=== PATIENT | female | born 1945 | race Caucasian/White ===

== ENCOUNTER 2022-10-09 17:56 | Observation (INO) | payer MEDICARE ==
[2022-10-09 19:10] LABS: INR 0.9 (<1.2); Partial Thromboplastin Time 22.4 sec (22.0-30.0); Prothrombin Time 9.9 sec (9.0-12.0)
[2022-10-09 19:14] LABS: Appearance,Urine Clear (Clear); Bacteria,Urine Occasional /hpf; Bilirubin,Urine Negative (Negative); Blood,Urine Negative (Negative); Color,Urine Light Yellow; Glucose,Urine (UA) Negative (Negative); Ketones,Urine Negative (Negative); Leukocyte Esterase,Urine Moderate (Negative); Mucus,Urine Rare /hpf; Nitrite,Urine Negative (Negative); Protein,Urine Negative (Negative); RBC,Urine 1 /hpf (0-5); Specific Gravity,Urine 1.009 (1.001-1.035); Urobilinogen,Urine <2.0 mg/dL (<2.0); WBC,Urine 7 /hpf (0-5)
[2022-10-09 19:30] LABS: ALT 22 U/L (4-34); AST 24 U/L (14-36); African American GFR (CKD) >90 (>60 ml/min/1.73 sqM); Alkaline Phosphatase 90 U/L (38-126); Amylase 47 U/L (30-110); Anion Gap 6 mmol/L; Blood Urea Nitrogen 10 mg/dL (7-17); Calcium 9.3 mg/dL (8.4-10.2); Carbon Dioxide 31 mmol/L (22-30); Chloride 97 mmol/L (98-107); Glucose 95 mg/dL (74-99); Lipase 27 U/L (23-300); Non-African American GFR(CKD) >90 (>60 ml/min/1.73 sqM); Sodium 134 mmol/L (137-145); Total Bilirubin 0.6 mg/dL (0.2-1.3); Total Protein 6.7 g/dL (6.3-8.2)
--- NOTE | 2022-10-09 19:53 | XR ---
EXAMINATION TYPE: XR KUB DATE OF EXAM: 10/09/2022 COMPARISON: None INDICATION: Abdomen pain TECHNIQUE: Single view abdomen upright view FINDINGS: There are prominent air-filled loops of colon. No free air is identified. No differential air-fluid l evels are evident. Fecal debris is within the lower colon. Tubal ligation clips are within the hemipelves. No mass effect is evident. Psoas margins are normal. No organomegaly is present. Advanced degenerative changes at the right hip. Moderately advanced degenerative changes at the left hip. IMPRESSION: 1. Mild fecal retention with prominent air-filled loops of colon.
--- NOTE | 2022-10-09 20:24 | ED ---
General Adult HPI - General Source: patient, RN notes reviewed Mode of arrival: wheelchair Limitations: no limitations <Kenya Sanchez - Last Filed: 10/09/22 20:23> <Faisal Pedro - Last Filed: 10/10/22 01:48> - General Chief complaint: Abdominal Pain Stated complaint: abd pain - sent by urgent care Time Seen by Provider: 10/09/22 20:23 - History of Present Illness Initial comments: 77-year-old female presents the emergency department with right flank pain that started last night. She is also complaining of excessive burping. Denies any chest palpitations at this time (Kenya Sanchez) Patient is a 77-year-old female with past medical history remarkable for throat cancer, chronic pain, hypertension on oral morphine at home presents emergency Department complaining of right flank pain. Sent from urgent care. This is located at a focal point over her right flank that is worse with movement. Started 1 day ago and has not improved. Denies any nausea or vomiting with it. Denies any abdominal pain otherwise. Denies any diarrhea or chest pain or shortness breath. No known fevers. No dysuria or hematuria. No other acute complaints at this time. States her pain is severe. Presents for further evaluation. (Faisal Pedro) - Related Data Home Medications Medication Instructions Recorded Confirmed Albuterol Inhaler [Ventolin Hfa 2 puff INHALATION RT-Q6H PRN 10/09/22 10/09/22 Inhaler] Atorvastatin [Lipitor] 10 mg PO HS 10/09/22 10/09/22 Gabapentin 300 mg PO BID@0700,1300 10/09/22 10/09/22 Gabapentin 600 mg PO HS@2000 10/09/22 10/09/22 Morphine Sulfate ER [Ms Contin] 15 mg PO Q12HR 10/09/22 10/09/22 Propranolol [Inderal] 10 mg PO BID 10/09/22 10/09/22 Allergies Allergy/AdvReac Type Severity Reaction Status Date / Time bee venom protein (honey bee) Allergy Anaphylaxis Verified 10/09/22 22:26 Review of Systems ROS Other: All systems not noted in ROS Statement are negative. <Kenya Sanchez - Last Filed: 10/09/22 20:23> ROS Other: All systems not noted in ROS Statement are negative. <Faisal Pedro - Last Filed: 10/10/22 01:48> ROS Statement: Those systems with pertinent positive or pertinent negative responses have been documented in the HPI. Review of Systems: CONST: Denies fever EYES: Denies blurry vision ENT: Denies nasal congestion C/V: Denies Chest pain RESP: Denies shortness of breath GI: Endorses abdominal pain : Denies dysuria SKIN: Denies rash. MSK: Denies joint pain. NEURO: Denies headache (Faisal Pedro) Past Medical History Past Medical History: Cancer, Hypertension, Osteoarthritis (OA) Additional Past Medical History / Comment(s): throat ca History of Any Multi-Drug Resistant Organisms: None Reported Past Surgical History: Cholecystectomy Additional Past Surgical History / Comment(s): cervical fusion Smoking Status: Former smoker Past Alcohol Use History: None Reported Past Drug Use History: None Reported <Kenya Sanchez - Last Filed: 10/09/22 20:23> General Exam Limitations: no limitations <Kenya Sanchez - Last Filed: 10/09/22 20:23> <Faisal Pedro - Last Filed: 10/10/22 01:48> - General Exam Comments Initial Comments: Visual Physical Exam Vital signs reviewed General: Well-appearing, nontoxic, no acute distress. Head: Normocephalic, atraumatic Eyes: PERRLA, EOMI ENT: Airway patent Chest: Nonlabored breathing Skin: No visual rash, normal skin tone Neuro: Alert and oriented 3 Musculoskeletal: No gross abnormalities (Kenya Sanchez) General: Appears in moderate distress secondary to abdominal pain. HEAD: Normal with no signs of head trauma. EYES: PERRLA, EOMI, conjunctiva normal, no discharge. ENT: Hearing grossly intact, normal oropharynx. RESPIRATORY: Clear breath sounds bilaterally. No wheezes, rales, or rhonchi. C/V: Regular rate and rhythm. S1 and S2 auscultated, no edema, peripheral pulses 2+ and intact throughout ABD: Abdomen soft, nondistended. Tenderness to palpation located over the right flank and a focal area. No radiation of the pain. Worse with movement. No guarding. No peritoneal signs. No rebound tenderness. EXT: Normal range of motion, no obvious deformity SKIN: No rashes or lesions observed on exposed skin. NEURO: Alert and oriented 4. No focal deficits. (Faisal Pedro) Course Vital Signs 10/09/22 10/09/22 10/09/22 18:28 22:46 23:54 Temperature 98.1 F Pulse Rate 59 L 56 L 79 Respiratory 18 18 18 Rate Blood Pressure 143/66 144/64 141/106 O2 Sat by Pulse 97 96 96 Oximetry 10/10/22 00:58 Temperature Pulse Rate 71 Respiratory 18 Rate Blood Pressure 148/91 O2 Sat by Pulse 94 L Oximetry Medical Decision Making - Lab Data Result diagrams: 10/09/22 18:43 <Kenya Sanchez - Last Filed: 10/09/22 20:23> - Lab Data Result diagrams: 10/09/22 18:34 10/09/22 18:43 - EKG Data -: EKG Interpreted by Me <Faisal Pedro - Last Filed: 10/10/22 01:48> - Medical Decision Making Was pt. sent in by a medical professional or institution (, PA, ELECTRICAL SERVICE TECHNICIAN, urgent care, hospital, or group home...) When possible be specific @ -No Did you speak to anyone other than the patient for history (EMS, parent, family, police, friend...)? What history was obtained from this source @ -No Did you review nursing and triage notes (agree or disagree)? Why? @ -I reviewed and agree with nursing and triage notes Were old charts reviewed (outside hosp., previous admission, EMS record, old EKG, old radiological studies, urgent care reports/EKG's, group home records)? Report findings @ -No old charts were reviewed Differential Diagnosis (chest pain, altered mental status, abdominal pain women, abdominal pain men, vaginal bleeding, weakness, fever, dyspnea, syncope, headache, dizziness, GI bleed, back pain, seizure, CVA, palpatations, mental health, musculoskeletal)? @ -Differential Abdominal Pain Women: Appendicitis, Cholecystitis, diverticulosis, ischemic bowel, pancreatitis, hepatitis, UTI, gastroenteritis, AAA, incarcerated hernia, bowel obstruction, constipation, inflammatory bowel, hepatitis, peptic ulcer disease, splenic infarction, perforated viscus, vulvitis, ovarian torsion, PID, kidney stone, placenta abruption, this is not meant to be an all-inclusive list EKG interpreted by me (3pts min.). @ -As above X-rays interpreted by me (1pt min.). @ -KUB x-ray shows no obvious acute abdominal process CT interpreted by me (1pt min.). @ -CT abdomen and pelvis revealed no obvious acute injury abdominal process. Patient does have right sided renal cysts, as well as nonspecific bowel gas. Ra diology does know mild biliary prominence within the liver. U/S interpreted by me (1pt. min.). @ -Interpreted by radiology. Revealed no obvious acute process of the bladder or kidneys. Patient does have kidney cysts on the right. What testing was considered but not performed or refused? (CT, X-rays, U/S, labs)? Why? @ -None What meds were considered but not given or refused? Why? @ -None Did you discuss the management of the patient with other professionals (pro fessionals i.e. , PA, ELECTRICAL SERVICE TECHNICIAN, lab, RT, psych nurse, high school social studies tutor, meter shop superintendent, teacher, amphibious operations officer, case management coordinator)? Give summary @ -Discuss the case with the admitting physician, Dr. fernando who accepted the patient. Patient was city call admission. Was smoking cessation discussed for >3mins.? @ -No Was critical care preformed (if so, how long)? @ -No Were there social determinants of health that impacted care today? How? (Homelessness, low income, unemployed, alcoholism, drug addiction, transportation, low edu. Level, literacy, decrease access to med. care, nursing home, rehab)? @ -No Was there de-escalation of care discussed even if they declined (Discuss DNR or withdrawal of care, Hospice)? DNR status @ -No What co-morbidities impacted this encounter? (DM, HTN, Smoking, COPD, CAD, Cancer, CVA, ARF, Chemo, Hep., AIDS, mental health diagnosis, sleep apnea, morbid obesity)? @ -Chronic pain Was patient admitted / discharged? Hospital course, mention meds given and route, prescriptions, significant lab abnormalities, going to OR and other pertinent info. @ -Based on the patient's presentation and physical exam, patient was initially worked up as a quick note including abdominal laboratory studies as well as cardiac labs. Blood work has returned and is relatively unremarkable. Findings are within acceptable limits including an undetectable troponin. Urine is not conclusive for a UTI. No evidence of hematuria. No other findings on labs. K UB x-ray unremarkable. EKG shows no acute process. I did recommend a CT and pelvis at this time and we will symptomatically treated the patient with IV fluids and pain medications as well as IV Zofran and Protonix. She was in agreement this plan. CT imaging shows no obvious acute intra-abdominal process to explain her symptoms. We did add on an ultrasound of her kidney and bladder is which also shows no evidence of hydronephrosis or indirect evidence of kidney stones. Patient does have right sided renal cysts which would not explain her current symptoms. She still complaining of severe pain despite being dosed additional pain medications including gabapentin and Dilaudid. I recommended admission and observation for intractable pain. She was in agreement with this plan. Pain could be musculoskeletal in nature but patient is having no relief with analgesic medications. I spoke with the admitting physician, Dr. Fernando who accepted the patient. Undiagnosed new problem with uncertain prognosis? @ -No Drug Therapy requiring intensive monitoring for toxicity (Heparin, Nitro, Insulin, Cardizem)? @ -No Were any procedures done? @ -No Diagnosis/symptom? @ -Intractable abdominal pain of unknown etiology Acute, or Chronic, or Acute on Chronic? @ -Acute Uncomplicated (without systemic symptoms) or Complicated (systemic symptoms)? @ -Uncomplicated Side effects of treatment? @ -No Exacerbation, Progression, or Severe Exacerbation? @ -No Poses a threat to life or bodily function? How? (Chest pain, [place], [place], pneumonia, PE, COPD, DKA, ARF, appy, cholecystitis, CVA, Diverticulitis, Homicidal, Suicidal, threat to staff... and all critical care pts) @ -No (Faisal Pedro) - Lab Data Lab Results 10/09/22 10/09/22 10/09/22 Range/Units 18:34 18:34 18:43 WBC 7.2 (3.8-10.6) k/uL RBC 4.07 (3.80-5.40) m/uL Hgb 13.1 (11.4-16.0) gm/dL Hct 40.0 (34.0-46.0) % MCV 98.2 (80.0-100.0) fL MCH 32.2 (25.0-35.0) pg MCHC 32.8 (31.0-37.0) g/dL RDW 13.5 (11.5-15.5) % Plt Count 289 (150-450) k/uL MPV 9.3 Neutrophils % 66 % Lymphocytes % 15 % Monocytes % 15 % Eosinophils % 1 % Basophils % 1 % Neutrophils # 4.7 (1.3-7.7) k/uL Lymphocytes # 1.1 (1.0-4.8) k/uL Monocytes # 1.1 H (0-1.0) k/uL Eosinophils # 0.1 (0-0.7) k/uL Basophils # 0.0 (0-0.2) k/uL PT 9.9 (9.0-12.0) sec INR 0.9 (<1.2) APTT 22.4 (22.0-30.0) sec Sodium (137-145) mmol/L Potassium (3.5-5.1) mmol/L Chloride (98-107) mmol/L Carbon Dioxide (22-30) mmol/L Anion Gap mmol/L BUN (7-17) mg/dL Creatinine (0.52-1.04) mg/dL Est GFR (CKD-EPI)AfAm (>60 ml/min/1.73 sqM) Est GFR (CKD-EPI)NonAf (>60 ml/min/1.73 sqM) Glucose (74-99) mg/dL Calcium (8.4-10.2) mg/dL Total Bilirubin (0.2-1.3) mg/dL AST (14-36) U/L ALT (4-34) U/L Alkaline Phosphatase (38-126) U/L Troponin I <0.012 (0.000-0.034) ng/mL Total Protein (6.3-8.2) g/dL Albumin (3.5-5.0) g/dL Amylase (30-110) U/L Lipase (23-300) U/L Urine Color Urine Appearance (Clear) Urine pH (5.0-8.0) Ur Specific [place] (1.001-1.035) Urine Protein (Negative) Urine Glucose (UA) (Negative) Urine Ketones (Negative) Urine Blood (Negative) Urine Nitrite (Negative) Urine Bilirubin (Negative) Urine Urobilinogen (<2.0) mg/dL Ur Leukocyte Esterase (Negative) Urine RBC (0-5) /hpf Urine WBC (0-5) /hpf Urine Bacteria (None) /hpf Urine Mucus (None) /hpf 10/09/22 10/09/22 Range/Units 18:43 18:43 WBC (3.8-10.6) k/uL RBC (3.80-5.40) m/uL Hgb (11.4-16.0) gm/dL Hct (34.0-46.0) % MCV (80.0-100.0) fL MCH (25.0-35.0) pg MCHC (31.0-37.0) g/dL RDW (11.5-15.5) % Plt Count (150-450) k/uL MPV Neutrophils % % Lymphocytes % % Monocytes % % Eosinophils % % Basophils % % Neutrophils # (1.3-7.7) k/uL Lymphocytes # (1.0-4.8) k/uL Monocytes # (0-1.0) k/uL Eosinophils # (0-0.7) k/uL Basophils # (0-0.2) k/uL PT (9.0-12.0) sec INR (<1.2) APTT (22.0-30.0) sec Sodium 134 L (137-145) mmol/L Potassium 4.0 (3.5-5.1) mmol/L Chloride 97 L (98-107) mmol/L Carbon Dioxide 31 H (22-30) mmol/L Anion Gap 6 mmol/L BUN 10 (7-17) mg/dL Creatinine 0.55 (0.52-1.04) mg/dL Est GFR (CKD-EPI)AfAm >90 (>60 ml/min/1.73 sqM) Est GFR (CKD-EPI)NonAf >90 (>60 ml/min/1.73 sqM) Glucose 95 (74-99) mg/dL Calcium 9.3 (8.4-10.2) mg/dL Total Bilirubin 0.6 (0.2-1.3) mg/dL AST 24 (14-36) U/L ALT 22 (4-34) U/L Alkaline Phosphatase 90 (38-126) U/L Troponin I (0.000-0.034) ng/mL Total Protein 6.7 (6.3-8.2) g/dL Albumin 4.0 (3.5-5.0) g/dL Amylase 47 (30-110) U/L Lipase 27 (23-300) U/L Urine Color Light Yellow Urine Appearance Clear (Clear) Urine pH 7.0 (5.0-8.0) Ur Specific [place] 1.009 (1.001-1.035) Urine Protein Negative (Negative) Urine Glucose (UA) Negative (Negative) Urine Ketones Negative (Negative) Urine Blood Negative (Negative) Urine Nitrite Negative (Negative) Urine Bilirubin Negative (Negative) Urine Urobilinogen <2.0 (<2.0) mg/dL Ur Leukocyte Esterase Moderate H (Negative) Urine RBC 1 (0-5) /hpf Urine WBC 7 H (0-5) /hpf Urine Bacteria Occasional H (None) /hpf Urine Mucus Rare H (None) /hpf - EKG Data EKG Comments: 12-lead Electrocardiogram Interpretation Note EKG was reviewed and interpreted by myself. 12-lead ECG performed at 1843 is interpreted by me as revealing normal sinus rhythm with PACs at a rate of 68 beats per minute. Left axis deviation. [place] interval is 169 ms, QRS durations 105 ms, QTc is 418 ms.. There were no ST or T wave abnormalities to suggest myocardial ischemia or injury. R wave progression across the precordium was satisfactory. By my interpretation this EKG is non-diagnostic for acute ischemia. (Faisal Pedro) Disposition <Kenya Sanchez - Last Filed: 10/09/22 20:23> Time of Disposition: 00:12 <Faisal Pedro - Last Filed: 10/10/22 01:48> Clinical Impression: Intractable abdominal pain, Abdominal pain of unknown etiology Disposition: ADMITTED IP TO THIS HOSP Condition: Stable Referrals: None,Stated [Primary Care Provider] - 1-2 days
[2022-10-09 22:15] LABS: Basophils % (A) 1 %; Eosinophils # (A) 0.1 k/uL (0-0.7); Eosinophils % (A) 1 %; HGB 13.1 gm/dL (11.4-16.0); Lymphocytes # (A) 1.1 k/uL (1.0-4.8); Lymphocytes % (A) 15 %; MCH 32.2 pg (25.0-35.0); MCHC 32.8 g/dL (31.0-37.0); MCV 98.2 fL (80.0-100.0); Mean Platelet Volume 9.3; Monocytes # (A) 1.1 k/uL (0-1.0); Monocytes % (A) 15 %; Neutrophils # (A) 4.7 k/uL (1.3-7.7); Neutrophils % (A) 66 %; Platelet Count 289 k/uL (150-450); RBC 4.07 m/uL (3.80-5.40); RDW 13.5 % (11.5-15.5); WBC 7.2 k/uL (3.8-10.6)
[2022-10-09] MEDS ORDERED: PANTOPRAZOLE 40 MG/10 ML VIAL IVP STA (22:30)
[2022-10-09] MEDS ORDERED: ONDANSETRON 4 MG/2 ML VIAL IVP STA (22:30)
[2022-10-09] MEDS ORDERED: SODIUM CHLORIDE 0.9% 1,000 ML IV STA (22:30)
[2022-10-09] MEDS ORDERED: MORPHINE SULFATE 4 MG/ML SYRINGE IVP STA (22:30)
[2022-10-09] MEDS ORDERED: LIDOCAINE 5% PATCH TOPICAL STA (22:30)
[2022-10-09] MEDS ORDERED: GABAPENTIN 300 MG CAP PO STA (23:38)
--- NOTE | 2022-10-09 23:44 | CT ---
EXAMINATION TYPE: CT abdomen pelvis w con DATE OF EXAM: 10/09/2022 COMPARISON: None INDICATION: RT FLANK/BACK PAIN DLP: 492.6 mGycm, Automated exposure control for dose reduction was used. CONTRAST: 80 mL of Isovue 370. Study performed without Oral Contrast TECHNIQUE: Axial images were obtained from above the diaphragm to the pubic rami in the axial plane a t 5 mm thick sections. Reconstructed images are reviewed on the computer in the coronal plane. FINDINGS: Limited CT sections are obtained the lung bases. The lung bases are clear. CT ABDOMEN: Liver: There is some mild biliary prominence. Bile duct within the head of the pancreas is normal for postcholecystectomy patient. Spleen: Normal Pancreas: Normal Adrenal glands: The adrenal glands are normal. Gallbladder: Normal Kidneys: No masses are evident. No hydronephrosis is present. There is a 0.9 cm cyst of the superio r pole right kidney. There is a 3.8 cm cyst inferior pole right kidney. Delayed images were obtained through the kidneys, which remain unremarkable. Aorta: Vascular calcification is within the aorta. Inferior vena cava: Normal. CT PELVIS: Loops of bowel within the abdomen and pelvis are normal. Abundant bowel gas in nondilated loops of hailey wel appears to be present. Some loops of colon may be at the upper limits of normal for size. No free air is identified. Fecal debris is within the ascending colon. Descending colon appears normal. Some fecal material is present. The study is lateral contrast limiting bowel evaluation. Appendix: Not identified. No inflammatory changes evident. Urinary bladder: Normal. Genitourinary structures: Uterus appears normal. Adnexa are unremarkable. Osseous structures: No suspicious lytic or sclerotic lesions. Subchondral cysts are within the right acetabulum. Facet hypertrophy is in the lower lumbar spine which may be contributing to some spinal c anal narrowing at the L4-5 level. IMPRESSIONS: 1. Abundant bowel gas with loops of bowel the upper limits for normal. Follow-up can be performed as clinically indicated. 2. Right renal cysts. 3. Suggestion of some mild biliary prominence within the liver.
[2022-10-10] MEDS ORDERED: HYDROmorphone 0.5 MG/0.5 ML SYRINGE IVP STA (00:16)
--- NOTE | 2022-10-10 01:04 | US ---
EXAM: US Retroperitoneal Complete, Renal CLINICAL HISTORY: ITS.REASON US Reason: right flank pain TECHNIQUE: Real-time complete ultrasound of the retroperitoneum with image documentation. COMPARISON: Prior CT 10/09/2022 FINDINGS: Right kidney: Right kidney 9.0 cm in length. 2 right renal cysts. Largest cyst in the right inferior pole 4.1 x 4.3 x 4.0 cm. No stones. No hydronephrosis. Left kidney: Unremarkable. No stones. No solid mass. No hydronephrosis. Bladder: Bilateral ureteral jets visualized. Bladder appears normal. Somewhat limited visualization due to bowel gas. IMPRESSION: No evidence of acute abnormality.
[2022-10-10] MEDS ORDERED: ONDANSETRON 4 MG/2 ML VIAL IVP PRN (01:48)
[2022-10-10] MEDS ORDERED: NALOXONE 0.4 MG/ML 1 ML VIAL IV PRN (01:48)
[2022-10-10] MEDS ORDERED: HYDROmorphone 0.5 MG/0.5 ML SYRINGE IVP PRN (01:48)
--- NOTE | 2022-10-10 04:40 | P.HPIM ---
History of Present Illness H&P Date: 10/10/22 The patient is a 77-year-old female with a PMH of head and neck cancer now in remission, hyperlipidemia, and hypertension who presents to the emergency room with complaints of right flank pain. The patient reports that her pain started roughly 24 hours prior to arrival, his 8 out of 10 on maximal intensity, is worsened with movement, nonradiating, and is associated with belching. She denied experiencing urinary complaints, fever, or diarrhea. She also denied chest discomfort, shortness of breath, or cough. She reports that her pain has improved to a 5 out of 10 at the time of interview. She denied prior history of such pain. Reports that the pain is not associated with leg movements. She underwent an extensive evaluation in the emergency room. A CT abdomen and pelvis revealed abundant bowel gas with right renal cysts. Bladder ultrasound is unremarkable. EKG revealed sinus rhythm with PVCs at 68 bpm with left axis deviation. Laboratory evaluation is remarkable for sodium 134, chloride 97, CO2 31, and a relatively unremarkable UA. ED documentation reviewed and case discussed with ED provider. Review of systems: Pertinent positives and negatives as discussed in HPI, a complete review of systems was performed and all other systems are negative. Physical examination: Vital signs reviewed General: non toxic, no distress, appears at stated age, normal weight Derm: no unusual rashes/lesions, warm Head: atraumatic, normocephalic, symmetric Eyes: EOMI, no lid lag, anicteric sclera, pupils equal round reactive to light ENT: Nose and ears atraumatic Neck: No cervical lymphadenopathy, trachea midline, supple Mouth: no lip lesion, mucus membranes moist Cardiovascular: S1S2 reg, no murmur, positive dorsalis pedis pulse bilateral, no edema Lungs: CTA bilateral, no rhonchi, no rales, no accessory muscle use Abdominal: soft, nontender to palpation, no guarding Ext: muscle strength 5 out of 5 in all 4 extremities grossly, no gross muscle atrophy, no contractures, no lower back or right flank tenderness noted Neuro: CN II-XI grossly intact, no gross focal neuro deficits Psych: Alert, oriented, appropriate affect Assessment: Intractable right flank pain, suspect musculoskeletal in nature Chronic conditions: Hypertension, hyperlipidemia Imaging: A CT abdomen and pelvis revealed abundant bowel gas with right renal cysts. Bladder ultrasound is unremarkable. EKG revealed sinus rhythm with PVCs at 68 bpm with left axis deviation. Data Review: Laboratory evaluation is remarkable for sodium 134, chloride 97, CO2 31, and a relatively unremarkable UA. Plan: Pain control IV fluids Continued home medications DVT prophylaxis: Heparin subcu The patient is admitted with an anticipated less than 2 midnight stay for evaluation of flank pain CODE STATUS: Full Code Discussed with: Patient Anticipated discharge place: Home Past Medical History Past Medical History: Cancer, Hypertension, Osteoarthritis (OA) Additional Past Medical History / Comment(s): throat ca History of Any Multi-Drug Resistant Organisms: None Reported Past Surgical History: Cholecystectomy Additional Past Surgical History / Comment(s): cervical fusion Smoking Status: Former smoker Past Alcohol Use History: None Reported Past Drug Use History: None Reported - Past Family History Mother Family Medical History: COPD Medications and Allergies Home Medications Medication Instructions Recorded Confirmed Type Albuterol Inhaler [Ventolin Hfa 2 puff INHALATION RT-Q6H PRN 10/09/22 10/09/22 History Inhaler] Atorvastatin [Lipitor] 10 mg PO HS 10/09/22 10/09/22 History Gabapentin 300 mg PO BID@0700,1300 10/09/22 10/09/22 History Gabapentin 600 mg PO HS@2000 10/09/22 10/09/22 History Morphine Sulfate ER [Ms Contin] 15 mg PO Q12HR 10/09/22 10/09/22 History Propranolol [Inderal] 10 mg PO BID 10/09/22 10/09/22 History Allergies Allergy/AdvReac Type Severity Reaction Status Date / Time bee venom protein (honey bee) Allergy Anaphylaxis Verified 10/09/22 22:26 Physical Exam Vitals: Vital Signs Temp Pulse Resp BP Pulse Ox 10/10/22 04:13 45 L 18 111/69 94 L 10/10/22 02:22 56 L 16 123/58 96 10/10/22 00:58 71 18 148/91 94 L 10/09/22 23:54 79 18 141/106 96 10/09/22 22:46 56 L 18 144/64 96 10/09/22 18:28 98.1 F 59 L 18 143/66 97 Intake and Output 10/09/22 10/09/22 10/10/22 14:59 22:59 06:59 Other: Weight 47.627 kg Results CBC & Chem 7: 10/09/22 18:34 10/09/22 18:43 Labs: Abnormal Lab Results - Last 24 Hours (Table) 10/09/22 10/09/22 10/09/22 Range/Units 18:34 18:43 18:43 Monocytes # 1.1 H (0-1.0) k/uL Sodium 134 L (137-145) mmol/L Chloride 97 L (98-107) mmol/L Carbon Dioxide 31 H (22-30) mmol/L Ur Leukocyte Esterase Moderate H (Negative) Urine WBC 7 H (0-5) /hpf Urine Bacteria Occasional H (None) /hpf Urine Mucus Rare H (None) /hpf
[2022-10-10] MEDS: GABAPENTIN 300 MG CAP PO SCH ×2 (08:23→14:23)
[2022-10-10] MEDS: HEPARIN SODIUM,PORCINE/PF 5,000 UNIT/0.5 ML SYRINGE SQ SCH ×2 (08:23→20:20)
[2022-10-10] MEDS: PROPRANOLOL 10 MG TAB PO SCH (08:23)
[2022-10-10 08:24] VITALS: RESP 16
[2022-10-10] MEDS ORDERED: ORPHENADRINE 30 MG/ML 2 ML VIAL IVP STA (11:13)
[2022-10-10] MEDS ORDERED: KETOROLAC 15 MG/ML 1 ML VIAL IVP STA (11:13)
[2022-10-10] MEDS ORDERED: DEXAMETHASONE SOD PHOSPHATE 10 MG/ML 1 ML VIAL IVP STA (11:13)
--- NOTE | 2022-10-10 11:40 | XR ---
EXAMINATION TYPE: XR lumbar spine 2 or 3V DATE OF EXAM: 10/10/2022 Comparison: None Clinical History: 77-year-old female Right lower back pain with sciatica right-sided Findings: Moderate multilevel disc disease. Facet hypertrophic facet arthropathy throughout. Degenerative grade 1 spondylolisthesis L2-L3 and L3-L4. Degenerative grade 1 anterolisthesis of L4-L5 and L5-S1. Verteb ral body heights are preserved. Impression: 1. Moderate multilevel degenerative disc disease. Advanced hypertrophic facet arthropathy throughout. 2. Degenerative grade 1 spondylolisthesis L2-L3, L3-L4, L4-L5, and L5-S1. 3. No vertebral compression collapse.
[2022-10-10 14:23] VITALS: BMI 18.6
[2022-10-10] MEDS ORDERED: LIDOCAINE 5% PATCH TOPICAL SCH (17:00)
--- NOTE | 2022-10-10 17:02 | P.PN ---
Subjective Progress Note Date: 10/10/22 Hospital course: Patient is a very pleasant 77-year-old female with a past medical history of throat cancer now in remission, hypertension, hyperlipidemia, chronic neck pain, and osteoarthritis. She presented to the emergency department with right lower flank pain. Patient underwent workup in the emergency department. KUB revealed mild fecal retention with prominent air-filled loops of colon. CT abdomen and pelvis with contrast showing abundant bowel gas with loops of bowel in the upper limits of normal, right renal cysts, mild biliary prominence within the liver, and facet hypertrophy in the lower lumbar spine contributing to some spinal canal narrowing at the L4 through L5 level. Renal and retroperitoneal ultrasound and completed showing 2 right renal cyst with no stones and no evidence of hydronephrosis with radiology report stating no evidence of acute abnormalities. EKG was completed showing normal sinus rhythm at 68 bpm with frequent PVCs and T-wave inversion in lateral lead aVL. Labs completed and reviewed. CBC unremarkable. Coagulation profile also normal findings. BMP revealing mild hyponatremia with sodium 134, mild hypochloremia with chloride of 97, and hypercarbia with bicarb of 31. Liver profile unremarkable. Troponin less than 0.012. Urinalysis negative for blood, protein, or infection. Patient was admitted under our services. Physical exam: Patient seen and evaluated at bedside this morning. She reports increased right lower flank/back pain overnight radiating laterally down right thigh into her knee. Upon examination patient does have noted right musculoskeletal pain to right lateral side of lumbar spine into right buttocks. Patient to be medicated for pain management in order placed for x-ray at this time. Patient denies having any weakness, numbness, or tingling in her extremities. She denies having any involuntary loss of bowel or bladder and reports having normal urinary and bowel function. Vital signs reviewed and stable. General: Nontoxic, no distress and appears stated age. Derm: Skin warm and dry, normal coloration for ethnicity. Head: Atraumatic, normocephalic and symmetric. Eyes: EOMs intact, no lid lag, and anicteric sclera Mouth: no lip lesions, mucus membranes moist Cardiovascular: regular rate and rhythm with normal S1S2, no murmur, positive posterior tibial pulses bilaterally, and cap refill < 2 seconds. Lungs: Respirations even, regular, and unlabored on room air. Lungs CTA bilate rally, no rhonchi, no rales, no wheezing, and no accessory muscle usage. Abdominal: soft, nontender to palpation, no guarding, no appreciable organomegaly Ext: ROM intact. No gross muscle atrophy, no edema, no contractures Neuro: Speech clear, face symmetrical and CN II-XII grossly intact with no noted focal neuro deficits Psych: Alert and oriented to person, place, time, and situation. Appropriate and pleasant affect. Assessment and Plan of Care: Lower back pain with right-sided sciatica Right lower flank pain Osteoarthritis -Order placed for x-ray lumbar spine and upon review of radiology report x-ray finding moderate multilevel disc disease with advanced hypertrophic facet arthropathic the throughout. No signs of vertebral compression or collapse. -Consult placed for orthospine surgery to evaluate. -Order placed for Toradol 15 mg IVP, Norflex 60 mg IVP, and Decadron 10 mg IVP 1 dose. -Patient placed on fall precautions. -Lidocaine patch every 24 hours and K pad as needed for pain/discomfort. -Consult placed physical and occupational therapy. CODE STATUS: Full code DVT prophylaxis: Heparin Discussed with: Patient and RN Anticipated discharge date: Likely within the next [address]: Home Patient was seen independently by Nurse Pracitioner. This document was prepared using [employer] dictation software. 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 Objective - Vital Signs Vital signs: Vital Signs Temp 97.8 F 10/10/22 07:30 Pulse 85 10/10/22 07:30 Resp 16 10/10/22 07:30 BP 165/80 10/10/22 07:30 Pulse Ox 94 L 10/10/22 07:30 FiO2 Intake & Output 10/09/22 10/10/22 10/10/22 18:59 06:59 18:59 Weight 47.627 kg - Labs CBC & Chem 7: 10/09/22 18:34 10/09/22 18:43 Labs: Abnormal Lab Results - Last 24 Hours (Table) 10/09/22 10/09/22 10/09/22 Range/Units 18:34 18:43 18:43 Monocytes # 1.1 H (0-1.0) k/uL Sodium 134 L (137-145) mmol/L Chloride 97 L (98-107) mmol/L Carbon Dioxide 31 H (22-30) mmol/L Ur Leukocyte Esterase Moderate H (Negative) Urine WBC 7 H (0-5) /hpf Urine Bacteria Occasional H (None) /hpf Urine Mucus Rare H (None) /hpf
[2022-10-10] MEDS ORDERED: GABAPENTIN 300 MG CAP PO SCH (20:00)
[2022-10-10] MEDS: MORPHINE SULFATE ER 15 MG TABLET PO SCH (20:21)
[2022-10-10] MEDS ORDERED: ATORVASTATIN 10 MG TAB PO SCH (21:00)
[2022-10-11] MEDS: PROPRANOLOL 10 MG TAB PO SCH ×2 (01:02→09:06)
[2022-10-11] MEDS: GABAPENTIN 300 MG CAP PO SCH (05:45)
[2022-10-11 08:26] VITALS: BP 116/70; PULSE 75; TEMP 98.1
[2022-10-11 09:01] LABS: Basophils # (A) 0.01 X 10*3/uL (0.00-0.10); Basophils % (A) 0.1 %; Eosinophils # (A) 0 X 10*3/uL (0.04-0.35); Eosinophils % (A) 0 %; HCT 36.3 % (37.2-46.3); HGB 11.5 g/dL (12.0-15.0); Immature Grans, Automated 0.6 %; Lymphocytes # (A) 0.71 X 10*3/uL (0.90-5.00); Lymphocytes % (A) 9.8 %; MCH 31.9 pg (27.0-32.0); MCHC 31.7 g/dL (32.0-37.0); MCV 100.6 fL (80.0-97.0); Mean Platelet Volume 9.9 fL (9.5-12.2); Monocytes # (A) 0.45 X 10*3/uL (0.20-1.00); Monocytes % (A) 6.2 %; NRBC Per 100 WBC 0 /100 WBCS (0.0-0.0); Neutrophils # (A) 6.01 X 10*3/uL (1.80-7.70); Neutrophils % (A) 83.3 %; Platelet Count 289 X 10*3/uL (140-440); RBC 3.61 X 10*6/uL (4.10-5.20); RDW 13.5 % (11.5-14.5); WBC 7.22 X 10*3/uL (4.50-10.00)
[2022-10-11] MEDS: HEPARIN SODIUM,PORCINE/PF 5,000 UNIT/0.5 ML SYRINGE SQ SCH (09:05)
[2022-10-11] MEDS: MORPHINE SULFATE ER 15 MG TABLET PO SCH (09:06)
[2022-10-11 09:29] LABS: Anion Gap 8.2 mmol/L (10.00-18.00); BUN/Creat Ratio 16.89 Ratio (12.00-20.00); Blood Urea Nitrogen 15.2 mg/dL (9.0-27.0); Calcium 9.3 mg/dL (8.7-10.3); Carbon Dioxide 28.8 mmol/L (20.0-27.5); Non-African American GFR(CKD) 61.2 (60.0-200.0); Potassium 5.1 mmol/L (3.5-5.5)
[2022-10-11] MEDS ORDERED: DOCUSATE 100 MG CAP PO STA (09:53)
--- NOTE | 2022-10-11 09:58 | P.DS ---
Providers Date of admission: 10/10/22 01:50 Expected date of discharge: 10/11/22 Attending physician: Juan Rosa MD Primary care physician: Stated None Hospital Course: Discharge Diagnosis: Lower back pain with right-sided sciatica. Lumbar spine x-ray completed revealing moderate multilevel disc disease with advanced hypertrophic facet arthropathic the throughout witho signs of vertebral compression or collapse. Patient free from any neurological complaints denies any numbness/tingling/weakness in extremities and denies any involuntary loss of bowel or bladder or saddlebag anesthesias. Patient received medications and reported significant improvement of pain/discomfort. Patient ambulating independently without any difficulties or complaints. Patient to follow up outpatient with orthospine specialist for further evaluation. Medically stable for discharge at this time. Osteoarthritis Hypertension Hyperlipidemia Chronic neck pain Hospital Course: Patient is a very pleasant 77-year-old female with a past medical history of throat cancer now in remission, hypertension, hyperlipidemia, chronic neck pain, and osteoarthritis. She presented to the emergency department with right lower flank pain. Patient underwent workup in the emergency department. KUB revealed mild fecal retention with prominent air-filled loops of colon. CT abdomen and pelvis with contrast showing abundant bowel gas with loops of bowel in the upper limits of normal, right renal cysts, mild biliary prominence within the liver, and facet hypertrophy in the lower lumbar spine contributing to some spinal canal narrowing at the L4 through L5 level. Renal and retroperitoneal ultrasound and completed showing 2 right renal cyst with no stones and no e vidence of hydronephrosis with radiology report stating no evidence of acute abnormalities. EKG was completed showing normal sinus rhythm at 68 bpm with frequent PVCs and T-wave inversion in lateral lead aVL. Labs completed and reviewed. CBC unremarkable. Coagulation profile also normal findings. BMP revealing mild hyponatremia with sodium 134, mild hypochloremia with chloride of 97, and hypercarbia with bicarb of 31. Liver profile unremarkable. Troponin less than 0.012. Urinalysis negative for blood, protein, or infection. Patient was admitted under our services. Physical exam: Vital signs reviewed and stable. General: Nontoxic, no distress and appears stated age. Derm: Skin warm and dry, normal coloration for ethnicity. Head: Atraumatic, normocephalic and symmetric. Eyes: EOMs intact, no lid lag, and anicteric sclera Mouth: no lip lesions, mucus membranes moist Cardiovascular: regular rate and rhythm with normal S1S2, no murmur, positive posterior tibial pulses bilaterally, and cap refill < 2 seconds. Lungs: Respirations even, regular, and unlabored on room air. Lungs CTA bilaterally, no rhonchi, no rales, no wheezing, and no accessory muscle usage. Abdominal: soft, nontender to palpation, no guarding, no appreciable organomegaly Ext: ROM intact. No gross muscle atrophy, no edema, no contractures Neuro: Speech clear, face symmetrical and CN II-XII grossly intact with no noted focal neuro deficits Psych: Alert and oriented to person, place, time, and situation. Appropriate and pleasant affect. A total of 31 minutes of time were spent preparing this complex discharge summary. Pt was discharged on 10/11/22 at 9:57 AM Patient was seen independently by Nurse Practitioner. This document was prepared using [email or web address] dictation software. Please allow for errors in major general while rare they do occur. Patient Condition at Discharge: Stable Plan - Discharge Summary New Discharge Prescriptions: New Lidocaine 5% Patch [Lidoderm 5% Patch] 1 patch TOPICAL Q24H 30 Days #30 patch Ibuprofen [Motrin] 800 mg PO Q8H PRN #30 tab PRN Reason: Pain Continue Gabapentin 300 mg PO BID@0700,1300 Morphine Sulfate ER [Ms Contin] 15 mg PO Q12HR Propranolol [Inderal] 10 mg PO BID Gabapentin 600 mg PO HS@1999 Albuterol Inhaler [Ventolin Hfa Inhaler] 2 puff INHALATION RT-Q6H PRN PRN Reason: Shortness Of Breath Atorvastatin [Lipitor] 10 mg PO HS Discharge Medication List Albuterol Inhaler [Ventolin Hfa Inhaler] 2 puff INHALATION RT-Q6H PRN 10/09/22 [History] Atorvastatin [Lipitor] 10 mg PO HS 10/09/22 [History] Gabapentin 300 mg PO BID@0700,1300 10/09/22 [History] Gabapentin 600 mg PO HS@2000 10/09/22 [History] Morphine Sulfate ER [Ms Contin] 15 mg PO Q12HR 10/09/22 [History] Propranolol [Inderal] 10 mg PO BID 10/09/22 [History] Ibuprofen [Motrin] 800 mg PO Q8H PRN #30 tab 10/11/22 [Rx] Lidocaine 5% Patch [Lidoderm 5% Patch] 1 patch TOPICAL Q24H 30 Days #30 patch 10/11/22 [Rx] Follow up Appointment(s)/Referral(s): Marilu Win DO [Doctor of Osteopathic Medicine] - 10/31/22 9:30 am (Chronic back pain with right-sided sciatica) Ronny Wilson MD [STAFF PHYSICIAN] - 1 Week Patient Instructions/Handouts: Back Pain (GEN), Lower Back Exercises (GEN) Activity/Diet/Wound Care/Special Instructions: Activity: As tolerated. Take breaks as needed. Diet: Heart healthy and carb consistent diet. Avoid salts, or foods with hidden salts such as canned or boxed foods and frozen dinners. Extra salt makes your heart work harder and traps the fluid in your body for longer. Special Instructions: Take all of your medications as directed and remember to keep all of your doctor's appointments and follow-up as needed. Thank you for allowing us to participate in your care, it was truly a pleasure having you for our patient!!! Discharge/Stand Alone Forms: Who Do I Call?, Community Resources, Area PCPs
== END 2022-10-11 10:55 ==
LOC: EC 17:56 → 6NMEDSUR 10-10 01:50
PROVIDERS: ADMIT Internal Medicine; ATTEND Internal Medicine
DX: M54.41 Lumbago with sciatica, right side (principal); E87.1 Hypo-osmolality and hyponatremia; M43.16 Spondylolisthesis, lumbar region; E87.8 Other disorders of electrolyte and fluid balance, not elsewhere classified; M51.36 Other intervertebral disc degeneration, lumbar region; M47.816 Spondylosis without myelopathy or radiculopathy, lumbar region; M48.061 Spinal stenosis, lumbar region without neurogenic claudication; I10 Essential (primary) hypertension; I49.3 Ventricular premature depolarization; N28.1 Cyst of kidney, acquired; E78.5 Hyperlipidemia, unspecified; R14.3 Flatulence; K59.00 Constipation, unspecified; G89.29 Other chronic pain; M54.2 Cervicalgia; M19.90 Unspecified osteoarthritis, unspecified site; Z79.899 Other long term (current) drug therapy; Z79.891 Long term (current) use of opiate analgesic; Z91.030 Bee allergy status; Z85.819 Personal history of malignant neoplasm of unspecified site of lip, oral cavity, and pharynx; Z90.49 Acquired absence of other specified parts of digestive tract; Z98.1 Arthrodesis status; Z82.5 Family history of asthma and other chronic lower respiratory diseases
CPT/HCPCS: 96372 ×2; 96375 ×3; 96361; 96374; 99285; 36415; 93005; 97162; 97166; 80053; 80048; 82150; 83690; 84484; 85025 ×2; 85610; 85730; 81001; 72100; 74018; 76770; 74177; G0378 ×2; J2270; J1100; J2360; J2405; J1885; C9113; J1170; Q9967; J1644 ×2

== ENCOUNTER 2022-10-20 15:04 | Emergency (ER) | payer BC, MEDICARE ==
--- NOTE | 2022-10-20 15:36 | ED ---
Abdominal Pain HPI - General Chief Complaint: Abdominal Pain Stated Complaint: ABD PAIN Time Seen by Provider: 10/20/22 15:35 Source: patient, RN notes reviewed, old records reviewed Mode of arrival: wheelchair Limitations: no limitations - History of Present Illness Initial Comments: This is a 77-year-old female to the emergency department for evaluation persistent vomiting burping belching abdominal pain bloating. History of gallbladder surgery history of bowel obstruction. Patient was sent from urgent care for evaluation and treatment MD Complaint: abdominal pain, other (Nausea vomiting bloating) -: hour(s) Location: diffuse Radiation: epigastric, suprapubic Migration to: no migration Severity: moderate Severity scale (1-10): 4 Improves With: nothing Worsens With: nothing Associated Symptoms: denies other symptoms, nausea, vomiting Treatments Prior to Arrival: other (0) - Related Data Home Medications Medication Instructions Recorded Confirmed Albuterol Inhaler [Ventolin Hfa 2 puff INHALATION RT-Q6H PRN 10/09/22 10/09/22 Inhaler] Atorvastatin [Lipitor] 10 mg PO HS 10/09/22 10/09/22 Gabapentin 300 mg PO BID@0700,1300 10/09/22 10/09/22 Gabapentin 600 mg PO HS@2000 10/09/22 10/09/22 Morphine Sulfate ER [Ms Contin] 15 mg PO Q12HR 10/09/22 10/09/22 Propranolol [Inderal] 10 mg PO BID 10/09/22 10/09/22 Previous Rx's Medication Instructions Recorded Ibuprofen [Motrin] 800 mg PO Q8H PRN #30 tab 10/11/22 Lidocaine 5% Patch [Lidoderm 5% 1 patch TOPICAL Q24H 30 Days #30 10/11/22 Patch] patch cefUROXime axetiL [Ceftin] 500 mg PO BID 7 Days #14 tab 10/21/22 Allergies Allergy/AdvReac Type Severity Reaction Status Date / Time bee venom protein (honey bee) Allergy Anaphylaxis Verified 10/20/22 15:21 Review of Systems ROS Statement: Those systems with pertinent positive or pertinent negative responses have been documented in the HPI. ROS Other: All systems not noted in ROS Statement are negative. Past Medical History Past Medical History: Cancer, Hypertension, Osteoarthritis (OA) Additional Past Medical History / Comment(s): throat ca History of Any Multi-Drug Resistant Organisms: None Reported Past Surgical History: Cholecystectomy Additional Past Surgical History / Comment(s): cervical fusion Past Psychological History: No Psychological Hx Reported Smoking Status: Former smoker Past Alcohol Use History: None Reported Past Drug Use History: None Reported - Past Family History Mother Family Medical History: COPD General Exam Limitations: no limitations General appearance: alert, in no apparent distress, anxious Head exam: Present: atraumatic, normocephalic, normal inspection Eye exam: Present: normal appearance, PERRL, EOMI. Absent: scleral icterus, conjunctival injection, periorbital swelling ENT exam: Present: normal exam, mucous membranes moist Neck exam: Present: normal inspection. Absent: tenderness, meningismus, lymphadenopathy Respiratory exam: Present: normal lung sounds bilaterally. Absent: respiratory distress, wheezes, rales, rhonchi, stridor Cardiovascular Exam: Present: regular rate, normal rhythm, normal heart sounds. Absent: systolic murmur, diastolic murmur, rubs, gallop, clicks GI/Abdominal exam: Present: soft, normal bowel sounds. Absent: distended, tenderness, guarding, rebound, rigid Extremities exam: Present: normal inspection, full ROM, normal capillary refill. Absent: tenderness, pedal edema, joint swelling, calf tenderness Back exam: Present: normal inspection Neurological exam: Present: alert, oriented X3, CN II-XII intact Psychiatric exam: Present: normal affect, normal mood Skin exam: Present: warm, dry, intact, normal color. Absent: rash Course Vital Signs 10/20/22 10/20/22 10/20/22 15:19 16:01 17:00 Temperature 98.0 F Pulse Rate 76 75 Respiratory 20 18 Rate Blood Pressure 133/83 146/84 O2 Sat by Pulse 95 98 Oximetry 10/20/22 10/20/22 10/20/22 18:00 19:00 20:00 Temperature 98.3 F Pulse Rate 83 65 93 Respiratory 17 20 13 Rate Blood Pressure 152/82 153/83 150/80 O2 Sat by Pulse 95 96 95 Oximetry 10/20/22 20:02 Temperature 98.0 F Pulse Rate Respiratory Rate Blood Pressure O2 Sat by Pulse Oximetry - Reevaluation(s) Reevaluation #1: 10/20/22 17:45 Medical records reviewed Reevaluation #2: 10/20/22 17:45 Patient informed of results questions answered Reevaluation #3: 10/20/22 17:45 No true change in symptoms here in the ER Reevaluation #4: 10/20/22 17:45 Was pt. sent in by a medical professional or institution? @ -Yes patient sent from local urgent care Did you speak to anyone other than the patient for history? @ -no Did you review nursing and triage notes? @ -agree Were old charts reviewed? @ -no Differential Diagnosis? @ -prior EKG interpreted by me (3pts min.)? @ -yes X-rays interpreted by me (1pt min.)? @ -no CT interpreted by me (1pt min.)? @ -no U/S interpreted by me (1pt. min.)? @ -no What testing was considered but not performed? (CT, X-rays, U/S, labs)? Why? @ -no What meds were considered but not given? Why? @ -no Did you discuss the management of the patient with other professionals? @ -no Did you reconcile home meds? @ -no Was smoking cessation discussed for >3mins.? @ -no Was critical care preformed (if so, how long)? @ -no Were there social determinants of health that impacted care today? How? (Homelessness, low income, unemployed, alcoholism, drug addiction, transportation, low edu. Level, literacy, decrease access to med. care, skilled nursing, rehab)? @ -no Was there de-escalation of care discussed even if they declined? (Discuss DNR or withdrawal of care, Hospice)? @ -no What co-morbidities impacted this encounter? (DM, HTN, Smoking, COPD, CAD, Cancer, CVA, Hep., AIDS, mental health diagnosis, sleep apnea, morbid obesity)? @ -none Was patient admitted / discharged? @ -69 female to the emergency department for evaluation of belching with abdominal pain here in the ER CT and lab values are normal patient symptoms are continuing to improve and she feels good for discharge home Discharge Undiagnosed new problem with uncertain prognosis? @ -no Drug Therapy requiring intensive monitoring for toxicity (Heparin, Nitro, Insulin, Cardizem)? @ -no Were any procedures done? @ -no Diagnosis/symptom? @ -Abdominal pain Acute, or Chronic, or Acute on Chronic? @ -no Uncomplicated (without systemic symptoms) or Complicated (systemic symptoms)? @ -uncomplicated Side effects of treatment? @ -no Exacerbation, Progression, or Severe Exacerbation] @ -no Poses a threat to life or bodily function? @ -no Reevaluation #5: 10/20/22 17:45 Addendum differential abdominal pain Medical Decision Making - Medical Decision Making 77 female to the emergency department for evaluation. Patient presents today for evaluation regards to weakness bowel pain and belching. Normal computed tomography scan I here in the ER patient can be discharged home - Lab Data Result diagrams: 10/20/22 15:56 10/20/22 15:56 Lab Results 10/20/22 10/20/22 10/20/22 Range/Units 15:56 15:56 15:56 WBC 6.7 (3.8-10.6) k/uL RBC 4.20 (3.80-5.40) m/uL Hgb 13.7 (11.4-16.0) gm/dL Hct 41.3 (34.0-46.0) % MCV 98.3 (80.0-100.0) fL MCH 32.6 (25.0-35.0) pg MCHC 33.1 (31.0-37.0) g/dL RDW 13.2 (11.5-15.5) % Plt Count 243 (150-450) k/uL MPV 7.3 Neutrophils % 79 % Lymphocytes % 12 % Monocytes % 6 % Eosinophils % 1 % Basophils % 0 % Neutrophils # 5.3 (1.3-7.7) k/uL Lymphocytes # 0.8 L (1.0-4.8) k/uL Monocytes # 0.4 (0-1.0) k/uL Eosinophils # 0.1 (0-0.7) k/uL Basophils # 0.0 (0-0.2) k/uL Sodium 134 L (137-145) mmol/L Potassium 4.4 (3.5-5.1) mmol/L Chloride 97 L (98-107) mmol/L Carbon Dioxide 29 (22-30) mmol/L Anion Gap 8 mmol/L BUN 19 H (7-17) mg/dL Creatinine 0.57 (0.52-1.04) mg/dL Est GFR (CKD-EPI)AfAm >90 (>60 ml/min/1.73 sqM) Est GFR (CKD-EPI)NonAf 89 (>60 ml/min/1.73 sqM) Glucose 80 (74-99) mg/dL Plasma Lactic Acid Fady 0.7 (0.7-2.0) mmol/L Calcium 9.2 (8.4-10.2) mg/dL Phosphorus 3.8 (2.5-4.5) mg/dL Magnesium 2.1 (1.6-2.3) mg/dL Total Bilirubin 0.8 (0.2-1.3) mg/dL AST 27 (14-36) U/L ALT 21 (4-34) U/L Alkaline Phosphatase 89 (38-126) U/L Total Protein 6.8 (6.3-8.2) g/dL Albumin 4.1 (3.5-5.0) g/dL Amylase 63 (30-110) U/L Lipase 28 (23-300) U/L Urine Color Urine Appearance (Clear) Urine pH (5.0-8.0) Ur Specific [place] (1.001-1.035) Urine Protein (Negative) Urine Glucose (UA) (Negative) Urine Ketones (Negative) Urine Blood (Negative) Urine Nitrite (Negative) Urine Bilirubin (Negative) Urine Urobilinogen (<2.0) mg/dL Ur Leukocyte Esterase (Negative) Urine RBC (0-5) /hpf Urine WBC (0-5) /hpf Urine WBC Clumps (None) /hpf Ur Squamous Epith Cells (0-4) /hpf Urine Bacteria (None) /hpf 10/20/22 Range/Units 17:30 WBC (3.8-10.6) k/uL RBC (3.80-5.40) m/uL Hgb (11.4-16.0) gm/dL Hct (34.0-46.0) % MCV (80.0-100.0) fL MCH (25.0-35.0) pg MCHC (31.0-37.0) g/dL RDW (11.5-15.5) % Plt Count (150-450) k/uL MPV Neutrophils % % Lymphocytes % % Monocytes % % Eosinophils % % Basophils % % Neutrophils # (1.3-7.7) k/uL Lymphocytes # (1.0-4.8) k/uL Monocytes # (0-1.0) k/uL Eosinophils # (0-0.7) k/uL Basophils # (0-0.2) k/uL Sodium (137-145) mmol/L Potassium (3.5-5.1) mmol/L Chloride (98-107) mmol/L Carbon Dioxide (22-30) mmol/L Anion Gap mmol/L BUN (7-17) mg/dL Creatinine (0.52-1.04) mg/dL Est GFR (CKD-EPI)AfAm (>60 ml/min/1.73 sqM) Est GFR (CKD-EPI)NonAf (>60 ml/min/1.73 sqM) Glucose (74-99) mg/dL Plasma Lactic Acid Fady (0.7-2.0) mmol/L Calcium (8.4-10.2) mg/dL Phosphorus (2.5-4.5) mg/dL Magnesium (1.6-2.3) mg/dL Total Bilirubin (0.2-1.3) mg/dL AST (14-36) U/L ALT (4-34) U/L Alkaline Phosphatase (38-126) U/L Total Protein (6.3-8.2) g/dL Albumin (3.5-5.0) g/dL Amylase (30-110) U/L Lipase (23-300) U/L Urine Color Light Yellow Urine Appearance Clear (Clear) Urine pH 5.5 (5.0-8.0) Ur Specific [place] 1.007 (1.001-1.035) Urine Protein Negative (Negative) Urine Glucose (UA) Negative (Negative) Urine Ketones Negative (Negative) Urine Blood Negative (Negative) Urine Nitrite Positive H (Negative) Urine Bilirubin Negative (Negative) Urine Urobilinogen <2.0 (<2.0) mg/dL Ur Leukocyte Esterase Moderate H (Negative) Urine RBC 1 (0-5) /hpf Urine WBC 17 H (0-5) /hpf Urine WBC Clumps Occasional H (None) /hpf Ur Squamous Epith Cells <1 (0-4) /hpf Urine Bacteria Moderate H (None) /hpf - EKG Data -: EKG Interpreted by Me (EKG sinus 78 WA 134 QRS 112 QTC 414) - Radiology Data Radiology results: report reviewed (CT of the abdomen and pelvis is negative for acute disease), image reviewed Disposition Clinical Impression: Abdominal pain of unknown etiology, Abdominal pain, Constipation Disposition: HOME SELF-CARE Instructions (If sedation given, give patient instructions): Abdominal Pain (ED) Is patient prescribed a controlled substance at d/c from ED?: No Referrals: Tracey Haile, PAC [Primary Care Provider] - 1-2 days Time of Disposition: 18:30
[2022-10-20 16:23] LABS: Basophils % (A) 0 %; Eosinophils # (A) 0.1 k/uL (0-0.7); Eosinophils % (A) 1 %; HCT 41.3 % (34.0-46.0); HGB 13.7 gm/dL (11.4-16.0); Lymphocytes # (A) 0.8 k/uL (1.0-4.8); Lymphocytes % (A) 12 %; MCH 32.6 pg (25.0-35.0); MCHC 33.1 g/dL (31.0-37.0); MCV 98.3 fL (80.0-100.0); Mean Platelet Volume 7.3; Monocytes # (A) 0.4 k/uL (0-1.0); Monocytes % (A) 6 %; Neutrophils # (A) 5.3 k/uL (1.3-7.7); Neutrophils % (A) 79 %; Platelet Count 243 k/uL (150-450); RDW 13.2 % (11.5-15.5); WBC 6.7 k/uL (3.8-10.6)
[2022-10-20] MEDS ORDERED: ONDANSETRON 4 MG/2 ML VIAL IVP STA (16:25)
[2022-10-20] MEDS ORDERED: MORPHINE SULFATE 4 MG/ML SYRINGE IVP STA (16:25)
--- NOTE | 2022-10-20 16:31 | XR ---
EXAMINATION TYPE: XR KUB DATE OF EXAM: 10/20/2022 COMPARISON: NONE HISTORY: Pain TECHNIQUE: Single supine KUB image of the abdomen is obtained FINDINGS: Small bowel demonstrates no evidence for dilatation or air fluid levels. Gas and fecal material is seen in non-distended colon. No convincing evidence for pneumoperitoneum. No unusual calcifications. The lung bases are clear. The osseous structures are intact. IMPRESSION: 1. Overall nonobstructive bowel gas pattern.
[2022-10-20 16:39] LABS: ALT 21 U/L (4-34); AST 27 U/L (14-36); African American GFR (CKD) >90 (>60 ml/min/1.73 sqM); Albumin 4.1 g/dL (3.5-5.0); Alkaline Phosphatase 89 U/L (38-126); Amylase 63 U/L (30-110); Anion Gap 8 mmol/L; Blood Urea Nitrogen 19 mg/dL (7-17); Calcium 9.2 mg/dL (8.4-10.2); Carbon Dioxide 29 mmol/L (22-30); Chloride 97 mmol/L (98-107); Glucose 80 mg/dL (74-99); Lipase 28 U/L (23-300); Magnesium 2.1 mg/dL (1.6-2.3); Non-African American GFR(CKD) 89 (>60 ml/min/1.73 sqM); Phosphorus 3.8 mg/dL (2.5-4.5); Potassium 4.4 mmol/L (3.5-5.1); Sodium 134 mmol/L (137-145); Total Bilirubin 0.8 mg/dL (0.2-1.3); Total Protein 6.8 g/dL (6.3-8.2)
--- NOTE | 2022-10-20 17:43 | CT ---
EXAMINATION TYPE: CT abdomen pelvis wo con CT DLP: 338.7 mGycm, Automated exposure control for dose reduction was used. DATE OF EXAM: 10/20/2022 5:27 PM COMPARISON: CT abdomen pelvis most recent from 10/09/2022 . CLINICAL INDICATION:Female, 77 years old with history of pain; Abdominal pain, and excessive burping. TECHNIQUE: Standard CT of the abdomen and pelvis without IV or oral contrast. Lack of IV or oral co ntrast limits evaluation of solid and hollow organ viscera. Coronal and sagittal reformats were perfo rmed. FINDINGS: LOWER CHEST: Tree-in-bud opacities within the right middle lobe and visualized right lower lobe. ABDOMEN LIVER: Unremarkable noncontrast appearance. GALLBLADDER AND BILE DUCTS: Gallbladder is surgically absent with mild extra hepatic biliary dilatati on likely physiologic and a postcholecystectomy change. No evidence of choledocholithiasis. PANCREAS: Unremarkable noncontrast appearance. SPLEEN: Unremarkable noncontrast appearance. ADRENAL GLANDS: Unremarkable noncontrast appearance of the right adrenal gland. Stable 1.0 cm left ad renal gland lipid rich adenoma.. KIDNEYS AND URETERS: No evidence of hydronephrosis or renal calculus. Stable right renal cysts with l argest from the inferior pole the right kidney measuring up to 4.0 cm. PELVIS BLADDER: Incompletely distended but grossly unremarkable. REPRODUCTIVE: Unremarkable. ABDOMEN & PELVIS STOMACH AND BOWEL: Stomach and duodenum are unremarkable. Moderate amount of stool is present within the distal colon and rectum. Circumferential wall thickening of the mid small bowel. No pneumatosis. No evidence of bowel obstruction. PERITONEUM: No evidence of pneumoperitoneum or free fluid. VASCULATURE: Mild atherosclerotic calcifications are present throughout the abdominal aorta and its b ranches. No evidence of aortic aneurysm. MUSCULOSKELETAL: No acute osseous abnormalities. Grade 1 anterolisthesis of L4 on L5 without evidence of pars defects. Mild to moderate multilevel degenerative disease. Severe right and moderate left os teoarthritic changes with subchondral cystic changes, joint space loss, and spurring. LYMPH NODES: No gross evidence for lymphadenopathy. SOFT TISSUE/ABDOMINAL WALL: Unremarkable IMPRESSION: 1. Circumferential wall thickening of the mid small bowel suggestive of an enteritis. Next and 2. Moderate distal colonic/rectal stool burden. 3. Tree-in-bud opacities within the visualized portion of the right lower lobe and right middle lobe favored to represent an infectious/inflammatory process.
[2022-10-20 18:09] LABS: Appearance,Urine Clear (Clear); Bacteria,Urine Moderate /hpf; Bilirubin,Urine Negative (Negative); Blood,Urine Negative (Negative); Color,Urine Light Yellow; Glucose,Urine (UA) Negative (Negative); Ketones,Urine Negative (Negative); Leukocyte Esterase,Urine Moderate (Negative); Nitrite,Urine Positive (Negative); PH, Urine 5.5 (5.0-8.0); Protein,Urine Negative (Negative); RBC,Urine 1 /hpf (0-5); Specific Gravity,Urine 1.007 (1.001-1.035); Squamous Epithelial Cell,Urine <1 /hpf (0-4); Urobilinogen,Urine <2.0 mg/dL (<2.0); WBC,Urine 17 /hpf (0-5)
[2022-10-20] MEDS ORDERED: SODIUM CHLORIDE 0.9% 1,000 ML IV ONE (18:32)
[2022-10-20] MEDS ORDERED: SODIUM CHLORIDE 0.9% 1,000 ML IV STA (18:39)
[2022-10-20] MEDS ORDERED: SENNOSIDES-DOCUSATE SODIUM 1 EACH TAB PO STA (18:39)
[2022-10-20] MEDS ORDERED: GLYCERIN ADULT SUPPOSITORY 1 EACH RECTAL STA (18:39)
[2022-10-20 20:02] VITALS: BP 150/80; PULSE 93; RESP 13
[2022-10-20 20:03] VITALS: TEMP 98
== END 2022-10-20 20:33 | disposition home or self-care (01) ==
LOC: EC 15:04
DX: K59.00 Constipation, unspecified (principal); I10 Essential (primary) hypertension; Z79.899 Other long term (current) drug therapy; Z91.030 Bee allergy status; Z87.891 Personal history of nicotine dependence; Z90.49 Acquired absence of other specified parts of digestive tract
CPT/HCPCS: 36415; 80053; 82150; 83605; 83690; 83735; 84100; 85025; 81001; 74018; 74176; 99284; 96374; 96375; 96361 ×2; J2270; J2405; 93005

== ENCOUNTER 2022-10-21 05:49 | Emergency (ER) | payer BC, MEDICARE ==
[2022-10-21 05:58] VITALS: TEMP 97.5
[2022-10-21] MEDS ORDERED: SODIUM CHLORIDE 0.9% 1,000 ML IV STA (06:27)
[2022-10-21] MEDS ORDERED: HYDROmorphone 1 MG/ML 1 ML SYRINGE IVP STA (06:28)
[2022-10-21] MEDS ORDERED: KETOROLAC 15 MG/ML 1 ML VIAL IVP STA (06:28)
[2022-10-21] MEDS ORDERED: cefTRIAXone IN SWFI 1,000 MG/10 ML SYRINGE IVP STA (06:28)
--- NOTE | 2022-10-21 06:41 | ED ---
Abdominal Pain HPI - General Chief Complaint: Abdominal Pain Stated Complaint: Abdominal Pain Time Seen by Provider: 10/21/22 06:01 Source: patient, family, RN notes reviewed Mode of arrival: wheelchair Limitations: no limitations - History of Present Illness Initial Comments: This is a 77-year-old female who presents to the emergency department for abdo alyssa pain. Patient was evaluated here last night for the same complaint. After having a complete workup, she was discharged home. She returns today, as her daughter states that she continues to be in severe pain and has been complaining all night. She reports associated belching. Her daughter states that last night she also started to complain of chest pain and felt like her heart was racing. Denies any substantial chest pain at this time. Also denies any shortness of breath. She does not have any nausea/vomiting or changes in bowel/bladder habits. Currently takes morphine and gabapentin at home for pain management. However, her medications have been at her other daughter's house, and she has not had them in 2 days. Denies any fevers, chills, sore throat, cough, dyspnea, chest pain, palpitations, nausea, vomiting, diarrhea, back pain, or headaches. MD Complaint: abdominal pain - Related Data Home Medications Medication Instructions Recorded Confirmed Albuterol Inhaler [Ventolin Hfa 2 puff INHALATION RT-Q6H PRN 10/09/22 10/09/22 Inhaler] Atorvastatin [Lipitor] 10 mg PO HS 10/09/22 10/09/22 Gabapentin 300 mg PO BID@0700,1300 10/09/22 10/09/22 Gabapentin 600 mg PO HS@2000 10/09/22 10/09/22 Morphine Sulfate ER [Ms Contin] 15 mg PO Q12HR 10/09/22 10/09/22 Propranolol [Inderal] 10 mg PO BID 10/09/22 10/09/22 Previous Rx's Medication Instructions Recorded Ibuprofen [Motrin] 800 mg PO Q8H PRN #30 tab 10/11/22 Lidocaine 5% Patch [Lidoderm 5% 1 patch TOPICAL Q24H 30 Days #30 10/11/22 Patch] patch cefUROXime axetiL [Ceftin] 500 mg PO BID 7 Days #14 tab 10/21/22 Allergies Allergy/AdvReac Type Severity Reaction Status Date / Time bee venom protein (honey bee) Allergy Anaphylaxis Verified 10/20/22 15:21 Review of Systems ROS Statement: Those systems with pertinent positive or pertinent negative responses have been documented in the HPI. ROS Other: All systems not noted in ROS Statement are negative. Past Medical History Past Medical History: Cancer, Hypertension, Osteoarthritis (OA) Additional Past Medical History / Comment(s): throat ca History of Any Multi-Drug Resistant Organisms: None Reported Past Surgical History: Cholecystectomy Additional Past Surgical History / Comment(s): cervical fusion Past Psychological History: No Psychological Hx Reported Smoking Status: Former smoker Past Alcohol Use History: None Reported Past Drug Use History: None Reported - Past Family History Mother Family Medical History: COPD General Exam Limitations: no limitations General appearance: alert, in distress Head exam: Present: atraumatic, normocephalic, normal inspection Respiratory exam: Present: normal lung sounds bilaterally. Absent: respiratory distress, wheezes, rales, rhonchi, stridor Cardiovascular Exam: Present: regular rate, normal rhythm, normal heart sounds. Absent: systolic murmur, diastolic murmur, rubs, gallop, clicks GI/Abdominal exam: Present: soft, tenderness (diffuse), normal bowel sounds. Absent: distended Neurological exam: Present: alert, oriented X3, CN II-XII intact Psychiatric exam: Present: normal affect, normal mood Skin exam: Present: warm, dry, intact, normal color. Absent: rash Course Vital Signs 10/21/22 10/21/22 10/21/22 05:54 07:56 09:24 Temperature 97.5 F L Pulse Rate 98 84 83 Respiratory 20 18 18 Rate Blood Pressure 168/78 146/80 158/80 O2 Sat by Pulse 96 91 L 94 L Oximetry 10/21/22 10:25 Temperature Pulse Rate 81 Respiratory 18 Rate Blood Pressure 143/66 O2 Sat by Pulse 95 Oximetry Medical Decision Making - Medical Decision Making This is a 77-year-old female who presents to the emergency department for abdominal pain. Was pt. sent in by a medical professional or institution? @ -No Did you speak to anyone other than the patient for history? @ -Her daughter, who states that she was moaning in pain all night and started to complain of chest pain. Did you review nursing and triage notes? @ -No, the patient did not leave AMA as the triage note states. Were old charts reviewed? @ -Yes, CT scan of the abdomen and pelvis and blood work from last night demonstrating a UTI and enteritis. Differential Diagnosis? @ -Differential Abdominal Pain Women: Appendicitis, Cholecystitis, diverticulosis, ischemic bowel, pancreatitis, hepatitis, UTI, gastroenteritis, AAA, incarcerated hernia, bowel obstruction, constipation, inflammatory bowel, hepatitis, peptic ulcer disease, splenic infarction, perforated viscus, vulvitis, ovarian torsion, PID, kidney stone, placenta abruption, this is not meant to be an all-inclusive list EKG interpreted by me (3pts min.)? @ -EKG interpreted by me demonstrating the following: Sinus rhythm. Ventricular rate 90 bpm, WV interval 168 ms, QRS duration 110 ms, QTC 494 ms. X-rays interpreted by me (1pt min.)? @ -Chest x-ray obtained, my interpretation identifies no localized c onsolidations or infiltrates. CT interpreted by me (1pt min.)? @ -Not obtained U/S interpreted by me (1pt. min.)? @ -Not obtained What testing was considered but not performed? (CT, X-rays, U/S, labs)? Why? @ -None What meds were considered but not given? Why? @ -None Did you discuss the management of the patient with other professionals? @ -No Did you reconcile home meds? @ -No Was smoking cessation discussed for >3mins.? @ -No Was critical care preformed (if so, how long)? @ -No Were there social determinants of health that impacted care today? How? (Homelessness, low income, unemployed, alcoholism, drug addiction, transportation, low edu. Level, literacy, decrease access to med. care, longterm, rehab)? @ -No Was there de-escalation of care discussed even if they declined? (Discuss DNR or withdrawal of care, Hospice)? @ -No What co-morbidities impacted this encounter? (DM, HTN, Smoking, COPD, CAD, Cancer, CVA, Hep., AIDS, mental health diagnosis, sleep apnea, morbid obesity)? @ -HTN, OA Was patient admitted / discharged? @ -Discharged. Chest x-ray obtained revealing no acute findings. Repeat lab work obtained and found to be nonactionable. Advised the patient that the CT scan from yesterday revealed enteritis and no other acute findings to account for her symptoms. She was also positive for a UTI from her urinalysis yeste rday. She was subsequently given a dose of ceftriaxone in the emergency department today. Pain was adequately controlled in the emergency department. Nursing staff spoke with her daughter, who advised that she'll coordinate with her sister to get the patient's pain medications, so she can treat her pain at home. Rx for Cefuroxime provided with dosing instructions reviewed for management of the UTI. Patient discharged home in stable condition. Undiagnosed new problem with uncertain prognosis? @ -None Drug Therapy requiring intensive monitoring for toxicity (Heparin, Nitro, Insulin, Cardizem)? @ -None Were any procedures done? @ -None Diagnosis/symptom? @ -Abdominal pain, UTI Acute, or Chronic, or Acute on Chronic? @ -Acute Uncomplicated (without systemic symptoms) or Complicated (systemic symptoms)? @ -Uncomplicated Side effects of treatment? @ -None Exacerbation, Progression, or Severe Exacerbation] @ -Not applicable Poses a threat to life or bodily function? @ -No Return precautions reviewed in depth, the patient is instructed to return to the emergency department with any new, worsening, or concerning symptoms. Patient verbalized understanding. This case was discussed in detail with the attending ED physician, Dr. Thapa. Presentation, findings, and treatment plan discussed in detail as well. - Lab Data Result diagrams: 10/21/22 06:50 10/21/22 06:50 Lab Results 10/21/22 10/21/22 10/21/22 Range/Units 06:50 06:50 06:50 WBC 6.8 (3.8-10.6) k/uL RBC 4.11 (3.80-5.40) m/uL Hgb 13.3 (11.4-16.0) gm/dL Hct 40.7 (34.0-46.0) % MCV 99.2 (80.0-100.0) fL MCH 32.4 (25.0-35.0) pg MCHC 32.6 (31.0-37.0) g/dL RDW 13.3 (11.5-15.5) % Plt Count 257 (150-450) k/uL MPV 7.2 Neutrophils % 85 % Lymphocytes % 9 % Monocytes % 5 % Eosinophils % 0 % Basophils % 1 % Neutrophils # 5.8 (1.3-7.7) k/uL Lymphocytes # 0.6 L (1.0-4.8) k/uL Monocytes # 0.3 (0-1.0) k/uL Eosinophils # 0.0 (0-0.7) k/uL Basophils # 0.0 (0-0.2) k/uL Sodium 135 L (137-145) mmol/L Potassium 4.1 (3.5-5.1) mmol/L Chloride 100 (98-107) mmol/L Carbon Dioxide 29 (22-30) mmol/L Anion Gap 6 mmol/L BUN 14 (7-17) mg/dL Creatinine 0.57 (0.52-1.04) mg/dL Est GFR (CKD-EPI)AfAm >90 (>60 ml/min/1.73 sqM) Est GFR (CKD-EPI)NonAf 89 (>60 ml/min/1.73 sqM) Glucose 108 H (74-99) mg/dL Plasma Lactic Acid Fady 0.7 (0.7-2.0) mmol/L Calcium 9.1 (8.4-10.2) mg/dL Total Bilirubin 0.7 (0.2-1.3) mg/dL AST 27 (14-36) U/L ALT 21 (4-34) U/L Alkaline Phosphatase 95 (38-126) U/L Troponin I (0.000-0.034) ng/mL Total Protein 6.7 (6.3-8.2) g/dL Albumin 4.0 (3.5-5.0) g/dL Amylase 47 (30-110) U/L Lipase 39 (23-300) U/L Urine Color Urine Appearance (Clear) Urine pH (5.0-8.0) Ur Specific [place] (1.001-1.035) Urine Protein (Negative) Urine Glucose (UA) (Negative) Urine Ketones (Negative) Urine Blood (Negative) Urine Nitrite (Negative) Urine Bilirubin (Negative) Urine Urobilinogen (<2.0) mg/dL Ur Leukocyte Esterase (Negative) Urine RBC (0-5) /hpf Urine WBC (0-5) /hpf Ur Squamous Epith Cells (0-4) /hpf 10/21/22 10/21/22 Range/Units 06:50 09:05 WBC (3.8-10.6) k/uL RBC (3.80-5.40) m/uL Hgb (11.4-16.0) gm/dL Hct (34.0-46.0) % MCV (80.0-100.0) fL MCH (25.0-35.0) pg MCHC (31.0-37.0) g/dL RDW (11.5-15.5) % Plt Count (150-450) k/uL MPV Neutrophils % % Lymphocytes % % Monocytes % % Eosinophils % % Basophils % % Neutrophils # (1.3-7.7) k/uL Lymphocytes # (1.0-4.8) k/uL Monocytes # (0-1.0) k/uL Eosinophils # (0-0.7) k/uL Basophils # (0-0.2) k/uL Sodium (137-145) mmol/L Potassium (3.5-5.1) mmol/L Chloride (98-107) mmol/L Carbon Dioxide (22-30) mmol/L Anion Gap mmol/L BUN (7-17) mg/dL Creatinine (0.52-1.04) mg/dL Est GFR (CKD-EPI)AfAm (>60 ml/min/1.73 sqM) Est GFR (CKD-EPI)NonAf (>60 ml/min/1.73 sqM) Glucose (74-99) mg/dL Plasma Lactic Acid Fady (0.7-2.0) mmol/L Calcium (8.4-10.2) mg/dL Total Bilirubin (0.2-1.3) mg/dL AST (14-36) U/L ALT (4-34) U/L Alkaline Phosphatase (38-126) U/L Troponin I <0.012 (0.000-0.034) ng/mL Total Protein (6.3-8.2) g/dL Albumin (3.5-5.0) g/dL Amylase (30-110) U/L Lipase (23-300) U/L Urine Color Colorless Urine Appearance Clear (Clear) Urine pH 6.5 (5.0-8.0) Ur Specific [place] 1.004 (1.001-1.035) Urine Protein Negative (Negative) Urine Glucose (UA) Negative (Negative) Urine Ketones Trace H (Negative) Urine Blood Negative (Negative) Urine Nitrite Negative (Negative) Urine Bilirubin Negative (Negative) Urine Urobilinogen <2.0 (<2.0) mg/dL Ur Leukocyte Esterase Moderate H (Negative) Urine RBC <1 (0-5) /hpf Urine WBC 15 H (0-5) /hpf Ur Squamous Epith Cells <1 (0-4) /hpf - Radiology Data Radiology results: report reviewed, image reviewed Disposition Clinical Impression: UTI (urinary tract infection), Abdominal pain Disposition: HOME SELF-CARE Instructions (If sedation given, give patient instructions): Urinary Tract Infection in Women (ED), Abdominal Pain (ED) Additional Instructions: Return to the emergency department with any new, worsening, or concerning symptoms. Take the antibiotic as prescribed for 7 days with your first dose starting tomorrow, as you received a dose of antibiotics in the emergency department today. Follow up with your primary care provider in 1-2 days. Prescriptions: cefUROXime axetiL [Ceftin] 500 mg PO BID 7 Days #14 tab Is patient prescribed a controlled substance at d/c from ED?: No Referrals: Nonstaff,Physician [REFERRING] - 1-2 days
[2022-10-21 07:08] LABS: Basophils % (A) 1 %; Eosinophils % (A) 0 %; HCT 40.7 % (34.0-46.0); HGB 13.3 gm/dL (11.4-16.0); Lymphocytes # (A) 0.6 k/uL (1.0-4.8); Lymphocytes % (A) 9 %; MCH 32.4 pg (25.0-35.0); MCHC 32.6 g/dL (31.0-37.0); MCV 99.2 fL (80.0-100.0); Mean Platelet Volume 7.2; Monocytes # (A) 0.3 k/uL (0-1.0); Monocytes % (A) 5 %; Neutrophils # (A) 5.8 k/uL (1.3-7.7); Neutrophils % (A) 85 %; Platelet Count 257 k/uL (150-450); RBC 4.11 m/uL (3.80-5.40); RDW 13.3 % (11.5-15.5); WBC 6.8 k/uL (3.8-10.6)
[2022-10-21 07:19] LABS: ALT 21 U/L (4-34); AST 27 U/L (14-36); African American GFR (CKD) >90 (>60 ml/min/1.73 sqM); Alkaline Phosphatase 95 U/L (38-126); Amylase 47 U/L (30-110); Anion Gap 6 mmol/L; Blood Urea Nitrogen 14 mg/dL (7-17); Calcium 9.1 mg/dL (8.4-10.2); Carbon Dioxide 29 mmol/L (22-30); Chloride 100 mmol/L (98-107); Glucose 108 mg/dL (74-99); Lipase 39 U/L (23-300); Non-African American GFR(CKD) 89 (>60 ml/min/1.73 sqM); Potassium 4.1 mmol/L (3.5-5.1); Sodium 135 mmol/L (137-145); Total Bilirubin 0.7 mg/dL (0.2-1.3); Total Protein 6.7 g/dL (6.3-8.2)
--- NOTE | 2022-10-21 07:27 | XR ---
EXAMINATION TYPE: XR chest 2V DATE OF EXAM: 10/21/2022 COMPARISON: NONE HISTORY: Shortness of breath TECHNIQUE: Frontal and lateral views of the chest are obtained. FINDINGS: Scattered senescent parenchymal changes noted. Hyperinflation compatible with COPD. No evidence for infiltrate. No evidence for atelectasis. Heart size is stable. Mediastinal structures are stable and grossly unremarkable. No evidence for hilar prominence. Degenerative changes dorsal spine. IMPRESSION: 1. No evidence for acute pulmonary disease.
[2022-10-21] MEDS ORDERED: GABAPENTIN 300 MG CAP PO STA (07:49)
[2022-10-21 07:57] VITALS: RESP 18
[2022-10-21] MEDS ORDERED: HYDROmorphone 0.5 MG/0.5 ML SYRINGE IVP STA (09:12)
[2022-10-21 09:37] LABS: Appearance,Urine Clear (Clear); Bilirubin,Urine Negative (Negative); Blood,Urine Negative (Negative); Color,Urine Colorless; Glucose,Urine (UA) Negative (Negative); Ketones,Urine Trace (Negative); Leukocyte Esterase,Urine Moderate (Negative); Nitrite,Urine Negative (Negative); PH, Urine 6.5 (5.0-8.0); Protein,Urine Negative (Negative); RBC,Urine <1 /hpf (0-5); Specific Gravity,Urine 1.004 (1.001-1.035); Squamous Epithelial Cell,Urine <1 /hpf (0-4); Urobilinogen,Urine <2.0 mg/dL (<2.0); WBC,Urine 15 /hpf (0-5)
[2022-10-21 10:34] VITALS: BP 143/66; PULSE 81
== END 2022-10-21 10:30 | disposition home or self-care (01) ==
LOC: EC 05:49
DX: N39.0 Urinary tract infection, site not specified (principal); I10 Essential (primary) hypertension; M19.90 Unspecified osteoarthritis, unspecified site; Z87.891 Personal history of nicotine dependence; Z91.030 Bee allergy status; Z79.899 Other long term (current) drug therapy; Z79.1 Long term (current) use of non-steroidal anti-inflammatories (NSAID)
CPT/HCPCS: 36415; 93005; 80053; 82150; 83605; 83690; 84484; 85025; 81001; 71046; 99285; 96374; 96375 ×2; 96376; 96361; J0696; J1170 ×2; J1885

== ENCOUNTER 2022-10-30 11:44 | Emergency (ER) | payer MEDICARE ==
[2022-10-30 12:20] VITALS: RESP 20
--- NOTE | 2022-10-30 14:02 | ED ---
General Adult HPI - General Source: patient Mode of arrival: ambulatory Limitations: no limitations <Bharat Grant - Last Filed: 10/30/22 14:12> <Yunier Shaw - Last Filed: 10/30/22 16:56> - General Chief complaint: Recheck/Abnormal Lab/Rx Stated complaint: pain Time Seen by Provider: 10/30/22 13:16 - History of Present Illness Initial comments: 37-year-old female with past medical history significant for osteoarthritis presents with a chief dictation refill. Patient states that she was originally from [place] but has moved closer to be with family. States that she has established care at [facility] and has a referral to pain management due to her osteoarthritis which she is currently on 15 mg MS Contin twice a day. States that her appointment with pain management isn't until the end of November. States that she still has 5 pills left. States that she called the pain management clinic and was advised to come to the ED for refill of her medication. She has no complaints at this time. Denies chest pain or shortness of breath. (Bharat Grant) - Related Data Home Medications Medication Instructions Recorded Confirmed Albuterol Inhaler [Ventolin Hfa 2 puff INHALATION RT-Q6H PRN 10/09/22 10/09/22 Inhaler] Atorvastatin [Lipitor] 10 mg PO HS 10/09/22 10/09/22 Gabapentin 300 mg PO BID@0700,1300 10/09/22 10/09/22 Gabapentin 600 mg PO HS@2000 10/09/22 10/09/22 Morphine Sulfate ER [Ms Contin] 15 mg PO Q12HR 10/09/22 10/09/22 Propranolol [Inderal] 10 mg PO BID 10/09/22 10/09/22 Previous Rx's Medication Instructions Recorded Ibuprofen [Motrin] 800 mg PO Q8H PRN #30 tab 10/11/22 Lidocaine 5% Patch [Lidoderm 5% 1 patch TOPICAL Q24H 30 Days #30 10/11/22 Patch] patch cefUROXime axetiL [Ceftin] 500 mg PO BID 7 Days #14 tab 10/21/22 Morphine Sulfate ER [Ms Contin] 15 mg PO Q8H 2 Days #6 tab 10/30/22 Allergies Allergy/AdvReac Type Severity Reaction Status Date / Time bee venom protein (honey bee) Allergy Anaphylaxis Verified 10/30/22 12:20 Review of Systems ROS Other: All systems not noted in ROS Statement are negative. <Bharat Grant - Last Filed: 10/30/22 14:12> ROS Other: All systems not noted in ROS Statement are negative. <Yunier Shaw - Last Filed: 10/30/22 16:56> ROS Statement: Those systems with pertinent positive or pertinent negative responses have been documented in the HPI. Past Medical History Past Medical History: Cancer, Hypertension, Osteoarthritis (OA) Additional Past Medical History / Comment(s): throat ca History of Any Multi-Drug Resistant Organisms: None Reported Past Surgical History: Cholecystectomy Additional Past Surgical History / Comment(s): cervical fusion Past Psychological History: No Psychological Hx Reported Smoking Status: Former smoker Past Alcohol Use History: None Reported Past Drug Use History: None Reported - Past Family History Mother Family Medical History: COPD <Bharat Grant - Last Filed: 10/30/22 14:12> General Exam Limitations: physical limitation (Slow to move secondary to osteoarthritis.) General appearance: alert Head exam: Present: atraumatic, normocephalic Eye exam: Present: normal appearance Respiratory exam: Present: normal lung sounds bilaterally Cardiovascular Exam: Present: regular rate, normal rhythm GI/Abdominal exam: Present: soft Neurological exam: Present: alert, oriented X3 Psychiatric exam: Present: normal affect, normal mood Skin exam: Present: warm, dry <Bharat Grant - Last Filed: 10/30/22 14:12> Course Vital Signs 10/30/22 10/30/22 12:17 14:11 Temperature 98 F 97.9 F Pulse Rate 70 72 Respiratory 20 20 Rate Blood Pressure 153/88 146/82 O2 Sat by Pulse 97 99 Oximetry Medical Decision Making <Bharat Grant - Last Filed: 10/30/22 14:12> - Medical Decision Making Was pt. sent in by a medical professional or institution (, PA, TURN DOWN [employer], urgent care, hospital, or care home...) When possible be specific @ -Advised to present to ED by "someone" at pain management clinic Did you speak to anyone other than the patient for history (EMS, parent, family, police, friend...)? What history was obtained from this source @ -No Did you review nursing and triage notes (agree or disagree)? Why? @ -I reviewed and agree with nursing and triage notes Were old charts reviewed (outside hosp., previous admission, EMS record, old EKG, old radiological studies, urgent care reports/EKG's, care home records)? Report findings @ -Maps reviewed showing S prescription of MS Contin on 09/07 Differential Diagnosis (chest pain, altered mental status, abdominal pain women, abdominal pain men, vaginal bleeding, weakness, fever, dyspnea, syncope, headache, dizziness, GI bleed, back pain, seizure, CVA, palpatations, mental health, musculoskeletal)? @ -not applicable EKG interpreted by me (3pts min.). @ -As above X-rays interpreted by me (1pt min.). @ -None done CT interpreted by me (1pt min.). @ -None done U/S interpreted by me (1pt. min.). @ -None done What testing was considered but not performed or refused? (CT, X-rays, U/S, labs)? Why? @ -None What meds were considered but not given or refused? Why? @ -None Did you discuss the management of the patient with other professionals (professionals i.e. , PA, T[employer] DOWN MAN, lab, RT, psych nurse, social science research assistant, manager embalmer funeral director, teacher, intelligence support officer, case therapist)? Give summary @ -No Was smoking cessation discussed for >3mins.? @ -No Was critical care preformed (if so, how long)? @ -No Were there social determinants of health that impacted care today? How? (Homelessness, low income, unemployed, alcoholism, drug addiction, transportation, low edu. Level, literacy, decrease access to med. care, long term, rehab)? @ -No Was there de-escalation of care discussed even if they declined (Discuss DNR or withdrawal of care, Hospice)? DNR status @ -No What co-morbidities impacted this encounter? (DM, HTN, Smoking, COPD, CAD, Cancer, CVA, ARF, Chemo, Hep., AIDS, mental health diagnosis, sleep apnea, morbid obesity)? @ -None Was patient admitted / discharged? Hospital course, mention meds given and route, prescriptions, significant lab abnormalities, going to OR and other perti nent info. @ -Discharged. Provided 2 days worth of MS Contin. Advised to follow up with PCP for further medication refills. Chart in stable condition. Undiagnosed new problem with uncertain prognosis? @ -No Drug Therapy requiring intensive monitoring for toxicity (Heparin, Nitro, Insulin, Cardizem)? @ -No Were any procedures done? @ -No Diagnosis/symptom? @ -Osteoarthritis, medication refill Acute, or Chronic, or Acute on Chronic? @ -Chronic Uncomplicated (without systemic symptoms) or Complicated (systemic symptoms)? @ -Uncomplicated Side effects of treatment? @ -No Exacerbation, Progression, or Severe Exacerbation? @ -No Poses a threat to life or bodily function? How? (Chest pain, [place], [place], pneumonia, PE, COPD, DKA, ARF, appy, cholecystitis, CVA, Diverticulitis, Homicidal, Suicidal, threat to staff... and all critical care pts) @ -No (Bharat Grant) Disposition Is patient prescribed a controlled substance at d/c from ED?: Yes When asked, does pt state using other controlled substances?: Yes If prescribed controlled substance>3 days was MAPS reviewed?: Prescribed <3 Days If opioid is for acute pain is fill amount 7 days or less?: Yes If Rx opioid, was Start Talking consent form obtained?: Yes Time of Disposition: 13:55 <Bharat Grant - Last Filed: 10/30/22 14:12> <Yunier Shaw - Last Filed: 10/30/22 16:56> Clinical Impression: Medication refill, Osteoarthritis Disposition: HOME SELF-CARE Additional Instructions: Please return to the Emergency Department if symptoms worsen or any other concerns. Prescriptions: Morphine Sulfate ER [Ms Contin] 15 mg PO Q8H 2 Days #6 tab Referrals: Agueda Pedro DO [Primary Care Provider] - 1-2 days
[2022-10-30 14:12] VITALS: BP 146/82; PULSE 72; TEMP 97.9
== END 2022-10-30 14:12 | disposition home or self-care (01) ==
LOC: EC 11:44
DX: Z76.0 Encounter for issue of repeat prescription (principal); M19.90 Unspecified osteoarthritis, unspecified site; I10 Essential (primary) hypertension; Z79.899 Other long term (current) drug therapy; Z87.891 Personal history of nicotine dependence; Z91.030 Bee allergy status
CPT/HCPCS: 99283

== ENCOUNTER → 2022-11-02 | Outpatient (CLI) | payer MEDICARE ==
[2022-11-02 14:17] LABS: African American GFR (CKD) >90 (>60 ml/min/1.73 sqM); Blood Urea Nitrogen 18 mg/dL (7-17); Non-African American GFR(CKD) >90 (>60 ml/min/1.73 sqM)
--- NOTE | 2022-11-02 14:55 | CT ---
EXAMINATION TYPE: CT chest w con CT DLP: 115.50 mGycm, Automated exposure control for dose reduction was used. DATE OF EXAM: 11/02/2022 2:48 PM COMPARISON: Chest radiograph from 10/21/2022, CT abdomen pelvis 10/20/2022 CLINICAL INDICATION:Female, 77 years old with history of R93.89; PHH, abnormal lung findings TECHNIQUE: Multiple axial images were obtained through the chest following the administration of 100 cc of Isovue 300. MIP was performed. Coronal and sagittal reformats reviewed. FINDINGS: LUNGS/ PLEURA: No pleural effusion, pneumothorax, focal consolidation. Mild centrilobular emphysemato us changes. Left upper lobe 4 mm pulmonary nodule (series 4, image 21). Right lower lobe tree-in-bud nodules (series 4, image 42). AIRWAY: Patent and unremarkable.. HEART: Size within normal limits. No pericardial effusion. Moderate coronary arterial calcifications. MEDIASTINUM: No evidence of adenopathy. VASCULATURE: No aortic aneurysm. Atherosclerotic calcification of the aorta. MUSCULOSKELETAL: No acute osseous abnormalities. Anterior cervical fusion hardware demonstrated. Mild multilevel degenerative disc disease of the thoracolumbar spine. SOFT TISSUES/LYMPH NODES: Unremarkable. LOWER NECK: No significant findings. UPPER ABDOMEN: Right renal cyst measuring up to 1.1 cm. Postcholecystectomy changes. IMPRESSION: 1. Redemonstration of right lower lobe tree-in-bud nodules representing an infectious/pulmonary proc ess. Additional left upper lobe 4 mm pulmonary nodule. In a low-risk patient, no follow-up is recomme nded. In a high risk patient, consider optional CT chest in 12 months. 2. Mild COPD changes.
== END | disposition home or self-care (01) ==
LOC: RADCTMAIN 13:29
PROVIDERS: ATTEND Family Medicine
DX: J44.9 Chronic obstructive pulmonary disease, unspecified (principal); R93.89 Abnormal findings on diagnostic imaging of other specified body structures; R91.8 Other nonspecific abnormal finding of lung field
CPT/HCPCS: 82565; 84520; 71260; 36415; Q9967

== ENCOUNTER 2022-11-16 07:32 | Observation (INO) | payer MEDICARE ==
[2022-11-16] MEDS ORDERED: DICYCLOMINE 10 MG/ML 2 ML AMP IM STA (08:02)
[2022-11-16] MEDS: SIMETHICONE 80 MG CHEWABLE PO SCH ×4 (08:14→20:35)
[2022-11-16 08:22] LABS: Basophils % (A) 0 %; Eosinophils # (A) 0.1 k/uL (0-0.7); Eosinophils % (A) 1 %; HCT 38.6 % (34.0-46.0); HGB 12.5 gm/dL (11.4-16.0); Lymphocytes # (A) 0.8 k/uL (1.0-4.8); Lymphocytes % (A) 12 %; MCHC 32.5 g/dL (31.0-37.0); MCV 98.5 fL (80.0-100.0); Mean Platelet Volume 7.5; Monocytes # (A) 0.3 k/uL (0-1.0); Monocytes % (A) 5 %; Neutrophils # (A) 5.1 k/uL (1.3-7.7); Neutrophils % (A) 80 %; Platelet Count 221 k/uL (150-450); RBC 3.92 m/uL (3.80-5.40); RDW 13.5 % (11.5-15.5); WBC 6.4 k/uL (3.8-10.6)
[2022-11-16 08:40] LABS: ALT 18 U/L (4-34); AST 22 U/L (14-36); African American GFR (CKD) >90 (>60 ml/min/1.73 sqM); Albumin 4.1 g/dL (3.5-5.0); Alkaline Phosphatase 74 U/L (38-126); Amylase 63 U/L (30-110); Anion Gap 6 mmol/L; Blood Urea Nitrogen 20 mg/dL (7-17); Calcium 9.2 mg/dL (8.4-10.2); Carbon Dioxide 28 mmol/L (22-30); Chloride 100 mmol/L (98-107); Glucose 106 mg/dL (74-99); Lipase 82 U/L (23-300); Non-African American GFR(CKD) >90 (>60 ml/min/1.73 sqM); Potassium 4.2 mmol/L (3.5-5.1); Sodium 134 mmol/L (137-145); Total Bilirubin 0.8 mg/dL (0.2-1.3); Total Protein 6.8 g/dL (6.3-8.2)
[2022-11-16 08:49] LABS: Appearance,Urine Clear (Clear); Bacteria,Urine Occasional /hpf; Bilirubin,Urine Negative (Negative); Blood,Urine Negative (Negative); Color,Urine Light Yellow; Glucose,Urine (UA) Negative (Negative); Ketones,Urine Negative (Negative); Leukocyte Esterase,Urine Small (Negative); Mucus,Urine Rare /hpf; Nitrite,Urine Negative (Negative); Protein,Urine Negative (Negative); RBC,Urine 1 /hpf (0-5); Specific Gravity,Urine 1.014 (1.001-1.035); Squamous Epithelial Cell,Urine <1 /hpf (0-4); Urobilinogen,Urine <2.0 mg/dL (<2.0); WBC,Urine 32 /hpf (0-5)
--- NOTE | 2022-11-16 09:01 | XR ---
EXAMINATION TYPE: XR KUB DATE OF EXAM: 11/16/2022 8:49 AM INDICATION: Patient age:Female; 77 years old; Reason for study: abdominal pain; COMPARISON: 10/20/2022 TECHNIQUE: One radiographic view of the abdomen was obtained. FINDINGS: The bowel gas pattern is nonspecific without dilated loops of small or large bowel. There i s no evidence for organomegaly or pneumoperitoneum. The osseous structures are intact. No abnormal calcifications are present. Fecal material and gas are demonstrated throughout the colon and rectum. Right upper quadrant cholecystectomy clips. Bilateral suspected tubal ligation clips. Severe degener ation changes of the hips right greater than left with [id number] articulation. IMPRESSION: Nonspecific bowel gas pattern without radiographic evidence for acute process.
--- NOTE | 2022-11-16 09:03 | ED ---
General Adult HPI - General Chief complaint: Abdominal Pain Stated complaint: SOB Time Seen by Provider: 11/16/22 07:40 Source: patient, family, RN notes reviewed, old records reviewed Mode of arrival: wheelchair Limitations: no limitations - History of Present Illness Initial comments: This is a 77-year-old female presents emergency room stating that she is burping a lot more since last night. Patient states this happened multiple times in the past. Patient states she's been in the emergency department multiple times she's had CAT scans of her abdomen twice. Patient states she gets burping and it so uncomfortable she doesn't know what to do so she comes into the emergency department. Patient denies any specific abdominal pain she only has the pain which feels like just burp and it's more of a cramping sensation. Patient denies any difficulty breathing or shortness of breath. Patient states she mentions shortness of breath because when she is burping a lot it's hard to take a deep breath but his lungs she's not burping she's not short of breath. Patient denies any fever chills. Patient denies any other symptoms at this time - Related Data Home Medications Medication Instructions Recorded Confirmed Albuterol Inhaler [Ventolin Hfa 2 puff INHALATION RT-Q6H PRN 10/09/22 10/09/22 Inhaler] Atorvastatin [Lipitor] 10 mg PO HS 10/09/22 10/09/22 Gabapentin 300 mg PO BID@0700,1300 10/09/22 10/09/22 Gabapentin 600 mg PO HS@2000 10/09/22 10/09/22 Morphine Sulfate ER [Ms Contin] 15 mg PO Q12HR 10/09/22 10/09/22 Propranolol [Inderal] 10 mg PO BID 10/09/22 10/09/22 Previous Rx's Medication Instructions Recorded Ibuprofen [Motrin] 800 mg PO Q8H PRN #30 tab 10/11/22 Lidocaine 5% Patch [Lidoderm 5% 1 patch TOPICAL Q24H 30 Days #30 10/11/22 Patch] patch cefUROXime axetiL [Ceftin] 500 mg PO BID 7 Days #14 tab 10/21/22 Morphine Sulfate ER [Ms Contin] 15 mg PO Q8H 2 Days #6 tab 10/30/22 Allergies Allergy/AdvReac Type Severity Reaction Status Date / Time bee venom protein (honey bee) Allergy Anaphylaxis Verified 11/16/22 07:33 Review of Systems ROS Statement: Those systems with pertinent positive or pertinent negative responses have been documented in the HPI. ROS Other: All systems not noted in ROS Statement are negative. Past Medical History Past Medical History: Cancer, Hypertension, Osteoarthritis (OA) Additional Past Medical History / Comment(s): throat ca History of Any Multi-Drug Resistant Organisms: None Reported Past Surgical History: Cholecystectomy Additional Past Surgical History / Comment(s): cervical fusion Past Psychological History: No Psychological Hx Reported Smoking Status: Former smoker Past Alcohol Use History: None Reported Past Drug Use History: None Reported - Past Family History Mother Family Medical History: COPD General Exam - General Exam Comments Initial Comments: GENERAL: Patient is well-developed and well-nourished. Patient is nontoxic and well- hydrated and is in mild distress. ENT: Neck is soft and supple. No significant lymphadenopathy is noted. Oropharynx is clear. Moist mucous membranes. Neck has full range of motion without eliciting any pain. EYES: The sclera were anicteric and conjunctiva were pink and moist. Extraocular movements were intact and pupils were equal round and reactive to light. Eyelids were unremarkable. PULMONARY: Unlabored respirations. Good breath sounds bilaterally. No audible rales rhonchi or wheezing was noted. CARDIOVASCULAR: There is a regular rate and rhythm without any murmurs gallops or rubs. ABDOMEN: Soft and nontender with normal bowel sounds. SKIN: Skin is clear with no lesions or rashes and otherwise unremarkable. NEUROLOGIC: Patient is alert and oriented x3. Cranial nerves II through XII are grossly intact. Motor and sensory are also intact. Normal speech, volume and content. Symmetrical smile. MUSCULOSKELETAL: Normal extremities with adequate strength and full range of motion. LYMPHATICS: No significant lymphadenopathy is noted PSYCHIATRIC: Normal psychiatric evaluation. Limitations: no limitations Course Vital Signs 11/16/22 11/16/22 11/16/22 07:34 08:01 09:24 Temperature 97.7 F Pulse Rate 60 71 75 Respiratory 20 20 20 Rate Blood Pressure 156/72 170/80 150/84 O2 Sat by Pulse 98 98 97 Oximetry Medical Decision Making - Medical Decision Making Was pt. sent in by a medical professional or institution (, PA, LANDSCAPE ACCOUNT MANAGER, urgent care, hospital, or residential...) When possible be specific @ -No Did you speak to anyone other than the patient for history (EMS, parent, family, police, friend...)? What history was obtained from this source @ -No Did you review nursing and triage notes (agree or disagree)? Why? @ -I reviewed and agree with nursing and triage notes Were old charts reviewed (outside hosp., previous admission, EMS record, old EKG, old radiological studies, urgent care reports/EKG's, residential records)? Report findings @ -I reviewed prior radiological studies prior labwork on this patient Differential Diagnosis (chest pain, altered mental status, abdominal pain women, abdominal pain men, vaginal bleeding, weakness, fever, dyspnea, syncope, headache, dizziness, GI bleed, back pain, seizure, CVA, palpatations, mental health, musculoskeletal)? @ -Differential Abdominal Pain Women: Appendicitis, Cholecystitis, diverticulosis, ischemic bowel, pancreatitis, hepatitis, UTI, gastroenteritis, AAA, incarcerated hernia, bowel obstruction, constipation, inflammatory bowel, hepatitis, peptic ulcer disease, splenic infarction, perforated viscus, vulvitis, ovarian torsion, PID, kidney stone, placenta abruption, this is not meant to be an all-inclusive list EKG interpreted by me (3pts min.). @ -As above X-rays interpreted by me (1pt min.). @ -To be showed no acute abnormality CT interpreted by me (1pt min.). @ -None done U/S interpreted by me (1pt. min.). @ -None done What testing was considered but not performed or refused? (CT, X-rays, U/S, labs)? Why? @ -None What meds were considered but not given or refused? Why? @ -None Did you discuss the management of the patient with other professionals (professionals i.e. , PA, LANDSCAPE ACCOUNT MANAGER, lab, RT, psych nurse, social staff worker, detective lieutenant, teacher, promotions officer, case management specialist)? Give summary @ -I spoke with Dr. Castellanos he wanted the patient admitted Was smoking cessation discussed for >3mins.? @ -No Was critical care preformed (if so, how long)? @ -No Were there social determinants of health that impacted care today? How? (Homelessness, low income, unemployed, alcoholism, drug addiction, transportation, low edu. Level, literacy, decrease access to med. care, detention, rehab)? @ -No Was there de-escalation of care discussed even if they declined (Discuss DNR or withdrawal of care, Hospice)? DNR status @ -No What co-morbidities impacted this encounter? (DM, HTN, Smoking, COPD, CAD, C ancer, CVA, ARF, Chemo, Hep., AIDS, mental health diagnosis, sleep apnea, morbid obesity)? @ -None Was patient admitted / discharged? Hospital course, mention meds given and route, prescriptions, significant lab abnormalities, going to OR and other pertinent info. @ -Patient was given Gas-X and Ventolin emergency department she stated it was not helping. Patient took her own Neurontin and [place] in the emergency department. I spoke with Dr. Castellanos and he wanted the patient admitted because GI was on since the patient been to the ER 5 times with 2 CAT scans of the abdomen and pelvis he wanted someone else to take a look at the patient's I admitted the patient to Dr. Castellanos and consulted Dr. Valladares Undiagnosed new problem with uncertain prognosis? @ -No Drug Therapy requiring intensive monitoring for toxicity (Heparin, Nitro, Insulin, Cardizem)? @ -No Were any procedures done? @ -No Diagnosis/symptom? @ -Abdominal pain Acute, or Chronic, or Acute on Chronic? @ -Acute Uncomplicated (without systemic symptoms) or Complicated (systemic symptoms)? @ -Complicated Side effects of treatment? @ -No Exacerbation, Progression, or Severe Exacerbation? @ -No Poses a threat to life or bodily function? How? (Chest pain, USA, LA, pneumonia, PE, COPD, DKA, ARF, appy, cholecystitis, CVA, Diverticulitis, Homicidal, S uicidal, threat to staff... and all critical care pts) @ -No Diagnosis/symptom? @ -Belching Acute, or Chronic, or Acute on Chronic? @ -Acute Uncomplicated (without systemic symptoms) or Complicated (systemic symptoms)? @ -Uncomplicated Side effects of treatment? @ -none Exacerbation, Progression, or Severe Exacerbation] @ -no Poses a threat to life or bodily function? @ -no - Lab Data Result diagrams: 11/16/22 08:04 11/16/22 08:04 Lab Results 11/16/22 11/16/22 11/16/22 Range/Units 08:04 08:04 08:33 WBC 6.4 (3.8-10.6) k/uL RBC 3.92 (3.80-5.40) m/uL Hgb 12.5 (11.4-16.0) gm/dL Hct 38.6 (34.0-46.0) % MCV 98.5 (80.0-100.0) fL MCH 32.0 (25.0-35.0) pg MCHC 32.5 (31.0-37.0) g/dL RDW 13.5 (11.5-15.5) % Plt Count 221 (150-450) k/uL MPV 7.5 Neutrophils % 80 % Lymphocytes % 12 % Monocytes % 5 % Eosinophils % 1 % Basophils % 0 % Neutrophils # 5.1 (1.3-7.7) k/uL Lymphocytes # 0.8 L (1.0-4.8) k/uL Monocytes # 0.3 (0-1.0) k/uL Eosinophils # 0.1 (0-0.7) k/uL Basophils # 0.0 (0-0.2) k/uL Sodium 134 L (137-145) mmol/L Potassium 4.2 (3.5-5.1) mmol/L Chloride 100 (98-107) mmol/L Carbon Dioxide 28 (22-30) mmol/L Anion Gap 6 mmol/L BUN 20 H (7-17) mg/dL Creatinine 0.52 (0.52-1.04) mg/dL Est GFR (CKD-EPI)AfAm >90 (>60 ml/min/1.73 sqM) Est GFR (CKD-EPI)NonAf >90 (>60 ml/min/1.73 sqM) Glucose 106 H (74-99) mg/dL Calcium 9.2 (8.4-10.2) mg/dL Total Bilirubin 0.8 (0.2-1.3) mg/dL AST 22 (14-36) U/L ALT 18 (4-34) U/L Alkaline Phosphatase 74 (38-126) U/L Total Protein 6.8 (6.3-8.2) g/dL Albumin 4.1 (3.5-5.0) g/dL Amylase 63 (30-110) U/L Lipase 82 (23-300) U/L Urine Color Light Yellow Urine Appearance Clear (Clear) Urine pH 7.0 (5.0-8.0) Ur Specific [place] 1.014 (1.001-1.035) Urine Protein Negative (Negative) Urine Glucose (UA) Negative (Negative) Urine Ketones Negative (Negative) Urine Blood Negative (Negative) Urine Nitrite Negative (Negative) Urine Bilirubin Negative (Negative) Urine Urobilinogen <2.0 (<2.0) mg/dL Ur Leukocyte Esterase Small H (Negative) Urine RBC 1 (0-5) /hpf Urine WBC 32 H (0-5) /hpf Ur Squamous Epith Cells <1 (0-4) /hpf Urine Bacteria Occasional H (None) /hpf Urine Mucus Rare H (None) /hpf Critical Care Time Critical Care Time: Yes Total Critical Care Time: 35 Disposition Clinical Impression: Abdominal pain, Belching Disposition: [facility] Referrals: Agueda Pedro DO [Primary Care Provider] - 1-2 days Time of Disposition: 09:52
[2022-11-16] MEDS ORDERED: LORazepam 2 MG/ML INJ IV STA ×2 (09:12→09:14)
[2022-11-16] MEDS ORDERED: SODIUM CHLORIDE 0.9% 1,000 ML IV ONE (10:25)
[2022-11-16] MEDS ORDERED: ALBUTEROL NEBULIZED 2.5 MG/3 ML INHALATION PRN (12:53)
[2022-11-16] MEDS: polyethylene glycoL 3350 17 GM POWD.PACK PO SCH (14:47)
[2022-11-16] MEDS: GABAPENTIN 300 MG CAP PO SCH (14:47)
[2022-11-16 15:06] VITALS: BMI 20.2
[2022-11-16] MEDS ORDERED: ACETAMINOPHEN TAB 325 MG TAB PO PRN (15:44)
--- NOTE | 2022-11-16 15:59 | P.CONS ---
History of Present Illness - Reason for Consult Consult date: 11/16/22 Abdominal pain, belching Requesting physician: Waqar Schmidt - Chief Complaint Belching, abdominal pain - History of Present Illness This is a pleasant 69-year-old female with a past medical history of throat cancer status post chemotherapy and radiation therapy, hypertension osteoarthritis COPD and former smoker. She presented to the emergency department for complaints of chronic belching and abdominal pain. Patient states she feels very gassy, she belches a lot, does cause some abdominal discomfort. She also states she is constipated at this time hasn't had a bowel movement 4-5 days. Constipation comes and goes for her. [place] and states she is not well-established. She states that she's had several emergency room visits and multiple CAT scans in the past. States that she is not currently taking any medication such as Pepcid, omeprazole, Tums at home. She denies any nausea or vomiting. She states that she has had weight loss over the last 1-2 years. She had cancer and radiation treatment in 2019, she lost her teeth and she has no dentures. She states is difficult for her to eat due to not having any teeth. States she usually does not have any difficulty swallowing but at times food.. She denies previous colonoscopy, no history of peptic ulcer disease, states previous EGD at least 20 years ago. Also states that she came in for restless leg syndrome and jerking movements in her extremities. Patient has had multiple emergency room visits in the last 1 month's duration with multiple imaging. Last CT abdomen and pelvis done on 10/20/2022 reported circumferential wall thickening of mid small bowel suggestive of antritis, moderate distal colonic/rectal stool burden, tree in bud opacities within the visualized portion of the right lower lobe and right middle lobe favored to represent an infectious/inflammatory process. She is afebrile, no leukocytosis and overall normal labs. Review of Systems REVIEW OF SYSTEMS: CARDIOPULMONARY: No chest pain or shortness of breath. Gastrointestinal: Belching, abdominal discomfort and gurgling. No nausea or vomiting. No hematemesis, coffee-ground emesis. No rectal bleeding, or melena. GENITOURINARY: No dysuria or hematuria. MUSCULOSKELETAL: Reports normal range of motion. Joint pain. SKIN: No rashes. No jaundice. ENDOCRINE: No chills, fevers. No excessive weight gain or loss. No polydipsia or polyuria. PSYCHIATRIC: Unremarkable. NEUROLOGY: No change in mental status. Denies dizziness, headache. ENT: Vision unremarkable. CONSTITUTIONAL: No recent weight loss. No fever, chills, night sweats. Past Medical History Past Medical History: Cancer, Hypertension, Osteoarthritis (OA) Additional Past Medical History / Comment(s): throat ca History of Any Multi-Drug Resistant Organisms: None Reported Past Surgical History: Cholecystectomy, Orthopedic Surgery Additional Past Surgical History / Comment(s): cervical fusion, plate in right ankle Past Anesthesia/Blood Transfusion Reactions: No Reported Reaction Past Psychological History: Depression Smoking Status: Former smoker Past Alcohol Use History: None Reported Past Drug Use History: None Reported - Past Family History Mother Family Medical History: COPD Medications and Allergies Home Medications Medication Instructions Recorded Confirmed Type Albuterol Inhaler [Ventolin Hfa 2 puff INHALATION RT-Q6H PRN 10/09/22 11/16/22 History Inhaler] Atorvastatin [Lipitor] 10 mg PO HS 10/09/22 11/16/22 History Gabapentin 300 mg PO BID@0700,1300 10/09/22 11/16/22 History Gabapentin 600 mg PO HS@2000 10/09/22 11/16/22 History Propranolol [Inderal] 10 mg PO BID 10/09/22 11/16/22 History Escitalopram [Lexapro] 10 mg PO DAILY 11/16/22 11/16/22 History HYDROcodone/APAP 7.5-325MG [[place] 1 tab PO BID 11/16/22 11/16/22 History 7.5-325] rOPINIRole HCL [Requip] 0.25 mg PO HS 11/16/22 11/16/22 History Allergies Allergy/AdvReac Type Severity Reaction Status Date / Time bee venom protein (honey bee) Allergy Anaphylaxis Verified 11/16/22 10:46 Physical Exam Vitals: Vital Signs Temp Pulse Pulse Resp BP BP Pulse Ox 11/16/22 11:18 97.8 F 68 17 165/78 97 11/16/22 11:02 72 18 158/98 98 11/16/22 10:05 73 18 155/85 96 11/16/22 09:24 75 20 150/84 97 11/16/22 08:01 71 20 170/80 98 11/16/22 07:34 97.7 F 60 20 156/72 98 Intake and Output 11/15/22 11/16/22 11/16/22 22:59 06:59 14:59 Other: Weight 48.534 kg General appearance: The patient is alert, oriented, appears in no acute distress. HET: Head is normocephalic and atraumatic. Conjunctiva pink. Sclera anicteric. Neck: Supple without lymphadenopathy. Trachea midline. Heart: S1 S2. Regular rate and rhythm. Lungs: Clear to auscultation. Abdomen: Soft, thin, nontender, nondistended with bowel sounds. No guarding or rigidity. Skin: No rashes. No jaundice. Extremities: Normal skin color and turgor. No pedal edema. Neurological: No focal deficits. Alert and oriented x3. Results CBC & Chem 7: 11/16/22 08:04 11/16/22 08:04 Labs: Abnormal Lab Results - Last 24 Hours (Table) 11/16/22 11/16/22 11/16/22 Range/Units 08:04 08:04 08:33 Lymphocytes # 0.8 L (1.0-4.8) k/uL Sodium 134 L (137-145) mmol/L BUN 20 H (7-17) mg/dL Glucose 106 H (74-99) mg/dL Ur Leukocyte Esterase Small H (Negative) Urine WBC 32 H (0-5) /hpf Urine Bacteria Occasional H (None) /hpf Urine Mucus Rare H (None) /hpf Assessment and Plan (1) Abdominal pain Narrative/Plan: 77-year-old female complains of belching and abdominal discomfort that has been going on for over one month's duration with multiple emergency room visits with no significant acute findings on multiple imaging. She recently moved to the area is not well established. She is not taking any [id number]-[id number] medication such as Pepcid, omeprazole, or Tums. History of throat cancer status post chemoradiation in 2019 losing her teeth, she does have significant weight loss due to not being able to eat from lack of teeth. Denies previous colonoscopy states she's had an EGD about 20 years ago. No nausea or vomiting. Also complains of constipation no bowel movement for 4-5 days. States she gets intermittent constipation. CT abdomen and pelvis does show stool burden on last CAT scan on 6-23. Unclear etiology of abdominal pain likely GERD, possible related to constipation as well. We'll trial medication recommend Protonix 40 mg twice a day and outpatient follow-up for possible endoscopic evaluation. Current Visit: Yes Status: Acute Code(s): R10.9 - UNSPECIFIED ABDOMINAL PAIN SNOMED Code(s): 56677672 (2) Belching Current Visit: Yes Status: Acute Code(s): R14.2 - ERUCTATION SNOMED Code(s): 887742690 (3) Constipation Current Visit: No Status: Acute Code(s): K59.00 - CONSTIPATION, UNSPECIFIED SNOMED Code(s): 75025901 Plan: 1. Continue symptomatic and supportive care 2. Protonix 40 mg twice a day 3. MiraLAX ordered daily, may titrate to twice a day 4. No planned then endoscopic evaluation at this time. Will trial PPI and follow-up in the office. If no relief in symptoms we'll consider EGD colonoscopy at that time. 5. Patient may have regular diet Thank you for this consultation, we will continue to follow. Dr. Elsy Valladares I agree with the dictator's note, documented as a scribe by Cha Craig.
[2022-11-16] MEDS ORDERED: GABAPENTIN 300 MG CAP PO SCH (20:00)
[2022-11-16] MEDS: PROPRANOLOL 10 MG TAB PO SCH (20:35)
[2022-11-16] MEDS: HYDROcodone/APAP 7.5-325MG 1 EACH TAB PO SCH (20:35)
[2022-11-16] MEDS: PANTOPRAZOLE 40 MG/10 ML VIAL IVP SCH (20:35)
[2022-11-16] MEDS ORDERED: ATORVASTATIN 10 MG TAB PO SCH (21:00)
[2022-11-17 03:15] VITALS: TEMP 98
[2022-11-17] MEDS: GABAPENTIN 300 MG CAP PO SCH (06:05)
[2022-11-17] MEDS ORDERED: LACTULOSE 20 GM/30 ML CUP PO ONE (06:45)
[2022-11-17] MEDS ORDERED: PANTOPRAZOLE 40 MG TABLET PO SCH (07:30)
[2022-11-17 08:59] VITALS: BP 136/77; PULSE 72; RESP 18
[2022-11-17] MEDS ORDERED: ESCITALOPRAM 10 MG TAB PO SCH (09:00)
[2022-11-17] MEDS: polyethylene glycoL 3350 17 GM POWD.PACK PO SCH (10:02)
[2022-11-17] MEDS: SIMETHICONE 80 MG CHEWABLE PO SCH (10:02)
[2022-11-17] MEDS: HYDROcodone/APAP 7.5-325MG 1 EACH TAB PO SCH (10:02)
[2022-11-17] MEDS: PROPRANOLOL 10 MG TAB PO SCH (10:03)
[2022-11-17] MEDS: PANTOPRAZOLE 40 MG/10 ML VIAL IVP SCH (10:04)
--- NOTE | 2022-11-17 12:10 | P.HPIM ---
History of Present Illness H&P Date: 11/17/22 Chief Complaint: Abdominal pain, burping History and Physical and Discharge Summary: This is a pleasant 77-year-old female with past medical history significant for throat cancer( in remission) status post chemotherapy and radiation therapy in 2019 with subsequent loss of all her teeth (without dentures), significant weight loss, former nicotine dependence, COPD, osteoarthritis, constipation, hypertension, depression, chronic pain syndrome and multiple other medical issues presented to the ER with complaints of chronic abdominal pain, belching and bilateral lower extremity jerking.Recently relocated to [place] from [place], ran out of her morphine sulfate and reestablished with a new PCP, Dr. Oren Castellanos, nearly two weeks ago, while looking for a pain Dr./placed on prn [place]. Multiple ER visits, most recent CT completed on 11/02/2022, reporting redemonstration of right lower lobe tree and bud nodules representing an infectious/pulmonary process. Additional left upper lobe 4 mm pulmonary nodule, mild COPD changes, right renal cyst measuring up to 1.1 cm. Denies chills or fevers. Tolerating regular diet this morning. Denies any nausea or vomiting. Denies abdominal cramping. Denies abdominal pain. Bowel movement this morn ing.denies chest pain, palpitations or shortness of breath. Denies lightheadedness, dizziness or focal deficits. Labs unremarkable .Afebrile, normal WBC. Maintaining O2 sats in the high 90s on room air. Review of Systems ROS Statement: Those systems with pertinent positive or pertinent negative responses have been documented in the HPI. ROS Other: All systems not noted in ROS Statement are negative. Past Medical History Past Medical History: Cancer, Hypertension, Osteoarthritis (OA) Additional Past Medical History / Comment(s): throat ca History of Any Multi-Drug Resistant Organisms: None Reported Past Surgical History: Cholecystectomy, Orthopedic Surgery Additional Past Surgical History / Comment(s): cervical fusion, plate in right ankle Past Anesthesia/Blood Transfusion Reactions: No Reported Reaction Past Psychological History: Depression Smoking Status: Former smoker Past Alcohol Use History: None Reported Past Drug Use History: None Reported - Past Family History Mother Family Medical History: COPD Medications and Allergies Home Medications Medication Instructions Recorded Confirmed Type Albuterol Inhaler [Ventolin Hfa 2 puff INHALATION RT-Q6H PRN 10/09/22 11/16/22 History Inhaler] Atorvastatin [Lipitor] 10 mg PO HS 10/09/22 11/16/22 History Gabapentin 300 mg PO BID@0700,1300 10/09/22 11/16/22 History Gabapentin 600 mg PO HS@2000 10/09/22 11/16/22 History Propranolol [Inderal] 10 mg PO BID 10/09/22 11/16/22 History Escitalopram [Lexapro] 10 mg PO DAILY 11/16/22 11/16/22 History HYDROcodone/APAP 7.5-325MG [[place] 1 tab PO BID 11/16/22 11/16/22 History 7.5-325] rOPINIRole HCL [Requip] 0.25 mg PO HS 11/16/22 11/16/22 History Pantoprazole Sodium [Protonix] 40 mg PO BID #60 tab 11/17/22 Rx Simethicone [Gas-X] 125 mg PO BID PRN #1 capsule 11/17/22 Rx polyethylene glycoL 3350 [Miralax] 17 gm PO DAILY packet 11/17/22 Rx Allergies Allergy/AdvReac Type Severity Reaction Status Date / Time bee venom protein (honey bee) Allergy Anaphylaxis Verified 11/16/22 10:46 Physical Exam Vitals: Vital Signs Temp Pulse Pulse Pulse Resp BP BP 11/17/22 07:00 98.0 F 72 18 136/77 11/17/22 02:00 98.0 F 74 16 109/51 11/16/22 20:00 97.8 F 86 16 167/67 11/16/22 14:37 98.2 F 65 17 150/74 11/16/22 13:28 68 17 11/16/22 11:18 97.8 F 68 17 165/78 11/16/22 11:02 72 18 158/98 11/16/22 10:05 73 18 155/85 Pulse Ox 11/17/22 07:00 96 11/17/22 02:00 97 11/16/22 20:00 98 11/16/22 14:37 96 11/16/22 13:28 11/16/22 11:18 97 11/16/22 11:02 98 11/16/22 10:05 96 Intake and Output 11/16/22 11/17/22 11/17/22 22:59 06:59 14:59 Other: Voiding Method Toilet Toilet # Voids 1 1 PHYSICAL EXAM: VITAL SIGNS: [As above] GENERAL: Cachectic, alert and oriented 3, sitting up in bed, no acute distress HEENT: Normocephalic, atraumatic ,Conjunctivae normal. eyes normal. NECK: Supple, No JVD. CARDIOVASCULAR: S1, S2 regular.No murmur RESPIRATION: Unlabored, Breath sounds diminished in the bases. No rhonchi or crackles. No bronchial breathing. ABDOMEN: Soft, nondistended, nontender . No guarding. no masses palpable. +BS. LEGS: No edema. no swelling PSYCHIATRY: Alert and oriented X3, mood and affect normal. NERVOUS SYSTEM: Cranial N 2-12 grossly normal. No focal deficits. Strength and sensation grossly intact. Skin: Warm and dry, no rash. Results CBC & Chem 7: 11/16/22 08:04 11/16/22 08:04 Thrombosis Risk Factor Assmnt - Choose All That Apply Any of the Below Risk Factors Present?: No Other Risk Factors: Yes Each Risk Factor Represents 3 Points: Age 75 years or older Other congenital or acquired thrombophilia - If yes, enter type in comment: No Thrombosis Risk Factor Assessment Total Risk Factor Score: 3 Thrombosis Risk Factor Assessment Level: Moderate Risk Assessment and Plan Assessment: Gastroesophageal reflux disease, acute gastritis Chronic abdominal pain, Belching secondary to the above Chronic fluctuating constipation Chronic Restless leg syndrome History of Throat cancer status post chemoradiation in 2019, subsequent loss of all teeth, no dentures, significant weight loss. Albumin 4.1 Redemonstration of right lower lobe tree and bud nodules representing an infe ctious/pulmonary process. Additional left upper lobe 4 mm pulmonary nodule, mild COPD changes, right renal cyst measuring up to 1.1 cm, per CT 11/02/22. Further follow-up outpatient with pulmonary. Former nicotine dependence COPD Chronic pain syndrome Hypertension Plan: Evaluated by GI, placed on trial PPI with recommended OP follow-up. Received MiraLAX with positive results. Significant clinical improvement. Patient will be discharged home today in a stable condition with guarded progn osis. Discharge Medication List Albuterol Inhaler [Ventolin Hfa Inhaler] 2 puff INHALATION RT-Q6H PRN 10/09/22 [History] Atorvastatin [Lipitor] 10 mg PO HS 10/09/22 [History] Gabapentin 300 mg PO BID@0700,1300 10/09/22 [History] Gabapentin 600 mg PO HS@2000 10/09/22 [History] Propranolol [Inderal] 10 mg PO BID 10/09/22 [History] Escitalopram [Lexapro] 10 mg PO DAILY 11/16/22 [History] HYDROcodone/APAP 7.5-325MG [[place] 7.5-325] 1 tab PO BID 11/16/22 [History] rOPINIRole HCL [Requip] 0.25 mg PO HS 11/16/22 [History] Pantoprazole Sodium [Protonix] 40 mg PO BID #60 tab 11/17/22 [Rx] Simethicone [Gas-X] 125 mg PO BID PRN #1 capsule 11/17/22 [Rx] polyethylene glycoL 3350 [Miralax] 17 gm PO DAILY packet 11/17/22 [Rx] The impression and plan of care has been dictated as directed. : I performed a history and examination of this patient, discussed the same with the dictator. I agree with the dictator's note ,documented as a scribe. Any additional findings or plans will be noted.
--- NOTE | 2022-11-17 12:40 | P.PN ---
Subjective Progress Note Date: 11/17/22 Principal diagnosis: Abdominal pain This is a pleasant 69-year-old female with a past medical history of throat cancer status post chemotherapy and radiation therapy, hypertension osteoarthritis COPD and former smoker. She presented to the emergency department for complaints of chronic belching and abdominal pain. Patient states she feels very gassy, she belches a lot, does cause some abdominal discomfort. She also states she is constipated at this time hasn't had a bowel movement 4-5 days. Constipation comes and goes for her. Patient recently moved to [place] from [place] and states she is not well-established. She states that she's had several emergency room visits and multiple CAT scans in the past. States that she is not currently taking any medication such as Pepcid, omeprazole, Tums at home. She denies any nausea or vomiting. She states that she has had weight loss over the last 1-2 years. She had cancer and radiation treatment in 2019, she lost her teeth and she has no dentures. She states is difficult for her to eat due to not having any teeth. States she usually does not have any difficulty swallowing but at times food.. She denies previous colonoscopy, no history of peptic ulcer disease, states previous EGD at least 20 years ago. Also states that she came in for restless leg syndrome and jerking movements in her extremities. Patient has had multiple emergency room visits in the last 1 month's duration with multiple imaging. Last CT abdomen and pelvis done on 10/20/2022 reported circumferential wall thickening of mid small bowel suggestive of antritis, moderate distal colonic/rectal stool burden, tree in bud opacities within the visualized portion of the right lower lobe and right middle lobe favored to represent an infectious/inflammatory process. She is afebrile, no leukocytosis and overall normal labs. 11/17/2022 Patient seen and examined today as a follow-up. She denies any abdominal pain. States that she is just belching. She has not had a bowel movement yet. No nausea or vomiting. She is afebrile. Objective - Vital Signs Vital signs: Vital Signs Temp 98.0 F 11/17/22 02:00 Pulse 74 11/17/22 02:00 Resp 16 11/17/22 02:00 BP 109/51 11/17/22 02:00 Pulse Ox 97 11/17/22 02:00 FiO2 Intake & Output 11/16/22 11/16/22 11/17/22 06:59 18:59 06:59 Weight 48.534 kg Other: Voiding Method Toilet Toilet # Voids 1 1 - Exam General appearance: The patient is thin, alert, oriented, appears in no acute distress. HET: Head is normocephalic and atraumatic. Conjunctiva pink. Sclera anicteric. No teeth. Neck: Supple without lymphadenopathy. Abdomen: Soft, nontender, nondistended with bowel sounds. No guarding or rigidity. Extremities: Normal skin color and turgor. No pedal edema Skin: No rashes, no jaundice Neurological: No focal deficits. Alert and oriented. - Labs CBC & Chem 7: 11/16/22 08:04 11/16/22 08:04 Labs: Abnormal Lab Results - Last 24 Hours (Table) 11/16/22 11/16/22 11/16/22 Range/Units 08:04 08:04 08:33 Lymphocytes # 0.8 L (1.0-4.8) k/uL Sodium 134 L (137-145) mmol/L BUN 20 H (7-17) mg/dL Glucose 106 H (74-99) mg/dL Ur Leukocyte Esterase Small H (Negative) Urine WBC 32 H (0-5) /hpf Urine Bacteria Occasional H (None) /hpf Urine Mucus Rare H (None) /hpf Assessment and Plan (1) Abdominal pain Narrative/Plan: 77-year-old female complains of belching and abdominal discomfort that has been going on for over one month's duration with multiple emergency room visits with no significant acute findings on multiple imaging. She recently moved to the area is not well established. She is not taking any [id number] medication such as Pepcid, omeprazole, or Tums. History of throat cancer status post chemoradiation in 2019 losing her teeth, she does have significant weight loss due to not being able to eat from lack of teeth. Denies previous colonoscopy states she's had an EGD about 20 years ago. No nausea or vomiting. Also c omplains of constipation no bowel movement for 4-5 days. States she gets intermittent constipation. CT abdomen and pelvis does show stool burden on last CAT scan on 11-10. Unclear etiology of abdominal pain likely GERD, possible related to constipation as well. We'll trial medication recommend Protonix 40 mg twice a day and outpatient follow-up for possible endoscopic evaluation. Current Visit: Yes Status: Acute Code(s): R10.9 - UNSPECIFIED ABDOMINAL PAIN SNOMED Code(s): 50170719 (2) Belching Current Visit: Yes Status: Acute Code(s): R14.2 - ERUCTATION SNOMED Code(s): 854450195 (3) Constipation Current Visit: No Status: Acute Code(s): K59.00 - CONSTIPATION, UNSPECIFIED SNOMED Code(s): 31256019 Plan: 1. Continue symptomatic and supportive care 2. Protonix 40 mg twice a day 3. MiraLAX ordered daily, may titrate to twice a day 4. No planned then endoscopic evaluation at this time. Will trial PPI and follow-up in the office. If no relief in symptoms we'll consider EGD colonoscopy at that time. 5. Patient may have regular diet 6. 1 dose of lactulose ordered Thank you for this consultation, the patient is cleared from gastroenterology at this time. She can follow-up in 3-[address] Elsy Valladares I agree with the dictator's note, documented as a scribe by Cha Craig.
== END 2022-11-17 12:44 | disposition home or self-care (01) ==
LOC: EC 07:32 → 6NMEDSUR 10:26
PROVIDERS: ADMIT Family Medicine; ATTEND Family Medicine
DX: K29.00 Acute gastritis without bleeding (principal); K21.9 Gastro-esophageal reflux disease without esophagitis; M19.90 Unspecified osteoarthritis, unspecified site; I10 Essential (primary) hypertension; K59.09 Other constipation; G89.4 Chronic pain syndrome; J44.9 Chronic obstructive pulmonary disease, unspecified; K08.199 Complete loss of teeth due to other specified cause, unspecified class; G25.81 Restless legs syndrome; N28.1 Cyst of kidney, acquired; R91.1 Solitary pulmonary nodule; F32.A Depression, unspecified; R63.4 Abnormal weight loss; Z68.20 Body mass index [BMI] 20.0-20.9, adult; Z79.899 Other long term (current) drug therapy; Z91.030 Bee allergy status; Z87.891 Personal history of nicotine dependence; Z92.21 Personal history of antineoplastic chemotherapy; Z85.819 Personal history of malignant neoplasm of unspecified site of lip, oral cavity, and pharynx; Z90.49 Acquired absence of other specified parts of digestive tract; Z98.1 Arthrodesis status; Z92.3 Personal history of irradiation; Z98.890 Other specified postprocedural states; Z82.5 Family history of asthma and other chronic lower respiratory diseases
CPT/HCPCS: 96376; 96375; 96372; 96374; 99291; 36415; 80053; 82150; 83690; 85025; 81001; 74018; G0378 ×2; J2060; J0500; C9113 ×2

== ENCOUNTER 2022-11-20 08:07 | Observation (INO) | payer MEDICARE ==
[2022-11-20] MEDS ORDERED: ONDANSETRON 4 MG/2 ML VIAL IVP STA (08:28)
[2022-11-20] MEDS ORDERED: SODIUM CHLORIDE 0.9% 1,000 ML IV STA (08:28)
[2022-11-20] MEDS ORDERED: MORPHINE SULFATE 4 MG/ML SYRINGE IVP STA (09:05)
[2022-11-20 09:18] LABS: Basophils % (A) 0 %; Eosinophils # (A) 0.1 k/uL (0-0.7); Eosinophils % (A) 1 %; HCT 41.5 % (34.0-46.0); HGB 13.8 gm/dL (11.4-16.0); Lymphocytes # (A) 0.7 k/uL (1.0-4.8); Lymphocytes % (A) 10 %; MCH 32.1 pg (25.0-35.0); MCHC 33.2 g/dL (31.0-37.0); MCV 96.7 fL (80.0-100.0); Mean Platelet Volume 7.5; Monocytes # (A) 0.5 k/uL (0-1.0); Monocytes % (A) 7 %; Neutrophils # (A) 5.4 k/uL (1.3-7.7); Neutrophils % (A) 80 %; Platelet Count 236 k/uL (150-450); RBC 4.29 m/uL (3.80-5.40); RDW 13.4 % (11.5-15.5); WBC 6.7 k/uL (3.8-10.6)
[2022-11-20 09:43] LABS: ALT 16 U/L (4-34); AST 22 U/L (14-36); African American GFR (CKD) >90 (>60 ml/min/1.73 sqM); Albumin 4.1 g/dL (3.5-5.0); Alkaline Phosphatase 65 U/L (38-126); Anion Gap 6 mmol/L; Blood Urea Nitrogen 20 mg/dL (7-17); Calcium 9.1 mg/dL (8.4-10.2); Carbon Dioxide 32 mmol/L (22-30); Chloride 91 mmol/L (98-107); Glucose 131 mg/dL (74-99); Lipase 72 U/L (23-300); Non-African American GFR(CKD) 88 (>60 ml/min/1.73 sqM); Potassium 4.2 mmol/L (3.5-5.1); Sodium 129 mmol/L (137-145); Total Bilirubin 0.7 mg/dL (0.2-1.3); Total Protein 6.7 g/dL (6.3-8.2)
[2022-11-20] MEDS ORDERED: PANTOPRAZOLE 40 MG/10 ML VIAL IVP STA (10:21)
[2022-11-20] MEDS ORDERED: ONDANSETRON 4 MG/2 ML VIAL IVP PRN (10:39)
[2022-11-20] MEDS ORDERED: NALOXONE 0.4 MG/ML 1 ML VIAL IV PRN (10:39)
--- NOTE | 2022-11-20 10:39 | ED ---
Abdominal Pain HPI - General Chief Complaint: Abdominal Pain Stated Complaint: Abd Pain Time Seen by Provider: 11/20/22 08:15 Source: patient, EMS Mode of arrival: EMS Limitations: no limitations - History of Present Illness Initial Comments: 77-year-old female past medical history of GERD, throat cancer who presents to the emergency department with inability to hold down any food or drink. She reports epigastric discomfort. This has been going on for the past 6 weeks. She was just hospitalized for similar complaints and GI will consult it. They placed her on MiraLAX and a PPI. She states she has been taking the medications as directed however continues to have symptoms. GI stated that she would be scoped if she had persistent symptoms. She denies any chest pain. No shortness of breath. No other alleviating, precipitating or modifying factors - Related Data Home Medications Medication Instructions Recorded Confirmed Albuterol Inhaler [Ventolin Hfa 2 puff INHALATION RT-Q6H PRN 10/09/22 11/20/22 Inhaler] Atorvastatin [Lipitor] 10 mg PO DAILY 10/09/22 11/20/22 Gabapentin 300 mg PO BID@0700,1300 10/09/22 11/20/22 Gabapentin 600 mg PO HS@2000 10/09/22 11/20/22 Propranolol [Inderal] 10 mg PO BID 10/09/22 11/20/22 Escitalopram [Lexapro] 10 mg PO HS 11/16/22 11/20/22 HYDROcodone/APAP 7.5-325MG [[place] 1 tab PO BID 11/16/22 11/20/22 7.5-325] rOPINIRole HCL [Requip] 0.25 mg PO HS 11/16/22 11/20/22 Previous Rx's Medication Instructions Recorded Pantoprazole Sodium [Protonix] 40 mg PO BID #60 tab 11/17/22 Simethicone [Gas-X] 125 mg PO BID PRN #1 capsule 11/17/22 polyethylene glycoL 3350 [Miralax] 17 gm PO DAILY packet 11/17/22 Allergies Allergy/AdvReac Type Severity Reaction Status Date / Time bee venom protein (honey bee) Allergy Anaphylaxis Verified 11/20/22 10:12 Review of Systems ROS Statement: Those systems with pertinent positive or pertinent negative responses have been documented in the HPI. ROS Other: All systems not noted in ROS Statement are negative. Past Medical History Past Medical History: Cancer, Hypertension, Osteoarthritis (OA) Additional Past Medical History / Comment(s): throat ca History of Any Multi-Drug Resistant Organisms: None Reported Past Surgical History: Cholecystectomy, Orthopedic Surgery Additional Past Surgical History / Comment(s): cervical fusion, plate in right ankle Past Anesthesia/Blood Transfusion Reactions: No Reported Reaction Past Psychological History: Depression Smoking Status: Former smoker Past Alcohol Use History: None Reported Past Drug Use History: None Reported - Past Family History Mother Family Medical History: COPD General Exam Limitations: no limitations Course Vital Signs 11/20/22 11/20/22 08:11 12:00 Temperature 98.2 F Pulse Rate 49 L 48 L Respiratory 20 18 Rate Blood Pressure 136/89 157/87 O2 Sat by Pulse 97 96 Oximetry - Reevaluation(s) Reevaluation #1: Dr. Martin states that [facility] is taking all of his admissions. Patient to be admitted with GI consult 11/20/22 10:38 Medical Decision Making - Medical Decision Making Upon arrival patient was placed in room 9. There are history of physical exam was performed. Patient was just recent hospitalized for similar complaint. Laboratory studies are conducted which demonstrate a sodium of 129. Patient administered fluids, pain medications and protonix. Page Dr. Castellanos however he reports that [facility] is taking all of his admissions today and tomorrow. Recommended that the patient be admitted to them. I spoke with Dr. Almeida who agreed to admit the patient with GI on consult - Lab Data Result diagrams: 11/20/22 08:58 11/20/22 08:58 Lab Results 11/20/22 11/20/22 11/20/22 Range/Units 08:58 08:58 08:58 WBC 6.7 (3.8-10.6) k/uL RBC 4.29 (3.80-5.40) m/uL Hgb 13.8 (11.4-16.0) gm/dL Hct 41.5 (34.0-46.0) % MCV 96.7 (80.0-100.0) fL MCH 32.1 (25.0-35.0) pg MCHC 33.2 (31.0-37.0) g/dL RDW 13.4 (11.5-15.5) % Plt Count 236 (150-450) k/uL MPV 7.5 Neutrophils % 80 % Lymphocytes % 10 % Monocytes % 7 % Eosinophils % 1 % Basophils % 0 % Neutrophils # 5.4 (1.3-7.7) k/uL Lymphocytes # 0.7 L (1.0-4.8) k/uL Monocytes # 0.5 (0-1.0) k/uL Eosinophils # 0.1 (0-0.7) k/uL Basophils # 0.0 (0-0.2) k/uL Sodium 129 L (137-145) mmol/L Potassium 4.2 (3.5-5.1) mmol/L Chloride 91 L (98-107) mmol/L Carbon Dioxide 32 H (22-30) mmol/L Anion Gap 6 mmol/L BUN 20 H (7-17) mg/dL Creatinine 0.59 (0.52-1.04) mg/dL Est GFR (CKD-EPI)AfAm >90 (>60 ml/min/1.73 sqM) Est GFR (CKD-EPI)NonAf 88 (>60 ml/min/1.73 sqM) Glucose 131 H (74-99) mg/dL Plasma Lactic Acid Fady 0.7 (0.7-2.0) mmol/L Calcium 9.1 (8.4-10.2) mg/dL Total Bilirubin 0.7 (0.2-1.3) mg/dL AST 22 (14-36) U/L ALT 16 (4-34) U/L Alkaline Phosphatase 65 (38-126) U/L Total Protein 6.7 (6.3-8.2) g/dL Albumin 4.1 (3.5-5.0) g/dL Lipase 72 (23-300) U/L Disposition Clinical Impression: Intractable abdominal pain Disposition: ADMITTED IP TO THIS [facility] Condition: Stable Is patient prescribed a controlled substance at d/c from ED?: No Time of Disposition: 10:38 Decision to Admit Reason: Admit from EC Decision Date: 11/20/22 Decision Time: 10:38
[2022-11-20] MEDS: SODIUM CHLORIDE 0.9% 1,000 ML IV SCH (11:57)
[2022-11-20] MEDS ORDERED: PEG 3350 (236 GM/BTL) + LYTES 4,000 ML BOTTLE PO ONE (12:57)
[2022-11-20] MEDS ORDERED: SIMETHICONE 80 MG CHEWABLE PO PRN (13:20)
[2022-11-20] MEDS ORDERED: ALBUTEROL NEBULIZED 2.5 MG/3 ML INHALATION PRN (13:20)
--- NOTE | 2022-11-20 13:20 | P.HPIM ---
History of Present Illness H&P Date: 11/20/22 History of present illness; patient is a 77-year-old lady with past medical significant for GERD, throat cancer who presented to the ER because of nausea vomiting abdominal pain. Patient has multiple visits to the ER the last one half months with similar complaints. Patient has seen her PCP in outpatient settings who was concerned that the patient has been losing weight and has been unable to keep food down, patient was supposed to see GI outpatient. Patient stated that for last few days she has been having epigastric pain associated nausea and vomiting, states as soon as she eats anything the food does not go down well. Denies any altered bowel movements. Denies any fever or chills. De nies any chest pain or shortness of breath. Because of these worsening symptoms, patient came to the ER Initial lab work in the ER showed him to be 6.7, hemoglobin 13.8, platelet count 236, sodium 129, potassium 4.2, chloride 91, glucose 131 She was admitted to medicine service REVIEW OF SYSTEMS: CONSTITUTIONAL: No fever, complaining of loss of appetite and weight loss HEENT: No recent visual problems or hearing problems. Denied any sore throat. CARDIOVASCULAR: No chest pain, orthopnea, PND, no palpitations, no syncope. PULMONARY: No shortness of breath, no cough, no hemoptysis. GASTROINTESTINAL: As mentioned in HPI NEUROLOGICAL: No headaches, no weakness, no numbness. HEMATOLOGICAL: Denies any bleeding or petechiae. GENITOURINARY: Denies any burning micturition, frequency, or urgency. MUSCULOSKELETAL/RHEUMATOLOGICAL: Denies any joint pain, swelling, or any muscle pain. ENDOCRINE: Denies any polyuria or polydipsia. The rest of the 14-point review of systems is negative. PHYSICAL EXAMINATION: GENERAL: The patient is alert and oriented x3, not in any acute distress. Well developed, well nourished. HEENT: Pupils are round and equally reacting to light. EOMI. No scleral icterus. No conjunctival pallor. Normocephalic, atraumatic. No pharyngeal erythema. No thyromegaly. CARDIOVASCULAR: S1 and S2 present. No murmurs, rubs, or gallops. PULMONARY: Chest is clear to auscultation, no wheezing or crackles. ABDOMEN: Soft, nontender, nondistended, normoactive bowel sounds. No palpable organomegaly. MUSCULOSKELETAL: No joint swelling or deformity. EXTREMITIES: No cyanosis, clubbing, or pedal edema. NEUROLOGICAL: Gross neurological examination did not reveal any focal deficits. SKIN: No rashes. Assessment and plan Abdominal pain Nausea and vomiting Hyponatremia Gastroesophageal reflux disease Chronic fluctuating constipation Chronic Restless leg syndrome History of Throat cancer status post chemoradiation in 2019, subsequent loss of all teeth, no dentures, significant weight loss. Albumin 4.1 Former nicotine dependence COPD Chronic pain syndrome Hypertension Monitor vital signs Monitor CBC Monitor CMP Continue IV fluids Continue antiemetics continue Protonix and Carafate Resume home meds Consult GI Past Medical History Past Medical History: Cancer, Hypertension, Osteoarthritis (OA) Additional Past Medical History / Comment(s): throat ca History of Any Multi-Drug Resistant Organisms: None Reported Past Surgical History: Cholecystectomy, Orthopedic Surgery Additional Past Surgical History / Comment(s): cervical fusion, plate in right ankle Past Anesthesia/Blood Transfusion Reactions: No Reported Reaction Past Psychological History: Depression Smoking Status: Former smoker Past Alcohol Use History: None Reported Past Drug Use History: None Reported - Past Family History Mother Family Medical History: COPD Medications and Allergies Home Medications Medication Instructions Recorded Confirmed Type Albuterol Inhaler [Ventolin Hfa 2 puff INHALATION RT-Q6H PRN 10/09/22 11/20/22 History Inhaler] Atorvastatin [Lipitor] 10 mg PO DAILY 10/09/22 11/20/22 History Gabapentin 300 mg PO BID@0700,1300 10/09/22 11/20/22 History Gabapentin 600 mg PO HS@2000 10/09/22 11/20/22 History Propranolol [Inderal] 10 mg PO BID 10/09/22 11/20/22 History Escitalopram [Lexapro] 10 mg PO HS 11/16/22 11/20/22 History HYDROcodone/APAP 7.5-325MG [[place] 1 tab PO BID 11/16/22 11/20/22 History 7.5-325] rOPINIRole HCL [Requip] 0.25 mg PO HS 11/16/22 11/20/22 History Pantoprazole Sodium [Protonix] 40 mg PO BID #60 tab 11/17/22 11/20/22 Rx Simethicone [Gas-X] 125 mg PO BID PRN #1 capsule 11/17/22 11/20/22 Rx polyethylene glycoL 3350 [Miralax] 17 gm PO DAILY packet 11/17/22 11/20/22 Rx Allergies Allergy/AdvReac Type Severity Reaction Status Date / Time bee venom protein (honey bee) Allergy Anaphylaxis Verified 11/20/22 10:12 Physical Exam Vitals: Vital Signs Temp Pulse Pulse Resp BP BP Pulse Ox 11/20/22 12:59 97.9 F 45 L 16 159/95 97 11/20/22 12:00 48 L 18 157/87 96 11/20/22 08:11 98.2 F 49 L 20 136/89 97 Intake and Output 11/19/22 11/20/22 11/20/22 22:59 06:59 14:59 Other: Weight 48.534 kg Results CBC & Chem 7: 11/20/22 08:58 11/20/22 08:58 Labs: Abnormal Lab Results - Last 24 Hours (Table) 11/20/22 11/20/22 Range/Units 08:58 08:58 Lymphocytes # 0.7 L (1.0-4.8) k/uL Sodium 129 L (137-145) mmol/L Chloride 91 L (98-107) mmol/L Carbon Dioxide 32 H (22-30) mmol/L BUN 20 H (7-17) mg/dL Glucose 131 H (74-99) mg/dL
--- NOTE | 2022-11-20 14:04 | P.CONS ---
History of Present Illness - Reason for Consult Consult date: 11/20/22 Epigastric pain Requesting physician: Linn Rodriguez - Chief Complaint Diarrhea - History of Present Illness This is a 77-year-old female who was recently hospitalized last week and seen by gastroenterology. Patient recently moved to the area within the last couple months with multiple comorbidities. She has had multiple hospitalizations within the last 1-2 months. Patient with complaints of belching, decreased appetite and now with diarrhea which she states started within the last few days. During her last hospitalization her complaint was constipation with a CT of the abdomen showing stool burden. She was started on MiraLAX and was given a dose of lactulose for which constipation resolved. 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 She denies any abdominal pain, no nausea or vomiting. States that she has not been vomiting and has been able to eat and drink however has not been due to decreased appetite and poor dental patient. Patient has a history of throat cancer with radiation and chemotherapy and following loss of her teeth. She has not had any dentures since 2019. She is now residing with her daughters who are at the bedside and state that she is having issues with low heart rate, they also believe that her symptoms are related to withdrawal from morphine. Patient has ongoing standing history of being on morphine sulfate for chronic pain and had run out. 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 They do state that she has an appointment this week Sunday with Dr. Penn. Daughters are concerned about possible peptic ulcer disease state that she has a history of ulcers. Patient states last EGD probably 20-30 years ago. She was started on Protonix 40 mg twice a day was discharged on 11/17/2022 and was supposed to follow-up with gastroenterology in 2-4 weeks for possible outpatient EGD. Review of Systems REVIEW OF SYSTEMS: CARDIOPULMONARY: No chest pain or shortness of breath. Gastrointestinal: Complaints of belching. Epigastric pain at times. Decreased appetite. No nausea or vomiting. No hematemesis, coffee-ground emesis. No rectal bleeding, or melena. GENITOURINARY: No dysuria or hematuria. MUSCULOSKELETAL: Reports normal range of motion. Joint pain. SKIN: No rashes. No jaundice. ENDOCRINE: No chills, fevers. No excessive weight gain or loss. No polydipsia or polyuria. PSYCHIATRIC: Unremarkable. NEUROLOGY: No change in mental status. Denies dizziness, headache. ENT: Vision unremarkable. CONSTITUTIONAL: Poor appetite. No fever, chills, night sweats. Past Medical History Past Medical History: Cancer, Hypertension, Osteoarthritis (OA) Additional Past Medical History / Comment(s): throat ca History of Any Multi-Drug Resistant Organisms: None Reported Past Surgical History: Cholecystectomy, Orthopedic Surgery Additional Past Surgical History / Comment(s): cervical fusion, plate in right ankle Past Anesthesia/Blood Transfusion Reactions: No Reported Reaction Past Psychological History: Depression Smoking Status: Former smoker Past Alcohol Use History: None Reported Past Drug Use History: None Reported - Past Family History Mother Family Medical History: COPD Medications and Allergies Home Medications Medication Instructions Recorded Confirmed Type Albuterol Inhaler [Ventolin Hfa 2 puff INHALATION RT-Q6H PRN 10/09/22 11/20/22 History Inhaler] Atorvastatin [Lipitor] 10 mg PO DAILY 10/09/22 11/20/22 History Gabapentin 300 mg PO BID@0700,1300 10/09/22 11/20/22 History Gabapentin 600 mg PO HS@2000 10/09/22 11/20/22 History Propranolol [Inderal] 10 mg PO BID 10/09/22 11/20/22 History Escitalopram [Lexapro] 10 mg PO HS 11/16/22 11/20/22 History HYDROcodone/APAP 7.5-325MG [[place] 1 tab PO BID 11/16/22 11/20/22 History 7.5-325] rOPINIRole HCL [Requip] 0.25 mg PO HS 11/16/22 11/20/22 History Pantoprazole Sodium [Protonix] 40 mg PO BID #60 tab 11/17/22 11/20/22 Rx Simethicone [Gas-X] 125 mg PO BID PRN #1 capsule 11/17/22 11/20/22 Rx polyethylene glycoL 3350 [Miralax] 17 gm PO DAILY packet 11/17/22 11/20/22 Rx Allergies Allergy/AdvReac Type Severity Reaction Status Date / Time bee venom protein (honey bee) Allergy Anaphylaxis Verified 11/20/22 10:12 Physical Exam Vitals: Vital Signs Temp Pulse Resp BP Pulse Ox 11/20/22 12:00 48 L 18 157/87 96 11/20/22 08:11 98.2 F 49 L 20 136/89 97 Intake and Output 11/19/22 11/20/22 11/20/22 22:59 06:59 14:59 Other: Weight 48.534 kg General appearance: The patient is alert, oriented, appears in no acute distress. HET: Head is normocephalic and atraumatic. Conjunctiva pink. Sclera anicteric. Neck: Supple without lymphadenopathy. Abdomen: Soft, thin, nontender, nondistended with bowel sounds. No guarding or rigidity. Extremities: Normal skin color and turgor. No pedal edema Skin: No rashes, no jaundice Neurological: No focal deficits. Alert and oriented. Results CBC & Chem 7: 11/20/22 08:58 11/20/22 08:58 Labs: Abnormal Lab Results - Last 24 Hours (Table) 11/20/22 11/20/22 Range/Units 08:58 08:58 Lymphocytes # 0.7 L (1.0-4.8) k/uL Sodium 129 L (137-145) mmol/L Chloride 91 L (98-107) mmol/L Carbon Dioxide 32 H (22-30) mmol/L BUN 20 H (7-17) mg/dL Glucose 131 H (74-99) mg/dL Assessment and Plan (1) Abdominal pain Narrative/Plan: 69-year-old female recently admitted to the hospital with complaints of belching and epigastric pain. Patient at that time was treated with Protonix and recommended outpatient follow-up. Patient also at that time had constipation which was relieved prior to discharge. Patient with long-standing narcotic dependency with morphine sulfate. According to her daughters were concerned that she has been going through withdrawal as she is not been able to get her m orphine sulfate due to recent move here in no pain specialist. Patient is denying any pain, states she received morphine here in the hospital and she is much better. States that she has not had any vomiting that she is able to eat but she just has a decreased appetite. She is currently on clear liquid diet. She does also have a history of peptic ulcer disease last EGD approximately 30 years ago. Does not believe she had colonoscopy. An unclear etiology abdominal pain, could certainly be related to narcotic withdrawal but also need to consider possibility of peptic ulcer disease with patient's history. Will proceed with EGD and colonoscopy for further evaluation. Current Visit: No Status: Acute Code(s): R10.9 - UNSPECIFIED ABDOMINAL PAIN SNOMED Code(s): 46522515 (2) Belching Current Visit: No Status: Acute Code(s): R14.2 - ERUCTATION SNOMED Code(s): 325063929 (3) Diarrhea Current Visit: Yes Status: Acute Code(s): R19.7 - DIARRHEA, UNSPECIFIED SNOMED Code(s): 46478466 (4) Decreased appetite Current Visit: Yes Status: Acute Code(s): R63.0 - ANOREXIA SNOMED Code(s): 76134559 Plan: 1. Continue symptomatic and supportive care 2. Clear liquid diet, nothing by mouth after midnight 3. Continue Protonix 40 mg twice a day 4. Bowel prep this afternoon 5. Will proceed with EGD and colonoscopy tomorrow 6. Further medical management per primary medical team Thank you for this consultation, we will continue to follow. Dr. Elsy Valladares I agree with the dictator's note, documented as a scribe by Cha Craig.
[2022-11-20] MEDS: MORPHINE SULFATE 4 MG/ML SYRINGE IV PRN ×2 (15:37→21:07)
[2022-11-20] MEDS: SUCRALFATE 1 GM TAB PO SCH (17:07)
[2022-11-20] MEDS ORDERED: GABAPENTIN 300 MG CAP PO SCH (20:00)
[2022-11-20] MEDS: PROPRANOLOL 10 MG TAB PO SCH (20:03)
[2022-11-20] MEDS: PANTOPRAZOLE 40 MG TABLET PO SCH (20:03)
[2022-11-20] MEDS: HYDROcodone/APAP 7.5-325MG 1 EACH TAB PO SCH (20:04)
[2022-11-20] MEDS ORDERED: ESCITALOPRAM 10 MG TAB PO SCH (21:00)
[2022-11-21] MEDS: SODIUM CHLORIDE 0.9% 1,000 ML IV SCH ×2 (05:39→11:18)
[2022-11-21] MEDS: SUCRALFATE 1 GM TAB PO SCH (06:27)
[2022-11-21] MEDS ORDERED: GABAPENTIN 300 MG CAP PO SCH (07:00)
[2022-11-21] MEDS ORDERED: LIDOCAINE 2% INJ 20 MG/ML (2 ML VIAL) ONE (07:50)
[2022-11-21] MEDS ORDERED: PROPOFOL 10 MG/ML 20 ML VIAL IV ONE (07:50)
[2022-11-21] MEDS ORDERED: IV FLUID CONTINUATION 200 ML IV ONE (08:14)
--- NOTE | 2022-11-21 08:14 | P.PCN ---
Date of Procedure: 11/21/22 Procedure(s) Performed: Brief history: Patient is a pleasant 77-year-old is a white female admitted hospital with intermittent episodes of nausea vomiting epigastric pain and early satiety with weight loss of 10 pounds in the last 3-4 weeks duration. She isn't scheduled for an upper endoscopy as well as colonoscopy to evaluate further. Procedure performed: Esophagogastroduodenoscopy with bile Colonoscopy with biopsy Preoperative diagnosis: Abdominal pain, nausea vomiting Weight loss Anesthesia: MAC Procedure: After informed consent was obtained from the patient was brought into the endoscopy unit and IV sedation was administered by anesthesia under continuous monitoring. Initially upper endoscopy was done. The Olympus GF 160 video endoscope was inserted inserted into the mouth and esophagus intubated without any difficulty and was gradually advanced into the stomach and duodenum and carefully examined. The bulb and second part of the duodenum appeared normal. The scope was then withdrawn into the stomach adequately insufflated with air and upon careful examination the antrum had mild diffuse gastritis and biopsies were done from this area. Mucosa of the body, cardia and fundus appeared normal. The scope was then withdrawn into the esophagus. The GE junction was located at 40 cm to the incisors. It appeared regular with no erythema erosions or ulcerations. Rest of the esophagus appeared normal. Patient tolerated the procedure well. At this time the patient continued to remain sedation. Initial digital rectal examination was normal. Olympus CF 160 video colonoscope was then inserted into the rectum and gradually advanced to the cecum without any difficulty. Careful examination was performed as the scope was gradually being withdrawn. The prep was excellent. The cecum, ascending colon appeared normal. In the transverse colon there was a 5 mm polyp that was removed by cold biopsy. Rest of the, transverse colon, descending colon, sigmoid colon and rectum appeared normal. Scattered sigmoid diverticulosis. Retroflexion was performed in the rectum and no lesions were noted. Patient tolerated the procedure well. Impression: 1. Upper endoscopy revealed mild antral gastritis 2. Colonoscopy revealed 5 mm transverse colon polyp status post cold biopsy and scattered sigmoid diverticulosis Recommendations: Findings of this examination were discussed with the patient .she was advised to follow with the biopsy results. Diet will be advanced as tolerated.
[2022-11-21 08:19] VITALS: RESP 16
[2022-11-21] MEDS: PROPRANOLOL 10 MG TAB PO SCH (08:40)
[2022-11-21] MEDS: PANTOPRAZOLE 40 MG TABLET PO SCH (08:40)
[2022-11-21] MEDS: HYDROcodone/APAP 7.5-325MG 1 EACH TAB PO SCH (08:40)
[2022-11-21] MEDS ORDERED: ATORVASTATIN 10 MG TAB PO SCH (09:00)
--- NOTE | 2022-11-21 11:42 | P.DS ---
Providers Date of admission: 11/20/22 10:39 Expected date of discharge: 11/21/22 Attending physician: Ammon Almeida MD Consults: 11/20/22 10:39 Consult Physician Urgent Consulting Provider: Umu Valladares Consult Reason/Comments: epigastric pain Do you want consulting provider notified?: Yes Primary care physician: [facility] Course: Discharge diagnoses; Abdominal pain Nausea and vomiting Hyponatremia Gastroesophageal reflux disease Chronic fluctuating constipation Chronic Restless leg syndrome History of Throat cancer status post chemoradiation in 2019, subsequent loss of all teeth, no dentures, significant weight loss. Albumin 4.1 Former nicotine dependence COPD Chronic pain syndrome Hypertension Hospital course; patient is a 77-year-old lady with past medical significant for GERD, throat cancer who presented to the ER because of nausea vomiting abdominal pain. Patient has multiple visits to the ER the last one half months with similar complaints. Patient has seen her PCP in outpatient settings who was concerned that the patient has been losing weight and has been unable to keep food down, patient was supposed to see GI outpatient. Patient stated that for last few days she has been having epigastric pain associated nausea and vomiting, states as soon as she eats anything the food does not go down well. Denies any altered bowel movements. Denies any fever or chills. Denies any chest pain or shortness of breath. Because of these worsening symptoms, patient came to the ER Initial lab work in the ER showed him to be 6.7, hemoglobin 13.8, platelet count 236, sodium 129, potassium 4.2, chloride 91, glucose 131 She was admitted to medicine service 11/21. Patient seen and examined. Patient EGD and colonoscopy done which showed the following Upper endoscopy revealed mild antral gastritis 2. Colonoscopy revealed 5 mm transverse colon polyp status post cold biopsy and scattered sigmoid diverticulosis GI recommended discharging patient on oral Protonix, outpatient follow with PCP and GI PHYSICAL EXAMINATION: GENERAL: The patient is alert and oriented x3, not in any acute distress. Well developed, well nourished. HEENT: Pupils are round and equally reacting to light. EOMI. No scleral icterus. No conjunctival pallor. Normocephalic, atraumatic. No pharyngeal erythema. No thyromegaly. CARDIOVASCULAR: S1 and S2 present. No murmurs, rubs, or gallops. PULMONARY: Chest is clear to auscultation, no wheezing or crackles. ABDOMEN: Soft, nontender, nondistended, normoactive bowel sounds. No palpable organomegaly. MUSCULOSKELETAL: No joint swelling or deformity. EXTREMITIES: No cyanosis, clubbing, or pedal edema. NEUROLOGICAL: Gross neurological examination did not reveal any focal deficits. SKIN: No rashes. Patient Condition at Discharge: Stable Plan - Discharge Summary New Discharge Prescriptions: Continue Gabapentin 300 mg PO BID@0700,1300 Escitalopram [Lexapro] 10 mg PO HS HYDROcodone/APAP 7.5-325MG [[place] 7.5-325] 1 tab PO BID Propranolol [Inderal] 10 mg PO BID Gabapentin 600 mg PO HS@2000 Albuterol Inhaler [Ventolin Hfa Inhaler] 2 puff INHALATION RT-Q6H PRN PRN Reason: Shortness Of Breath Atorvastatin [Lipitor] 10 mg PO DAILY rOPINIRole HCL [Requip] 0.25 mg PO HS Pantoprazole Sodium [Protonix] 40 mg PO BID #60 tab Simethicone [Gas-X] 125 mg PO BID PRN #1 capsule PRN Reason: Bloating polyethylene glycoL 3350 [Miralax] 17 gm PO DAILY packet Discharge Medication List Albuterol Inhaler [Ventolin Hfa Inhaler] 2 puff INHALATION RT-Q6H PRN 10/09/22 [History] Atorvastatin [Lipitor] 10 mg PO DAILY 10/09/22 [History] Gabapentin 300 mg PO BID@0700,1300 10/09/22 [History] Gabapentin 600 mg PO HS@2000 10/09/22 [History] Propranolol [Inderal] 10 mg PO BID 10/09/22 [History] Escitalopram [Lexapro] 10 mg PO HS 11/16/22 [History] HYDROcodone/APAP 7.5-325MG [[place] 7.5-325] 1 tab PO BID 11/16/22 [History] rOPINIRole HCL [Requip] 0.25 mg PO HS 11/16/22 [History] Pantoprazole Sodium [Protonix] 40 mg PO BID #60 tab 11/17/22 [Rx] Simethicone [Gas-X] 125 mg PO BID PRN #1 capsule 11/17/22 [Rx] polyethylene glycoL 3350 [Miralax] 17 gm PO DAILY packet 11/17/22 [Rx] Follow up Appointment(s)/Referral(s): Virginia Castellanos DO [Primary Care Provider] - 1-2 days Umu Valladares MD [STAFF PHYSICIAN] - 2 Weeks Discharge Disposition: HOME SELF-CARE
[2022-11-21 12:28] LABS: Basophils % (A) 1 %; Eosinophils # (A) 0.1 k/uL (0-0.7); Eosinophils % (A) 1 %; HGB 11.8 gm/dL (11.4-16.0); Lymphocytes # (A) 0.9 k/uL (1.0-4.8); Lymphocytes % (A) 14 %; MCH 32.7 pg (25.0-35.0); MCHC 32.7 g/dL (31.0-37.0); MCV 99.8 fL (80.0-100.0); Mean Platelet Volume 7.6; Monocytes # (A) 0.5 k/uL (0-1.0); Monocytes % (A) 9 %; Neutrophils # (A) 4.4 k/uL (1.3-7.7); Neutrophils % (A) 74 %; Platelet Count 239 k/uL (150-450); RBC 3.61 m/uL (3.80-5.40); RDW 13.2 % (11.5-15.5); WBC 5.9 k/uL (3.8-10.6)
[2022-11-21 12:33] VITALS: BP 90/55; PULSE 58; TEMP 98
[2022-11-21 12:33] LABS: African American GFR (CKD) >90 (>60 ml/min/1.73 sqM); Anion Gap 3 mmol/L; Blood Urea Nitrogen 9 mg/dL (7-17); Calcium 8.3 mg/dL (8.4-10.2); Carbon Dioxide 31 mmol/L (22-30); Chloride 96 mmol/L (98-107); Glucose 84 mg/dL (74-99); Non-African American GFR(CKD) 86 (>60 ml/min/1.73 sqM); Potassium 4.2 mmol/L (3.5-5.1); Sodium 130 mmol/L (137-145)
== END 2022-11-21 12:32 | disposition home or self-care (01) ==
LOC: EC 08:07 → 6NMEDSUR 10:39
PROVIDERS: ADMIT Internal Medicine; ATTEND Internal Medicine
DX: D12.3 Benign neoplasm of transverse colon (principal); K57.30 Diverticulosis of large intestine without perforation or abscess without bleeding; K29.50 Unspecified chronic gastritis without bleeding; E87.1 Hypo-osmolality and hyponatremia; K59.09 Other constipation; K21.9 Gastro-esophageal reflux disease without esophagitis; I10 Essential (primary) hypertension; G89.4 Chronic pain syndrome; F32.A Depression, unspecified; Z85.819 Personal history of malignant neoplasm of unspecified site of lip, oral cavity, and pharynx; Z79.899 Other long term (current) drug therapy; Z90.49 Acquired absence of other specified parts of digestive tract; Z98.1 Arthrodesis status; Z87.891 Personal history of nicotine dependence; Z82.5 Family history of asthma and other chronic lower respiratory diseases; Z92.3 Personal history of irradiation; Z92.21 Personal history of antineoplastic chemotherapy; Z87.11 Personal history of peptic ulcer disease
CPT/HCPCS: 96376; 96361 ×3; 96374; 96375; 99284; 36415; 94640; 88305; 80053; 80048; 83605; 83690; 85025 ×2; 45380; 43239; G0378 ×2; J2270; J2405; J2704; C9113; J2001

== ENCOUNTER 2023-01-23 19:44 | Emergency (ER) | payer MEDICARE ==
[2023-01-23 19:53] VITALS: TEMP 98.4
--- NOTE | 2023-01-23 21:11 | ED ---
General Adult HPI - General Source: EMS, RN notes reviewed Mode of arrival: EMS Limitations: no limitations <Kenya Sanchez - Last Filed: 01/23/23 21:09> - History of Present Illness -: days(s) Radiation: non-radiation Severity scale (1-10): 8 Quality: aching, sharp Consistency: constant Improves with: none Worsens with: none Associated Symptoms: loss of appetite, nausea/vomiting, weakness Treatments Prior to Arrival: none <Waqar Coronel - Last Filed: 01/29/23 19:37> - General Chief complaint: Recheck/Abnormal Lab/Rx Stated complaint: Pain Time Seen by Provider: 01/23/23 21:09 - History of Present Illness Initial comments: 77-year-old female presents to the emergency department with a chief complaint of medication refill. Patient reports that she takes morphine at home. She reports that she has been no for "a couple of days." (Kenya Sanchez) This 77-year-old female to the emergency department for evaluation nausea vomiting abdominal pain and diarrhea. Patient also states she does have recurrent urinary tract infection. Patient states his been going on for a couple days coinciding with her running out of her morphine that she gets at home. Patient does have chronic pain issues including bodyaches body pain shoulder pains all chronic pain. Denies the pain she is experiencing currently. No fevers no other complaints (Waqar Coronel) - Related Data Home Medications Medication Instructions Recorded Confirmed Albuterol Inhaler [Ventolin Hfa 2 puff INHALATION RT-Q6H PRN 10/09/22 11/20/22 Inhaler] Atorvastatin [Lipitor] 10 mg PO DAILY 10/09/22 11/20/22 Gabapentin 300 mg PO BID@0700,1300 10/09/22 11/20/22 Gabapentin 600 mg PO HS@199910/09/22 11/20/22 Propranolol [Inderal] 10 mg PO BID 10/09/22 11/20/22 Escitalopram [Lexapro] 10 mg PO HS 11/16/22 11/20/22 HYDROcodone/APAP 7.5-325MG [Edwards 1 tab PO BID 11/16/22 11/20/22 7.5-325] rOPINIRole HCL [Requip] 0.25 mg PO HS 11/16/22 11/20/22 Previous Rx's Medication Instructions Recorded Pantoprazole Sodium [Protonix] 40 mg PO BID #60 tab 11/17/22 Simethicone [Gas-X] 125 mg PO BID PRN #1 capsule 11/17/22 polyethylene glycoL 3350 [Miralax] 17 gm PO DAILY packet 11/17/22 Allergies Allergy/AdvReac Type Severity Reaction Status Date / Time bee venom protein (honey bee) Allergy Anaphylaxis Verified 01/23/23 19:53 Review of Systems ROS Other: All systems not noted in ROS Statement are negative. <Kenya Sanchez - Last Filed: 01/23/23 21:09> ROS Other: All systems not noted in ROS Statement are negative. <Waqar Coronel - Last Filed: 01/29/23 19:37> ROS Statement: Those systems with pertinent positive or pertinent negative responses have been documented in the HPI. Past Medical History Past Medical History: Cancer, Hypertension, Osteoarthritis (OA) Additional Past Medical History / Comment(s): throat ca History of Any Multi-Drug Resistant Organisms: None Reported Past Surgical History: Cholecystectomy, Orthopedic Surgery Additional Past Surgical History / Comment(s): cervical fusion, plate in right ankle Past Anesthesia/Blood Transfusion Reactions: No Reported Reaction Past Psychological History: Depression Smoking Status: Former smoker Past Alcohol Use History: None Reported Past Drug Use History: None Reported - Past Family History Mother Family Medical History: COPD <Kenya Sanchez - Last Filed: 01/23/23 21:09> General Exam Limitations: no limitations <Kenya Sanchez - Last Filed: 01/23/23 21:09> General appearance: alert, in no apparent distress Head exam: Present: atraumatic, normocephalic, normal inspection Eye exam: Present: normal appearance, PERRL, EOMI. Absent: scleral icterus, conjunctival injection, periorbital swelling ENT exam: Present: normal exam, mucous membranes moist Neck exam: Present: normal inspection. Absent: tenderness, meningismus, lymphadenopathy Respiratory exam: Present: normal lung sounds bilaterally. Absent: respiratory distress, wheezes, rales, rhonchi, stridor Cardiovascular Exam: Present: regular rate, normal rhythm, normal heart sounds. Absent: systolic murmur, diastolic murmur, rubs, gallop, clicks GI/Abdominal exam: Present: soft, normal bowel sounds. Absent: distended, tenderness, guarding, rebound, rigid Extremities exam: Present: normal inspection, full ROM, normal capillary refill. Absent: tenderness, pedal edema, joint swelling, calf tenderness Back exam: Present: normal inspection Neurological exam: Present: alert, oriented X3, CN II-XII intact Psychiatric exam: Present: normal affect, normal mood Skin exam: Present: warm, dry, intact, normal color. Absent: rash <Waqar Coronel - Last Filed: 01/29/23 19:37> - General Exam Comments Initial Comments: Visual Physical Exam Vital signs reviewed General: Well-appearing, nontoxic, no acute distress. Head: Normocephalic, atraumatic Eyes: PERRLA, EOMI ENT: Airway patent Chest: Nonlabored breathing Skin: No visual rash, normal skin tone Neuro: Alert and oriented 3 Musculoskeletal: No gross abnormalities I performed the quick note portion of this exam, verbal signature Kenya Sanchez PA-C (Kenya Sanchez) Course <Waqar Coronel - Last Filed: 01/29/23 19:37> Vital Signs 01/23/23 01/23/23 01/23/23 19:51 22:48 23:15 Temperature 98.4 F Pulse Rate 73 75 73 Respiratory 18 18 16 Rate Blood Pressure 130/63 148/82 149/91 O2 Sat by Pulse 95 97 96 Oximetry - Reevaluation(s) Reevaluation #1: 01/23/23 22:01 Medical record is reviewed (Waqar Coronel) Reevaluation #2: 01/23/23 22:01 Patient symptoms are improved (Waqar Coronel) Reevaluation #3: 01/23/23 22:01 Patient informed results questions answered (Waqar Coronel) Reevaluation #4: 01/23/23 22:02 Was pt. sent in by a medical professional or institution (LOUISA Ackerman, ANESTHESIOLOGY TECHNOLOGIST, urgent care, hospital, or shelter...) When possible be specific @ -no Did you speak to anyone other than the patient for history (EMS, parent, family, police, friend...)? What history was obtained from this source @ -no Did you review nursing and triage notes (agree or disagree)? Why? @ -agree Are old charts reviewed (outside hosp., previous admission, EMS record, old EKG, old radiological studies, urgent care reports/EKG's, shelter records)? Report findings @ -yes Differential Diagnosis (chest pain, altered mental status, abdominal pain women, abdominal pain men, vaginal bleeding, weakness, fever, dyspnea, syncope, headache, dizziness, GI bleed, back pain, seizure, CVA, palpatations, mental health, musculoskeletal)? @ -prior EKG interpreted by me (3pts min.). @ -yes X-rays interpreted by me (1pt min.). @ -no CT interpreted by me (1pt min.). @ -no U/S interpreted by me (1pt. min.). @ -no What testing was considered but not performed or refused? (CT, X-rays, U/S, labs)? Why? @ -none What meds were considered but not given or refused? Why? @ -none Did you discuss the management of the patient with other professionals (professionals i.e. , PA, ANESTHESIOLOGY TECHNOLOGIST, lab, RT, psych nurse, nursing home social worker, spool carrier, teacher, student officer, director case)? Give summary @ -no Was smoking cessation discussed for >3mins.? @ -no Was critical care preformed (if so, how long)? @ -no Were there social determinants of health that impacted care today? How? (Homelessness, low income, unemployed, alcoholism, drug addiction, transportation, low edu. Level, literacy, decrease access to med. care, residential, rehab)? @ -none Was there de-escalation of care discussed even if they declined (Discuss DNR or withdrawal of care, Hospice)? DNR status @ -no What co-morbidities impacted this encounter? (DM, HTN, Smoking, COPD, CAD, Cancer, CVA, ARF, Chemo, Hep., AIDS, mental health diagnosis, sleep apnea, morbid obesity)? @ -none Was patient admitted / discharged? Hospital course, mention meds given and route, prescriptions, significant lab abnormalities, going to OR and other pertinent info. @ - 77 female to the emergency department for evaluation of pain. Chronic pain with nausea vomiting symptoms likely related to cessation of recent opiate medications. She does feel improved here in the ER will be discharged home Discharged Undiagnosed new problem with uncertain prognosis? @ -no Drug Therapy requiring intensive monitoring for toxicity (Heparin, Nitro, Insulin, Cardizem)? @ -no Were any procedures done? @ -no Diagnosis/symptom? @ -Chronic pain weakness Acute, or Chronic, or Acute on Chronic? @ -Acute Uncomplicated (without systemic symptoms) or Complicated (systemic symptoms)? @ -Complicated Side effects of treatment? @ -no Exacerbation, Progression, or Severe Exacerbation? @ -exacerbation Poses a threat to life or bodily function? How? (Chest pain, [place], [place], pneumonia, PE, COPD, DKA, ARF, appy, cholecystitis, CVA, Diverticulitis, Homicidal, Suicidal, threat to staff... and all critical care pts) @ -yes (Waqar Coronel) Reevaluation #5: 01/23/23 22:02 Differential Weakness: Hypoglycemia, shock, sepsis, hyponatremia, anemia, infection, [place], ETOH, adverse medicine reaction, overdose, stroke, this is not meant to be an all-inclusive list. (Waqar Coronel) EKG Findings - EKG Comments: EKG Findings:: EKG is sinus 69 [place] 181 QRS 113 QTC 426 - EKG Results: EKG: interpreted by ERMD <Waqar Coronel - Last Filed: 01/29/23 19:37> Medical Decision Making - Lab Data Result diagrams: 01/23/23 21:56 01/23/23 22:40 <Waqar Coronel - Last Filed: 01/29/23 19:37> - Medical Decision Making 77 female to the emergency department for evaluation of pain. Chronic pain with nausea vomiting symptoms likely related to cessation of recent opiate medications. She does feel improved here in the ER will be discharged home (Waqar Coronel) - Lab Data Lab Results 01/23/23 01/23/23 01/23/23 Range/Units 21:56 21:56 21:56 WBC 8.2 (3.8-10.6) k/uL RBC 3.99 (3.80-5.40) m/uL Hgb 12.7 (11.4-16.0) gm/dL Hct 39.2 (34.0-46.0) % MCV 98.3 (80.0-100.0) fL MCH 31.8 (25.0-35.0) pg MCHC 32.4 (31.0-37.0) g/dL RDW 12.8 (11.5-15.5) % Plt Count 282 (150-450) k/uL MPV 7.4 Neutrophils % 78 % Lymphocytes % 10 % Monocytes % 8 % Eosinophils % 1 % Basophils % 0 % Neutrophils # 6.4 (1.3-7.7) k/uL Lymphocytes # 0.9 L (1.0-4.8) k/uL Monocytes # 0.7 (0-1.0) k/uL Eosinophils # 0.1 (0-0.7) k/uL Basophils # 0.0 (0-0.2) k/uL PT 9.9 (9.0-12.0) sec INR 0.9 (<1.2) APTT 22.0 (22.0-30.0) sec Sodium (137-145) mmol/L Potassium (3.5-5.1) mmol/L Chloride (98-107) mmol/L Carbon Dioxide (22-30) mmol/L Anion Gap mmol/L BUN (7-17) mg/dL Creatinine (0.52-1.04) mg/dL Est GFR (CKD-EPI)AfAm (>60 ml/min/1.73 sqM) Est GFR (CKD-EPI)NonAf (>60 ml/min/1.73 sqM) Glucose (74-99) mg/dL Calcium (8.4-10.2) mg/dL Phosphorus (2.5-4.5) mg/dL Magnesium (1.6-2.3) mg/dL Total Bilirubin (0.2-1.3) mg/dL AST (14-36) U/L ALT (4-34) U/L Alkaline Phosphatase (38-126) U/L Troponin I <0.012 (0.000-0.034) ng/mL NT-Pro-B Natriuret Pep pg/mL Total Protein (6.3-8.2) g/dL Albumin (3.5-5.0) g/dL TSH (0.465-4.680) mIU/L 01/23/23 Range/Units 22:40 WBC (3.8-10.6) k/uL RBC (3.80-5.40) m/uL Hgb (11.4-16.0) gm/dL Hct (34.0-46.0) % MCV (80.0-100.0) fL MCH (25.0-35.0) pg MCHC (31.0-37.0) g/dL RDW (11.5-15.5) % Plt Count (150-450) k/uL MPV Neutrophils % % Lymphocytes % % Monocytes % % Eosinophils % % Basophils % % Neutrophils # (1.3-7.7) k/uL Lymphocytes # (1.0-4.8) k/uL Monocytes # (0-1.0) k/uL Eosinophils # (0-0.7) k/uL Basophils # (0-0.2) k/uL PT (9.0-12.0) sec INR (<1.2) APTT (22.0-30.0) sec Sodium 133 L (137-145) mmol/L Potassium 3.6 (3.5-5.1) mmol/L Chloride 102 (98-107) mmol/L Carbon Dioxide 30 (22-30) mmol/L Anion Gap 1 mmol/L BUN 16 (7-17) mg/dL Creatinine 0.61 (0.52-1.04) mg/dL Est GFR (CKD-EPI)AfAm >90 (>60 ml/min/1.73 sqM) Est GFR (CKD-EPI)NonAf 87 (>60 ml/min/1.73 sqM) Glucose 101 H (74-99) mg/dL Calcium 8.6 (8.4-10.2) mg/dL Phosphorus 3.2 (2.5-4.5) mg/dL Magnesium 1.8 (1.6-2.3) mg/dL Total Bilirubin 0.5 (0.2-1.3) mg/dL AST 21 (14-36) U/L ALT 14 (4-34) U/L Alkaline Phosphatase 85 (38-126) U/L Troponin I (0.000-0.034) ng/mL NT-Pro-B Natriuret Pep 613 pg/mL Total Protein 5.9 L (6.3-8.2) g/dL Albumin 3.4 L (3.5-5.0) g/dL TSH 2.620 (0.465-4.680) mIU/L Disposition <Kenya Sanchez - Last Filed: 01/23/23 21:09> Is patient prescribed a controlled substance at d/c from ED?: No Time of Disposition: 23:40 <Waqar Coronel - Last Filed: 01/29/23 19:37> Clinical Impression: Abdominal pain, Intractable abdominal pain, Chronic pain Disposition: HOME SELF-CARE Condition: Good Instructions (If sedation given, give patient instructions): Abdominal Pain (ED) Referrals: Oren Castellanos MD [Primary Care Provider] - 1-2 days
[2023-01-23] MEDS ORDERED: MORPHINE SULFATE 4 MG/ML SYRINGE IV STA (21:38)
[2023-01-23] MEDS ORDERED: ONDANSETRON 4 MG/2 ML VIAL IVP STA (21:38)
[2023-01-23] MEDS ORDERED: SODIUM CHLORIDE 0.9% 1,000 ML IV STA (21:38)
[2023-01-23 22:18] LABS: Basophils % (A) 0 %; Eosinophils # (A) 0.1 k/uL (0-0.7); Eosinophils % (A) 1 %; HCT 39.2 % (34.0-46.0); HGB 12.7 gm/dL (11.4-16.0); Lymphocytes # (A) 0.9 k/uL (1.0-4.8); Lymphocytes % (A) 10 %; MCH 31.8 pg (25.0-35.0); MCHC 32.4 g/dL (31.0-37.0); MCV 98.3 fL (80.0-100.0); Mean Platelet Volume 7.4; Monocytes # (A) 0.7 k/uL (0-1.0); Monocytes % (A) 8 %; Neutrophils # (A) 6.4 k/uL (1.3-7.7); Neutrophils % (A) 78 %; Platelet Count 282 k/uL (150-450); RBC 3.99 m/uL (3.80-5.40); RDW 12.8 % (11.5-15.5); WBC 8.2 k/uL (3.8-10.6)
[2023-01-23 22:39] LABS: INR 0.9 (<1.2); Prothrombin Time 9.9 sec (9.0-12.0)
[2023-01-23 22:58] LABS: ALT 14 U/L (4-34); AST 21 U/L (14-36); African American GFR (CKD) >90 (>60 ml/min/1.73 sqM); Albumin 3.4 g/dL (3.5-5.0); Alkaline Phosphatase 85 U/L (38-126); Anion Gap 1 mmol/L; Blood Urea Nitrogen 16 mg/dL (7-17); Calcium 8.6 mg/dL (8.4-10.2); Carbon Dioxide 30 mmol/L (22-30); Chloride 102 mmol/L (98-107); Glucose 101 mg/dL (74-99); Magnesium 1.8 mg/dL (1.6-2.3); Non-African American GFR(CKD) 87 (>60 ml/min/1.73 sqM); Phosphorus 3.2 mg/dL (2.5-4.5); Potassium 3.6 mmol/L (3.5-5.1); Sodium 133 mmol/L (137-145); Total Bilirubin 0.5 mg/dL (0.2-1.3); Total Protein 5.9 g/dL (6.3-8.2)
[2023-01-23 23:06] LABS: NT-Pro-B-Type Natriuretic Pept 613 pg/mL
[2023-01-23 23:17] VITALS: BP 149/91; PULSE 73; RESP 16
[2023-01-23] MEDS ORDERED: ACET/COD 300 MG/30 MG STARTER PACK 6 TAB BTL PO STA (23:40)
[2023-01-23] MEDS ORDERED: HYDROmorphone 1 MG/ML 1 ML SYRINGE IVP STA (23:40)
== END 2023-01-24 00:10 | disposition home or self-care (01) ==
LOC: EC 19:44
DX: R10.9 Unspecified abdominal pain (principal); G89.29 Other chronic pain; Z76.0 Encounter for issue of repeat prescription; I10 Essential (primary) hypertension; M19.90 Unspecified osteoarthritis, unspecified site; F32.A Depression, unspecified; Z87.891 Personal history of nicotine dependence; Z91.030 Bee allergy status; Z79.899 Other long term (current) drug therapy; Z90.49 Acquired absence of other specified parts of digestive tract
CPT/HCPCS: 96375 ×4; 96365 ×2; 99285 ×2; 36415; 93005; 83880; 80053; 83735; 84100; 84443; 84484; 85025; 85610; 85730; J2270; J2405; J0696; J1170

== ENCOUNTER → 2023-03-13 | Outpatient (CLI) | payer MEDICARE ==
--- NOTE | 2023-03-13 11:50 | MR ---
EXAMINATION TYPE: MR lumbar spine wo con DATE OF EXAM: 03/13/2023 COMPARISON: None HISTORY: pain TECHNIQUE: Multiplanar, multisequence images of the lumbar spine were acquired without IV contrast. L1-L2: Moderate disc desiccation noted. Ventral spondylosis. No herniation, protrusion or disc bulgin g. No canal stenosis is present. Foramina are patent bilaterally. L2-L3: Moderate disc desiccation with circumferential disc bulge. Effacement of the ventral thecal sa c with hypertrophy of the ligamentum flavum and facet joint arthropathy resulting in mild to moderate central stenosis. There is bilateral foraminal encroachment. Ventral spondylosis and degenerative en dplate marrow change. L3-L4: Severe disc desiccation with vacuum disc. Grade 1 retrolisthesis of L3 on L4 measuring 5 mm. M oderate circumferential disc bulge greatest posteriorly resulting in severe central stenosis and bila teral foraminal encroachment. L4-L5: Severe disc desiccation with vacuum disc. Grade 1 anterolisthesis of L4 and L5 measuring 7.5 m m. measuring 5 mm. Moderate circumferential disc bulge greatest posteriorly resulting in severe centr al stenosis and bilateral foraminal encroachment. L5-S1: Moderate disc desiccation noted. Ventral spondylosis. No herniation, protrusion or disc bulgin g. No canal stenosis is present. Foramina are patent bilaterally. Lumbar segments are intact. No paraspinal masses are identified. Conus medullaris has a normal appe arance. IMPRESSION: 1. Multilevel degenerative disc disease. 2. 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
== END | disposition home or self-care (01) ==
LOC: RADMRIMAIN 10:16
PROVIDERS: ATTEND Psychiatry & Neurology Neurology
DX: M51.36 Other intervertebral disc degeneration, lumbar region (principal); M48.061 Spinal stenosis, lumbar region without neurogenic claudication
CPT/HCPCS: 72148

== ENCOUNTER → 2023-04-28 | Outpatient (CLI) | payer MEDICARE ==
--- NOTE | 2023-04-28 14:21 | MR ---
EXAMINATION TYPE: MR cervical spine wo/w con DATE OF EXAM: 04/28/2023 COMPARISON: None HISTORY: Neck pain, fall on back TECHNIQUE: Multiplanar, multisequence images of the cervical spine were acquired without contrast and with 5 mL intravenous Gadavist gadolinium contrast. Diffusion weighted imaging was performed. Findings: The craniovertebral junction relationships and prevertebral soft tissues are normal. There are postsurgical changes of anterior metallic fusion of C4, C5, C6 and C7. There is accentuated lordotic curvature of the cervical spine. There is marked degenerative disc disease at the C3-4 level where there is marked disc space narrowin g and posterior disc bulge and hypertrophic spurring. Mild degenerative changes are identified at the C2-3 level. Secondary to thickening of ligamentum flavum and the large posterior spur at the C3-4 level, there is moderate to severe spinal stenosis. The cervical cord is normal in size and signal intensity and the re is no myelomalacia. Following contrast administration, there is no pathological enhancement. There is neural foraminal encroachment as follows; severe at the C2-3 level on the right, and severe at the C3-4 level on the left. Evaluation the remaining neuroforamina is limited secondary to motion and metallic artifact. IMPRESSION: 1. Postsurgical changes of anterior fusion of C4, C5, C6 and C7. 2. Moderate to severe cervical stenosis at the C3-4 level as described above. 3. Cervical cord normal in size and signal intensity.
== END | disposition home or self-care (01) ==
LOC: RADMRIMAIN 10:42
PROVIDERS: ATTEND Physical Medicine & Rehabilitation
DX: M47.812 Spondylosis without myelopathy or radiculopathy, cervical region (principal); M48.062 Spinal stenosis, lumbar region with neurogenic claudication; M48.02 Spinal stenosis, cervical region; Z98.1 Arthrodesis status
CPT/HCPCS: 72156; A9585

== ENCOUNTER 2023-05-26 02:07 | Emergency (ER) | payer MEDICARE ==
[2023-05-26 02:31] VITALS: RESP 20; TEMP 97.8
--- NOTE | 2023-05-26 03:34 | ED ---
Extremity Problem HPI - General Chief complaint: Extremity Problem,Nontraumatic Stated complaint: Right Leg Pain Time Seen by Provider: 05/26/23 03:26 Source: patient, EMS, RN notes reviewed, old records reviewed Mode of arrival: EMS Limitations: physical limitation - History of Present Illness Initial comments: This is a 69-year-old female to the ER for evaluation today. Patient says the ER today for evaluation of pain leg pain severe pain. Patient has significant chronic pain in that leg with no new trauma no fevers no other complaints MD Complaint: extremity pain, extremity swelling, joint pain -: days(s) Location: right, lower extremity Radiation: none Severity scale (1-10): 7 Quality: crushing Consistency: constant Improves with: nothing Worsens with: nothing Associated Symptoms: denies other symptoms - Related Data Home Medications Medication Instructions Recorded Confirmed Atorvastatin [Lipitor] 10 mg PO DAILY 10/09/22 05/26/23 Propranolol [Inderal] 10 mg PO BID 10/09/22 05/26/23 Escitalopram [Lexapro] 10 mg PO HS 11/16/22 05/26/23 rOPINIRole HCL [Requip] 0.25 mg PO HS 11/16/22 05/26/23 Previous Rx's Medication Instructions Recorded Pantoprazole Sodium [Protonix] 40 mg PO BID #60 tab 11/17/22 Gabapentin 300 mg PO QID #12 cap 05/28/23 Morphine Sulfate Ir [MSIR] 15 mg PO BID #6 tab 05/28/23 cefUROXime axetiL [Ceftin] 500 mg PO BID 1 Days #10 tab 05/28/23 polyethylene glycoL 3350 [Miralax] 17 gm PO DAILY #527 gm 05/28/23 Allergies Allergy/AdvReac Type Severity Reaction Status Date / Time bee venom protein (honey bee) Allergy Anaphylaxis Verified 05/26/23 19:22 Review of Systems ROS Statement: Those systems with pertinent positive or pertinent negative responses have been documented in the HPI. ROS Other: All systems not noted in ROS Statement are negative. Past Medical History Past Medical History: Cancer, Hypertension, Osteoarthritis (OA) Additional Past Medical History / Comment(s): throat ca History of Any Multi-Drug Resistant Organisms: None Reported Past Surgical History: Cholecystectomy, Orthopedic Surgery Additional Past Surgical History / Comment(s): cervical fusion, plate in right ankle Past Anesthesia/Blood Transfusion Reactions: No Reported Reaction Past Psychological History: Depression Smoking Status: Former smoker Past Alcohol Use History: None Reported Past Drug Use History: None Reported - Past Family History Mother Family Medical History: COPD General Exam Limitations: physical limitation General appearance: alert, in no apparent distress Head exam: Present: atraumatic, normocephalic, normal inspection Eye exam: Present: normal appearance, PERRL, EOMI. Absent: scleral icterus, conjunctival injection, periorbital swelling ENT exam: Present: normal exam, mucous membranes moist Neck exam: Present: normal inspection. Absent: tenderness, meningismus, lymphad enopathy Respiratory exam: Present: normal lung sounds bilaterally. Absent: respiratory distress, wheezes, rales, rhonchi, stridor Cardiovascular Exam: Present: regular rate, normal rhythm, normal heart sounds. Absent: systolic murmur, diastolic murmur, rubs, gallop, clicks GI/Abdominal exam: Present: soft, normal bowel sounds. Absent: distended, tenderness, guarding, rebound, rigid Extremities exam: Present: normal inspection, full ROM, normal capillary refill. Absent: tenderness, pedal edema, joint swelling, calf tenderness Back exam: Present: normal inspection Neurological exam: Present: alert, oriented X3, CN II-XII intact Psychiatric exam: Present: normal affect, normal mood Skin exam: Present: warm, dry, intact, normal color. Absent: rash Course Vital Signs 05/26/23 05/26/23 02:13 04:37 Temperature 97.8 F Pulse Rate 83 89 Respiratory 20 20 Rate Blood Pressure 182/87 162/79 O2 Sat by Pulse 96 94 L Oximetry - Reevaluation(s) Reevaluation #1: Medical records reviewed Reevaluation #2: Patient symptoms improved Reevaluation #3: Patient informed results and questions answered Reevaluation #4: Was pt. sent in by a medical professional or institution (, PA, DROP WIRER, urgent care, hospital, or assisted...) When possible be specific @ -no Did you speak to anyone other than the patient for history (EMS, parent, family, police, friend...)? What history was obtained from this source @ -no Did you review nursing and triage notes (agree or disagree)? Why? @ -agree Are old charts reviewed (outside hosp., previous admission, EMS record, old EKG, old radiological studies, urgent care reports/EKG's, assisted records)? Report findings @ -yes Differential Diagnosis (chest pain, altered mental status, abdominal pain women, abdominal pain men, vaginal bleeding, weakness, fever, dyspnea, syncope, headache, dizziness, GI bleed, back pain, seizure, CVA, palpatations, mental health, musculoskeletal)? @ -prior EKG interpreted by me (3pts min.). @ -no X-rays interpreted by me (1pt min.). @ -no CT interpreted by me (1pt min.). @ -no U/S interpreted by me (1pt. min.). @ -no What testing was considered but not performed or refused? (CT, X-rays, U/S, labs)? Why? @ -none What meds were considered but not given or refused? Why? @ -none Did you discuss the management of the patient with other professionals (professionals i.e. , PA, DROP WIRER, lab, RT, psych nurse, healthcare social worker, tube roller, teacher, svp chief marketing officer, case mgr)? Give summary @ -no Was smoking cessation discussed for >3mins.? @ -no Were there social determinants of health that impacted care today? How? (Ho melessness, low income, unemployed, alcoholism, drug addiction, transportation, low edu. Level, literacy, decrease access to med. care, [place] [facility], rehab)? @ -none Was there de-escalation of care discussed even if they declined (Discuss DNR or withdrawal of care, Hospice)? DNR status @ -no What co-morbidities impacted this encounter? (DM, HTN, Smoking, COPD, CAD, Cancer, CVA, ARF, Chemo, Hep., AIDS, mental health diagnosis, sleep apnea, morbid obesity)? @ -none Was patient admitted / discharged? Hospital course, mention meds given and route, prescriptions, significant lab abnormalities, going to OR and other pertinent info. @ - 77 female with chronic leg pain, pain is well improved here in a restaurant. Patient is able to amply without significant difficulty. Patient can be discharged home Discharge Was critical care preformed (if so, how long)? @ -no Undiagnosed new problem with uncertain prognosis? @ -no Drug Therapy requiring intensive monitoring for toxicity (Heparin, Nitro, Insu mary anne, Cardizem)? @ -no Were any procedures done? @ -no Diagnosis/symptom? @ -Right leg pain chronic pain Acute, or Chronic, or Acute on Chronic? @ -Acute Uncomplicated (without systemic symptoms) or Complicated (systemic symptoms)? @ -Complicated Side effects of treatment? @ -no Exacerbation, Progression, or Severe Exacerbation? @ -exacerbation Poses a threat to life or bodily function? How? (Chest pain, [place], [place], pneumonia, PE, COPD, DKA, ARF, appy, cholecystitis, CVA, Diverticulitis, Homicidal, Suicidal, threat to staff... and all critical care pts) @ -no Medical Decision Making - Medical Decision Making 77 female with chronic leg pain, pain is well improved here in a restaurant. Patient is able to amply without significant difficulty. Patient can be discharged home Disposition Clinical Impression: Leg pain, right, Chronic pain Disposition: HOME SELF-CARE Condition: Good Instructions (If sedation given, give patient instructions): Chronic Pain (ED) Is patient prescribed a controlled substance at d/c from ED?: No Referrals: Oren Castellanos MD [Primary Care Provider] - 1-2 days Time of Disposition: 04:00
[2023-05-26] MEDS ORDERED: HYDROmorphone 1 MG/ML 1 ML SYRINGE IM STA (04:17)
[2023-05-26 04:53] VITALS: BP 162/79; PULSE 89
== END 2023-05-26 04:49 | disposition home or self-care (01) ==
LOC: EC 02:07
DX: G89.29 Other chronic pain (principal); M79.604 Pain in right leg; I10 Essential (primary) hypertension; F32.A Depression, unspecified; Z87.891 Personal history of nicotine dependence; Z79.899 Other long term (current) drug therapy; Z91.030 Bee allergy status
CPT/HCPCS: 99284; 96372; J1170

== ENCOUNTER 2023-05-26 12:57 | Inpatient (IN) | payer MEDICARE ==
--- NOTE | 2023-05-26 13:36 | ED ---
General Adult HPI - General Source: patient Mode of arrival: ambulatory Limitations: no limitations <Raj Edwards - Last Filed: 05/26/23 16:30> <Yunier Shaw - Last Filed: 05/26/23 17:30> - General Chief complaint: Recheck/Abnormal Lab/Rx Stated complaint: High BP,Chronic Pain, Stopped taking Morphie - History of Present Illness Initial comments: Quick Note: Patient presents for right leg pain. States it has been hurting worse for the past few days and is jerking. States she was seen here last night for the same. Verbally signed by Raj Edwards PAC 05/26/22 16 (Raj Edwards) Dictation was produced using [employer] dictation software. please excuse any grammatical, word or spelling errors. Chief Complaint: 77-year-old female presents to the ER for weakness History of Present Illness: 77-year-old female brought back to the emergency department by daughters for weakness and rehab evaluation. Patient was at home by herself. She does not have good social support. Family states that they are unable to support patient at home or to have her go to their houses. She is brought by daughters wanted to be evaluated for rehab. They fear for her because she has frequent falls. She states that she's been having debilitating spasms to her right lower extremity. The ROS documented in this emergency department record has been reviewed and confirmed by me. Those systems with pertinent positive or negative responses have been documented in the HPI. All other systems are other negative and/or noncontributory. (Yunier Shaw) - Related Data Home Medications Medication Instructions Recorded Confirmed Albuterol Inhaler [Ventolin Hfa 2 puff INHALATION RT-Q6H PRN 10/09/22 11/20/22 Inhaler] Atorvastatin [Lipitor] 10 mg PO DAILY 10/09/22 11/20/22 Gabapentin 300 mg PO BID@0700,1300 10/09/22 11/20/22 Gabapentin 600 mg PO HS@2000 10/09/22 11/20/22 Propranolol [Inderal] 10 mg PO BID 10/09/22 11/20/22 Escitalopram [Lexapro] 10 mg PO HS 11/16/22 11/20/22 HYDROcodone/APAP 7.5-325MG [[place] 1 tab PO BID 11/16/22 11/20/22 7.5-325] rOPINIRole HCL [Requip] 0.25 mg PO HS 11/16/22 11/20/22 Previous Rx's Medication Instructions Recorded Pantoprazole Sodium [Protonix] 40 mg PO BID #60 tab 11/17/22 Simethicone [Gas-X] 125 mg PO BID PRN #1 capsule 11/17/22 polyethylene glycoL 3350 [Miralax] 17 gm PO DAILY packet 11/17/22 Allergies Allergy/AdvReac Type Severity Reaction Status Date / Time bee venom protein (honey bee) Allergy Anaphylaxis Verified 05/26/23 13:10 Review of Systems ROS Other: All systems not noted in ROS Statement are negative. <Raj Edwards - Last Filed: 05/26/23 16:30> ROS Other: All systems not noted in ROS Statement are negative. <Yunier Shaw - Last Filed: 05/26/23 17:30> ROS Statement: Those systems with pertinent positive or pertinent negative responses have been documented in the HPI. Past Medical History Past Medical History: Cancer, Hypertension, Osteoarthritis (OA) Additional Past Medical History / Comment(s): throat ca History of Any Multi-Drug Resistant Organisms: None Reported Past Surgical History: Cholecystectomy, Orthopedic Surgery Additional Past Surgical History / Comment(s): cervical fusion, plate in right ankle Past Anesthesia/Blood Transfusion Reactions: No Reported Reaction Past Psychological History: Depression Smoking Status: Former smoker Past Alcohol Use History: None Reported Past Drug Use History: None Reported - Past Family History Mother Family Medical History: COPD <Raj Edwards - Last Filed: 05/26/23 16:30> General Exam Limitations: no limitations <Raj Edwards - Last Filed: 05/26/23 16:30> <Yunier Shaw - Last Filed: 05/26/23 17:30> - General Exam Comments Initial Comments: PHYSICAL EXAM: General Impression: Alert and oriented x3, not in acute distress HEENT: Normocephalic atraumatic, extra-ocular movements intact, pupils equal and reactive to light bilaterally, mucous membranes moist. Cardiovascular: Heart regular rate and rhythm Chest: Able to complete full sentences, no retractions, no tachypnea Abdomen: abdomen soft, non-tender, non-distended, no organomegaly Musculoskeletal: Pulses present and equal in all extremities, no peripheral edema Motor: no focal deficits noted Neurological: CN II-XII grossly intact, no focal motor or sensory deficits noted Skin: Intact with no visualized rashes Psych: Normal affect and mood (Yunier Shaw) Course Vital Signs 05/26/23 05/26/23 13:08 15:33 Temperature 98 F 97 F L Pulse Rate 81 92 Respiratory 20 18 Rate Blood Pressure 192/88 174/96 O2 Sat by Pulse 96 95 Oximetry Medical Decision Making - Lab Data Result diagrams: 05/26/23 15:59 <Raj Edwards - Last Filed: 05/26/23 16:30> - Lab Data Result diagrams: 05/26/23 15:59 05/26/23 15:59 <Yunier Shaw - Last Filed: 05/26/23 17:30> - Medical Decision Making Was pt. sent in by a medical professional or institution (, PA, ALMOND GRINDER, urgent care, hospital, or shelter...) When possible be specific @ -No Did you speak to anyone other than the patient for history (EMS, parent, family, police, friend...)? What history was obtained from this source @ -Discussed with daughter states that she wants patient be evaluated for rehab Did you review nursing and triage notes (agree or disagree)? Why? @ -I reviewed and agree with nursing and triage notes Were old charts reviewed (outside hosp., previous admission, EMS record, old EKG, old radiological studies, urgent care reports/EKG's, shelter records)? Report findings @ -No old charts were reviewed Differential Diagnosis (chest pain, altered mental status, abdominal pain women, abdominal pain men, vaginal bleeding, musculoskeletal, weakness, fever, dyspnea, syncope, headache, dizziness, GI bleed, back pain, seizure, CVA, palpatations, mental health)? @ -Differential Weakness: Hypoglycemia, shock, sepsis, hyponatremia, anemia, infection, LA, ETOH, adverse medicine reaction, overdose, stroke, this is not meant to be an all-inclusive list. EKG interpreted by me (3pts min.). @ -My EKG interpretation: Ventricular rate 82, sinus rhythm,. 167, QRS 117, QTc 441. No MN prolongation, no QTC prolongation, no ST or T-wave changes noted. EKG compared to 01/23/2023 showing no changes. Overall, this EKG is unremarkable X-rays interpreted by me (1pt min.). @ -None done CT interpreted by me (1pt min.). @ -None done U/S interpreted by me (1pt. min.). @ -None done What testing was considered but not performed or refused? (CT, X-rays, U/S, labs)? Why? @ -None What meds were considered but not given or refused? Why? @ -None Did you discuss the management of the patient with other professionals (professionals i.e. , PA, ALMOND GRINDER, lab, RT, psych nurse, social media intern, security control room officer, teacher, supply officer, nurse outreach case manager)? Give summary @ -Case discussed with hospitalist for admission Was smoking cessation discussed for >3mins.? @ -No Was critical care preformed (if so, how long)? @ -No Were there social determinants of health that impacted care today? How? (Homelessness, low income, unemployed, alcoholism, drug addiction, transportation, low edu. Level, literacy, decrease access to med. care, skilled nursing, rehab)? @ -No Was there de-escalation of care discussed even if they declined (Discuss DNR or withdrawal of care, Hospice)? DNR status @ -No What co-morbidities impacted this encounter? (DM, HTN, Smoking, COPD, CAD, Cancer, CVA, ARF, Chemo, Hep., AIDS, mental health diagnosis, sleep apnea, morbid obesity)? @ -None Was patient admitted / discharged? Hospital course, mention meds given and route, prescriptions, significant lab abnormalities, going to OR and other pertinent info. @ -77-year-old gravely disabled female presents emergency department for poor social situation. Vital signs upon arrival are within acceptable limits. Laboratory evaluation is unremarkable. Family request patient be admitted for rehab placement. [facility] to [facility]. Pending occupational and physical therapy evaluation. Undiagnosed new problem with uncertain prognosis? @ -No Drug Therapy requiring intensive monitoring for toxicity (Heparin, Nitro, Insulin, Cardizem)? @ -No Were any procedures done? @ -No Diagnosis/symptom? Acute, or Chronic, or Acute on Chronic? Uncomplicated (without systemic symptoms) or Complicated (systemic symptoms)? @ -Gravely disabled Side effects of treatment? @ -No Exacerbation, Progression, or Severe Exacerbation? @ -No Poses a threat to life or bodily function? How? (Chest pain, USA, LA, pneumonia, PE, COPD, DKA, ARF, appy, cholecystitis, CVA, Diverticulitis, Homicidal, Suicidal, threat to staff... and all critical care pts) @ -yes (Yunier Shaw) - Lab Data Lab Results 05/26/23 05/26/23 Range/Units 15:59 15:59 WBC 5.6 (3.8-10.6) k/uL RBC 3.97 (3.80-5.40) m/uL Hgb 12.1 (11.4-16.0) gm/dL Hct 37.2 (34.0-46.0) % MCV 93.7 (80.0-100.0) fL MCH 30.5 (25.0-35.0) pg MCHC 32.6 (31.0-37.0) g/dL RDW 13.5 (11.5-15.5) % Plt Count 279 (150-450) k/uL MPV 7.9 Neutrophils % 75 % Lymphocytes % 16 % Monocytes % 5 % Eosinophils % 1 % Basophils % 1 % Neutrophils # 4.2 (1.3-7.7) k/uL Lymphocytes # 0.9 L (1.0-4.8) k/uL Monocytes # 0.3 (0-1.0) k/uL Eosinophils # 0.0 (0-0.7) k/uL Basophils # 0.0 (0-0.2) k/uL Sodium 134 L (137-145) mmol/L Potassium 4.2 (3.5-5.1) mmol/L Chloride 99 (98-107) mmol/L Carbon Dioxide 25 (22-30) mmol/L Anion Gap 10 mmol/L BUN 16 (7-17) mg/dL Creatinine 0.52 (0.52-1.04) mg/dL Est GFR (CKD-EPI)AfAm >90 (>60 ml/min/1.73 sqM) Est GFR (CKD-EPI)NonAf >90 (>60 ml/min/1.73 sqM) Glucose 97 (74-99) mg/dL Calcium 9.5 (8.4-10.2) mg/dL Magnesium 2.0 (1.6-2.3) mg/dL Disposition <Raj Edwards - Last Filed: 05/26/23 16:30> Decision Time: 17:30 <Yunier Shaw - Last Filed: 05/26/23 17:30> Clinical Impression: Gravely disabled Disposition: ADMITTED IP TO THIS [facility] Condition: Fair Referrals: Oren Castellanos MD [Primary Care Provider] - 1-2 days
[2023-05-26 16:20] LABS: Basophils % (A) 1 %; Eosinophils % (A) 1 %; HCT 37.2 % (34.0-46.0); HGB 12.1 gm/dL (11.4-16.0); Lymphocytes # (A) 0.9 k/uL (1.0-4.8); Lymphocytes % (A) 16 %; MCH 30.5 pg (25.0-35.0); MCHC 32.6 g/dL (31.0-37.0); MCV 93.7 fL (80.0-100.0); Mean Platelet Volume 7.9; Monocytes # (A) 0.3 k/uL (0-1.0); Monocytes % (A) 5 %; Neutrophils # (A) 4.2 k/uL (1.3-7.7); Neutrophils % (A) 75 %; Platelet Count 279 k/uL (150-450); RBC 3.97 m/uL (3.80-5.40); RDW 13.5 % (11.5-15.5); WBC 5.6 k/uL (3.8-10.6)
[2023-05-26 16:30] LABS: African American GFR (CKD) >90 (>60 ml/min/1.73 sqM); Anion Gap 10 mmol/L; Blood Urea Nitrogen 16 mg/dL (7-17); Calcium 9.5 mg/dL (8.4-10.2); Carbon Dioxide 25 mmol/L (22-30); Chloride 99 mmol/L (98-107); Glucose 97 mg/dL (74-99); Non-African American GFR(CKD) >90 (>60 ml/min/1.73 sqM); Potassium 4.2 mmol/L (3.5-5.1); Sodium 134 mmol/L (137-145)
[2023-05-26] MEDS ORDERED: NALOXONE 0.4 MG/ML 1 ML VIAL IV PRN (17:24)
[2023-05-26] MEDS ORDERED: HYDROcodone/APAP 5-325MG 1 EACH TAB PO STA (17:26)
[2023-05-26] MEDS: SODIUM CHLORIDE 0.9% 1,000 ML IV SCH (18:04)
[2023-05-26] MEDS ORDERED: MORPHINE SULFATE 4 MG/ML SYRINGE IV STA (20:36)
[2023-05-26] MEDS ORDERED: ROMOSOZUMAB AQQG 105 MG/1.17 ML SQ SCH (21:30)
[2023-05-26] MEDS ORDERED: MORPHINE SULFATE 4 MG/ML SYRINGE IVP STA (21:30)
[2023-05-26] MEDS: GABAPENTIN 300 MG CAP PO SCH (22:23)
--- NOTE | 2023-05-27 00:37 | P.HPIM ---
History of Present Illness H&P Date: 05/26/23 Chief Complaint: Weakness/adult failure to thrive 77-year-old female brought back to the emergency department by daughters for weakness and rehab evaluation. Patient was at home by herself. She does not have good social support. Family states that they are unable to support patient at home or to have her go to their houses. She is brought by daughters wanted to be evaluated for rehab. They fear for her because she has frequent falls. She states that she's been having debilitating spasms to her right lower extremity. Review of Systems REVIEW OF SYSTEMS: CONSTITUTIONAL: No fever, no malaise, no fatigue. HEENT: No recent visual problems or hearing problems. Denied any sore throat. CARDIOVASCULAR: No chest pain, orthopnea, PND, no palpitations, no syncope. PULMONARY: No shortness of breath, no cough, no hemoptysis. GASTROINTESTINAL: No diarrhea, no nausea, no vomiting, no abdominal pain. NEUROLOGICAL: No headaches, no weakness, no numbness. HEMATOLOGICAL: Denies any bleeding or petechiae. GENITOURINARY: Denies any burning micturition, frequency, or urgency. MUSCULOSKELETAL/RHEUMATOLOGICAL: Denies any joint pain, swelling, or any muscle pain. ENDOCRINE: Denies any polyuria or polydipsia. The rest of the 14-point review of systems is negative. Past Medical History Past Medical History: Cancer, Hypertension, Osteoarthritis (OA) Additional Past Medical History / Comment(s): throat ca History of Any Multi-Drug Resistant Organisms: None Reported Past Surgical History: Cholecystectomy, Orthopedic Surgery Additional Past Surgical History / Comment(s): cervical fusion, plate in right ankle Past Anesthesia/Blood Transfusion Reactions: No Reported Reaction Past Psychological History: Depression Smoking Status: Former smoker Past Alcohol Use History: None Reported Past Drug Use History: None Reported - Past Family History Mother Family Medical History: COPD Medications and Allergies Home Medications Medication Instructions Recorded Confirmed Type Atorvastatin [Lipitor] 10 mg PO DAILY 10/09/22 05/26/23 History Gabapentin 300 mg PO QID 10/09/22 05/26/23 History Propranolol [Inderal] 10 mg PO BID 10/09/22 05/26/23 History Escitalopram [Lexapro] 10 mg PO HS 11/16/22 05/26/23 History rOPINIRole HCL [Requip] 0.25 mg PO HS 11/16/22 05/26/23 History Pantoprazole Sodium [Protonix] 40 mg PO BID #60 tab 11/17/22 05/26/23 Rx Morphine Sulfate Ir [MSIR] 15 mg PO BID 05/26/23 05/26/23 History Romosozumab-Aqqg [Evenity] 210 mg SQ ONCE 05/26/23 05/26/23 History Allergies Allergy/AdvReac Type Severity Reaction Status Date / Time bee venom protein (honey bee) Allergy Anaphylaxis Verified 05/26/23 19:22 Physical Exam Vitals: Vital Signs Temp Pulse Resp BP Pulse Ox 05/26/23 17:26 97.8 F 88 18 180/83 95 05/26/23 15:33 97 F L 92 18 174/96 95 05/26/23 13:08 98 F 81 20 192/88 96 Intake and Output 05/26/23 05/26/23 05/26/23 06:59 14:59 22:59 Other: Weight 45.813 kg PHYSICAL EXAMINATION: GENERAL: The patient is alert and oriented x3, not in any acute distress. Well developed, well nourished. HEENT: Pupils are round and equally reacting to light. EOMI. No scleral icterus. No conjunctival pallor. Normocephalic, atraumatic. No pharyngeal erythema. No thyromegaly. CARDIOVASCULAR: S1 and S2 present. No murmurs, rubs, or gallops. PULMONARY: Chest is clear to auscultation, no wheezing or crackles. ABDOMEN: Soft, nontender, nondistended, normoactive bowel sounds. No palpable organomegaly. MUSCULOSKELETAL: No joint swelling or deformity. EXTREMITIES: No cyanosis, clubbing, or pedal edema. NEUROLOGICAL: Gross neurological examination did not reveal any focal deficits. SKIN: No rashes. Results CBC & Chem 7: 05/26/23 15:59 05/26/23 15:59 Labs: Abnormal Lab Results - Last 24 Hours (Table) 05/26/23 05/26/23 Range/Units 15:59 15:59 Lymphocytes # 0.9 L (1.0-4.8) k/uL Sodium 134 L (137-145) mmol/L Assessment and Plan Assessment: 1. Gravely disabled -Patient reports that unable to care for patient at home - Consult PT/OT for evaluation - Case management consult 2. Mild hyponatremia; patient is in place and IV fluids and normal saline; monitor electrolytes 3. Hyperlipidemia; Lipitor 10 mg daily 4. Hypertension; propranolol 10 mg twice a day 5. Neuropathy; Neurontin 300 mg 3 times a day 6. Restless leg syndrome; Requip 0.25 mg by mouth daily at bedtime 7. Depression/anxiety; Lexapro 10 mg daily DVT prophylaxis; SCDs CODE STATUS; full code
[2023-05-27] MEDS ORDERED: KETOROLAC 15 MG/ML 1 ML VIAL IVP SCH (03:00)
[2023-05-27] MEDS: KETOROLAC 15 MG/ML 1 ML VIAL IVP SCH ×4 (03:05→20:26)
--- NOTE | 2023-05-27 06:56 | P.PN ---
Subjective Progress Note Date: 05/27/23 77-year-old female brought back to the emergency department by daughters for weakness and rehab evaluation. Patient was at home by herself. She does not have good social support. Family states that they are unable to support patient at home or to have her go to their houses. She is brought by daughters wanted to be evaluated for rehab. They fear for her because she has frequent falls. She states that she's been having debilitating spasms to her right lower extremity. -- Family members accompanying patient in the ER report inability to care for patient and are requesting placement Objective - Vital Signs Vital signs: Vital Signs Temp 97.8 F 05/26/23 17:26 Pulse 72 05/26/23 21:22 Resp 16 05/26/23 21:44 BP 163/84 05/26/23 21:22 Pulse Ox 96 05/26/23 21:22 FiO2 Intake & Output 05/26/23 05/26/23 05/27/23 06:59 18:59 06:59 Weight 45.813 kg 45.813 kg Other: Voiding Method External Catheter - Exam GENERAL: The patient is alert and oriented x3, not in any acute distress. Well developed, well nourished. HEENT: Pupils are round and equally reacting to light. EOMI. No scleral icterus. No conjunctival pallor. Normocephalic, atraumatic. No pharyngeal erythema. No thyromegaly. CARDIOVASCULAR: S1 and S2 present. No murmurs, rubs, or gallops. PULMONARY: Chest is clear to auscultation, no wheezing or crackles. ABDOMEN: Soft, nontender, nondistended, normoactive bowel sounds. No palpable organomegaly. MUSCULOSKELETAL: No joint swelling or deformity. EXTREMITIES: No cyanosis, clubbing, or pedal edema. NEUROLOGICAL: Gross neurological examination did not reveal any focal deficits. SKIN: No rashes. - Labs CBC & Chem 7: 05/26/23 15:59 05/26/23 15:59 Labs: Abnormal Lab Results - Last 24 Hours (Table) 05/26/23 05/26/23 Range/Units 15:59 15:59 Lymphocytes # 0.9 L (1.0-4.8) k/uL Sodium 134 L (137-145) mmol/L Assessment and Plan Assessment: 1. Gravely disabled -Patient reports that unable to care for patient at home - Consult PT/OT for evaluation - Case management consult 2. Mild hyponatremia; patient is in place and IV fluids and normal saline; monitor electrolytes 3. Hyperlipidemia; Lipitor 10 mg daily 4. Hypertension; propranolol 10 mg twice a day 5. Neuropathy; Neurontin 300 mg 3 times a day 6. Restless leg syndrome; Requip 0.25 mg by mouth daily at bedtime 7. Depression/anxiety; Lexapro 10 mg daily DVT prophylaxis; SCDs CODE STATUS; full code
[2023-05-27] MEDS: ATORVASTATIN 10 MG TAB PO SCH (09:44)
[2023-05-27] MEDS: MORPHINE SULFATE IR 15 MG TABLET PO SCH ×2 (09:44→20:25)
[2023-05-27] MEDS: PROPRANOLOL 10 MG TAB PO SCH ×2 (09:44→20:26)
[2023-05-27] MEDS: GABAPENTIN 300 MG CAP PO SCH ×4 (09:45→20:26)
[2023-05-27] MEDS: PANTOPRAZOLE 40 MG TABLET PO SCH ×2 (09:45→17:51)
[2023-05-27 09:55] LABS: BUN/Creat Ratio 21.67 Ratio (12.00-20.00); Calcium 8.9 mg/dL (8.7-10.3); Carbon Dioxide 24.1 mmol/L (21.6-31.8); Chloride 101 mmol/L (96-109); Glucose 67 mg/dL (70-110); Potassium 4.1 mmol/L (3.5-5.5); Sodium 138 mmol/L (135-145)
[2023-05-27] MEDS: SODIUM CHLORIDE 0.9% 1,000 ML IV SCH (17:51)
[2023-05-27] MEDS: ESCITALOPRAM 10 MG TAB PO SCH (20:26)
[2023-05-28] MEDS: KETOROLAC 15 MG/ML 1 ML VIAL IVP SCH ×4 (03:17→20:22)
[2023-05-28] MEDS: MORPHINE SULFATE IR 15 MG TABLET PO SCH ×2 (09:35→20:21)
[2023-05-28] MEDS: ATORVASTATIN 10 MG TAB PO SCH (09:35)
[2023-05-28] MEDS: PROPRANOLOL 10 MG TAB PO SCH ×2 (09:35→20:22)
[2023-05-28] MEDS: PANTOPRAZOLE 40 MG TABLET PO SCH ×2 (09:40→18:04)
[2023-05-28] MEDS: GABAPENTIN 300 MG CAP PO SCH ×4 (09:40→21:20)
[2023-05-28] MEDS ORDERED: polyethylene glycoL 3350 17 GM POWD.PACK PO STA (11:18)
--- NOTE | 2023-05-28 11:27 | P.DS ---
Providers Date of admission: 05/26/23 17:25 Expected date of discharge: 05/28/23 Attending physician: Oren Castellanos MD Primary care physician: Oren Castellanos MD Hospital Course: Final Diagnoses: Failure to thrive, reported multiple falls, difficulty with ADLs Mild hyponatremia, resolved Chronic Restless leg syndrome Neuropathy Chronic pain syndrome Chronic narcotic dependency with bouts of constipation Diverticulosis History of Throat cancer status post chemoradiation in 2019, subsequent loss of all teeth, no dentures Moderate protein calorie malnutrition, secondary to the above, BMI 19.7, albumin pending COPD Former nicotine dependence Hypertension Hyperlipidemia Depression, anxiety Hospital course: This is a pleasant 77-year-old female with past medical history significant for throat cancer( in remission) status post chemotherapy and radiation therapy in 2019 with subsequent loss of all her teeth (without dentures), significant weight loss, former nicotine dependence, COPD, osteoarthritis, constipation, hypertension, depression, chronic pain syndrome and multiple other medical issues returned to the ER with complaints of bilateral lower extremity jerking/spasms with recent falls, difficulty with ADLs. Vague historian. Afebrile, vital signs stable, maintaining O2 sats in the mid 90s on room air. UA ordered/pending. PT/OT pending. Patient will be discharged to subacute rehab. today in a stable condition with guarded prognosis. General appearance: The patient is sitting up in bed, alert, oriented X 3, no acute distress. HEENT: Normocephalic and atraumatic. Conjunctiva pink. Sclera anicteric. Oral mucosa moist. Neck: Supple, no JVD. CARDIOVASCULAR: S1, S2 regular.No murmur RESPIRATION: Unlabored, Breath sounds diminished in the bases. No rhonchi or crackles. Abdomen: Soft, thin, nontender, nondistended with + bowel sounds. No guarding or rigidity. Extremities: Normal skin color and turgor. No pedal edema Skin: Warm and dry, No rashes, no jaundice Neurological: No gross focal deficits. The impression and plan of care has been dictated as directed. : I performed a history and examination of this patient, discussed the same with the dictator. I agree with the dictator's note ,documented as a scribe. Any additional findings or plans will be noted. Patient Condition at Discharge: Stable Plan - Discharge Summary Discharge Rx Participant: No New Discharge Prescriptions: New polyethylene glycoL 3350 [Miralax] 17 gm PO DAILY #527 gm Continue Escitalopram [Lexapro] 10 mg PO HS Romosozumab-Aqqg [Evenity] 210 mg SQ ONCE Morphine Sulfate Ir [MSIR] 15 mg PO BID #6 tab Gabapentin 300 mg PO QID #12 cap Propranolol [Inderal] 10 mg PO BID Atorvastatin [Lipitor] 10 mg PO DAILY rOPINIRole HCL [Requip] 0.25 mg PO HS Pantoprazole Sodium [Protonix] 40 mg PO BID #60 tab Discharge Medication List Atorvastatin [Lipitor] 10 mg PO DAILY 10/09/22 [History] Propranolol [Inderal] 10 mg PO BID 10/09/22 [History] Escitalopram [Lexapro] 10 mg PO HS 11/16/22 [History] rOPINIRole HCL [Requip] 0.25 mg PO HS 11/16/22 [History] Pantoprazole Sodium [Protonix] 40 mg PO BID #60 tab 11/17/22 [Rx] Romosozumab-Aqqg [Evenity] 210 mg SQ ONCE 05/26/23 [History] Gabapentin 300 mg PO QID #12 cap 05/28/23 [Rx] Morphine Sulfate Ir [MSIR] 15 mg PO BID #6 tab 05/28/23 [Rx] polyethylene glycoL 3350 [Miralax] 17 gm PO DAILY #527 gm 05/28/23 [Rx] Follow up Appointment(s)/Referral(s): Oren Castellanos MD [Primary Care Provider] - 1 Week (After DC from subacute rehab) Activity/Diet/Wound Care/Special Instructions: ECF: CBC,BMP in 3 days Discharge Disposition: TRANSFER TO SNF/ECF
[2023-05-28 11:56] LABS: Appearance,Urine Turbid (Clear); Bacteria,Urine Many /hpf; Bilirubin,Urine Negative (Negative); Blood,Urine Moderate (Negative); Color,Urine Light Yellow; Glucose,Urine (UA) Negative (Negative); Ketones,Urine Negative (Negative); Leukocyte Esterase,Urine Large (Negative); Mucus,Urine Few /hpf; Nitrite,Urine Positive (Negative); Protein,Urine 2+ (Negative); RBC,Urine 78 /hpf (0-5); Specific Gravity,Urine 1.019 (1.001-1.035); Urobilinogen,Urine <2.0 mg/dL (<2.0); WBC,Urine >182 /hpf (0-5)
[2023-05-28] MEDS: SODIUM CHLORIDE 0.9% 1,000 ML IV SCH (18:04)
[2023-05-28] MEDS: ESCITALOPRAM 10 MG TAB PO SCH (20:22)
[2023-05-29] MEDS: KETOROLAC 15 MG/ML 1 ML VIAL IVP SCH ×4 (04:03→20:54)
[2023-05-29] MEDS: PANTOPRAZOLE 40 MG TABLET PO SCH ×2 (10:00→17:40)
[2023-05-29] MEDS: MORPHINE SULFATE IR 15 MG TABLET PO SCH ×2 (10:00→20:54)
[2023-05-29] MEDS: ATORVASTATIN 10 MG TAB PO SCH (10:00)
[2023-05-29] MEDS: polyethylene glycoL 3350 17 GM POWD.PACK PO SCH (10:03)
[2023-05-29] MEDS: PROPRANOLOL 10 MG TAB PO SCH ×2 (10:03→20:54)
[2023-05-29] MEDS: GABAPENTIN 300 MG CAP PO SCH ×4 (10:04→20:54)
--- NOTE | 2023-05-29 17:36 | CDI ---
Documentation Clarification Form Date: 05/29/2023 05:07:52 PM From: Sylvie Graff RN Phone: [phone] Admit Date: 05/26/2023 05:25:00 PM Patient Name: Tona Hernandez Visit Number: [id number] Discharge Date: ATTENTION: The Clinical Documentation Specialists (CDI) and [facility] Coding Staff appreciate your assistance in clarifying documentation. Please respond to the clarification below the line at the bottom and electronically sign. The CDI & [facility] Coding staff will review the response and follow-up if needed. Please note: Queries are made part of the Legal Health Record. If you have any questions, please contact the author of this message via ITS. Dr. Oren Castellanos There is documentation of Failure to thrive, 05/28 Medicine note. Additional clarification is requested. History/Risk Factors: 77 year old female presented to the hospital with daughters for right leg pain for the past few days. Medical history: Throat cancer, chronic pain syndrome, chronic narcotic dependency with bouts of constipation, neuropathy and chronic restless leg syndrome. 05/28, Medicine note. Clinical Indicators: 05/28, Medicine note: Failure to thrive, reported multiple falls, difficulty with ADLs 05/26, H&P: Gravely disabled. Patient reports that unable to care for patient at home. 05/28, Physical Therapy assessment: Patient with generalized weakness with decreased functional mobility. Required assistance to come from sitting to supine position. Patient has decreased weight bearing tolerance on right hip standing, minimal improvement with standing activity. Recommend ELIDA to increase strength, functional mobility. 05/28, Occupational Therapy assessment: Maximum physical assist with ADL, moderate assist with transfers and minimal assist with bed mobility. Resides at home alone, and would not be safe to return home alone based upon presentation this morning Anticipate need for short term subacute rehabilitation upon DC. Treatment: 05/29 PT Evaluation and therapy, 05/28, 05/29 OT evaluation and therapy, Case management consult for placement for rehabilitation Can you please clarify Failure to thrive? [X ] Age related physical debility [ ] Other, please specify [ ] Unable to determine (Template Last Revised: July 2020) MTDD
[2023-05-29] MEDS: SODIUM CHLORIDE 0.9% 1,000 ML IV SCH (18:43)
[2023-05-29] MEDS: ESCITALOPRAM 10 MG TAB PO SCH (20:54)
[2023-05-30] MEDS: KETOROLAC 15 MG/ML 1 ML VIAL IVP SCH ×2 (03:17→08:48)
[2023-05-30 07:52] VITALS: BP 148/68; RESP 16; TEMP 97.9
[2023-05-30] MEDS: polyethylene glycoL 3350 17 GM POWD.PACK PO SCH (08:48)
[2023-05-30] MEDS: ATORVASTATIN 10 MG TAB PO SCH (08:49)
[2023-05-30] MEDS: PANTOPRAZOLE 40 MG TABLET PO SCH (08:49)
[2023-05-30] MEDS: MORPHINE SULFATE IR 15 MG TABLET PO SCH (08:49)
[2023-05-30] MEDS: GABAPENTIN 300 MG CAP PO SCH (08:50)
[2023-05-30] MEDS: PROPRANOLOL 10 MG TAB PO SCH (08:51)
[2023-05-30 10:41] VITALS: PULSE 70
== END 2023-05-30 14:14 | DRG 884 ==
LOC: EC 12:57 → 5NMEDONC 17:25
PROVIDERS: ADMIT Family Medicine; ATTEND Family Medicine
DX: R54 Age-related physical debility (principal); N39.0 Urinary tract infection, site not specified; E87.1 Hypo-osmolality and hyponatremia; F11.20 Opioid dependence, uncomplicated; J44.0 Chronic obstructive pulmonary disease with (acute) lower respiratory infection; E44.0 Moderate protein-calorie malnutrition; Z68.1 Body mass index [BMI] 19.9 or less, adult; E78.5 Hyperlipidemia, unspecified; F32.A Depression, unspecified; F41.9 Anxiety disorder, unspecified; G25.81 Restless legs syndrome; G62.9 Polyneuropathy, unspecified; G89.4 Chronic pain syndrome; I10 Essential (primary) hypertension; K59.00 Constipation, unspecified; R29.6 Repeated falls; Z98.1 Arthrodesis status; Z91.81 History of falling; K57.90 Diverticulosis of intestine, part unspecified, without perforation or abscess without bleeding; Z79.899 Other long term (current) drug therapy; Z82.5 Family history of asthma and other chronic lower respiratory diseases; Z85.819 Personal history of malignant neoplasm of unspecified site of lip, oral cavity, and pharynx; Z92.21 Personal history of antineoplastic chemotherapy; Z92.3 Personal history of irradiation; Z87.891 Personal history of nicotine dependence
CPT/HCPCS: 36415; 80048; 81001; 82040; 83735; 85025; 87086; 93005; 96374; 99284

== ENCOUNTER 2023-07-11 18:33 | Observation (INO) | payer MEDICARE ==
--- NOTE | 2023-07-11 20:42 | US ---
EXAMINATION TYPE: US venous doppler duplex LE RT DATE OF EXAM: 07/11/2023 8:30 PM COMPARISON: NONE CLINICAL INDICATION: Female, 78 years old with history of leg swelling; Right leg pain and swelling x 1 day. No hx of DVT. Unsure if on blood thinners SIDE PERFORMED: Right TECHNIQUE: The lower extremity deep venous system is examined utilizing real time linear array sonog morena with graded compression, doppler sonography and color-flow sonography. VESSELS IMAGED: Common Femoral Vein Deep Femoral Vein Greater Saphenous Vein * Femoral Vein Popliteal Vein Small Saphenous Vein * Proximal Calf Veins (* superficial vessels) Right Leg: No evidence for DVT IMPRESSION: Grayscale, color doppler, spectral doppler imaging performed of the deep veins of the lo wer extremities. There is normal flow, compressibility, vascular waveforms.
[2023-07-11] MEDS: HYDROmorphone 1 MG/ML 1 ML SYRINGE IM STA ×2 (20:51→22:49)
[2023-07-11] MEDS: CYCLOBENZAPRINE 10 MG TAB PO STA (20:51)
--- NOTE | 2023-07-11 21:54 | ED ---
Extremity Problem HPI - General Chief complaint: Extremity Problem,Nontraumatic Stated complaint: Leg Pain Time Seen by Provider: 07/11/23 18:40 Source: EMS Mode of arrival: EMS - History of Present Illness Initial comments: 78-year-old female presents emergency department with intractable right hip pain. Patient states that she has had this pain for close to a year. She has h ad previous imaging of the extremity. She was told that she needed a hip replacement. Her primary care doctor has her on morphine twice a day. States that the pain was so significant today that she called EMS to bring her to the hospital. She took her morning medications as directed but was having significant muscle spasms. Patient also takes gabapentin. She denies any injuries. No numbness or tingling in her leg. Has experienced some lower extremity swelling which is new. Denies history of DVT or PE. No chest pain or shortness of breath. Patient seen in the emergency department for same complaint and was sent to rehab. No other alleviating, precipitating or modifying factors - Related Data Home Medications Medication Instructions Recorded Confirmed Atorvastatin [Lipitor] 10 mg PO DAILY 10/09/22 05/26/23 Propranolol [Inderal] 10 mg PO BID 10/09/22 05/26/23 Escitalopram [Lexapro] 10 mg PO HS 11/16/22 05/26/23 rOPINIRole HCL [Requip] 0.25 mg PO HS 11/16/22 05/26/23 Previous Rx's Medication Instructions Recorded Pantoprazole Sodium [Protonix] 40 mg PO BID #60 tab 11/17/22 Gabapentin 300 mg PO QID #12 cap 05/28/23 Morphine Sulfate Ir [MSIR] 15 mg PO BID #6 tab 05/28/23 cefUROXime axetiL [Ceftin] 500 mg PO BID 1 Days #10 tab 05/28/23 polyethylene glycoL 3350 [Miralax] 17 gm PO DAILY #527 gm 05/28/23 Allergies Allergy/AdvReac Type Severity Reaction Status Date / Time bee venom protein (honey bee) Allergy Anaphylaxis Verified 05/26/23 19:22 Review of Systems ROS Statement: Those systems with pertinent positive or pertinent negative responses have been documented in the HPI. ROS Other: All systems not noted in ROS Statement are negative. Past Medical History Past Medical History: Cancer, Hypertension, Osteoarthritis (OA) Additional Past Medical History / Comment(s): throat ca History of Any Multi-Drug Resistant Organisms: ESBL Date of last positivie culture/infection: 05/30/23 MDRO Source:: Urine Past Surgical History: Cholecystectomy, Orthopedic Surgery Additional Past Surgical History / Comment(s): cervical fusion, plate in right ankle Past Anesthesia/Blood Transfusion Reactions: No Reported Reaction Past Psychological History: Depression Smoking Status: Former smoker Past Alcohol Use History: None Reported Past Drug Use History: None Reported - Past Family History Mother Family Medical History: COPD General Exam General appearance: alert, in no apparent distress Head exam: Present: atraumatic, normocephalic, normal inspection Extremities exam: Present: tenderness (To palpation of the right hip), pedal edema (Right leg only. Compartment soft) Course Vital Signs 07/11/23 18:38 Temperature 98.1 F Pulse Rate 86 Respiratory 20 Rate Blood Pressure 190/92 O2 Sat by Pulse 96 Oximetry Medical Decision Making - Medical Decision Making Was pt. sent in by a medical professional or institution (, PA, SPECIALTY DEPARTMENT SUPERVISOR, urgent care, hospital, or alf...) When possible be specific @ -No Did you speak to anyone other than the patient for history (EMS, parent, family, police, friend...)? What history was obtained from this source @ -EMS Did you review nursing and triage notes (agree or disagree)? Why? @ -I reviewed and agree with nursing and triage notes Were old charts reviewed (outside hosp., previous admission, EMS record, old EKG, old radiological studies, urgent care reports/EKG's, alf records)? Report findings @ -I reviewed patient's previous x-ray of her hip which was completed in December 2022 Differential Diagnosis (chest pain, altered mental status, abdominal pain women, abdominal pain men, vaginal bleeding, weakness, fever, dyspnea, syncope, headache, dizziness, GI bleed, back pain, seizure, CVA, palpatations, mental health, musculoskeletal)? @ -Differential Musculoskeletal Muscular strain, contusion, ligament sprain, fracture, arthritis, septic arthritis, bursitis, cellulitis, muscle spasm, nerve compression, DVT, arterial occlusion, herpes zoster, electrolyte abnormality, tumor.... This is not meant to be in all inclusive list EKG interpreted by me (3pts min.). @ -Not done X-rays interpreted by me (1pt min.). @ -Yes and demonstrates advanced degenerative change of the right hip CT interpreted by me (1pt min.). @ -None done U/S interpreted by me (1pt. min.). @ -Yes and does not demonstrate any acute DVT What testing was considered but not performed or refused? (CT, X-rays, U/S, labs)? Why? @ -None What meds were considered but not given or refused? Why? @ -None Did you discuss the management of the patient with other professionals (professionals i.e. DrSteve, PA, SPECIALTY DEPARTMENT SUPERVISOR, lab, RT, psych nurse, social media strategist, clinical trial specialist, teacher, public health service officer, caseworker protective services)? Give summary @ -Spoke with Dr. Castellanos who agreed to admit the patient Was smoking cessation discussed for >3mins.? @ -No Was critical care preformed (if so, how long)? @ -No Were there social determinants of health that impacted care today? How? (Homelessness, low income, unemployed, alcoholism, drug addiction, transportation, low edu. Level, literacy, decrease access to med. care, correction, rehab)? @ -No Was there de-escalation of care discussed even if they declined (Discuss DNR or withdrawal of care, Hospice)? DNR status @ -No What co-morbidities impacted this encounter? (DM, HTN, Smoking, COPD, CAD, Cancer, CVA, ARF, Chemo, Hep., AIDS, mental health diagnosis, sleep apnea, morbid obesity)? @ -Chronic right hip pain Was patient admitted / discharged? Hospital course, mention meds given and route, prescriptions, significant lab abnormalities, going to OR and other pertinent info. @ -Admitted. Upon arrival patient was placed in the hallway 26. Thorough history and physical exam was performed. Patient given Dilaudid and Flexeril. Continues to have pain. Ultrasound was performed which demonstrates no DVT. She was given her home dose of morphine with continued pain. Second dose of Dilaudid is administered. Patient continues to be unable to get up and ambulate. Patient does not feel as if she can care her for herself. States that she has little to no support from her family. Patient fearful of going home. Called and spoke with Dr. Castellanos who agreed to admit the patient overnight. Will consult orthopedics and case management. Patient pending a bed on the floor in stable condition Undiagnosed new problem with uncertain prognosis? @ -No Drug Therapy requiring intensive monitoring for toxicity (Heparin, Nitro, Insulin, Cardizem)? @ -No Were any procedures done? @ -No Diagnosis/symptom? @ -Acute exacerbation of right hip pain Acute, or Chronic, or Acute on Chronic? @ -Acute on chronic Uncomplicated (without systemic symptoms) or Complicated (systemic symptoms)? @ -Complicated Side effects of treatment? @ -No Exacerbation, Progression, or Severe Exacerbation? @ -No Poses a threat to life or bodily function? How? (Chest pain, USA, GA, pneumonia, PE, COPD, DKA, ARF, appy, cholecystitis, CVA, Diverticulitis, Homicidal, Suicidal, threat to staff... and all critical care pts) @ -No Disposition Clinical Impression: Right leg pain Disposition: ADMITTED IP TO THIS HOSP Condition: Stable Is patient prescribed a controlled substance at d/c from ED?: No Time of Disposition: 23:29 Decision to Admit Reason: Admit from EC Decision Date: 07/11/23 Decision Time: 23:29
[2023-07-11] MEDS: MORPHINE SULFATE IR 15 MG TABLET PO SCH (22:42)
[2023-07-11] MEDS ORDERED: NALOXONE 0.4 MG/ML 1 ML VIAL IV PRN (23:29)
--- NOTE | 2023-07-12 00:05 | XR ---
EXAMINATION TYPE: XR Hip RT and AP Pelvis DATE OF EXAM: 07/11/2023 COMPARISON: Prior pelvic and right hip x-ray January 07, 2023 HISTORY: Intractable right hip pain. TECHNIQUE: A single AP view of the pelvis is obtained. Two views of the right hip are obtained. FINDINGS: Advanced degenerative change in both hips greater on the right is redemonstrated with marke d joint space loss seen. Right hip shows [id number] formation similar to prior. Prominent head nec k collar spurring bilaterally is redemonstrated. No acute displaced fracture in the pelvis or right h ip. Pubic symphysis is intact. Sacroiliac joints are preserved. Overlying tubal ligation clips are re demonstrated. IMPRESSION: As above. Advanced degenerative changes of both hips greater on the right are redemonstra axel.
[2023-07-12 07:53] LABS: Basophils # (A) 0.1 k/uL (0-0.2); Basophils % (A) 1 %; Eosinophils # (A) 0.2 k/uL (0-0.7); Eosinophils % (A) 4 %; HCT 37.2 % (34.0-46.0); Lymphocytes # (A) 1.2 k/uL (1.0-4.8); Lymphocytes % (A) 27 %; MCH 30.7 pg (25.0-35.0); MCHC 32.3 g/dL (31.0-37.0); MCV 94.9 fL (80.0-100.0); Mean Platelet Volume 7.3; Monocytes # (A) 0.4 k/uL (0-1.0); Monocytes % (A) 10 %; Neutrophils # (A) 2.4 k/uL (1.3-7.7); Neutrophils % (A) 55 %; Platelet Count 257 k/uL (150-450); RBC 3.93 m/uL (3.80-5.40); RDW 13.2 % (11.5-15.5); WBC 4.3 k/uL (3.8-10.6)
[2023-07-12 08:11] LABS: ALT 14 U/L (4-34); AST 26 U/L (14-36); African American GFR (CKD) >90 (>60 ml/min/1.73 sqM); Albumin 3.8 g/dL (3.5-5.0); Alkaline Phosphatase 106 U/L (38-126); Anion Gap 3 mmol/L; Blood Urea Nitrogen 21 mg/dL (7-17); Calcium 9.5 mg/dL (8.4-10.2); Carbon Dioxide 31 mmol/L (22-30); Chloride 102 mmol/L (98-107); Glucose 74 mg/dL (74-99); Non-African American GFR(CKD) 87 (>60 ml/min/1.73 sqM); Potassium 4.1 mmol/L (3.5-5.1); Sodium 136 mmol/L (137-145); Total Bilirubin 0.8 mg/dL (0.2-1.3); Total Protein 6.4 g/dL (6.3-8.2)
[2023-07-12] MEDS ORDERED: DEXTROSE 50% SYRINGE 50 ML IVP PRN ×2 (09:07)
[2023-07-12] MEDS: GABAPENTIN 300 MG CAP PO SCH (09:24)
[2023-07-12] MEDS: LEVOTHYROXINE 25 MCG TAB PO SCH (09:24)
[2023-07-12 09:34] LABS: Glucose,Whole Blood 76 mg/dL (70-110)
--- NOTE | 2023-07-12 10:55 | P.CNOR ---
History of Present Illness - [facility] Consult date: 07/12/23 Consult reason: joint pain (Right hip pain) History of present illness: Patient is a 78-year-old female who reported to [facility] ER with regards to worsening pain of her right hip. Patient has a known history of osteoarthritis. Patient states that the pain is gotten so bad that she is unable to tolerate it. Patient normally takes oral morphine for other medical issues that she has been on for many years. Patient denies any recent falls or other trauma. Patient does live alone, she has daughters in the area that check on her. Patient was evaluated today at bedside in the ER, she seems very uncomfortable on exam. The right hip is flexed about 90 degrees along with the right knee. She stated range of motion and any counter weightbearing causes significant pain. She feels that the morphine that she normally takes for her aches and pains has not touched the pain over the last few days. Patient has known for many years that she has needed a total hip replacement she has not followed up with an orthopedic doctor regarding this. She did have an orthopedic doctor in town fix her right wrist many years ago, she has also seen a pain management doctor with regards to her neck. She states that she has received a few different injections into her cervical spine with minimal relief. Patient denies any orthopedic surgery to the right lower extremity. She normally utilizes a walker with aid for ambulation. Currently she denies any headaches, lightheadedness, chest pain or shortness of breath. She denies any left lower extremity pain. She denies any acute bilateral upper extremity pain. She denies any loss of bowel or bladder function at this time. Review of Systems Constitutional: Reports as per [facility] Past Medical History Past Medical History: Cancer, Hypertension, Osteoarthritis (OA) Additional Past Medical History / Comment(s): throat ca History of Any Multi-Drug Resistant Organisms: ESBL Year Discovered:: 05/30/23 MDRO Source:: Urine Past Surgical History: Cholecystectomy, Orthopedic Surgery Additional Past Surgical History / Comment(s): cervical fusion, plate in right ankle Past Anesthesia/Blood Transfusion Reactions: No Reported Reaction Past Psychological History: Depression Smoking Status: Former smoker Past Alcohol Use History: None Reported Past Drug Use History: None Reported - Past Family History Mother Family Medical History: COPD Medications and Allergies Home Medications Medication Instructions Recorded Confirmed Type Atorvastatin [Lipitor] 10 mg PO DAILY 10/09/22 07/12/23 History Propranolol [Inderal] 10 mg PO BID 10/09/22 07/12/23 History Escitalopram [Lexapro] 10 mg PO HS 11/16/22 07/12/23 History rOPINIRole HCL [Requip] 0.25 mg PO HS 11/16/22 07/12/23 History Pantoprazole Sodium [Protonix] 40 mg PO BID #60 tab 11/17/22 07/12/23 Rx Gabapentin 300 mg PO QID #12 cap 05/28/23 07/12/23 Rx Morphine Sulfate Ir [MSIR] 15 mg PO BID #6 tab 05/28/23 07/12/23 Rx Furosemide [Lasix] 20 mg PO DIRECTED 07/12/23 07/12/23 History Levothyroxine Sodium [Synthroid] 25 mcg PO DIRECTED 07/12/23 07/12/23 History metFORMIN HCL [Glucophage] 500 mg PO DIRECTED 07/12/23 07/12/23 History Allergies Allergy/AdvReac Type Severity Reaction Status Date / Time bee venom protein (honey bee) Allergy Anaphylaxis Verified 07/12/23 07:26 Physical Examination Right lower extremity: No obvious open lesions or sores are visualized throughout the extremity, no significant areas of erythema, ecchymosis or soft tissue swelling Patient seems most comfortable with the hip flexed to about 90 degrees, knee flexion to about 90 degrees. She has a very difficult time fully extending and straightening the leg and knee due to pain in her hip. Logroll maneuver reproduces severe pain. This she is unable to straight leg raise due to pain at this time. Extension and flexion at the knee are intact but do cause discomfort in the hip. Plantarflexion, dorsiflexion, EHL, FHL are intact. Calf is soft, no tenderness with palpation. Sensory exam to light touch is intact throughout the extremity. Her dorsalis pedis pulses 2+ Generalized pain exam: No obvious open lesions, sores, areas of erythema or soft tissue swelling present to the left lower extremity. Patient is able to straight leg raise with minimal difficulty, hip flexion along with internal and external rotation reproduce no significant pain. Flexion and extension are intact at the knee, plantarflexion, dorsiflexion, EHL, FHL are intact. Sensory exam to light touch is intact throughout the extremity. Calf is soft, no tenderness with palpation. Dorsalis pedis pulses 2+ No point tenderness is appreciated throughout the bilateral upper extremities, she does not have full range of motion with regards to shoulder elevation or shoulder abduction. Elbow extension, elbow flexion, wrist extension, wrist flexion, general car yard supervisor are intact. Strength was not assessed of the bilateral upper ext remities. Patient demonstrates a positive Mere's on the left side. Results - Labs Labs: Abnormal Lab Results - Last 24 Hours (Table) 07/12/23 Range/Units 07:35 Sodium 136 L (137-145) mmol/L Carbon Dioxide 31 H (22-30) mmol/L BUN 21 H (7-17) mg/dL H & H 07/12/23 Range/Units 07:35 Hgb 12.0 (11.4-16.0) gm/dL Hct 37.2 (34.0-46.0) % Result Diagrams: 07/12/23 07:35 07/12/23 07:35 - Diagnostic results Hip x-ray: report reviewed, image reviewed (X-rays and reports were reviewed of the pelvis along with right hip x-rays. Severe osteoarthritic changes are present in the hip, this to include loss of joint space, subchondral sclerosis, cystic changes and osteophyte formation) Assessment and Plan Assessment: Right hip pain Severe right hip osteoarthritis Difficulty with ambulation Debility Other medical comorbidities Plan: I was able to discuss the case, this to include both physical exam findings and imaging studies my attending Dr. Linares. No emergent orthopedic surgical intervention is recommended at this time Initially recommending conservative measures, this to include protective weightbearing, pain control and PT/OT evaluation. Patient may benefit from stay at subacute rehab if she is unable to advance during hospital stay We would like patient to follow-up in the outpatient setting in the next 10 to 14 days to discuss total hip replacement in further detail Pain control, recommend continuing use of her current medications DVT prophylaxis per primary medical service PT/OT evaluation Please contact our orthopedic service for any further questions regarding this patient Time with Patient: Less than 30
[2023-07-12 11:48] LABS: Glucose,Whole Blood 106 mg/dL (70-110)
[2023-07-12] MEDS: INSULIN ASPART (NovoLOG) 100 UNIT/ML VIAL SQ SCH (11:49)
--- NOTE | 2023-07-12 14:23 | P.HPIM ---
History of Present Illness H&P Date: 07/12/23 Chief Complaint: Worsening of chronic right hip osteoarthritis This is a pleasant 78-year-old female with past medical history significant for throat cancer( in remission) status post chemotherapy and radiation therapy in 2019 with subsequent loss of all her teeth (without dentures), significant weight loss, former nicotine dependence, COPD, osteoarthritis, constipation, hy pertension, depression, chronic pain syndrome- pain contract with Dr. Lee and multiple other medical issues brought in to the ER via EMS with significant chronic right hip pain-right bursa, difficulty walking, difficulty with ADLs. Denies loss or change of bowel or bladder function. denies falls or trauma. Vague historian. States over the last 3 to 4 days she was doing her house chores including lifting which may have flared up her chronic hip pain mostly right- sided. Patient normally uses a walker and comes to PCPs office in a wheelchair. Denies chest pain, palpitations or shortness of breath. Denies lightheadedness, dizziness or focal deficits. Pelvic and right hip x-ray reporting advanced degenerative changes of bilateral hips greater on the right redemonstrated. reports she received a muscle relaxant yesterday in the ER and now she feels better but still unable to walk. Afebrile, vital signs stable, maintaining O2 sats in the 90s on room air. Orthopedic surgery consult in place. Patient recently went to subacute rehab in May 2023. Review of Systems ROS Statement: Those systems with pertinent positive or pertinent negative responses have been documented in the HPI. ROS Other: All systems not noted in ROS Statement are negative. Past Medical History Past Medical History: Cancer, Hypertension, Osteoarthritis (OA) Additional Past Medical History / Comment(s): throat ca History of Any Multi-Drug Resistant Organisms: ESBL Date of last positivie culture/infection: 05/30/23 MDRO Source:: Urine Past Surgical History: Cholecystectomy, Orthopedic Surgery Additional Past Surgical History / Comment(s): cervical fusion, plate in right ankle Past Anesthesia/Blood Transfusion Reactions: No Reported Reaction Past Psychological History: Depression Smoking Status: Former smoker Past Alcohol Use History: None Reported Past Drug Use History: None Reported - Past Family History Mother Family Medical History: COPD Medications and Allergies Home Medications Medication Instructions Recorded Confirmed Type Atorvastatin [Lipitor] 10 mg PO DAILY 10/09/22 07/12/23 History Propranolol [Inderal] 10 mg PO BID 10/09/22 07/12/23 History Escitalopram [Lexapro] 10 mg PO HS 11/16/22 07/12/23 History rOPINIRole HCL [Requip] 0.25 mg PO HS 11/16/22 07/12/23 History Pantoprazole Sodium [Protonix] 40 mg PO BID #60 tab 11/17/22 07/12/23 Rx Gabapentin 300 mg PO QID #12 cap 05/28/23 07/12/23 Rx Morphine Sulfate Ir [MSIR] 15 mg PO BID #6 tab 05/28/23 07/12/23 Rx Furosemide [Lasix] 20 mg PO DIRECTED 07/12/23 07/12/23 History Levothyroxine Sodium [Synthroid] 25 mcg PO DIRECTED 07/12/23 07/12/23 History metFORMIN HCL [Glucophage] 500 mg PO DIRECTED 07/12/23 07/12/23 History Allergies Allergy/AdvReac Type Severity Reaction Status Date / Time bee venom protein (honey bee) Allergy Anaphylaxis Verified 07/12/23 07:26 Physical Exam Vitals: Vital Signs Temp Pulse Resp BP Pulse Ox 07/12/23 09:52 20 163/77 94 L 07/12/23 07:16 97.7 F 82 20 157/83 97 07/12/23 05:16 97.6 F 63 18 165/85 95 07/12/23 01:30 52 L 17 170/68 90 L 07/11/23 18:38 98.1 F 86 20 190/92 96 Intake and Output 07/11/23 07/12/23 07/12/23 22:59 06:59 14:59 Other: Weight 54.431 kg General appearance: The patient is sitting up on stretcher, alert, oriented X 3, no acute distress. HEENT: Normocephalic and atraumatic. Conjunctiva pink. Sclera anicteric. Oral mucosa moist. Neck: Supple, no JVD. CARDIOVASCULAR: S1, S2 regular.No murmur RESPIRATION: Unlabored, Breath sounds diminished in the bases. No rhonchi or crackles. Abdomen: Soft, thin, nontender, nondistended with + bowel sounds. No guarding or rigidity. Extremities: Tender right bursa , arthritic ankles, bunions bilateral feet, normal skin color and turgor. No pedal edema. Skin: Warm and dry, No rashes, no jaundice Neurological: No gross focal deficits. Results CBC & Chem 7: 07/12/23 07:35 07/12/23 07:35 Labs: Abnormal Lab Results - Last 24 Hours (Table) 07/12/23 Range/Units 07:35 Sodium 136 L (137-145) mmol/L Carbon Dioxide 31 H (22-30) mmol/L BUN 21 H (7-17) mg/dL Assessment and Plan Assessment: Chronic right hip pain, severe right hip osteoarthritis, reporting difficulty with ambulation. Reports exacerbated by housechores with lifting over the last 3 to 4 days. Chronic Restless leg syndrome Neuropathy Chronic pain syndrome, pain contract with Dr. Lee Chronic narcotic dependency with bouts of constipation Diverticulosis History of Throat cancer status post chemoradiation in 2019, subsequent loss of all teeth, no dentures Moderate protein calorie malnutrition, secondary to the above, BMI 19.7, albumin pending COPD Former nicotine dependence Hypertension Hyperlipidemia Depression, anxiety Plan: Continue on current medication regimen ,monitoring and symptomatic treatment. Discharge planning in progress pending PT/OT and orthopedic evaluation/recommendations. Pain management. DVT prophylaxis with teds and heparin subcu. The impression and plan of care has been dictated as directed. : I performed a history and examination of this patient, discussed the same with the dictator. I agree with the dictator's note ,documented as a scribe. Any additional findings or plans will be noted.
[2023-07-12 17:13] LABS: Glucose,Whole Blood 116 mg/dL (70-110)
[2023-07-12 21:19] LABS: Glucose,Whole Blood 114 mg/dL (70-110)
[2023-07-12] MEDS: ESCITALOPRAM 10 MG TAB PO SCH (21:36)
[2023-07-12] MEDS: HEPARIN SODIUM,PORCINE 5,000 UNIT/ML 1 ML VIAL SQ SCH (21:37)
[2023-07-13 06:17] LABS: Glucose,Whole Blood 86 mg/dL (70-110)
[2023-07-13] MEDS: ATORVASTATIN 10 MG TAB PO SCH (08:38)
[2023-07-13 12:36] LABS: Glucose,Whole Blood 107 mg/dL (70-110)
[2023-07-13 17:26] LABS: Glucose,Whole Blood 132 mg/dL (70-110)
--- NOTE | 2023-07-13 17:35 | P.PN ---
Progress Note - Text Progress Note Date: 07/13/23 Diagnosis: Right hip pain; Severe right hip osteoarthritis Subjective: Patient was seen at bedside this morning lying semirecumbent position. Patient says she is still having pain to the right hip at this time. Patient's says she is try to get up with therapy but she has increased pain with weightbearing of the right hip. Patient is hoping to follow-up in the outpatient setting for further workup and potential hip replacement. Patient denies any other changes at this time. Patient denies chest pain, fever, chest breath, nausea, change in vision, loss of bowel/bladder control. Objective: Significantly limited range of motion throughout the right lower extremity exam especially the right hip secondary to referred pain and weakness. Good range of motion throughout the bilateral upper extremities and left lower extremity exam. There is some limited range of motion of left hip and flexion-extension secondary to stiffness. Assessment: Right hip and thigh: Severe right hip lesser arthritis Plan: Patient may weight-bear as tolerated with walker and assistance as needed. Pain medication as needed. Work with PT/OT daily. Patient is stable for orthopedic standpoint for discharge. At this time, orthopedics is signing off. Please do not hesitate to contact us for any further questions. Follow up with Dr. Feliz for continued evaluation in the office in 1-2 weeks.
--- NOTE | 2023-07-13 19:22 | P.PN ---
Subjective Progress Note Date: 07/13/23 Chief Complaint: Worsening of chronic right hip osteoarthritis This is a pleasant 78-year-old female with past medical history significant for throat cancer( in remission) status post chemotherapy and radiation therapy in 2019 with subsequent loss of all her teeth (without dentures), significant weight loss, former nicotine dependence, COPD, osteoarthritis, constipation, hypertension, depression, chronic pain syndrome- pain contract with Dr. Lee and multiple other medical issues brought in to the ER via EMS with significant chronic right hip pain-right bursa, difficulty walking, difficulty with ADLs. Denies loss or change of bowel or bladder function. denies falls or trauma. Vague historian. States over the last 3 to 4 days she was doing her house chores including lifting which may have flared up her chronic hip pain mostly right- sided. Patient normally uses a walker and comes to PCPs office in a wheelchair. Denies chest pain, palpitations or shortness of breath. Denies lightheadedness, dizziness or focal deficits. Pelvic and right hip x-ray reporting advanced degenerative changes of bilateral hips greater on the right redemonstrated. reports she received a muscle relaxant yesterday in the ER and now she feels better but still unable to walk. Afebrile, vital signs stable, maintaining O2 sats in the 90s on room air. Orthopedic surgery consult in place. Patient recently went to subacute rehab in May 2023. 07/13/2023 Patient is seen and evaluated in follow-up today continues with pain of the neck and back and is lethargic although easily arousable. Patient was evaluated by orthopedics recommending conservative management. Patient to follow-up in the outpatient setting in 1 to 2 weeks to discuss possible surgical intervention. Patient at this time does not want surgery and would like to continue with conservative measures and physical therapy with continued pain management. Patient is afebrile with no reported chest pain or shortness of breath. Patient reports that tolerating diet with no reported nausea or vomiting. Case manag ement following awaiting for insurance authorization. Patient has been accepted by [facility] pending authorization. Review of systems: Constitutional: No reports of fatigue, fever, or chills Cardiovascular: No reports of chest pain or palpitations Respiratory: No reports of shortness of breath or cough GI: No reports of nausea, vomiting, or diarrhea : No reports of dysuria or retention Neurovascular: reports of weakness All medications have been reviewed Physical exam: Gen: This is a 78-year-old female who is awake, alert and oriented x 3, well- developed, well-nourished, elderly appearing diffusely weak HEENT: Head is atraumatic, normocephalic. Pupils equal, round. Sclerae is anicteric. NECK: Supple. No JVD. No lymphadenopathy. No thyromegaly. LUNGS: Clear to auscultation. No wheezes or rhonchi. No intercostal retractions. HEART: Regular rate and rhythm. No murmur. ABDOMEN: Soft. Bowel sounds are present. No masses. No tenderness. EXTREMITIES: No pedal edema. No calf tenderness. NEUROLOGICAL: Patient is awake, alert and oriented x3. Cranial nerves 2 through 12 are grossly intact. Assessment: Chronic right hip pain, severe right hip osteoarthritis, reporting difficulty with ambulation. Reports exacerbated by housechores with lifting over the last 3 to 4 days. Chronic Restless leg syndrome Neuropathy Chronic pain syndrome, pain contract with Dr. Lee Chronic narcotic dependency with bouts of constipation Diverticulosis History of Throat cancer status post chemoradiation in 2019, subsequent loss of all teeth, no dentures Moderate protein calorie malnutrition, secondary to the above, BMI 19.7 COPD, not in exacerbation Former nicotine dependence Hypertension Hyperlipidemia Depression, anxiety Plan: Patient will be continued on current pain regimen Patient evaluated by orthopedics recommending conservative management and outpatient follow-up in the next few weeks to discuss surgical intervention Patient with continued significant weakness will be going to [facility] once insurance authorization has been obtained for continued strength and mobility Continue bowel regimen Encouraged increase activity as tolerated The impression and plan of care has been dictated by Ana Arango, Nurse Practitioner as directed. Dr. Zain MD I have performed a history and examination and MDM of this patient, discussed the same with the dictator, and agree with the dictator's assessment and plan as written ,documented as a scribe. Based on total visit time, I have performed more than 50% of the visit. Objective - Vital Signs Vital signs: Vital Signs Temp 97.8 F 07/13/23 07:00 Pulse 81 07/13/23 07:00 Resp 14 07/13/23 07:00 BP 118/51 07/13/23 07:00 Pulse Ox 94 L 07/13/23 07:00 FiO2 Intake & Output 07/12/23 07/13/23 07/13/23 18:59 06:59 18:59 Output Total 400 Balance -400 Weight 54.431 kg Output: Urine 400 Other: # Voids 3 2 - Labs CBC & Chem 7: 07/12/23 07:35 07/12/23 07:35 Labs: Abnormal Lab Results - Last 24 Hours (Table) 07/12/23 07/12/23 Range/Units 17:12 21:17 POC Glucose (mg/dL) 116 H 114 H (70-110) mg/dL
[2023-07-13 20:11] LABS: Glucose,Whole Blood 110 mg/dL (70-110)
[2023-07-13] MEDS: SENNOSIDES 8.6 MG TAB PO SCH (20:44)
[2023-07-14 06:15] LABS: Glucose,Whole Blood 83 mg/dL (70-110)
[2023-07-14] MEDS: polyethylene glycoL 3350 17 GM POWD.PACK PO SCH (08:33)
[2023-07-14 11:55] LABS: Glucose,Whole Blood 111 mg/dL (70-110)
--- NOTE | 2023-07-14 13:56 | P.PN ---
Subjective Progress Note Date: 07/14/23 This is a pleasant 78-year-old female with past medical history significant for throat cancer( in remission) status post chemotherapy and radiation therapy in 2019 with subsequent loss of all her teeth (without dentures), significant weight loss, former nicotine dependence, COPD, osteoarthritis, constipation, hypertension, depression, chronic pain syndrome- pain contract with Dr. Lee and multiple other medical issues brought in to the ER via EMS with significant chronic right hip pain-right bursa, difficulty walking, difficulty with ADLs. Denies loss or change of bowel or bladder function. denies falls or trauma. Vague historian. States over the last 3 to 4 days she was doing her house chores including lifting which may have flared up her chronic hip pain mostly right- sided. Patient normally uses a walker and comes to PCPs office in a wheelchair. Denies chest pain, palpitations or shortness of breath. Denies lightheadedness, dizziness or focal deficits. Pelvic and right hip x-ray reporting advanced degenerative changes of bilateral hips greater on the right redemonstrated. reports she received a muscle relaxant yesterday in the ER and now she feels better but still unable to walk. Afebrile, vital signs stable, maintaining O2 sats in the 90s on room air. Orthopedic surgery consult in place. Patient recently went to subacute rehab in May 2023. 07/13/2023 Patient is seen and evaluated in follow-up today continues with pain of the neck and back and is lethargic although easily arousable. Patient was evaluated by orthopedics recommending conservative management. Patient to follow-up in the outpatient setting in 1 to 2 weeks to discuss possible surgical intervention. Patient at this time does not want surgery and would like to continue with conservative measures and physical therapy with continued pain management. Patient is afebrile with no reported chest pain or shortness of breath. Patient reports that tolerating diet with no reported nausea or vomiting. Case management following awaiting for insurance authorization. Patient has been accepted by [facility] pending authorization. 07/14. Patient seen and examined. Patient is complaining of constipation, has not had a bowel movement since admission. Denies any nausea or vomiting. Tolerating diet. REVIEW OF SYSTEMS: CONSTITUTIONAL: No fever, no malaise,. CARDIOVASCULAR: No chest pain, no palpitations, no syncope. PULMONARY: No shortness of breath, no cough, GASTROINTESTINAL: No diarrhea, no nausea, no vomiting, no abdominal pain. NEUROLOGICAL: No headaches, no weakness, PHYSICAL EXAMINATION: GENERAL: The patient is alert and oriented x3, not in any acute distress. Well developed, well nourished. HEENT: Pupils are round and equally reacting to light. EOMI. No scleral icterus. No conjunctival pallor. Normocephalic, atraumatic. No pharyngeal erythema. No thyromegaly. CARDIOVASCULAR: S1 and S2 present. No murmurs, rubs, or gallops. PULMONARY: Chest is clear to auscultation, no wheezing or crackles. ABDOMEN: Soft, nontender, nondistended, normoactive bowel sounds. No palpable o rganomegaly. MUSCULOSKELETAL: No joint swelling or deformity. EXTREMITIES: No cyanosis, clubbing, or pedal edema. NEUROLOGICAL: Gross neurological examination did not reveal any focal deficits. SKIN: No rashes. Assessment and plan Chronic right hip pain, severe right hip osteoarthritis, reporting difficulty with ambulation. Reports exacerbated by housechores with lifting over the last 3 to 4 days. Chronic Restless leg syndrome Neuropathy Chronic pain syndrome, pain contract with Dr. Lee Chronic narcotic dependency with bouts of constipation Diverticulosis History of Throat cancer status post chemoradiation in 2019, subsequent loss of all teeth, no dentures Moderate protein calorie malnutrition, secondary to the above, BMI 19.7 COPD, not in exacerbation Former nicotine dependence Hypertension Hyperlipidemia Depression, anxiety Monitor vital signs Monitor CBC Monitor CMP Continue pain management Patient evaluated by orthopedics recommending conservative management and outpatient follow-up in the next few weeks to discuss surgical intervention Patient with continued significant weakness will be going to [facility] once insurance authorization has been obtained for continued strength and mobility Continue bowel regimen, increase dose of MiraLAX to twice daily Encouraged increase activity as tolerated Labs and medication were reviewed.. Continue same treatment. Continue with symptomatic treatment. Resume home medication. Monitor labs and vitals. DVT and GI prophylaxis. Further recommendations as per clinical course of the patient Dictation was produced using [employer] dictation software. please excuse any grammatical, word or spelling errors. Objective - Vital Signs Vital signs: Vital Signs Temp 97.5 F L 07/14/23 07:00 Pulse 84 07/14/23 07:00 Resp 16 07/14/23 07:00 BP 153/67 07/14/23 07:00 Pulse Ox 93 L 07/14/23 07:00 FiO2 Intake & Output 07/13/23 07/14/23 07/14/23 18:59 06:59 18:59 Intake Total 118 Output Total 300 100 Balance -182 -100 Intake: Oral 118 Output: Urine 300 100 Other: Voiding Method External Catheter # Voids 1 - Labs CBC & Chem 7: 07/12/23 07:35 07/12/23 07:35 Labs: Abnormal Lab Results - Last 24 Hours (Table) 07/13/23 Range/Units 17:24 POC Glucose (mg/dL) 132 H (70-110) mg/dL
[2023-07-14] MEDS: PANTOPRAZOLE 40 MG/10 ML VIAL IVP SCH (17:27)
[2023-07-14 17:41] LABS: Glucose,Whole Blood 94 mg/dL (70-110)
[2023-07-14 20:20] LABS: Glucose,Whole Blood 117 mg/dL (70-110)
[2023-07-15 06:16] LABS: Glucose,Whole Blood 110 mg/dL (70-110)
[2023-07-15 12:00] LABS: Glucose,Whole Blood 106 mg/dL (70-110)
[2023-07-15] MEDS: ACETAMINOPHEN TAB 325 MG TAB PO PRN (12:33)
--- NOTE | 2023-07-15 12:34 | P.PN ---
Subjective Progress Note Date: 07/15/23 This is a pleasant 78-year-old female with past medical history significant for throat cancer( in remission) status post chemotherapy and radiation therapy in 2019 with subsequent loss of all her teeth (without dentures), significant weight loss, former nicotine dependence, COPD, osteoarthritis, constipation, hypertension, depression, chronic pain syndrome- pain contract with Dr. Lee and multiple other medical issues brought in to the ER via EMS with significant chronic right hip pain-right bursa, difficulty walking, difficulty with ADLs. Denies loss or change of bowel or bladder function. denies falls or trauma. Vague historian. States over the last 3 to 4 days she was doing her house chores including lifting which may have flared up her chronic hip pain mostly right- sided. Patient normally uses a walker and comes to PCPs office in a wheelchair. Denies chest pain, palpitations or shortness of breath. Denies lightheadedness, dizziness or focal deficits. Pelvic and right hip x-ray reporting advanced degenerative changes of bilateral hips greater on the right redemonstrated. reports she received a muscle relaxant yesterday in the ER and now she feels better but still unable to walk. Afebrile, vital signs stable, maintaining O2 sats in the 90s on room air. Orthopedic surgery consult in place. Patient recently went to subacute rehab in May 2023. 07/13/2023 Patient is seen and evaluated in follow-up today continues with pain of the neck and back and is lethargic although easily arousable. Patient was evaluated by orthopedics recommending conservative management. Patient to follow-up in the outpatient setting in 1 to 2 weeks to discuss possible surgical intervention. Patient at this time does not want surgery and would like to continue with conservative measures and physical therapy with continued pain management. Patient is afebrile with no reported chest pain or shortness of breath. Patient reports that tolerating diet with no reported nausea or vomiting. Case management following awaiting for insurance authorization. Patient has been accepted by [facility] pending authorization. 07/14. Patient seen and examined. Patient is complaining of constipation, has not had a bowel movement since admission. Denies any nausea or vomiting. Tolerating diet. 07/15. Patient seen and examined. Vital signs this morning is temperature 98.3, heart rate 94, respirations 16, blood pressure 147/66. Denies any neck pain. States she feels much better. REVIEW OF SYSTEMS: CONSTITUTIONAL: No fever, no malaise,. CARDIOVASCULAR: No chest pain, no palpitations, no syncope. PULMONARY: No shortness of breath, no cough, GASTROINTESTINAL: No diarrhea, no nausea, no vomiting, no abdominal pain. NEUROLOGICAL: No headaches, no weakness, PHYSICAL EXAMINATION: GENERAL: The patient is alert and oriented x3, not in any acute distress. Well developed, well nourished. HEENT: Pupils are round and equally reacting to light. EOMI. No scleral icterus. No conjunctival pallor. Normocephalic, atraumatic. No pharyngeal erythema. No thyromegaly. CARDIOVASCULAR: S1 and S2 present. No murmurs, rubs, or gallops. PULMONARY: Chest is clear to auscultation, no wheezing or crackles. ABDOMEN: Soft, nontender, nondistended, normoactive bowel sounds. No palpable organomegaly. MUSCULOSKELETAL: No joint swelling or deformity. EXTREMITIES: No cyanosis, clubbing, or pedal edema. NEUROLOGICAL: Gross neurological examination did not reveal any focal deficits. SKIN: No rashes. Assessment and plan Chronic right hip pain, severe right hip osteoarthritis, reporting difficulty with ambulation. Reports exacerbated by housechores with lifting over the last 3 to 4 days. Chronic Restless leg syndrome Neuropathy Chronic pain syndrome, pain contract with Dr. Lee Chronic narcotic dependency with bouts of constipation Diverticulosis History of Throat cancer status post chemoradiation in 2019, subsequent loss of all teeth, no dentures Moderate protein calorie malnutrition, secondary to the above, BMI 19.7 COPD, not in exacerbation Former nicotine dependence Hypertension Hyperlipidemia Depression, anxiety Monitor vital signs Monitor CBC Monitor CMP Continue pain management Patient evaluated by orthopedics recommending conservative management and outpatient follow-up in the next few weeks to discuss surgical intervention Patient with continued significant weakness will be going to [facility] once insurance authorization has been obtained for continued strength and mobility Continue bowel regimen Encouraged increase activity as tolerated Possible discharge in the morning Labs and medication were reviewed.. Continue same treatment. Continue with symptomatic treatment. Resume home medication. Monitor labs and vitals. DVT and GI prophylaxis. Further recommendations as per clinical course of the patient Dictation was produced using [email or web address] dictation software. please excuse any grammatical, word or spelling errors. Objective - Vital Signs Vital signs: Vital Signs Temp 98.3 F 07/15/23 07:00 Pulse 94 07/15/23 07:00 Resp 16 07/15/23 07:00 BP 147/66 07/15/23 07:00 Pulse Ox 95 07/15/23 07:00 FiO2 Intake & Output 07/14/23 07/15/23 07/15/23 18:59 06:59 18:59 Intake Total 236 Output Total 400 600 Balance -164 -600 Intake: Oral 236 Output: Urine 400 600 Other: Voiding Method External Catheter External Catheter - Labs CBC & Chem 7: 07/12/23 07:35 07/12/23 07:35 Labs: Abnormal Lab Results - Last 24 Hours (Table) 07/14/23 07/14/23 Range/Units 11:54 20:19 POC Glucose (mg/dL) 111 H 117 H (70-110) mg/dL
[2023-07-15] MEDS: FUROSEMIDE 20 MG TAB PO SCH (12:40)
[2023-07-15 17:04] LABS: Glucose,Whole Blood 95 mg/dL (70-110)
[2023-07-15] MEDS: PANTOPRAZOLE 40 MG TABLET PO SCH (17:36)
[2023-07-15 20:20] LABS: Glucose,Whole Blood 155 mg/dL (70-110)
[2023-07-15] MEDS: PROPRANOLOL 10 MG TAB PO SCH (22:14)
[2023-07-16 05:20] VITALS: RESP 18; TEMP 98
[2023-07-16 06:13] LABS: Glucose,Whole Blood 83 mg/dL (70-110)
[2023-07-16] MEDS ORDERED: PANTOPRAZOLE 40 MG TABLET PO SCH (07:30)
[2023-07-16] MEDS: bisacodyL 10 MG SUPP RECTAL STA (09:17)
--- NOTE | 2023-07-16 09:42 | P.DS ---
Providers Date of admission: 07/11/23 23:31 Attending physician: Oren Castellanos MD Consults: 07/11/23 23:29 Consult Physician Urgent Consulting Provider: Naseem Feliz Consult Reason/Comments: intractable right hip pain Do you want consulting provider notified?: Yes Primary care physician: Oren Castellanos MD Hospital Course: Final Diagnoses: Chronic right hip pain, severe right hip osteoarthritis, reporting difficulty with ambulation. Reports exacerbated by housechores with lifting over the last 3 to 4 days. Chronic Restless leg syndrome Neuropathy Chronic pain syndrome, pain contract with Dr. Lee Chronic narcotic dependency with bouts of constipation. Maintain bowel regimen on MiraLAX daily in addition to Senokot. Diverticulosis History of Throat cancer status post chemoradiation in 2019, subsequent loss of all teeth, no dentures Moderate protein calorie malnutrition, secondary to the above, BMI 19.7 COPD Former nicotine dependence Hypertension Hyperlipidemia Depression, anxiety Hospital course:This is a pleasant 78-year-old female with past medical history significant for throat cancer( in remission) status post chemotherapy and radiation therapy in 2019 with subsequent loss of all her teeth (without dentures), significant weight loss, former nicotine dependence, COPD, osteoarthritis, constipation, hypertension, depression, chronic pain syndrome- pain contract with Dr. Lee and multiple other medical issues brought in to the ER via EMS with significant chronic right hip pain-right bursa, difficulty walking, difficulty with ADLs. Denies loss or change of bowel or bladder function. denies falls or trauma. Vague historian. States over the last 3 to 4 days she was doing her house chores including lifting which may have flared up her chronic hip pain mostly right-sided. Patient normally uses a walker and comes to PCPs office in a wheelchair. Denies chest pain, palpitations or shortness of breath. Denies lightheadedness, dizziness or focal deficits. Pelvic and right hip x-ray reporting advanced degenerative changes of bilateral hips greater on the right redemonstrated. reports she received a muscle relaxant yesterday in the ER and now she feels better but still unable to walk. Afebrile, vital signs stable, maintaining O2 sats in the 90s on room air. Orthopedic surgery consult in place. Patient recently went to subacute rehab in May 2023. Evaluated by orthopedic surgery, recommending conservative management, follow-up outpatient in 1 to 2 weeks to discuss potential surgical intervention. Afebrile. Significant constipation in a patient on Morphine sulfate IR. Patient has been advised that she needs to continue her bowel regimen on MiraLAX daily in addition to Senokot secondary to being on morphine sulfate IR. Large bowel movement this morning. Denies chest pain, palpitations or shortness of breath. Ongoing pain management, feeling much better. Patient will be discharged today in a stable condition with guarded prognosis to [facility] subacute rehab. The impression and plan of care has been dictated as directed. : I performed a history and examination of this patient, discussed the same with the dictator. I agree with the dictator's note ,documented as a scribe. Any additional findings or plans will be noted. Patient Condition at Discharge: Stable Plan - Discharge Summary Discharge Rx Participant: Yes New Discharge Prescriptions: New Furosemide [Lasix] 20 mg PO DAILY tab Hydrocortisone [Anusol-Hc] 1 applic RECTAL BID #30 gm Sennosides-Docusate Sodium [Senokot-S] 2 tab PO BID #60 tablet INSULIN LISPRO (HumaLOG) [humaLOG] 0 unit SQ ACHS #10 ml polyethylene glycoL 3350 [Miralax] 17 gm PO DAILY packet Acetaminophen Tab [Tylenol] 650 mg PO Q6HR PRN tab PRN Reason: Fever And/ Or Pain Continue Escitalopram [Lexapro] 10 mg PO HS metFORMIN HCL [Glucophage] 500 mg PO DIRECTED Gabapentin 300 mg PO QID #12 cap Propranolol [Inderal] 10 mg PO BID Atorvastatin [Lipitor] 10 mg PO DAILY rOPINIRole HCL [Requip] 0.25 mg PO HS Pantoprazole Sodium [Protonix] 40 mg PO BID #60 tab Levothyroxine Sodium [Synthroid] 25 mcg PO DIRECTED Morphine Sulfate Ir [MSIR] 15 mg PO BID #6 tab Discontinued Furosemide [Lasix] 20 mg PO DIRECTED Discharge Medication List Atorvastatin [Lipitor] 10 mg PO DAILY 10/09/22 [History] Propranolol [Inderal] 10 mg PO BID 10/09/22 [History] Escitalopram [Lexapro] 10 mg PO HS 11/16/22 [History] rOPINIRole HCL [Requip] 0.25 mg PO HS 11/16/22 [History] Pantoprazole Sodium [Protonix] 40 mg PO BID #60 tab 06/30/23 [Rx] Levothyroxine Sodium [Synthroid] 25 mcg PO DIRECTED 07/12/23 [History] metFORMIN HCL [Glucophage] 500 mg PO DIRECTED 07/12/23 [History] Acetaminophen Tab [Tylenol] 650 mg PO Q6HR PRN tab 07/16/23 [Rx] Furosemide [Lasix] 20 mg PO DAILY tab 07/16/23 [Rx] Gabapentin 300 mg PO QID #12 cap 07/16/23 [Rx] Hydrocortisone [Anusol-Hc] 1 applic RECTAL BID #30 gm 07/16/23 [Rx] INSULIN LISPRO (HumaLOG) [humaLOG] 0 unit SQ ACHS #10 ml 07/16/23 [Rx] Morphine Sulfate Ir [MSIR] 15 mg PO BID #6 tab 07/16/23 [Rx] Sennosides-Docusate Sodium [Senokot-S] 2 tab PO BID #60 tablet 07/16/23 [Rx] polyethylene glycoL 3350 [Miralax] 17 gm PO DAILY packet 07/16/23 [Rx] Follow up Appointment(s)/Referral(s): Oren Castellanos MD [Primary Care Provider] - 1 Week (After discharge from subacute rehab) Naseem Feliz MD [STAFF PHYSICIAN] - 2 Weeks Activity/Diet/Wound Care/Special Instructions: PEDRO LUIS Tracy in 3 days Discharge Disposition: TRANSFER TO SNF/ECF
[2023-07-16 12:40] LABS: Glucose,Whole Blood 97 mg/dL (70-110)
[2023-07-16 13:38] VITALS: BP 106/59; PULSE 73
== END 2023-07-16 13:35 ==
LOC: EC 18:33 → 6NMEDSUR 23:31
PROVIDERS: ADMIT Family Medicine; ATTEND Family Medicine
DX: M16.11 Unilateral primary osteoarthritis, right hip (principal); R54 Age-related physical debility; I10 Essential (primary) hypertension; F32.A Depression, unspecified; J44.9 Chronic obstructive pulmonary disease, unspecified; G89.4 Chronic pain syndrome; G25.81 Restless legs syndrome; E11.40 Type 2 diabetes mellitus with diabetic neuropathy, unspecified; F11.20 Opioid dependence, uncomplicated; K59.00 Constipation, unspecified; K57.30 Diverticulosis of large intestine without perforation or abscess without bleeding; E78.5 Hyperlipidemia, unspecified; F41.9 Anxiety disorder, unspecified; E44.0 Moderate protein-calorie malnutrition; Z68.1 Body mass index [BMI] 19.9 or less, adult; Z85.819 Personal history of malignant neoplasm of unspecified site of lip, oral cavity, and pharynx; Z87.891 Personal history of nicotine dependence; Z92.21 Personal history of antineoplastic chemotherapy; Z92.3 Personal history of irradiation; Z79.84 Long term (current) use of oral hypoglycemic drugs; Z79.890 Hormone replacement therapy; Z79.899 Other long term (current) drug therapy
CPT/HCPCS: 96376; 96372 ×6; 96374; 99285; 97110; 97162; 97166; 80053; 85025; 83036; 73502; 93971; G0378 ×6; J1644 ×5; J1170; C9113 ×2

== ENCOUNTER 2023-09-02 23:44 | Emergency (ER) | payer MEDICARE ==
[2023-09-02 23:56] VITALS: TEMP 97.8
--- NOTE | 2023-09-03 00:16 | ED ---
General Adult HPI - General Chief complaint: Extremity Problem,Nontraumatic Stated complaint: Abd pain Time Seen by Provider: 09/02/23 23:53 Source: patient, EMS Mode of arrival: EMS - History of Present Illness Initial comments: Dictation was produced using [employer] dictation software. please excuse any grammatical, word or spelling errors. Chief Complaint: 71-year-old female presents to the emergency department for right-sided body pain History of Present Illness: Patient 71-year-old female presents to the emergency department for right-sided pain. She states that she has mild pain to the right chest right abdomen and right leg. She notes that there has been some swelling in her right leg. Denies any shortness of breath. Patient states that she has no chest pain at the bedside. States that the pain is intermittent. The ROS documented in this emergency department record has been reviewed and confirmed by me. Those systems with pertinent positive or negative responses have been documented in the HPI. All other systems are other negative and/or noncontributory. - Related Data Home Medications Medication Instructions Recorded Confirmed Atorvastatin [Lipitor] 10 mg PO DAILY 10/09/22 07/12/23 Propranolol [Inderal] 10 mg PO BID 10/09/22 07/12/23 Escitalopram [Lexapro] 10 mg PO HS 11/16/22 07/12/23 rOPINIRole HCL [Requip] 0.25 mg PO HS 11/16/22 07/12/23 Levothyroxine Sodium [Synthroid] 25 mcg PO DIRECTED 07/12/23 07/12/23 metFORMIN HCL [Glucophage] 500 mg PO DIRECTED 07/12/23 07/12/23 Previous Rx's Medication Instructions Recorded Pantoprazole Sodium [Protonix] 40 mg PO BID #60 tab 11/17/22 Acetaminophen Tab [Tylenol] 650 mg PO Q6HR PRN tab 07/16/23 Furosemide [Lasix] 20 mg PO DAILY tab 07/16/23 Gabapentin 300 mg PO QID #12 cap 07/16/23 Hydrocortisone [Anusol-Hc] 1 applic RECTAL BID #30 gm 07/16/23 INSULIN LISPRO (HumaLOG) [humaLOG] 0 unit SQ ACHS #10 ml 07/16/23 Morphine Sulfate Ir [MSIR] 15 mg PO BID #6 tab 07/16/23 Sennosides-Docusate Sodium 2 tab PO BID #60 tablet 07/16/23 [Senokot-S] polyethylene glycoL 3350 [Miralax] 17 gm PO DAILY packet 07/16/23 Allergies Allergy/AdvReac Type Severity Reaction Status Date / Time bee venom protein (honey bee) Allergy Anaphylaxis Verified 07/12/23 07:26 Review of Systems ROS Statement: Those systems with pertinent positive or pertinent negative responses have been documented in the HPI. ROS Other: All systems not noted in ROS Statement are negative. Past Medical History Past Medical History: Cancer, Hypertension, Osteoarthritis (OA) Additional Past Medical History / Comment(s): throat ca History of Any Multi-Drug Resistant Organisms: ESBL Date of last positivie culture/infection: 05/30/23 MDRO Source:: Urine Past Surgical History: Cholecystectomy, Orthopedic Surgery Additional Past Surgical History / Comment(s): cervical fusion, plate in right ankle Past Anesthesia/Blood Transfusion Reactions: No Reported Reaction Past Psychological History: Depression Smoking Status: Former smoker Past Alcohol Use History: None Reported Past Drug Use History: None Reported - Past Family History Mother Family Medical History: COPD General Exam - General Exam Comments Initial Comments: PHYSICAL EXAM: General Impression: Alert and oriented x3, not in acute distress HEENT: Normocephalic atraumatic, extra-ocular movements intact, pupils equal and reactive to light bilaterally, mucous membranes moist. Cardiovascular: Heart regular rate and rhythm Chest: Able to complete full sentences, no retractions, no tachypnea Abdomen: abdomen soft, non-tender, non-distended, no organomegaly Musculoskeletal: Pulses present and equal in all extremities, n 1+ pitting edema to the right lower extremity Motor: no focal deficits noted Neurological: CN II-XII grossly intact, no focal motor or sensory deficits noted Skin: Intact with no visualized rashes Psych: Normal affect and mood Course Vital Signs 09/02/23 09/03/23 09/03/23 23:45 01:09 02:02 Temperature 97.8 F Pulse Rate 64 65 86 Respiratory 20 18 20 Rate Blood Pressure 143/72 144/79 151/90 O2 Sat by Pulse 96 96 90 L Oximetry - Reevaluation(s) Reevaluation #1: 09/03/23 01:52 Patient complaining of right hip pain at 1:51 AM. Patient denies any trauma to her hip. Patient states she ran out of her pain medicines and her Lasix medications. Patient ordered for x-ray of the right hip. Patient given a Percocet Medical Decision Making - Medical Decision Making Was pt. sent in by a medical professional or institution (LOUISA Ackerman, STRAWHAT INSPECTOR AND PACKER, urgent care, hospital, or [place] health care facility...) When possible be specific @ -No Did you speak to anyone other than the patient for history (EMS, parent, family, police, friend...)? What history was obtained from this source @ -No Did you review nursing and triage notes (agree or disagree)? Why? @ -I reviewed and agree with nursing and triage notes Were old charts reviewed (outside hosp., previous admission, EMS record, old EKG, old radiological studies, urgent care reports/EKG's, [place] [facility] facility records)? Report findings @ -No old charts were reviewed Differential Diagnosis (chest pain, altered mental status, abdominal pain women, abdominal pain men, vaginal bleeding, musculoskeletal, weakness, fever, dyspnea, syncope, headache, dizziness, GI bleed, back pain, seizure, CVA, palpatations, mental health)? @ -Not applicable EKG interpreted by me (3pts min.). @ -My EKG interpretation: Ventricular rate 58, sinus bradycardia,. 154, QRS 116, QTc 442. No MO prolongation, no QTC prolongation, no ST or T-wave changes noted. Overall, this EKG is unremarkable X-rays interpreted by me (1pt min.). @ -Chest x-ray is nonacute. Hip x-ray shows severe osteoarthrosis of the right hip. CT interpreted by me (1pt min.). @ -None done U/S interpreted by me (1pt. min.). @ -None done What testing was considered but not performed or refused? (CT, X-rays, U/S, labs)? Why? @ -None What meds were considered but not given or refused? Why? @ -None Did you discuss the management of the patient with other professionals (professionals i.e. LOUISA Ackerman, [employer] INSPECTOR AND PACKER, lab, RT, psych nurse, social services assistant, stoker mechanic, teacher, tactical intelligence officer, insurance case manager)? Give summary @ -No Was smoking cessation discussed for >3mins.? @ -No Was critical care preformed (if so, how long)? @ -No Were there social determinants of health that impacted care today? How? (Homelessness, low income, unemployed, alcoholism, drug addiction, transportation, low edu. Level, literacy, decrease access to med. care, long term, rehab)? @ -No Was there de-escalation of care discussed even if they declined (Discuss DNR or withdrawal of care, Hospice)? DNR status @ -No What co-morbidities impacted this encounter? (DM, HTN, Smoking, COPD, CAD, Cancer, CVA, ARF, Chemo, Hep., AIDS, mental health diagnosis, sleep apnea, morbid obesity)? @ -Chronic right hip pain Was patient admitted / discharged? Hospital course, mention meds given and route, prescriptions, significant lab abnormalities, going to OR and other pertinent info. @ -See above Undiagnosed new problem with uncertain prognosis? @ -No Drug Therapy requiring intensive monitoring for toxicity (Heparin, Nitro, Insulin, Cardizem)? @ -No Were any procedures done? @ -No Diagnosis/symptom? Acute, or Chronic, or Acute on Chronic? Uncomplicated (without systemic symptoms) or Complicated (systemic symptoms)? @ -78-year-old female presents to the emergency department for total right- sided body pain. Physical examination is benign. Vital signs stable. Patient does have some pitting edema to the right lower extremity. She takes Lasix for that. She ran out of her pain medications and Lasix medications recently. Laboratory evaluation is unremarkable. Cardiac enzymes negative. BNP negative. Imaging study shows no acute processes. Patient given analgesics and discharged home. Diagnosis: Right-sided body pain, no high risk features Side effects of treatment? @ -No Exacerbation, Progression, or Severe Exacerbation? @ -No Poses a threat to life or bodily function? How? (Chest pain, USA, NH, pneumonia, PE, COPD, DKA, ARF, appy, cholecystitis, CVA, Diverticulitis, Homicidal, Suicidal, threat to staff... and all critical care pts) @ -No - Lab Data Result diagrams: 09/02/23 23:57 09/02/23 23:57 Lab Results 09/02/23 09/02/23 09/02/23 Range/Units 23:57 23:57 23:57 WBC 4.7 (3.8-10.6) k/uL RBC 3.74 L (3.80-5.40) m/uL Hgb 11.3 L (11.4-16.0) gm/dL Hct 36.0 (34.0-46.0) % MCV 96.3 (80.0-100.0) fL MCH 30.3 (25.0-35.0) pg MCHC 31.4 (31.0-37.0) g/dL RDW 13.8 (11.5-15.5) % Plt Count 221 (150-450) k/uL MPV 7.6 Neutrophils % 58 % Lymphocytes % 27 % Monocytes % 8 % Eosinophils % 2 % Basophils % 1 % Neutrophils # 2.7 (1.3-7.7) k/uL Lymphocytes # 1.3 (1.0-4.8) k/uL Monocytes # 0.4 (0-1.0) k/uL Eosinophils # 0.1 (0-0.7) k/uL Basophils # 0.1 (0-0.2) k/uL Sodium 138 (137-145) mmol/L Potassium 4.0 (3.5-5.1) mmol/L Chloride 102 (98-107) mmol/L Carbon Dioxide 34 H (22-30) mmol/L Anion Gap 2 mmol/L BUN 15 (7-17) mg/dL Creatinine 0.79 (0.52-1.04) mg/dL Est GFR (CKD-EPI)AfAm 83 (>60 ml/min/1.73 sqM) Est GFR (CKD-EPI)NonAf 72 (>60 ml/min/1.73 sqM) Glucose 76 (74-99) mg/dL Calcium 9.3 (8.4-10.2) mg/dL Total Bilirubin 0.4 (0.2-1.3) mg/dL AST 21 (14-36) U/L ALT 11 (4-34) U/L Alkaline Phosphatase 93 (38-126) U/L Troponin I <0.012 (0.000-0.034) ng/mL NT-Pro-B Natriuret Pep 487 pg/mL Total Protein 6.4 (6.3-8.2) g/dL Albumin 3.7 (3.5-5.0) g/dL Disposition Clinical Impression: Swollen feet Disposition: HOME SELF-CARE Condition: Good Instructions (If sedation given, give patient instructions): Leg Edema (ED) Is patient prescribed a controlled substance at d/c from ED?: No Referrals: Oren Castellanos MD [Primary Care Provider] - 1-2 days Time of Disposition: 02:38
[2023-09-03 00:28] LABS: Basophils # (A) 0.1 k/uL (0-0.2); Basophils % (A) 1 %; Eosinophils # (A) 0.1 k/uL (0-0.7); Eosinophils % (A) 2 %; HGB 11.3 gm/dL (11.4-16.0); Lymphocytes # (A) 1.3 k/uL (1.0-4.8); Lymphocytes % (A) 27 %; MCH 30.3 pg (25.0-35.0); MCHC 31.4 g/dL (31.0-37.0); MCV 96.3 fL (80.0-100.0); Mean Platelet Volume 7.6; Monocytes # (A) 0.4 k/uL (0-1.0); Monocytes % (A) 8 %; Neutrophils # (A) 2.7 k/uL (1.3-7.7); Neutrophils % (A) 58 %; Platelet Count 221 k/uL (150-450); RBC 3.74 m/uL (3.80-5.40); RDW 13.8 % (11.5-15.5); WBC 4.7 k/uL (3.8-10.6)
[2023-09-03 00:45] LABS: ALT 11 U/L (4-34); AST 21 U/L (14-36); African American GFR (CKD) 83 (>60 ml/min/1.73 sqM); Albumin 3.7 g/dL (3.5-5.0); Alkaline Phosphatase 93 U/L (38-126); Anion Gap 2 mmol/L; Blood Urea Nitrogen 15 mg/dL (7-17); Calcium 9.3 mg/dL (8.4-10.2); Carbon Dioxide 34 mmol/L (22-30); Chloride 102 mmol/L (98-107); Glucose 76 mg/dL (74-99); Non-African American GFR(CKD) 72 (>60 ml/min/1.73 sqM); Sodium 138 mmol/L (137-145); Total Bilirubin 0.4 mg/dL (0.2-1.3); Total Protein 6.4 g/dL (6.3-8.2)
[2023-09-03 00:51] LABS: NT-Pro-B-Type Natriuretic Pept 487 pg/mL
--- NOTE | 2023-09-03 01:29 | XR ---
EXAM: XR Chest, 2 Views CLINICAL HISTORY: ITS.REASON XR Reason: leg swelling TECHNIQUE: Frontal and lateral views of the chest. COMPARISON: No relevant prior studies available. FINDINGS: Lungs: No consolidation or mass. Pleural space: No effusion. Heart: No cardiomegaly. Bones/joints: No acute findings. IMPRESSION: No acute cardiopulmonary process.
[2023-09-03] MEDS: oxyCODONE-APAP 10-325MG 1 EACH TAB PO STA (02:00)
--- NOTE | 2023-09-03 02:21 | XR ---
EXAM: XR Right Hip With Pelvis When Performed, 2 or 3 Views CLINICAL HISTORY: ITS.REASON XR Reason: hip pain TECHNIQUE: Two or three views of the right hip with pelvis when performed. COMPARISON: No relevant prior studies available. FINDINGS: Bones/joints: No acute fracture. No dislocation. Severe osteoarthrosis. Soft tissues: Unremarkable. IMPRESSION: Severe osteoarthrosis.
[2023-09-03 03:43] VITALS: BP 136/91; PULSE 73; RESP 19
== END 2023-09-03 03:46 | disposition home or self-care (01) ==
LOC: EC 23:44
DX: M79.89 Other specified soft tissue disorders (principal); Z87.891 Personal history of nicotine dependence; Z91.030 Bee allergy status
CPT/HCPCS: 36415; 71046; 73502; 80053; 83880; 84484; 85025; 93005; 99284

== ENCOUNTER 2023-09-30 16:39 | Emergency (ER) | payer MEDICARE ==
--- NOTE | 2023-09-30 17:33 | ED ---
General Adult HPI - General Chief complaint: Abdominal Pain Stated complaint: Abd Pain Time Seen by Provider: 09/30/23 16:51 Source: patient, EMS Mode of arrival: EMS Limitations: no limitations - History of Present Illness Initial comments: This patient is a 78-year-old woman who arrives to have evaluation of right leg spasm type pain. She states that this is a longstanding problem that has gotten worse because she had been out of her morphine for 2 days now. Patient typically takes 15 mg of morphine twice per day for pain. Patient states that the spasms have been flaring up over the course of today. She did not have any new injury. She denies weakness or numbness of the leg. She states that at baseline she walks with a walker. She does frequently have spasm type pain. -: days(s) Consistency: constant Improves with: none Worsens with: movement Associated Symptoms: other (Diarrhea) Treatments Prior to Arrival: none - Related Data Home Medications Medication Instructions Recorded Confirmed Atorvastatin [Lipitor] 10 mg PO DAILY 10/09/22 07/12/23 Propranolol [Inderal] 10 mg PO BID 10/09/22 07/12/23 Escitalopram [Lexapro] 10 mg PO HS 11/16/22 07/12/23 rOPINIRole HCL [Requip] 0.25 mg PO HS 11/16/22 07/12/23 Levothyroxine Sodium [Synthroid] 25 mcg PO DIRECTED 07/12/23 07/12/23 metFORMIN HCL [Glucophage] 500 mg PO DIRECTED 07/12/23 07/12/23 Previous Rx's Medication Instructions Recorded Pantoprazole Sodium [Protonix] 40 mg PO BID #60 tab 11/17/22 Acetaminophen Tab [Tylenol] 650 mg PO Q6HR PRN tab 07/16/23 Furosemide [Lasix] 20 mg PO DAILY tab 07/16/23 Gabapentin 300 mg PO QID #12 cap 07/16/23 Hydrocortisone [Anusol-Hc] 1 applic RECTAL BID #30 gm 07/16/23 INSULIN LISPRO (HumaLOG) [humaLOG] 0 unit SQ ACHS #10 ml 07/16/23 Morphine Sulfate Ir [MSIR] 15 mg PO BID #6 tab 07/16/23 Sennosides-Docusate Sodium 2 tab PO BID #60 tablet 07/16/23 [Senokot-S] polyethylene glycoL 3350 [Miralax] 17 gm PO DAILY packet 07/16/23 Allergies Allergy/AdvReac Type Severity Reaction Status Date / Time bee venom protein (honey bee) Allergy Anaphylaxis Verified 09/30/23 19:19 Review of Systems ROS Statement: Those systems with pertinent positive or pertinent negative responses have been documented in the HPI. ROS Other: All systems not noted in ROS Statement are negative. Constitutional: Denies: fever, chills, weakness Respiratory: Denies: cough, dyspnea Cardiovascular: Denies: chest pain, palpitations, edema Gastrointestinal: Reports: diarrhea. Denies: abdominal pain, vomiting Genitourinary: Denies: dysuria, hematuria Musculoskeletal: Reports: myalgia Skin: Denies: rash Neurological: Denies: headache, weakness, numbness Past Medical History Past Medical History: Cancer, Hypertension, Osteoarthritis (OA) Additional Past Medical History / Comment(s): throat ca History of Any Multi-Drug Resistant Organisms: ESBL Date of last positivie culture/infection: 05/30/23 MDRO Source:: Urine Past Surgical History: Cholecystectomy, Orthopedic Surgery Additional Past Surgical History / Comment(s): cervical fusion, plate in right ankle Past Anesthesia/Blood Transfusion Reactions: No Reported Reaction Past Psychological History: Depression Smoking Status: Former smoker Past Alcohol Use History: None Reported Past Drug Use History: None Reported - Past Family History Mother Family Medical History: COPD General Exam Limitations: no limitations General appearance: alert, in no apparent distress Head exam: Present: atraumatic, normocephalic Eye exam: Present: normal appearance Respiratory exam: Present: normal lung sounds bilaterally. Absent: respiratory distress, wheezes, rales, rhonchi, stridor Cardiovascular Exam: Present: regular rate, normal rhythm, normal heart sounds. Absent: systolic murmur, diastolic murmur, rubs, gallop GI/Abdominal exam: Present: soft. Absent: distended, tenderness, guarding, rebound, rigid, mass Extremities exam: Present: tenderness, other (Spasm right leg) Neurological exam: Present: alert. Absent: motor sensory deficit Skin exam: Present: warm, dry, intact, normal color. Absent: rash Course Vital Signs 09/30/23 09/30/23 09/30/23 16:46 19:43 21:32 Temperature 97.8 F Pulse Rate 90 89 87 Respiratory 18 20 20 Rate Blood Pressure 139/63 144/96 162/73 O2 Sat by Pulse 95 94 L 94 L Oximetry 09/30/23 10/01/23 23:00 03:00 Temperature 97.9 F 97.6 F Pulse Rate 85 76 Respiratory 18 18 Rate Blood Pressure 165/83 155/78 O2 Sat by Pulse 91 L 95 Oximetry Medical Decision Making - Medical Decision Making The patient had CT scan of the abdomen pelvis which I interpreted as negative for acute surgical condition Was pt. sent in by a medical professional or institution (, PA, CLIENT SERVICES ADMINISTRATOR, urgent care, hospital, or fci...) When possible be specific @ -[No] Did you speak to anyone other than the patient for history (EMS, parent, family, police, friend...)? What history was obtained from this source @ -[No] Did you review nursing and triage notes (agree or disagree)? Why? @ -[I reviewed and agree with nursing and triage notes] Were old charts reviewed (outside hosp., previous admission, EMS record, old EKG, old radiological studies, urgent care reports/EKG's, [facility]ci records)? Report findings @ -[No old charts were reviewed] Differential Diagnosis (chest pain, altered mental status, abdominal pain women, abdominal pain men, vaginal bleeding, weakness, fever, dyspnea, syncope, headache, dizziness, GI bleed, back pain, seizure, CVA, palpatations, mental health, musculoskeletal)? @ -[Differential Musculoskeletal Muscular strain, contusion, ligament sprain, fracture, arthritis, septic arthritis, bursitis, cellulitis, muscle spasm, nerve compression, DVT, arterial occlusion, herpes zoster, electrolyte abnormality, tumor.... This is not meant to be in all inclusive list EKG interpreted by me (3pts min.). @ -[As above] X-rays interpreted by me (1pt min.). @ -[None done] CT interpreted by me (1pt min.). @ -[I interpreted as above U/S interpreted by me (1pt. min.). @ -[None done] What testing was considered but not performed or refused? (CT, X-rays, U/S, labs)? Why? @ -[None] What meds were considered but not given or refused? Why? @ -[None] Did you discuss the management of the patient with other professionals (professionals i.e. , PA, CLIENT SERVICES ADMINISTRATOR, lab, RT, psych nurse, hospice social worker, tile mechanic helper, teacher, commanding officer homicide squad, telephonic case manager)? Give summary @ -[No] Was smoking cessation discussed for >3mins.? @ -[No] Was critical care preformed (if so, how long)? @ -[No] Were there social determinants of health that impacted care today? How? (Homelessness, low income, unemployed, alcoholism, drug addiction, transp ortation, low edu. Level, literacy, decrease access to med. care, custodial, rehab)? @ -[No] Was there de-escalation of care discussed even if they declined (Discuss DNR or withdrawal of care, Hospice)? DNR status @ -[No] What co-morbidities impacted this encounter? (DM, HTN, Smoking, COPD, CAD, Cancer, CVA, ARF, Chemo, Hep., AIDS, mental health diagnosis, sleep apnea, morbid obesity)? @ -[Hypertension. History of cancer Was patient admitted / discharged? Hospital course, mention meds given and r oute, prescriptions, significant lab abnormalities, going to OR and other pertinent info. @ -[hospital course] Undiagnosed new problem with uncertain prognosis? @ -[No] Drug Therapy requiring intensive monitoring for toxicity (Heparin, Nitro, Insulin, Cardizem)? @ -[No] Were any procedures done? @ -[No] Diagnosis/symptom? @ -[Right leg pain Acute, or Chronic, or Acute on Chronic? @ -[Acute on chronic Uncomplicated (without systemic symptoms) or Complicated (systemic symptoms)? @ -[Uncomplicated Side effects of treatment? @ -[No] Exacerbation, Progression, or Severe Exacerbation? @ -[No] Poses a threat to life or bodily function? How? (Chest pain, USA, MS, pneumonia, PE, COPD, DKA, ARF, appy, cholecystitis, CVA, Diverticulitis, Homicidal, Suicidal, threat to staff... and all critical care pts) @ -[No] - Lab Data Result diagrams: 09/30/23 17:48 09/30/23 17:48 Lab Results 09/30/23 09/30/23 09/30/23 Range/Units 17:48 17:48 17:48 WBC 7.4 (3.8-10.6) k/uL RBC 3.77 L (3.80-5.40) m/uL Hgb 11.6 (11.4-16.0) gm/dL Hct 36.9 (34.0-46.0) % MCV 97.8 (80.0-100.0) fL MCH 30.8 (25.0-35.0) pg MCHC 31.5 (31.0-37.0) g/dL RDW 13.4 (11.5-15.5) % Plt Count 294 (150-450) k/uL MPV 7.8 Neutrophils % 80 % Lymphocytes % 11 % Monocytes % 5 % Eosinophils % 2 % Basophils % 1 % Neutrophils # 6.0 (1.3-7.7) k/uL Lymphocytes # 0.8 L (1.0-4.8) k/uL Monocytes # 0.4 (0-1.0) k/uL Eosinophils # 0.1 (0-0.7) k/uL Basophils # 0.1 (0-0.2) k/uL Sodium 139 (137-145) mmol/L Potassium 5.1 (3.5-5.1) mmol/L Chloride 101 (98-107) mmol/L Carbon Dioxide 35 H (22-30) mmol/L Anion Gap 3 mmol/L BUN 21 H (7-17) mg/dL Creatinine 0.84 (0.52-1.04) mg/dL Est GFR (CKD-EPI)AfAm 76 (>60 ml/min/1.73 sqM) Est GFR (CKD-EPI)NonAf 66 (>60 ml/min/1.73 sqM) Glucose 117 H (74-99) mg/dL Plasma Lactic Acid Fady 1.2 (0.7-2.0) mmol/L Calcium 9.2 (8.4-10.2) mg/dL Magnesium 1.9 (1.6-2.3) mg/dL Total Bilirubin 0.7 (0.2-1.3) mg/dL AST 25 (14-36) U/L ALT 13 (4-34) U/L Alkaline Phosphatase 87 (38-126) U/L Total Protein 6.9 (6.3-8.2) g/dL Albumin 4.1 (3.5-5.0) g/dL Disposition Clinical Impression: Right leg pain Disposition: HOME SELF-CARE Condition: Good Is patient prescribed a controlled substance at d/c from ED?: No Referrals: Oren Castellanos MD [Primary Care Provider] - 1-2 days
[2023-09-30] MEDS: MORPHINE SULFATE ER 15 MG TABLET PO STA (17:44)
[2023-09-30] MEDS: methocarbamoL 750 MG TAB PO STA (17:55)
[2023-09-30 18:04] LABS: Basophils # (A) 0.1 k/uL (0-0.2); Basophils % (A) 1 %; Eosinophils # (A) 0.1 k/uL (0-0.7); Eosinophils % (A) 2 %; HCT 36.9 % (34.0-46.0); HGB 11.6 gm/dL (11.4-16.0); Lymphocytes # (A) 0.8 k/uL (1.0-4.8); Lymphocytes % (A) 11 %; MCH 30.8 pg (25.0-35.0); MCHC 31.5 g/dL (31.0-37.0); MCV 97.8 fL (80.0-100.0); Mean Platelet Volume 7.8; Monocytes # (A) 0.4 k/uL (0-1.0); Monocytes % (A) 5 %; Neutrophils % (A) 80 %; Platelet Count 294 k/uL (150-450); RBC 3.77 m/uL (3.80-5.40); RDW 13.4 % (11.5-15.5); WBC 7.4 k/uL (3.8-10.6)
[2023-09-30 18:12] LABS: ALT 13 U/L (4-34); AST 25 U/L (14-36); African American GFR (CKD) 76 (>60 ml/min/1.73 sqM); Albumin 4.1 g/dL (3.5-5.0); Alkaline Phosphatase 87 U/L (38-126); Anion Gap 3 mmol/L; Blood Urea Nitrogen 21 mg/dL (7-17); Calcium 9.2 mg/dL (8.4-10.2); Carbon Dioxide 35 mmol/L (22-30); Chloride 101 mmol/L (98-107); Glucose 117 mg/dL (74-99); Magnesium 1.9 mg/dL (1.6-2.3); Non-African American GFR(CKD) 66 (>60 ml/min/1.73 sqM); Potassium 5.1 mmol/L (3.5-5.1); Sodium 139 mmol/L (137-145); Total Bilirubin 0.7 mg/dL (0.2-1.3); Total Protein 6.9 g/dL (6.3-8.2)
[2023-09-30] MEDS: CYCLOBENZAPRINE 5 MG TAB PO STA (19:56)
[2023-09-30] MEDS: HYDROmorphone 1 MG/ML 1 ML SYRINGE IM STA (21:29)
[2023-09-30 23:45] VITALS: RESP 18
--- NOTE | 2023-09-30 23:54 | CT ---
EXAM: CT Abdomen and Pelvis Without Intravenous Contrast CLINICAL HISTORY: ITS.REASON CT Reason: sciatic pain, ABDOMINAL PAIN, R LEG PAIN TECHNIQUE: Axial computed tomography images of the abdomen and pelvis without intravenous contrast. CTDI is 7.3 mGy and DLP is 351 mGy-cm. This CT exam was performed using one or more of the following dose reduction techniques: automated exposure control, adjustment of the mA and/or kV according to patient size, and/or use of iterative reconstruction technique. COMPARISON: No relevant prior studies available. FINDINGS: Lung bases: Unremarkable. No mass. No consolidation. ABDOMEN: Liver: Unremarkable. Gallbladder and bile ducts: Cholecystectomy clips. No ductal dilation. Pancreas: Unremarkable. No ductal dilation. Spleen: Unremarkable. No splenomegaly. Adrenals: Unremarkable. No mass. Kidneys and ureters: Unremarkable. No obstructing stones. No hydronephrosis. Stomach and bowel: Diverticulosis, without acute diverticulitis. No small bowel obstruction. No free intraperitoneal air. PELVIS: Appendix: No findings to suggest acute appendicitis. Bladder: Unremarkable. No stones. Reproductive: Unremarkable as visualized. ABDOMEN and PELVIS: Intraperitoneal space: Unremarkable. No free air. No significant fluid collection. Bones/joints: Severe osteoarthritis of the bilateral hips. Grade 1 anterolisthesis of L4 on L5. Degenerative changes of the spine. No acute fracture. No dislocation. Soft tissues: Unremarkable. Vasculature: Atherosclerotic changes of the aorta. No abdominal aortic aneurysm. Lymph nodes: Unremarkable. No enlarged lymph nodes. IMPRESSION: No acute findings in the abdomen or pelvis.
[2023-10-01 03:36] VITALS: BP 155/78; PULSE 76; TEMP 97.6
== END 2023-10-01 03:02 | disposition home or self-care (01) ==
LOC: EC 16:39
DX: M79.604 Pain in right leg (principal); I10 Essential (primary) hypertension; Z91.030 Bee allergy status; Z87.891 Personal history of nicotine dependence; Z85.9 Personal history of malignant neoplasm, unspecified
CPT/HCPCS: 36415; 80053; 83605; 83735; 85025; 74176; 99285; 96374; 96372; J3360; J1170

== ENCOUNTER 2023-10-01 16:33 | Emergency (ER) | payer MEDICARE ==
[2023-10-01 17:14] VITALS: TEMP 98.5
[2023-10-01] MEDS: KETOROLAC 15 MG/ML 1 ML VIAL IVP STA (17:39)
[2023-10-01 18:02] LABS: Basophils % (A) 0 %; Eosinophils # (A) 0.1 k/uL (0-0.7); Eosinophils % (A) 1 %; HCT 38.3 % (34.0-46.0); HGB 11.8 gm/dL (11.4-16.0); Lymphocytes # (A) 1.1 k/uL (1.0-4.8); Lymphocytes % (A) 14 %; MCHC 30.9 g/dL (31.0-37.0); Monocytes # (A) 0.6 k/uL (0-1.0); Monocytes % (A) 7 %; Neutrophils # (A) 6.1 k/uL (1.3-7.7); Neutrophils % (A) 76 %; Platelet Count 291 k/uL (150-450); RBC 3.95 m/uL (3.80-5.40); RDW 13.5 % (11.5-15.5)
[2023-10-01 18:07] LABS: INR 0.9 (<1.2); Partial Thromboplastin Time 23.9 sec (22.0-30.0); Prothrombin Time 10.4 sec (10.0-12.5)
[2023-10-01 18:11] LABS: ALT 13 U/L (4-34); AST 29 U/L (14-36); African American GFR (CKD) >90 (>60 ml/min/1.73 sqM); Albumin 4.6 g/dL (3.5-5.0); Alkaline Phosphatase 96 U/L (38-126); Anion Gap 6 mmol/L; Blood Urea Nitrogen 17 mg/dL (7-17); Calcium 9.7 mg/dL (8.4-10.2); Carbon Dioxide 30 mmol/L (22-30); Chloride 101 mmol/L (98-107); Glucose 95 mg/dL (74-99); Non-African American GFR(CKD) 86 (>60 ml/min/1.73 sqM); Potassium 4.1 mmol/L (3.5-5.1); Sodium 137 mmol/L (137-145); Total Bilirubin 0.9 mg/dL (0.2-1.3); Total Protein 7.7 g/dL (6.3-8.2)
--- NOTE | 2023-10-01 19:11 | XR ---
EXAMINATION TYPE: XR tibia fibula RT DATE OF EXAM: 10/01/2023 6:47 PM CLINICAL INDICATION:Female, 78 years old with history of pain; COMPARISON: 10/01/2023 TECHNIQUE: XR tibia fibula RT; tibia/fibula was examined in AP and lateral projections. FINDINGS/IMPRESSION: 1. Postsurgical changes of the distal fibula and tibia. No hardware is intact. 2. Diffuse soft tissue swelling throughout the lower extremity correlate for systemic causes bilater al and unilateral correlate for cellulitis. 3. No evidence for acute fracture.
--- NOTE | 2023-10-01 19:14 | XR ---
EXAMINATION TYPE: XR chest 2V DATE OF EXAM: 10/01/2023 6:47 PM CLINICAL INDICATION:Female, 78 years old with history of difficulty breathing; [facility] COMPARISON: Chest radiographs from 09/03/2023 TECHNIQUE: XR chest 2V Frontal and lateral views of the chest. FINDINGS: Lungs/Pleura: Prominent interstitial lung markings are seen scattered throughout the lungs with dav ening of the diaphragm and increased lucency of the lung apices. No evidence of focal consolidation, pneumothorax or pleural effusion. Pulmonary vascularity: Unremarkable. Heart/mediastinum: Cardiomediastinal silhouette is unremarkable. Musculoskeletal: No acute osseous pathology. IMPRESSION: 1. Chronic changes without acute pulmonary process. No significant change from prior. 2. COPD.
--- NOTE | 2023-10-01 19:17 | US ---
EXAMINATION TYPE: US venous doppler duplex LE RT DATE OF EXAM: 10/01/2023 6:55 PM COMPARISON: NONE CLINICAL INDICATION: Female, 78 years old with history of pain; pain in rt leg. SIDE PERFORMED: Right TECHNIQUE: The lower extremity deep venous system is examined utilizing real time linear array sonog morena with graded compression, doppler sonography and color-flow sonography. VESSELS IMAGED: Common Femoral Vein Deep Femoral Vein Greater Saphenous Vein * Femoral Vein Popliteal Vein Small Saphenous Vein * Proximal Calf Veins (* superficial vessels) Right Leg: No evidence for DVT IMPRESSION: Grayscale, color doppler, spectral doppler imaging performed of the deep veins of the lo wer extremities. There is normal flow, compressibility, vascular waveforms.
--- NOTE | 2023-10-01 20:15 | ED ---
General Adult HPI - General Chief complaint: Extremity Problem,Nontraumatic Stated complaint: Leg Pains,Sob Time Seen by Provider: 10/01/23 16:45 Source: patient, family, RN notes reviewed Mode of arrival: wheelchair Limitations: no limitations - History of Present Illness Initial comments: 78-year-old female presents to the emergency department for evaluation of right lower extremity pain. She states that over the past 2 days this has been worsening although she has been experiencing this for quite some time. She notes muscle spasms. She admits to being out of her PO morphine and is unable to get a refill. She was seen yesterday for the same thing. She had an appointment with her PCP today. She states that they got into an argument. She is able to ambulate with her walker. - Related Data Home Medications Medication Instructions Recorded Confirmed Atorvastatin [Lipitor] 10 mg PO DAILY 10/09/22 07/12/23 Propranolol [Inderal] 10 mg PO BID 10/09/22 07/12/23 Escitalopram [Lexapro] 10 mg PO HS 11/16/22 07/12/23 rOPINIRole HCL [Requip] 0.25 mg PO HS 11/16/22 07/12/23 Levothyroxine Sodium [Synthroid] 25 mcg PO DIRECTED 07/12/23 07/12/23 metFORMIN HCL [Glucophage] 500 mg PO DIRECTED 07/12/23 07/12/23 Previous Rx's Medication Instructions Recorded Pantoprazole Sodium [Protonix] 40 mg PO BID #60 tab 11/17/22 Acetaminophen Tab [Tylenol] 650 mg PO Q6HR PRN tab 07/16/23 Furosemide [Lasix] 20 mg PO DAILY tab 07/16/23 Gabapentin 300 mg PO QID #12 cap 07/16/23 Hydrocortisone [Anusol-Hc] 1 applic RECTAL BID #30 gm 07/16/23 INSULIN LISPRO (HumaLOG) [humaLOG] 0 unit SQ ACHS #10 ml 07/16/23 Morphine Sulfate Ir [MSIR] 15 mg PO BID #6 tab 07/16/23 Sennosides-Docusate Sodium 2 tab PO BID #60 tablet 07/16/23 [Senokot-S] polyethylene glycoL 3350 [Miralax] 17 gm PO DAILY packet 07/16/23 Allergies Allergy/AdvReac Type Severity Reaction Status Date / Time bee venom protein (honey bee) Allergy Anaphylaxis Verified 09/30/23 19:19 Review of Systems ROS Statement: Those systems with pertinent positive or pertinent negative responses have been documented in the HPI. ROS Other: All systems not noted in ROS Statement are negative. Past Medical History Past Medical History: Cancer, COPD, Hypertension, Osteoarthritis (OA) Additional Past Medical History / Comment(s): throat ca History of Any Multi-Drug Resistant Organisms: ESBL Date of last positivie culture/infection: 05/30/23 MDRO Source:: Urine Past Surgical History: Cholecystectomy, Orthopedic Surgery Additional Past Surgical History / Comment(s): cervical fusion, plate in right ankle Past Anesthesia/Blood Transfusion Reactions: No Reported Reaction Past Psychological History: Depression Smoking Status: Former smoker Past Alcohol Use History: None Reported Past Drug Use History: None Reported - Past Family History Mother Family Medical History: COPD General Exam Limitations: no limitations General appearance: alert, in no apparent distress Head exam: Present: atraumatic, normocephalic, normal inspection Eye exam: Present: normal appearance, PERRL, EOMI. Absent: scleral icterus, co njunctival injection, periorbital swelling ENT exam: Present: normal exam, mucous membranes moist Respiratory exam: Present: wheezes. Absent: respiratory distress, rales, rhonchi, stridor Cardiovascular Exam: Present: regular rate, normal rhythm, normal heart sounds. Absent: systolic murmur, diastolic murmur, rubs, gallop, clicks GI/Abdominal exam: Present: soft. Absent: distended, tenderness, guarding, rebound, rigid Extremities exam: Present: full ROM, normal capillary refill, other (DP and PT pulses 2+, edema to right ankle without overlying skin changes ). Absent: tenderness, pedal edema, joint swelling, calf tenderness Neurological exam: Present: alert, oriented X3 Psychiatric exam: Present: normal affect, normal mood Skin exam: Present: warm, dry, intact, normal color. Absent: rash Course Vital Signs 10/01/23 10/01/23 16:36 20:46 Temperature 98.5 F Pulse Rate 100 102 H Respiratory 20 16 Rate Blood Pressure 147/80 166/86 O2 Sat by Pulse 95 95 Oximetry Medical Decision Making - Medical Decision Making Was pt. sent in by a medical professional or institution (, PA, SWING FRAME GRINDER OPERATOR, urgent care, hospital, or intermediate...) When possible be specific @ -No Did you speak to anyone other than the patient for history (EMS, parent, family, police, friend...)? What history was obtained from this source @ -No Did you review nursing and triage notes (agree or disagree)? Why? @ -I reviewed and agree with nursing and triage notes Were old charts reviewed (outside hosp., previous admission, EMS record, old EKG, old radiological studies, urgent care reports/EKG's, intermediate records)? Report findings @ -No old charts were reviewed Differential Diagnosis (chest pain, altered mental status, abdominal pain women, abdominal pain men, vaginal bleeding, weakness, fever, dyspnea, syncope, headache, dizziness, GI bleed, back pain, seizure, CVA, palpatations, mental health, musculoskeletal)? @ -Differential Musculoskeletal Muscular strain, contusion, ligament sprain, fracture, arthritis, septic arthritis, bursitis, cellulitis, muscle spasm, nerve compression, DVT, arterial occlusion, herpes zoster, electrolyte abnormality, tumor.... This is not meant to be in all inclusive list EKG interpreted by me (3pts min.). @ -EKG at 1922 shows sinus tachycardia with occasional PVCs rate 104, pr 167, QRS 126, QT/QTc 376/437 X-rays interpreted by me (1pt min.). @ -Chest XR shows COPD changes without acute process XR right tib-fib shows no evidence of acute fracture, soft tissue swelling present CT interpreted by me (1pt min.). @ -None done U/S interpreted by me (1pt. min.). @ -US of the right lower extremity shows no acute DVT What testing was considered but not performed or refused? (CT, X-rays, U/S, labs)? Why? @ -None What meds were considered but not given or refused? Why? @ -None Did you discuss the management of the patient with other professionals (professionals i.e. , PA, SWING FRAME GRINDER OPERATOR, lab, RT, psych nurse, social services designee, line runner, teacher, special officer automat, adult protective caseworker)? Give summary @ -No Was smoking cessation discussed for >3mins.? @ -No Was critical care preformed (if so, how long)? @ -No Were there social determinants of health that impacted care today? How? (Homelessness, low income, unemployed, alcoholism, drug addiction, trans portation, low edu. Level, literacy, decrease access to med. care, retirement, rehab)? @ -No Was there de-escalation of care discussed even if they declined (Discuss DNR or withdrawal of care, Hospice)? DNR status @ -No What co-morbidities impacted this encounter? (DM, HTN, Smoking, COPD, CAD, Cancer, CVA, ARF, Chemo, Hep., AIDS, mental health diagnosis, sleep apnea, morbid obesity)? @ -None Was patient admitted / discharged? Hospital course, mention meds given and route, prescriptions, significant lab abnormalities, going to OR and other pertinent info. @ -Discharged. Presented to the emergency department for evaluation of right lower extremity pain which is chronic. Patient underwent x-ray which showed no evidence of acute fracture, soft tissue swelling is present. Ultrasound of the right lower extremity shows no acute DVT. Laboratory studies obtained. CBC, CMP unremarkable. Negative troponin. Patient provided 1 dose of her home pain medication. Patient will be discharged home. Patient understanding agreeable plan. Patient stable at time of discharge. Case discussed with Dr. Hammond. Undiagnosed new problem with uncertain prognosis? @ -No Drug Therapy requiring intensive monitoring for toxicity (Heparin, Nitro, Insulin, Cardizem)? @ -No Were any procedures done? @ -No Diagnosis/symptom? @ -Opioid dependence, leg pain Acute, or Chronic, or Acute on Chronic? @ -Chronic Uncomplicated (without systemic symptoms) or Complicated (systemic symptoms)? @ -Uncomplicated Side effects of treatment? @ -No Exacerbation, Progression, or Severe Exacerbation? @ -No Poses a threat to life or bodily function? How? (Chest pain, [place], [place], pneumonia, PE, COPD, DKA, ARF, appy, cholecystitis, CVA, Diverticulitis, Homicidal, Suicidal, threat to staff... and all critical care pts) @ -No - Lab Data Result diagrams: 10/01/23 17:50 10/01/23 17:50 Lab Results 10/01/23 10/01/23 10/01/23 Range/Units 17:50 17:50 17:50 WBC 8.0 (3.8-10.6) k/uL RBC 3.95 (3.80-5.40) m/uL Hgb 11.8 (11.4-16.0) gm/dL Hct 38.3 (34.0-46.0) % MCV 97.0 (80.0-100.0) fL MCH 30.0 (25.0-35.0) pg MCHC 30.9 L (31.0-37.0) g/dL RDW 13.5 (11.5-15.5) % Plt Count 291 (150-450) k/uL MPV 8.0 Neutrophils % 76 % Lymphocytes % 14 % Monocytes % 7 % Eosinophils % 1 % Basophils % 0 % Neutrophils # 6.1 (1.3-7.7) k/uL Lymphocytes # 1.1 (1.0-4.8) k/uL Monocytes # 0.6 (0-1.0) k/uL Eosinophils # 0.1 (0-0.7) k/uL Basophils # 0.0 (0-0.2) k/uL PT 10.4 (10.0-12.5) sec INR 0.9 (<1.2) APTT 23.9 (22.0-30.0) sec Sodium 137 (137-145) mmol/L Potassium 4.1 (3.5-5.1) mmol/L Chloride 101 (98-107) mmol/L Carbon Dioxide 30 (22-30) mmol/L Anion Gap 6 mmol/L BUN 17 (7-17) mg/dL Creatinine 0.62 (0.52-1.04) mg/dL Est GFR (CKD-EPI)AfAm >90 (>60 ml/min/1.73 sqM) Est GFR (CKD-EPI)NonAf 86 (>60 ml/min/1.73 sqM) Glucose 95 (74-99) mg/dL Plasma Lactic Acid Fady (0.7-2.0) mmol/L Calcium 9.7 (8.4-10.2) mg/dL Magnesium 2.0 (1.6-2.3) mg/dL Total Bilirubin 0.9 (0.2-1.3) mg/dL AST 29 (14-36) U/L ALT 13 (4-34) U/L Alkaline Phosphatase 96 (38-126) U/L Troponin I (0.000-0.034) ng/mL Total Protein 7.7 (6.3-8.2) g/dL Albumin 4.6 (3.5-5.0) g/dL 10/01/23 10/01/23 Range/Units 17:50 17:50 WBC (3.8-10.6) k/uL RBC (3.80-5.40) m/uL Hgb (11.4-16.0) gm/dL Hct (34.0-46.0) % MCV (80.0-100.0) fL MCH (25.0-35.0) pg MCHC (31.0-37.0) g/dL RDW (11.5-15.5) % Plt Count (150-450) k/uL MPV Neutrophils % % Lymphocytes % % Monocytes % % Eosinophils % % Basophils % % Neutrophils # (1.3-7.7) k/uL Lymphocytes # (1.0-4.8) k/uL Monocytes # (0-1.0) k/uL Eosinophils # (0-0.7) k/uL Basophils # (0-0.2) k/uL PT (10.0-12.5) sec INR (<1.2) APTT (22.0-30.0) sec Sodium (137-145) mmol/L Potassium (3.5-5.1) mmol/L Chloride (98-107) mmol/L Carbon Dioxide (22-30) mmol/L Anion Gap mmol/L BUN (7-17) mg/dL Creatinine (0.52-1.04) mg/dL Est GFR (CKD-EPI)AfAm (>60 ml/min/1.73 sqM) Est GFR (CKD-EPI)NonAf (>60 ml/min/1.73 sqM) Glucose (74-99) mg/dL Plasma Lactic Acid Fady 0.9 (0.7-2.0) mmol/L Calcium (8.4-10.2) mg/dL Magnesium (1.6-2.3) mg/dL Total Bilirubin (0.2-1.3) mg/dL AST (14-36) U/L ALT (4-34) U/L Alkaline Phosphatase (38-126) U/L Troponin I <0.012 (0.000-0.034) ng/mL Total Protein (6.3-8.2) g/dL Albumin (3.5-5.0) g/dL Disposition Clinical Impression: Right leg pain Disposition: HOME SELF-CARE Condition: Stable Instructions (If sedation given, give patient instructions): Muscle Spasm (ED) Additional Instructions: Please follow up with your primary care provider. Return to the emergency department for new or worsening symptoms. Is patient prescribed a controlled substance at d/c from ED?: No Referrals: Oren Castellanos MD [Primary Care Provider] - 1-2 days
[2023-10-01] MEDS: MORPHINE SULFATE ER 15 MG TABLET PO STA (20:36)
[2023-10-01 21:18] VITALS: BP 166/86; PULSE 102; RESP 16
== END 2023-10-01 20:47 | disposition home or self-care (01) ==
LOC: EC 16:33
DX: M79.604 Pain in right leg (principal); I44.7 Left bundle-branch block, unspecified; F15.90 Other stimulant use, unspecified, uncomplicated; Z91.030 Bee allergy status; Z87.891 Personal history of nicotine dependence
CPT/HCPCS: 96374 ×2; 99285 ×2; 36415; 93005; 80053; 83605; 83735; 84484; 85025; 85610; 85730; 73590; 71046; 93971; J1885

== ENCOUNTER 2023-10-31 03:48 | Emergency (ER) | payer MEDICARE ==
[2023-10-31 04:04] VITALS: TEMP 98.2
--- NOTE | 2023-10-31 04:29 | ED ---
General Adult HPI - General Chief complaint: Abdominal Pain Stated complaint: Uncontrollable belching Time Seen by Provider: 10/31/23 03:50 Source: EMS Mode of arrival: EMS - History of Present Illness Initial comments: Dictation was produced using [employer] dictation software. please excuse any grammatical, word or spelling errors. Chief Complaint: 78-year-old female presents with uncontrollable belching History of Present Illness: Patient 78-year-old female brought in from home from EMS. Patient states that she started to feel little gassy in her abdomen earlier this morning. She started to have uncontrollable belching. Patient denies any pain. She does also have some palpatory tenderness to her right upper ribs near her axilla. Patient states she has history of intractable belching. The ROS documented in this emergency department record has been reviewed and confirmed by me. Those systems with pertinent positive or negative responses have been documented in the HPI. All other systems are other negative and/or noncontributory. - Related Data Home Medications Medication Instructions Recorded Confirmed Atorvastatin [Lipitor] 10 mg PO DAILY 10/09/22 07/12/23 Propranolol [Inderal] 10 mg PO BID 10/09/22 07/12/23 Escitalopram [Lexapro] 10 mg PO HS 11/16/22 07/12/23 rOPINIRole HCL [Requip] 0.25 mg PO HS 11/16/22 07/12/23 Levothyroxine Sodium [Synthroid] 25 mcg PO DIRECTED 07/12/23 07/12/23 metFORMIN HCL [Glucophage] 500 mg PO DIRECTED 07/12/23 07/12/23 Previous Rx's Medication Instructions Recorded Pantoprazole Sodium [Protonix] 40 mg PO BID #60 tab 11/17/22 Acetaminophen Tab [Tylenol] 650 mg PO Q6HR PRN tab 07/16/23 Furosemide [Lasix] 20 mg PO DAILY tab 07/16/23 Gabapentin 300 mg PO QID #12 cap 07/16/23 Hydrocortisone [Anusol-Hc] 1 applic RECTAL BID #30 gm 07/16/23 INSULIN LISPRO (HumaLOG) [humaLOG] 0 unit SQ ACHS #10 ml 07/16/23 Morphine Sulfate Ir [MSIR] 15 mg PO BID #6 tab 07/16/23 Sennosides-Docusate Sodium 2 tab PO BID #60 tablet 07/16/23 [Senokot-S] polyethylene glycoL 3350 [Miralax] 17 gm PO DAILY packet 07/16/23 Allergies Allergy/AdvReac Type Severity Reaction Status Date / Time bee venom protein (honey bee) Allergy Anaphylaxis Verified 09/30/23 19:19 Review of Systems ROS Statement: Those systems with pertinent positive or pertinent negative responses have been documented in the HPI. ROS Other: All systems not noted in ROS Statement are negative. Past Medical History Past Medical History: Cancer, Hypertension, Osteoarthritis (OA) Additional Past Medical History / Comment(s): throat ca History of Any Multi-Drug Resistant Organisms: ESBL Date of last positivie culture/infection: 05/30/23 MDRO Source:: Urine Past Surgical History: Cholecystectomy, Orthopedic Surgery Additional Past Surgical History / Comment(s): cervical fusion, plate in right ankle Past Anesthesia/Blood Transfusion Reactions: No Reported Reaction Past Psychological History: Depression Smoking Status: Former smoker Past Alcohol Use History: None Reported Past Drug Use History: None Reported - Past Family History Mother Family Medical History: COPD General Exam - General Exam Comments Initial Comments: PHYSICAL EXAM: General Impression: Alert and oriented x3, not in acute distress HEENT: Normocephalic atraumatic, extra-ocular movements intact, pupils equal and reactive to light bilaterally, mucous membranes moist. Cardiovascular: Heart regular rate and rhythm Chest: Able to complete full sentences, no retractions, no tachypnea Abdomen: abdomen soft, non-tender, non-distended, no organomegaly Musculoskeletal: Pulses present and equal in all extremities, no peripheral edema Motor: no focal deficits noted Neurological: CN II-XII grossly intact, no focal motor or sensory deficits noted Skin: Intact with no visualized rashes Psych: Normal affect and mood Course Vital Signs 10/31/23 03:52 Temperature 98.2 F Pulse Rate 64 Respiratory 22 Rate Blood Pressure 157/73 O2 Sat by Pulse 98 Oximetry Medical Decision Making - Medical Decision Making Was pt. sent in by a medical professional or institution (, PA, CONCRETE BOOM OPERATOR, urgent care, hospital, or half-way...) When possible be specific @ -No Did you speak to anyone other than the patient for history (EMS, parent, family, police, friend...)? What history was obtained from this source @ -No Did you review nursing and triage notes (agree or disagree)? Why? @ -I reviewed and agree with nursing and triage notes Were old charts reviewed (outside hosp., previous admission, EMS record, old EKG , old radiological studies, urgent care reports/EKG's, half-way records)? Report findings @ -No old charts were reviewed Differential Diagnosis (chest pain, altered mental status, abdominal pain women, abdominal pain men, vaginal bleeding, musculoskeletal, weakness, fever, dyspnea, syncope, headache, dizziness, GI bleed, back pain, seizure, CVA, palpatations, mental health)? @ -Differential Abdominal Pain Women: Appendicitis, Cholecystitis, diverticulosis, ischemic bowel, pancreatitis, h epatitis, UTI, gastroenteritis, AAA, incarcerated hernia, bowel obstruction, constipation, inflammatory bowel, hepatitis, peptic ulcer disease, splenic infarction, perforated viscus, vulvitis, ovarian torsion, PID, kidney stone, placenta abruption, this is not meant to be an all-inclusive list EKG interpreted by me (3pts min.). @ -None done X-rays interpreted by me (1pt min.). @ -Abdominal x-ray is nonacute CT interpreted by me (1pt min.). @ -None done U/S interpreted by me (1pt. min.). @ -None done What testing was considered but not performed or refused? (CT, X-rays, U/S, labs)? Why? @ -None What meds were considered but not given or refused? Why? @ -None Did you discuss the management of the patient with other professionals (professionals i.e. , PA, CONCRETE BOOM OPERATOR, lab, RT, psych nurse, medical social worker, career center advisor, teacher, correction officer penitentiary, employment case manager)? Give summary @ -No Was smoking cessation discussed for >3mins.? @ -No Was critical care preformed (if so, how long)? @ -No Were there social determinants of health that impacted care today? How? (Homelessness, low income, unemployed, alcoholism, drug addiction, transportation, low edu. Level, literacy, decrease access to med. care, prison, rehab)? @ -No Was there de-escalation of care discussed even if they declined (Discuss DNR or withdrawal of care, Hospice)? DNR status @ -No What co-morbidities impacted this encounter? (DM, HTN, Smoking, COPD, CAD, Cancer, CVA, ARF, Chemo, Hep., AIDS, mental health diagnosis, sleep apnea, mo rbid obesity)? @ -None Was patient admitted / discharged? Hospital course, mention meds given and r oute, prescriptions, significant lab abnormalities, going to OR and other pertinent info. @ -78-year-old female presents to the ER for chief complaint of intractable belching. Patient had not belch since being in the emergency room. Physical examination is benign. Vital signs stable. Labs and imaging are unremarkable. Patient requesting oral pain medications. Patient given 1 Swisher. Observed emergency department. Reevaluated found to be in stable condition. Patient discharged. Undiagnosed new problem with uncertain prognosis? @ -No Drug Therapy requiring intensive monitoring for toxicity (Heparin, Nitro, Insulin, Cardizem)? @ -No Were any procedures done? @ -No Diagnosis/symptom? Acute, or Chronic, or Acute on Chronic? Uncomplicated (without systemic symptoms) or Complicated (systemic symptoms)? @ -Belching Side effects of treatment? @ -No Exacerbation, Progression, or Severe Exacerbation? @ -No Poses a threat to life or bodily function? How? (Chest pain, [place], [place], pneumonia, PE, COPD, DKA, ARF, appy, cholecystitis, CVA, Diverticulitis, Homicidal, Suicidal, threat to staff... and all critical care pts) @ -No - Lab Data Result diagrams: 10/31/23 05:21 10/31/23 05:21 Lab Results 10/31/23 10/31/23 Range/Units 05:21 05:21 WBC 5.4 (3.8-10.6) k/uL RBC 3.67 L (3.80-5.40) m/uL Hgb 11.0 L (11.4-16.0) gm/dL Hct 34.7 (34.0-46.0) % MCV 94.7 (80.0-100.0) fL MCH 30.0 (25.0-35.0) pg MCHC 31.6 (31.0-37.0) g/dL RDW 14.0 (11.5-15.5) % Plt Count 245 (150-450) k/uL MPV 8.3 Neutrophils % 61 % Lymphocytes % 22 % Monocytes % 10 % Eosinophils % 3 % Basophils % 1 % Neutrophils # 3.3 (1.3-7.7) k/uL Lymphocytes # 1.2 (1.0-4.8) k/uL Monocytes # 0.6 (0-1.0) k/uL Eosinophils # 0.2 (0-0.7) k/uL Basophils # 0.0 (0-0.2) k/uL Sodium 136 L (137-145) mmol/L Potassium 4.4 (3.5-5.1) mmol/L Chloride 103 (98-107) mmol/L Carbon Dioxide 30 (22-30) mmol/L Anion Gap 3 mmol/L BUN 23 H (7-17) mg/dL Creatinine 0.70 (0.52-1.04) mg/dL Est GFR (CKD-EPI)AfAm >90 (>60 ml/min/1.73 sqM) Est GFR (CKD-EPI)NonAf 83 (>60 ml/min/1.73 sqM) Glucose 93 (74-99) mg/dL Calcium 9.0 (8.4-10.2) mg/dL Total Bilirubin 0.8 (0.2-1.3) mg/dL AST 24 (14-36) U/L ALT 10 (4-34) U/L Alkaline Phosphatase 78 (38-126) U/L Total Protein 6.3 (6.3-8.2) g/dL Albumin 3.8 (3.5-5.0) g/dL Disposition Clinical Impression: Belching Disposition: HOME SELF-CARE Condition: Good Instructions (If sedation given, give patient instructions): Gas and Bloating (ED) Is patient prescribed a controlled substance at d/c from ED?: No Referrals: Star Putnam DO [Primary Care Provider] - 1-2 days Time of Disposition: 06:14
[2023-10-31] MEDS: HYDROcodone/APAP 5-325MG 1 EACH TAB PO STA (05:00)
[2023-10-31 05:50] LABS: Basophils % (A) 1 %; Eosinophils # (A) 0.2 k/uL (0-0.7); Eosinophils % (A) 3 %; HCT 34.7 % (34.0-46.0); Lymphocytes # (A) 1.2 k/uL (1.0-4.8); Lymphocytes % (A) 22 %; MCHC 31.6 g/dL (31.0-37.0); MCV 94.7 fL (80.0-100.0); Mean Platelet Volume 8.3; Monocytes # (A) 0.6 k/uL (0-1.0); Monocytes % (A) 10 %; Neutrophils # (A) 3.3 k/uL (1.3-7.7); Neutrophils % (A) 61 %; Platelet Count 245 k/uL (150-450); RBC 3.67 m/uL (3.80-5.40); WBC 5.4 k/uL (3.8-10.6)
--- NOTE | 2023-10-31 05:50 | XR ---
EXAMINATION TYPE: XR abdomen 1V DATE OF EXAM: 10/31/2023 4:46 AM CLINICAL HISTORY: Intractable belching TECHNIQUE: Single portable KUB image of the abdomen is obtained. COMPARISON: CT abdomen and pelvis September 30, 2023. FINDINGS: Gas prominent stomach is seen. Scattered gas seen in nondistended small and large bowel loo ps. Cholecystectomy clips are redemonstrated. Tubal ligation clips in the pelvis are again seen. Adva nced degenerative change of both hips is redemonstrated. Lung bases are clear. IMPRESSION: Overall nonspecific but still favor nonobstructive bowel gas pattern.
[2023-10-31 05:59] LABS: ALT 10 U/L (4-34); African American GFR (CKD) >90 (>60 ml/min/1.73 sqM); Albumin 3.8 g/dL (3.5-5.0); Anion Gap 3 mmol/L; Blood Urea Nitrogen 23 mg/dL (7-17); Carbon Dioxide 30 mmol/L (22-30); Chloride 103 mmol/L (98-107); Glucose 93 mg/dL (74-99); Non-African American GFR(CKD) 83 (>60 ml/min/1.73 sqM); Sodium 136 mmol/L (137-145); Total Bilirubin 0.8 mg/dL (0.2-1.3); Total Protein 6.3 g/dL (6.3-8.2)
[2023-10-31 06:03] LABS: AST 24 U/L (14-36); Alkaline Phosphatase 78 U/L (38-126); Potassium 4.4 mmol/L (3.5-5.1)
[2023-10-31 06:30] VITALS: BP 168/73; PULSE 78; RESP 18
== END 2023-10-31 06:37 | disposition home or self-care (01) ==
LOC: EC 03:48
DX: R14.2 Eructation (principal); Z91.030 Bee allergy status; Z87.891 Personal history of nicotine dependence
CPT/HCPCS: 36415; 74018; 80053; 85025; 99284

== ENCOUNTER 2023-11-29 18:03 | Emergency (ER) | payer MEDICARE ==
[2023-11-29 18:14] VITALS: TEMP 98.1
--- NOTE | 2023-11-29 18:42 | ED ---
General Adult HPI - General Chief complaint: Abdominal Pain Stated complaint: muscle spasms Time Seen by Provider: 11/29/23 18:05 Source: patient, EMS, RN notes reviewed, old records reviewed Mode of arrival: EMS Limitations: no limitations - History of Present Illness Initial comments: 78-year-old female with bilateral lower leg cramping and spasms. This is a chronic issue for this patient. This is normally treated at home with gabapentin and morphine but the patient does not currently have morphine. She states she is scheduled to pick this medication up. She denies injury. Denies fever. Denies nausea vomiting or diarrhea. Denies back pain. Pain is worse on the right. - Related Data Home Medications Medication Instructions Recorded Confirmed Atorvastatin [Lipitor] 10 mg PO DAILY 10/09/22 07/12/23 Propranolol [Inderal] 10 mg PO BID 10/09/22 07/12/23 Escitalopram [Lexapro] 10 mg PO HS 11/16/22 07/12/23 rOPINIRole HCL [Requip] 0.25 mg PO HS 11/16/22 07/12/23 Levothyroxine Sodium [Synthroid] 25 mcg PO DIRECTED 07/12/23 07/12/23 metFORMIN HCL [Glucophage] 500 mg PO DIRECTED 07/12/23 07/12/23 Previous Rx's Medication Instructions Recorded Pantoprazole Sodium [Protonix] 40 mg PO BID #60 tab 11/17/22 Acetaminophen Tab [Tylenol] 650 mg PO Q6HR PRN tab 07/16/23 Furosemide [Lasix] 20 mg PO DAILY tab 07/16/23 Gabapentin 300 mg PO QID #12 cap 07/16/23 Hydrocortisone [Anusol-Hc] 1 applic RECTAL BID #30 gm 07/16/23 INSULIN LISPRO (HumaLOG) [humaLOG] 0 unit SQ ACHS #10 ml 07/16/23 Morphine Sulfate Ir [MSIR] 15 mg PO BID #6 tab 07/16/23 Sennosides-Docusate Sodium 2 tab PO BID #60 tablet 07/16/23 [Senokot-S] polyethylene glycoL 3350 [Miralax] 17 gm PO DAILY packet 07/16/23 Allergies Allergy/AdvReac Type Severity Reaction Status Date / Time bee venom protein (honey bee) Allergy Anaphylaxis Verified 09/30/23 19:19 Review of Systems ROS Statement: Those systems with pertinent positive or pertinent negative responses have been documented in the HPI. ROS Other: All systems not noted in ROS Statement are negative. Past Medical History Past Medical History: Cancer, Hypertension, Osteoarthritis (OA) Additional Past Medical History / Comment(s): throat ca History of Any Multi-Drug Resistant Organisms: ESBL Date of last positivie culture/infection: 05/30/23 MDRO Source:: Urine Past Surgical History: Cholecystectomy, Orthopedic Surgery Additional Past Surgical History / Comment(s): cervical fusion, plate in right ankle Past Anesthesia/Blood Transfusion Reactions: No Reported Reaction Past Psychological History: Depression Smoking Status: Former smoker Past Alcohol Use History: None Reported Past Drug Use History: None Reported - Past Family History Mother Family Medical History: COPD General Exam Limitations: no limitations General appearance: alert, anxious Head exam: Present: atraumatic, normocephalic Eye exam: Present: normal appearance, PERRL ENT exam: Present: normal exam Neck exam: Present: normal inspection. Absent: tenderness Respiratory exam: Present: normal lung sounds bilaterally. Absent: respiratory distress, wheezes Cardiovascular Exam: Present: regular rate, normal rhythm GI/Abdominal exam: Present: soft. Absent: distended, tenderness, guarding Extremities exam: Present: tenderness, normal capillary refill (Distal pulses intact, no signs of infection). Absent: full ROM, pedal edema Neurological exam: Present: alert, oriented X3 Psychiatric exam: Present: anxious Skin exam: Present: warm, dry, intact. Absent: cyanosis, diaphoretic Course Vital Signs 11/29/23 11/29/23 18:07 19:01 Temperature 98.1 F Pulse Rate 81 70 Respiratory 20 18 Rate Blood Pressure 158/92 156/91 O2 Sat by Pulse 94 L 93 L Oximetry - Reevaluation(s) Reevaluation #1: 11/29/23 19:36 Patient reevaluated, resting comfortably, symptoms resolved. Patient states her morphine will be available for refill on Sunday which is 24 hours from now. Medical Decision Making - Medical Decision Making Was pt. sent in by a medical professional or institution (, PA, PASTOR, urgent care, hospital, or [facility]...) When possible be specific @ -No Did you speak to anyone other than the patient for history (EMS, parent, family, police, friend...)? What history was obtained from this source @ -No Did you review nursing and triage notes (agree or disagree)? Why? @ -I reviewed and agree with nursing and triage notes Were old charts reviewed (outside hosp., previous admission, EMS record, old EKG, old radiological studies, urgent care reports/EKG's, [facility] records)? Report findings @ -No old charts were reviewed Differential Musculoskeletal Muscular strain, contusion, ligament sprain, fracture, arthritis, septic arthritis, bursitis, cellulitis, muscle spasm, nerve compression, DVT, arterial occlusion, herpes zoster, electrolyte abnormality, tumor.... This is not meant to be in all inclusive list EKG interpreted by me (3pts min.). @ -As above X-rays interpreted by me (1pt min.). @ -None done CT interpreted by me (1pt min.). @ -None done U/S interpreted by me (1pt. min.). @ -None done What testing was considered but not performed or refused? (CT, X-rays, U/S, labs)? Why? @ -None What meds were considered but not given or refused? Why? @ -None Did you discuss the management of the patient with other professionals (professionals i.e. , PA, PASTOR, lab, RT, psych nurse, psych social worker, admiralty lawyer, teacher, hotel security officer, comp field case manager)? Give summary @ -No Was smoking cessation discussed for >3mins.? @ -No Was critical care preformed (if so, how long)? @ -No Were there social determinants of health that impacted care today? How? (Homelessness, low income, unemployed, alcoholism, drug addiction, transportati on, low edu. Level, literacy, decrease access to med. care, usp, rehab)? @ -No Was there de-escalation of care discussed even if they declined (Discuss DNR or withdrawal of care, Hospice)? DNR status @ -No What co-morbidities impacted this encounter? (DM, HTN, Smoking, COPD, CAD, Cancer, CVA, ARF, Chemo, Hep., AIDS, mental health diagnosis, sleep apnea, morbid obesity)? @Chronic pain Was patient admitted / discharged? Hospital course, mention meds given and route, prescriptions, significant lab abnormalities, going to OR and other pertinent info. @ -[78-year-old female with chronic lower leg pain and spasms currently out of her oral morphine. Prescription to be filled in 24 hours. Patient is given symptomatic relief in the emergency department including morphine magnesium and fluids. She does feel significantly better. Legs are warm without sign of infection, normal cap refill, no injury reported. Patient is afebrile with stable vitals. She has a normal CBC, normal CMP, negative lactic acid. I do feel this patient is stable for discharge at this time. She will follow closely with her primary care provider and return with worsening or changing symptoms. Undiagnosed new problem with uncertain prognosis? @ -No Drug Therapy requiring intensive monitoring for toxicity (Heparin, Nitro, Insulin, Cardizem)? @ -No Were any procedures done? @ -No Diagnosis/symptom? @ -Chronic pain Acute, or Chronic, or Acute on Chronic? @ -Chronic Uncomplicated (without systemic symptoms) or Complicated (systemic symptoms)? @ -Default Side effects of treatment? @ -No Exacerbation, Progression, or Severe Exacerbation? @ -No Poses a threat to life or bodily function? How? (Chest pain, USA, [place], pneumonia, PE, COPD, DKA, ARF, appy, cholecystitis, CVA, Diverticulitis, Homicidal, [place] icidal, threat to staff... and all critical care pts) @ -No - Lab Data Result diagrams: 11/29/23 18:27 11/29/23 18:27 Lab Results 11/29/23 11/29/23 11/29/23 Range/Units 18:27 18:27 18:27 WBC 5.6 (3.8-10.6) k/uL RBC 3.84 (3.80-5.40) m/uL Hgb 12.1 (11.4-16.0) gm/dL Hct 37.7 (34.0-46.0) % MCV 98.1 (80.0-100.0) fL MCH 31.4 (25.0-35.0) pg MCHC 32.0 (31.0-37.0) g/dL RDW 13.3 (11.5-15.5) % Plt Count 248 (150-450) k/uL MPV 8.0 Neutrophils % 68 % Lymphocytes % 19 % Monocytes % 8 % Eosinophils % 1 % Basophils % 1 % Neutrophils # 3.8 (1.3-7.7) k/uL Lymphocytes # 1.1 (1.0-4.8) k/uL Monocytes # 0.5 (0-1.0) k/uL Eosinophils # 0.1 (0-0.7) k/uL Basophils # 0.0 (0-0.2) k/uL PT 10.6 (10.0-12.5) sec INR 1.0 (<1.2) APTT 23.6 (22.0-30.0) sec Sodium 139 (137-145) mmol/L Potassium 4.2 (3.5-5.1) mmol/L Chloride 101 (98-107) mmol/L Carbon Dioxide 32 H (22-30) mmol/L Anion Gap 6 mmol/L BUN 19 H (7-17) mg/dL Creatinine 0.78 (0.52-1.04) mg/dL Est GFR (CKD-EPI)AfAm 84 (>60 ml/min/1.73 sqM) Est GFR (CKD-EPI)NonAf 73 (>60 ml/min/1.73 sqM) Glucose 94 (74-99) mg/dL Plasma Lactic Acid Fady (0.7-2.0) mmol/L Calcium 9.7 (8.4-10.2) mg/dL Magnesium 2.1 (1.6-2.3) mg/dL Total Bilirubin 0.9 (0.2-1.3) mg/dL AST 26 (14-36) U/L ALT 12 (4-34) U/L Alkaline Phosphatase 91 (38-126) U/L Total Protein 6.9 (6.3-8.2) g/dL Albumin 4.4 (3.5-5.0) g/dL 11/29/23 Range/Units 18:27 WBC (3.8-10.6) k/uL RBC (3.80-5.40) m/uL Hgb (11.4-16.0) gm/dL Hct (34.0-46.0) % MCV (80.0-100.0) fL MCH (25.0-35.0) pg MCHC (31.0-37.0) g/dL RDW (11.5-15.5) % Plt Count (150-450) k/uL MPV Neutrophils % % Lymphocytes % % Monocytes % % Eosinophils % % Basophils % % Neutrophils # (1.3-7.7) k/uL Lymphocytes # (1.0-4.8) k/uL Monocytes # (0-1.0) k/uL Eosinophils # (0-0.7) k/uL Basophils # (0-0.2) k/uL PT (10.0-12.5) sec INR (<1.2) APTT (22.0-30.0) sec Sodium (137-145) mmol/L Potassium (3.5-5.1) mmol/L Chloride (98-107) mmol/L Carbon Dioxide (22-30) mmol/L Anion Gap mmol/L BUN (7-17) mg/dL Creatinine (0.52-1.04) mg/dL Est GFR (CKD-EPI)AfAm (>60 ml/min/1.73 sqM) Est GFR (CKD-EPI)NonAf (>60 ml/min/1.73 sqM) Glucose (74-99) mg/dL Plasma Lactic Acid Fady 0.7 (0.7-2.0) mmol/L Calcium (8.4-10.2) mg/dL Magnesium (1.6-2.3) mg/dL Total Bilirubin (0.2-1.3) mg/dL AST (14-36) U/L ALT (4-34) U/L Alkaline Phosphatase (38-126) U/L Total Protein (6.3-8.2) g/dL Albumin (3.5-5.0) g/dL Disposition Clinical Impression: Right leg pain Disposition: HOME SELF-CARE Condition: Fair Instructions (If sedation given, give patient instructions): Chronic Pain (ED) Is patient prescribed a controlled substance at d/c from ED?: No Referrals: None,Stated [REFERRING] - 1-2 days Hi Vilchis MD [STAFF PHYSICIAN] - 1-2 days Time of Disposition: 19:38
[2023-11-29] MEDS: MORPHINE SULFATE 4 MG/ML SYRINGE IVP STA ×2 (18:49→20:04)
[2023-11-29] MEDS: MAGNESIUM SULFATE-D5W PMX 1 GM in DEXTROSE/WATER 1 100ML.BAG IVPB ONE (18:51)
[2023-11-29] MEDS: SODIUM CHLORIDE 0.9% 500 ML 500 ML IV ONE (18:52)
[2023-11-29 18:54] LABS: Basophils % (A) 1 %; Eosinophils # (A) 0.1 k/uL (0-0.7); Eosinophils % (A) 1 %; HCT 37.7 % (34.0-46.0); HGB 12.1 gm/dL (11.4-16.0); Lymphocytes # (A) 1.1 k/uL (1.0-4.8); Lymphocytes % (A) 19 %; MCH 31.4 pg (25.0-35.0); MCV 98.1 fL (80.0-100.0); Monocytes # (A) 0.5 k/uL (0-1.0); Monocytes % (A) 8 %; Neutrophils # (A) 3.8 k/uL (1.3-7.7); Neutrophils % (A) 68 %; Platelet Count 248 k/uL (150-450); RBC 3.84 m/uL (3.80-5.40); RDW 13.3 % (11.5-15.5); WBC 5.6 k/uL (3.8-10.6)
[2023-11-29 19:05] LABS: Partial Thromboplastin Time 23.6 sec (22.0-30.0); Prothrombin Time 10.6 sec (10.0-12.5)
[2023-11-29 19:11] LABS: ALT 12 U/L (4-34); AST 26 U/L (14-36); African American GFR (CKD) 84 (>60 ml/min/1.73 sqM); Albumin 4.4 g/dL (3.5-5.0); Alkaline Phosphatase 91 U/L (38-126); Anion Gap 6 mmol/L; Blood Urea Nitrogen 19 mg/dL (7-17); Calcium 9.7 mg/dL (8.4-10.2); Carbon Dioxide 32 mmol/L (22-30); Chloride 101 mmol/L (98-107); Glucose 94 mg/dL (74-99); Magnesium 2.1 mg/dL (1.6-2.3); Non-African American GFR(CKD) 73 (>60 ml/min/1.73 sqM); Potassium 4.2 mmol/L (3.5-5.1); Sodium 139 mmol/L (137-145); Total Bilirubin 0.9 mg/dL (0.2-1.3); Total Protein 6.9 g/dL (6.3-8.2)
[2023-11-29 20:03] VITALS: BP 141/92; PULSE 73; RESP 16
== END 2023-11-29 20:10 | disposition home or self-care (01) ==
LOC: EC 18:03
DX: G89.29 Other chronic pain (principal); M79.604 Pain in right leg; Z87.891 Personal history of nicotine dependence; Z91.030 Bee allergy status
CPT/HCPCS: 36415; 80053; 83605; 83735; 85025; 85610; 85730; 99284; 96365; 96375; 96376; J2270; J3475

== ENCOUNTER 2023-12-01 04:44 | Emergency (ER) | payer MEDICARE ==
[2023-12-01 04:50] VITALS: RESP 22; TEMP 98.2
[2023-12-01] MEDS: ORPHENADRINE 30 MG/ML 2 ML VIAL IM STA (05:53)
[2023-12-01] MEDS: MORPHINE SULFATE 4 MG/ML SYRINGE IM STA (05:54)
--- NOTE | 2023-12-01 06:38 | ED ---
General Adult HPI - General Chief complaint: Recheck/Abnormal Lab/Rx Stated complaint: Uncontrolled jerking Time Seen by Provider: 12/01/23 05:00 Source: patient, EMS Mode of arrival: EMS Limitations: no limitations - History of Present Illness Initial comments: 78-year-old female well-known to the emergency department presents today for uncontrollable jerking. Reports to tremors in her lower extremities with pain. Patient does have history of restless leg and chronic pain. She is currently out of her pain prescription. Presents today requesting pain control. She denies any new or worsening symptoms. No trauma. No bowel or bladder incontinence. No fevers. No other alleviating, precipitating or modifying factors - Related Data Home Medications Medication Instructions Recorded Confirmed Atorvastatin [Lipitor] 10 mg PO DAILY 10/09/22 12/04/23 Propranolol [Inderal] 10 mg PO BID 10/09/22 12/04/23 Escitalopram [Lexapro] 10 mg PO HS 11/16/22 12/04/23 rOPINIRole HCL [Requip] 0.25 mg PO HS 11/16/22 12/04/23 Magnesium (Unknown Dose) 1 tab PO DAILY 12/04/23 12/04/23 Vitamin B Complex 1 each PO DAILY 12/04/23 12/04/23 Vitamin D (Unknown Dose) 1 tab PO DAILY 12/04/23 12/04/23 Previous Rx's Medication Instructions Recorded Pantoprazole Sodium [Protonix] 40 mg PO BID #60 tab 11/17/22 Furosemide [Lasix] 20 mg PO DAILY tab 07/16/23 Gabapentin 300 mg PO QID #12 cap 07/16/23 Morphine Sulfate Ir [MSIR] 15 mg PO BID #6 tab 07/16/23 polyethylene glycoL 3350 [Miralax] 17 gm PO DAILY packet 07/16/23 Allergies Allergy/AdvReac Type Severity Reaction Status Date / Time bee venom protein (honey bee) Allergy Anaphylaxis Verified 12/04/23 09:18 Review of Systems ROS Statement: Those systems with pertinent positive or pertinent negative responses have been documented in the HPI. ROS Other: All systems not noted in ROS Statement are negative. Past Medical History Past Medical History: Cancer, Hypertension, Osteoarthritis (OA) Additional Past Medical History / Comment(s): throat ca History of Any Multi-Drug Resistant Organisms: ESBL Date of last positivie culture/infection: 05/30/23 MDRO Source:: Urine Past Surgical History: Cholecystectomy, Orthopedic Surgery Additional Past Surgical History / Comment(s): cervical fusion, plate in right ankle Past Anesthesia/Blood Transfusion Reactions: No Reported Reaction Past Psychological History: Depression Smoking Status: Former smoker Past Alcohol Use History: None Reported Past Drug Use History: None Reported - Past Family History Mother Family Medical History: COPD General Exam Limitations: no limitations General appearance: alert, in no apparent distress Head exam: Present: atraumatic, normocephalic, normal inspection Eye exam: Present: normal appearance, PERRL, EOMI. Absent: scleral icterus, conjunctival injection, periorbital swelling ENT exam: Present: normal exam, mucous membranes moist Neck exam: Present: normal inspection. Absent: tenderness, meningismus, lymphadenopathy Respiratory exam: Present: normal lung sounds bilaterally. Absent: respiratory distress, wheezes, rales, rhonchi, stridor Cardiovascular Exam: Present: regular rate, normal rhythm, normal heart sounds. Absent: systolic murmur, diastolic murmur, rubs, gallop, clicks GI/Abdominal exam: Present: soft, normal bowel sounds. Absent: distended, tenderness, guarding, rebound, rigid Extremities exam: Present: full ROM, normal capillary refill, other (Shaking and trembling of her lower extremities). Absent: tenderness, pedal edema, joint swelling, calf tenderness Back exam: Present: normal inspection Neurological exam: Present: alert, oriented X3, CN II-XII intact Psychiatric exam: Present: normal affect, normal mood Skin exam: Present: warm, dry, intact, normal color. Absent: rash Course Vital Signs 12/01/23 12/01/23 04:45 07:02 Temperature 98.2 F 98.2 F Pulse Rate 74 76 Respiratory 22 22 Rate Blood Pressure 147/83 140/79 O2 Sat by Pulse 93 L 93 L Oximetry Medical Decision Making - Medical Decision Making Was pt. sent in by a medical professional or institution (, PA, PROBATION MANAGER, urgent care, hospital, or half-way...) When possible be specific @ -No Did you speak to anyone other than the patient for history (EMS, parent, family, police, friend...)? What history was obtained from this source @ -No Did you review nursing and triage notes (agree or disagree)? Why? @ -I reviewed and agree with nursing and triage notes Were old charts reviewed (outside hosp., previous admission, EMS record, old EKG, old radiological studies, urgent care reports/EKG's, half-way records)? Report findings @ -Patient has been seen multiple times in the emergency department for same complaint and therefore I did review previous ED records Differential Diagnosis (chest pain, altered mental status, abdominal pain women, abdominal pain men, vaginal bleeding, weakness, fever, dyspnea, syncope, headache, dizziness, GI bleed, back pain, seizure, CVA, palpatations, mental health, musculoskeletal)? @ -Differential Musculoskeletal Muscular strain, contusion, ligament sprain, fracture, arthritis, septic arthritis, bursitis, cellulitis, muscle spasm, nerve compression, DVT, arterial occlusion, herpes zoster, electrolyte abnormality, tumor.... This is not meant to be in all inclusive list EKG interpreted by me (3pts min.). @ -Not done X-rays interpreted by me (1pt min.). @ -None done CT interpreted by me (1pt min.). @ -None done U/S interpreted by me (1pt. min.). @ -None done What testing was considered but not performed or refused? (CT, X-rays, U/S, labs)? Why? @ -None What meds were considered but not given or refused? Why? @ -None Did you discuss the management of the patient with other professionals (professionals i.e. , PA, PROBATION MANAGER, lab, RT, psych nurse, licensed master social worker, senior analyst programmer, teacher, legal compliance officer, catalytic case operator)? Give summary @ -No Was smoking cessation discussed for >3mins.? @ -No Was critical care preformed (if so, how long)? @ -No Were there social determinants of health that impacted care today? How? (Homelessness, low income, unemployed, alcoholism, drug addiction, transportation, low edu. Level, literacy, decrease access to med. care, halfway, rehab)? @ -No Was there de-escalation of care discussed even if they declined (Discuss DNR or withdrawal of care, Hospice)? DNR status @ -No What co-morbidities impacted this encounter? (DM, HTN, Smoking, COPD, CAD, Cancer, CVA, ARF, Chemo, Hep., AIDS, mental health diagnosis, sleep apnea, morbid obesity)? @ -Restless leg, chronic pain Was patient admitted / discharged? Hospital course, mention meds given and route, prescriptions, significant lab abnormalities, going to OR and other pertinent info. @ -Upon arrival patient seen and evaluated in room 17. Thorough history and physical exam was performed. Patient administered pain control. She does have improvement in her symptoms. Patient be discharged home at this time. Instructed that she needs to follow-up with her primary care doctor for further pain refills. Patient discharged in stable condition Undiagnosed new problem with uncertain prognosis? @ -No Drug Therapy requiring intensive monitoring for toxicity (Heparin, Nitro, Insulin, Cardizem)? @ -No Were any procedures done? @ -No Diagnosis/symptom? @ -Acute exacerbation of chronic lower extremity pain, history of restless leg Acute, or Chronic, or Acute on Chronic? @ -Acute on chronic Uncomplicated (without systemic symptoms) or Complicated (systemic symptoms)? @ -Complicated Side effects of treatment? @ -No Exacerbation, Progression, or Severe Exacerbation? @ -Yes Poses a threat to life or bodily function? How? (Chest pain, USA, [place], pneumonia, PE, COPD, DKA, ARF, appy, cholecystitis, CVA, Diverticulitis, Homicidal, Suicidal, threat to staff... and all critical care pts) @ -No Disposition Clinical Impression: Restless leg, Neuropathy Disposition: HOME SELF-CARE Condition: Stable Instructions (If sedation given, give patient instructions): Restless Legs Syndrome (ED) Additional Instructions: Please follow-up with your pain management doctor for further management of your symptoms Is patient prescribed a controlled substance at d/c from ED?: No Referrals: Star Putnam DO [Primary Care Provider] - 1-2 days Time of Disposition: 06:37
[2023-12-01] MEDS: HYDROmorphone 1 MG/ML 1 ML SYRINGE IM STA (06:41)
[2023-12-01 07:04] VITALS: BP 140/79; PULSE 76
== END 2023-12-01 07:02 | disposition home or self-care (01) ==
LOC: EC 04:44
DX: G25.81 Restless legs syndrome (principal); G62.9 Polyneuropathy, unspecified; Z87.891 Personal history of nicotine dependence; Z91.030 Bee allergy status
CPT/HCPCS: 99283; 96372 ×2; J2270; J2360; J1170

== ENCOUNTER → 2023-12-06 | Outpatient (CLI) | payer MEDICARE ==
[2023-12-06 13:15] LABS: INR 0.9 (<1.2); Prothrombin Time 10.5 sec (10.0-12.5)
[2023-12-06 15:38] LABS: ALT 8 U/L (8-44); AST 20 U/L (13-35); Albumin 4.3 g/dL (3.8-4.9); Albumin/Globulin Ratio 1.95 Ratio (1.60-3.17); Alkaline Phosphatase 97 U/L (41-126); BUN/Creat Ratio 26.33 Ratio (12.00-20.00); Blood Urea Nitrogen 23.7 mg/dL (9.0-27.0); Calcium 9.3 mg/dL (8.7-10.3); Carbon Dioxide 29.9 mmol/L (21.6-31.8); Chloride 99 mmol/L (96-109); Globulin 2.2 g/dL (1.6-3.3); Glucose 88 mg/dL (70-110); Potassium 5.1 mmol/L (3.5-5.5); Sodium 139 mmol/L (135-145); Total Bilirubin 0.4 mg/dL (0.3-1.2); Total Protein 6.5 g/dL (6.2-8.2)
[2023-12-06 16:17] LABS: MCH 30.5 pg (27.0-32.0); MCHC 30.6 g/dL (32.0-37.0); MCV 99.7 FL (80.0-97.0); Mean Platelet Volume 10.1 FL (9.5-12.2); NRBC Per 100 WBC 0 X 10*3/uL (0.00-0.01); Platelet Count 234 X 10*3/uL (140-440); RBC 3.61 X 10*6/uL (4.10-5.20); RDW 13.4 % (11.5-14.5); WBC 4.42 X 10*3/uL (4.50-10.00)
== END | disposition home or self-care (01) ==
LOC: LABPAT 12:25
PROVIDERS: ATTEND Orthopaedic Surgery
DX: Z01.812 Encounter for preprocedural laboratory examination (principal); M16.11 Unilateral primary osteoarthritis, right hip; Z22.322 Carrier or suspected carrier of Methicillin resistant Staphylococcus aureus
CPT/HCPCS: 36415; 80053; 85027; 85610; 85730; 86850; 86900; 86901; 87070

== ENCOUNTER → 2023-12-11 | Outpatient (CLI) | payer MEDICARE ==
--- NOTE | 2023-12-11 14:06 | XR ---
EXAMINATION TYPE: XR knee complete RT DATE OF EXAM: 12/11/2023 CLINICAL HISTORY: pain TECHNIQUE: Three views of the right knee are obtained. COMPARISON: None. FINDINGS: There is no acute fracture/dislocation. The tri-compartment joint spaces appear severely narrowed. Osteopenia. The overlying soft tissue appears unremarkable. IMPRESSION: There is no acute fracture or dislocation.ICD 10 NO FRACTURE, INITIAL EVALUATION
--- NOTE | 2023-12-11 15:26 | XR ---
EXAMINATION TYPE: XR chest 2V DATE OF EXAM: 12/11/2023 COMPARISON: 10/01/2023 TECHNIQUE: PA and lateral views submitted. HISTORY: COPD FINDINGS: The lungs are clear and there is no pneumothorax, pleural effusion, or focal pneumonia. Heart size normal and no overt failure. Osseous structures demonstrate hypertrophic and degenerative changes of the spine. Diffuse emphysematous changes. Atherosclerotic changes of aorta. Surgical changes in the c ervical spine. Biapical pleural thickening. IMPRESSION: 1. No acute process. COPD.
== END | disposition home or self-care (01) ==
LOC: RADXRMAIN 12:40
PROVIDERS: ATTEND Internal Medicine
DX: J43.9 Emphysema, unspecified (principal); M25.561 Pain in right knee
CPT/HCPCS: 71046

== ENCOUNTER 2024-01-22 04:34 | Observation (INO) | payer MEDICARE ==
--- NOTE | 2024-01-22 04:57 | ED ---
General Adult HPI - General Chief complaint: Extremity Injury, Lower Stated complaint: Leg Pain Time Seen by Provider: 01/22/24 04:38 Source: patient, EMS, RN notes reviewed, old records reviewed Mode of arrival: EMS Limitations: no limitations - History of Present Illness Initial comments: Patient is a 78-year-old female with past medical history remarkable for chronic right hip and leg pain, hypertension, and edema of the lower extremities. He is chronically on morphine and gabapentin at home but states she ran out of both medications. Presents for 2 primary complaints. Few hours prior to arrival patient had chest pain that was substernal lasting for about an hour. Poor historian regarding this but states that the pain subsided on its own. Currently has no chest pain. Denies shortness of breath. Denies nausea or vomiting or abdominal pain. Is complaining of right hip and leg pain. No acute injuries. No other acute complaints at this time. Presents for further evaluation at this time. The pain is her typical right leg pain. Radiates from the right hip into the posterior aspect of the right leg as well as over the right knee. Chronic lower extremity edema. No other acute complaints at this time.Chest pain described as tightness of the chest. Self resolved. No cardiac history. - Related Data Home Medications Medication Instructions Recorded Confirmed Atorvastatin [Lipitor] 10 mg PO DAILY 10/09/22 12/04/23 Propranolol [Inderal] 10 mg PO BID 10/09/22 12/04/23 Escitalopram [Lexapro] 10 mg PO HS 11/16/22 12/04/23 rOPINIRole HCL [Requip] 0.25 mg PO HS 11/16/22 12/04/23 Magnesium (Unknown Dose) 1 tab PO DAILY 12/04/23 12/04/23 Vitamin B Complex 1 each PO DAILY 12/04/23 12/04/23 Vitamin D (Unknown Dose) 1 tab PO DAILY 12/04/23 12/04/23 Previous Rx's Medication Instructions Recorded Pantoprazole Sodium [Protonix] 40 mg PO BID #60 tab 11/17/22 Furosemide [Lasix] 20 mg PO DAILY tab 07/16/23 Gabapentin 300 mg PO QID #12 cap 07/16/23 Morphine Sulfate Ir [MSIR] 15 mg PO BID #6 tab 07/16/23 polyethylene glycoL 3350 [Miralax] 17 gm PO DAILY packet 07/16/23 Allergies Allergy/AdvReac Type Severity Reaction Status Date / Time bee venom protein (honey bee) Allergy Anaphylaxis Verified 12/04/23 09:18 Review of Systems ROS Statement: Those systems with pertinent positive or pertinent negative responses have been documented in the HPI. Review of Systems: CONST: Denies fever EYES: Denies blurry vision ENT: Denies nasal congestion C/V: Denies Chest pain RESP: Denies shortness of breath GI: Denies abdominal pain : Denies dysuria SKIN: Denies rash. MSK: Endorses chronic leg pain NEURO: Denies headache ROS Other: All systems not noted in ROS Statement are negative. Past Medical History Past Medical History: Cancer, Hypertension, Osteoarthritis (OA) Additional Past Medical History / Comment(s): throat ca History of Any Multi-Drug Resistant Organisms: ESBL Date of last positivie culture/infection: 05/30/23 MDRO Source:: Urine Past Surgical History: Cholecystectomy, Orthopedic Surgery Additional Past Surgical History / Comment(s): cervical fusion, plate in right ankle Past Anesthesia/Blood Transfusion Reactions: No Reported Reaction Past Psychological History: Depression Smoking Status: Former smoker Past Alcohol Use History: None Reported Past Drug Use History: None Reported - Past Family History Mother Family Medical History: COPD General Exam - General Exam Comments Initial Comments: General: Appears in mild to moderate distress secondary to right leg pain. HEAD: Normal with no signs of head trauma. EYES: PERRLA, EOMI, conjunctiva normal, no discharge. ENT: Hearing grossly intact, normal oropharynx. RESPIRATORY: Clear breath sounds bilaterally. No wheezes, rales, or rhonchi. C/V: Regular rate and rhythm. S1 and S2 auscultated, chronic symmetrical bilateral lower extremity pitting edema. Peripheral pulses 2+ and intact throughout ABD: Abd is soft, nontender, nondistended EXT: Normal range of motion, no obvious deformity. Tenderness to palpation over the lateral aspect of the right hip. Patient has some radiating pain down the right leg. Deformities. SKIN: No rashes or lesions observed on exposed skin. NEURO: Alert and oriented x 4. Limitations: no limitations Course Vital Signs 01/22/24 01/22/24 01/22/24 04:35 05:43 06:46 Temperature 97.2 F L Pulse Rate 76 72 71 Respiratory 16 18 18 Rate Blood Pressure 177/89 170/105 112/55 O2 Sat by Pulse 96 96 93 L Oximetry Medical Decision Making - Medical Decision Making Was pt. sent in by a medical professional or institution (LOUISA Ackerman, POULTRY HUSBANDMAN, urgent care, hospital, or usp...) When possible be specific @ -No Did you speak to anyone other than the patient for history (EMS, parent, family, police, friend...)? What history was obtained from this source @ -No Did you review nursing and triage notes (agree or disagree)? Why? @ -I reviewed and agree with nursing and triage notes Were old charts reviewed (outside hosp., previous admission, EMS record, old EKG, old radiological studies, urgent care reports/EKG's, usp records)? Report findings @ -No old charts were reviewed Differential Diagnosis (chest pain, altered mental status, abdominal pain women, abdominal pain men, vaginal bleeding, weakness, fever, dyspnea, syncope, headache, dizziness, GI bleed, back pain, seizure, CVA, palpatations, mental health, musculoskeletal)? @ -Differential Musculoskeletal Muscular strain, contusion, ligament sprain, fracture, arthritis, septic arthritis, bursitis, cellulitis, muscle spasm, nerve compression, DVT, arterial occlusion, herpes zoster, electrolyte abnormality, tumor.... This is not meant to be in all inclusive list Differential Chest Pain: Stable Angina, Unstable Angina, STEMI, NSTEMI Aortic Dissection, Pneumothorax, Musculoskeletal, Esophageal Spasm GERD, Cholecystitis, Pancreatitis, Zoster, this is not meant to be an all-inclusive list. EKG interpreted by me (3pts min.). @ -As above X-rays interpreted by me (1pt min.). @ - Chest X-ray and pelvis x-ray negative for any obvious acute traumatic findings or injuries. No obvious acute cardiopulmonary process. CT interpreted by me (1pt min.). @ -CT of the hip shows chronic degenerative changes. U/S interpreted by me (1pt. min.). @ -None done What testing was considered but not performed or refused? (CT, X-rays, U/S, labs)? Why? @ -None What meds were considered but not given or refused? Why? @ -None Did you discuss the management of the patient with other professionals (professionals i.e. LOUISA Ackerman, POULTRY HUSBANDMAN, lab, RT, psych nurse, administrator social welfare, asbestos surveyor, teacher, staff antisubmarine officer, correctional casework specialist)? Give summary @ -I spoke with the admitting team, [facility] who accepted the admission. Was smoking cessation discussed for >3mins.? @ -No Was critical care preformed (if so, how long)? @ -No Were there social determinants of health that impacted care today? How? (Homelessness, low income, unemployed, alcoholism, drug addiction, transportation, low edu. Level, literacy, decrease access to med. care, group home, rehab)? @ -No Was there de-escalation of care discussed even if they declined (Discuss DNR or withdrawal of care, Hospice)? DNR status @ -No What co-morbidities impacted this encounter? (DM, HTN, Smoking, COPD, CAD, Cancer, CVA, ARF, Chemo, Hep., AIDS, mental health diagnosis, sleep apnea, morbid obesity)? @ -None Was patient admitted / discharged? Hospital course, mention meds given and route, prescriptions, significant lab abnormalities, going to OR and other pertinent info. @ -Based on the patient's presentation and physical exam, patient presents emergency department complaining of resolved chest pain as well as right leg and hip pain. The right leg pain is chronic and she has run out of her pain medications. States the chest pain resolved prior to arrival but it was substernal. Lasted for about an hour. States it was mild. Poor historian regarding it otherwise. Primarily concerned regarding her right hip and leg pain. Vitals are within acceptable limits. We will obtain cardiac workup as well as right hip imaging. Patient will be given analgesia medications . Patient in agreement this plan. Imaging shows no signs of acute process. Laboratory studies are unremarkable including undetectable troponin. EKG unremarkable. On reevaluation, patient remains chest pain-free. Is not concerned regarding this. Still complaining of right leg and knee pain which is chronic. She reiterates that she had no trauma. Awoke and is out of her normal medications which is why she called EMS. Patient will be given doses of IV Dilaudid as well as normal dose of her gabapentin. She was in agreement this plan. CT imaging revealed the chronic degenerative changes with no obvious acute findings. Patient was updated of these findings. She lives by herself, ambulates with a walker at baseline which she does not have currently, and is still on a significant amount of pain. Is out of her normal pain medications at home. I am concerned with discharge due to her age and fall risk. Patient will be admitted to observation at this time for pain control and evaluation by physical therapy. She was in agreement this plan. I spoke with the admitting team, [facility] who accepted the admission. Undiagnosed new problem with uncertain prognosis? @ -No Drug Therapy requiring intensive monitoring for toxicity (Heparin, Nitro, Insulin, Cardizem)? @ -No Were any procedures done? @ -No Diagnosis/symptom? @ -Chronic pain, debility Acute, or Chronic, or Acute on Chronic? @ -Acute on chronic Uncomplicated (without systemic symptoms) or Complicated (systemic symptoms)? @ -Complicated Side effects of treatment? @ -None Exacerbation, Progression, or Severe Exacerbation] @ -No Poses a threat to life or bodily function? @ -Potentially, yes as she is a fall risk. - Lab Data Result diagrams: 01/22/24 04:58 01/22/24 04:58 Lab Results 01/22/24 01/22/24 01/22/24 Range/Units 04:58 04:58 04:58 WBC 6.1 (3.8-10.6) k/uL RBC 3.91 (3.80-5.40) m/uL Hgb 12.1 (11.4-16.0) gm/dL Hct 37.2 (34.0-46.0) % MCV 95.2 (80.0-100.0) fL MCH 31.0 (25.0-35.0) pg MCHC 32.6 (31.0-37.0) g/dL RDW 13.4 (11.5-15.5) % Plt Count 232 (150-450) k/uL MPV 7.6 Neutrophils % 68 % Lymphocytes % 18 % Monocytes % 9 % Eosinophils % 3 % Basophils % 1 % Neutrophils # 4.1 (1.3-7.7) k/uL Lymphocytes # 1.1 (1.0-4.8) k/uL Monocytes # 0.6 (0-1.0) k/uL Eosinophils # 0.2 (0-0.7) k/uL Basophils # 0.0 (0-0.2) k/uL PT 10.3 (10.0-12.5) sec INR 0.9 (<1.2) APTT 22.2 (22.0-30.0) sec Sodium 138 (137-145) mmol/L Potassium 3.9 (3.5-5.1) mmol/L Chloride 102 (98-107) mmol/L Carbon Dioxide 32 H (22-30) mmol/L Anion Gap 4 mmol/L BUN 23 H (7-17) mg/dL Creatinine 0.91 (0.52-1.04) mg/dL Est GFR (CKD-EPI)AfAm 69 (>60 ml/min/1.73 sqM) Est GFR (CKD-EPI)NonAf 60 (>60 ml/min/1.73 sqM) Glucose 118 H (74-99) mg/dL Calcium 9.7 (8.4-10.2) mg/dL Magnesium 2.1 (1.6-2.3) mg/dL Total Bilirubin 0.7 (0.2-1.3) mg/dL AST 26 (14-36) U/L ALT 13 (4-34) U/L Alkaline Phosphatase 83 (38-126) U/L Troponin I (0.000-0.034) ng/mL NT-Pro-B Natriuret Pep 496 pg/mL Total Protein 6.8 (6.3-8.2) g/dL Albumin 4.4 (3.5-5.0) g/dL 01/22/24 Range/Units 04:58 WBC (3.8-10.6) k/uL RBC (3.80-5.40) m/uL Hgb (11.4-16.0) gm/dL Hct (34.0-46.0) % MCV (80.0-100.0) fL MCH (25.0-35.0) pg MCHC (31.0-37.0) g/dL RDW (11.5-15.5) % Plt Count (150-450) k/uL MPV Neutrophils % % Lymphocytes % % Monocytes % % Eosinophils % % Basophils % % Neutrophils # (1.3-7.7) k/uL Lymphocytes # (1.0-4.8) k/uL Monocytes # (0-1.0) k/uL Eosinophils # (0-0.7) k/uL Basophils # (0-0.2) k/uL PT (10.0-12.5) sec INR (<1.2) APTT (22.0-30.0) sec Sodium (137-145) mmol/L Potassium (3.5-5.1) mmol/L Chloride (98-107) mmol/L Carbon Dioxide (22-30) mmol/L Anion Gap mmol/L BUN (7-17) mg/dL Creatinine (0.52-1.04) mg/dL Est GFR (CKD-EPI)AfAm (>60 ml/min/1.73 sqM) Est GFR (CKD-EPI)NonAf (>60 ml/min/1.73 sqM) Glucose (74-99) mg/dL Calcium (8.4-10.2) mg/dL Magnesium (1.6-2.3) mg/dL Total Bilirubin (0.2-1.3) mg/dL AST (14-36) U/L ALT (4-34) U/L Alkaline Phosphatase (38-126) U/L Troponin I <0.012 (0.000-0.034) ng/mL NT-Pro-B Natriuret Pep pg/mL Total Protein (6.3-8.2) g/dL Albumin (3.5-5.0) g/dL - EKG Data -: EKG Interpreted by Me EKG Comments: 12-lead Electrocardiogram Interpretation Note EKG was reviewed and interpreted by myself. 12-lead ECG performed at 0452 is interpreted by me as revealing normal sinus rhythm at a rate of 78 beats per minute. Indeterminate axis. MI interval is 183 ms, QRS duration is 134 ms, QTc is 451 ms. Patient has chronic left bundle branch block. There were no ST or T wave abnormalities to suggest myocardial ischemia or injury. R wave progression across the precordium was satisfactory. By my interpretation this EKG is non- diagnostic for acute ischemia. Disposition Clinical Impression: Chronic hip pain, Debility Disposition: ADMITTED IP TO THIS HOSP Condition: Stable Referrals: Marie Arrieta NPC [Primary Care Provider] - 1-2 days Time of Disposition: 06:55
[2024-01-22] MEDS: MORPHINE SULFATE 4 MG/ML SYRINGE IV STA (05:02)
[2024-01-22 05:08] LABS: Basophils % (A) 1 %; Eosinophils # (A) 0.2 k/uL (0-0.7); Eosinophils % (A) 3 %; HCT 37.2 % (34.0-46.0); HGB 12.1 gm/dL (11.4-16.0); Lymphocytes # (A) 1.1 k/uL (1.0-4.8); Lymphocytes % (A) 18 %; MCHC 32.6 g/dL (31.0-37.0); MCV 95.2 fL (80.0-100.0); Mean Platelet Volume 7.6; Monocytes # (A) 0.6 k/uL (0-1.0); Monocytes % (A) 9 %; Neutrophils # (A) 4.1 k/uL (1.3-7.7); Neutrophils % (A) 68 %; Platelet Count 232 k/uL (150-450); RBC 3.91 m/uL (3.80-5.40); RDW 13.4 % (11.5-15.5); WBC 6.1 k/uL (3.8-10.6)
[2024-01-22 05:18] LABS: INR 0.9 (<1.2); Partial Thromboplastin Time 22.2 sec (22.0-30.0); Prothrombin Time 10.3 sec (10.0-12.5)
[2024-01-22 05:20] LABS: ALT 13 U/L (4-34); AST 26 U/L (14-36); African American GFR (CKD) 69 (>60 ml/min/1.73 sqM); Albumin 4.4 g/dL (3.5-5.0); Alkaline Phosphatase 83 U/L (38-126); Anion Gap 4 mmol/L; Blood Urea Nitrogen 23 mg/dL (7-17); Calcium 9.7 mg/dL (8.4-10.2); Carbon Dioxide 32 mmol/L (22-30); Chloride 102 mmol/L (98-107); Glucose 118 mg/dL (74-99); Magnesium 2.1 mg/dL (1.6-2.3); Non-African American GFR(CKD) 60 (>60 ml/min/1.73 sqM); Potassium 3.9 mmol/L (3.5-5.1); Sodium 138 mmol/L (137-145); Total Bilirubin 0.7 mg/dL (0.2-1.3); Total Protein 6.8 g/dL (6.3-8.2)
[2024-01-22 05:28] LABS: NT-Pro-B-Type Natriuretic Pept 496 pg/mL
[2024-01-22] MEDS: KETOROLAC 15 MG/ML 1 ML VIAL IVP STA (05:38)
--- NOTE | 2024-01-22 05:38 | XR ---
EXAMINATION TYPE: XR pelvis AP view DATE OF EXAM: 01/22/2024 CLINICAL HISTORY: Pelvic and right hip pain TECHNIQUE: A single AP view of the pelvis is obtained. COMPARISON: CT abdomen and pelvis September 30, 2023 FINDINGS: There is no acute fracture/dislocation evident in the pelvis. Partially subluxed right hip joint with advanced narrowing and [id number] appearance is redemonstrated. There is subchondral cy stic change and spurring redemonstrated. There is slightly less prominent but advanced narrowing and spurring in the left hip joint. Pubic symphysis is intact. Surgical clips in the bilateral pelvis are redemonstrated. Loss of spherical shape to right femoral head redemonstrated. IMPRESSION: There are advanced degenerative changes in both hips right greater than left redemonstra axel. No significant change from most recent prior CT.
--- NOTE | 2024-01-22 05:39 | XR ---
EXAMINATION TYPE: XR chest 2V DATE OF EXAM: 01/22/2024 COMPARISON: Chest x-ray December 11, 2023 HISTORY: Chest pain TECHNIQUE: Frontal and lateral views of the chest are obtained. FINDINGS: There is chronic emphysematous change without suspicious focal air space opacity, pleural effusion, or pneumothorax seen. The cardiac silhouette size remains within normal limits with athero sclerotic change in the aortic knob redemonstrated. Anterior fusion plate in the lower cervical spine is again seen. IMPRESSION: Chronic emphysematous change without acute pulmonary process.
[2024-01-22] MEDS: HYDROmorphone 0.5 MG/0.5 ML SYRINGE IVP STA ×2 (05:45→06:14)
[2024-01-22] MEDS: GABAPENTIN 300 MG CAP PO STA (05:48)
--- NOTE | 2024-01-22 06:45 | CT ---
EXAMINATION TYPE: CT hip RT wo con DATE OF EXAM: 01/22/2024 COMPARISON: CT abdomen and pelvis September 30, 2023 HISTORY: increasing right leg and hip pain. no trauma or injury CT DLP: 343 mGycm Automated exposure control for dose reduction was used. FINDINGS: Persistent advanced degenerative change in the right hip. There is advanced narrowing with bone-on-hailey ne appearance. There is extensive subchondral cystic change. There is loss of cervical shape to the r ight femoral head redemonstrated. There is severe head and neck collar spurring. There is superior an d lateral positioning of the femoral head relative to the acetabulum redemonstrated. No acute displac ed fracture in the right hip. IMPRESSION: Advanced degenerative changes in right hip redemonstrated. No acute fracture or dislocati on seen.
[2024-01-22] MEDS ORDERED: NALOXONE 0.4 MG/ML 1 ML VIAL IV PRN (07:18)
[2024-01-22] MEDS: polyethylene glycoL 3350 17 GM POWD.PACK PO SCH (09:14)
[2024-01-22] MEDS: ASPIRIN 81 MG PO SCH (09:14)
[2024-01-22] MEDS: ATORVASTATIN 10 MG TAB PO SCH (09:14)
[2024-01-22] MEDS: FUROSEMIDE 20 MG TAB PO SCH (09:15)
[2024-01-22] MEDS: PANTOPRAZOLE 40 MG TABLET PO SCH (09:15)
[2024-01-22] MEDS: PROPRANOLOL 10 MG TAB PO SCH (09:16)
[2024-01-22] MEDS: HEPARIN SODIUM,PORCINE 5,000 UNIT/ML 1 ML VIAL SQ SCH (09:16)
--- NOTE | 2024-01-22 10:49 | P.HPIM ---
History of Present Illness H&P Date: 01/22/24 History of Presenting Illness: Patient is a very pleasant 78-year-old female with a past medical history of esophageal cancer, hypertension, hyperlipidemia, depression, and chronic lower back pain with radiculopathies. She presented to the emergency department for reports of acute on chronic right hip and leg pain and an isolated episode of chest pain. Patient reports she is on morphine sulfate, gabapentin and Requip at home for chronic pain but states pain has significantly worsened resulting in her inability to ambulate independently. Patient reports baseline she does ambulate with a walker, but states she lives at home alone and is unable to ambulate secondary to this worsening chronic pain. Patient states she experienc ed an isolated episode of chest pain/discomfort just prior to coming to the hospital but states this only lasted a brief time less than 1 hour, going away without any intervention and has remained subsided since arrival to the hospital and has not returned. Patient reports her pain is in her lower back/right hip and radiates down right leg. She currently reports pain is 8 out of 10 at this time and states pain is constant. She denies having any headache, lightheadedness, dizziness, palpitations, shortness of breath, cough or congestion, nausea, vomiting, abdominal pain, or experiencing any focal numbness/weakness in her extremities. Patient denies having any involuntary loss of bowel or bladder. On arrival to our facility, patient underwent evaluation in the emergency department. Vital signs upon arrival show blood pressure 177/89, heart rate 76, respiratory rate 16, temp 97.2 F, and SpO2 of 96% on room air. EKG was completed showing normal sinus rhythm at 78 bpm with no noted T wave or ST abnormalities showing no signs of acute ischemia upon personal review and interpretation. Chest x-ray completed showing chronic emphysematous changes negative for acute cardiopulmonary process. X-ray pelvis showing advanced degenerative changes in both hips right greater than left but negative for acute fracture or dislocation. CT right hip then completed again showing advanced degenerative changes in right hip redemonstrated and negative for acute fracture or dislocation. Labs completed and reviewed. CBC and coagulation profile unremarkable. BMP showing mild hypercarbia with bicarb of 32 and elevated BUN of 23. Blood glucose 118. Magnesium 2.1. Liver profile unremarkable. Troponin less than 0.012. proBNP 496. Attempts were made to ambulate patient in the ER unsuccessful, patient admitted under our services with consultation to orthopedic surgery team secondary to her inability to bear weight and ambulate independently. Review of systems: Pertinent positives and negatives as discussed in HPI, a complete review of systems was performed and all other systems are negative. Physical exam: Vital signs reviewed and stable. General: Nontoxic, no distress and appears stated age. Derm: Skin warm and dry, normal coloration for ethnicity. Head: Atraumatic, normocephalic and symmetric. Eyes: EOM's intact, no lid lag, and anicteric sclera Mouth: no lip lesions, mucus membranes moist Cardiovascular: regular rate and rhythm with normal S1S2, no murmur, positive posterior tibial pulses bilaterally, and cap refill < 2 seconds. Lungs: Respirations even, regular, and unlabored on room air. Lungs CTA bilaterally, no rhonchi, no rales, no wheezing, and no accessory muscle usage. Abdominal: soft, nontender to palpation, no guarding, no appreciable organomegaly Ext: ROM intact. No gross muscle atrophy, no edema, no contractures Neuro: Speech clear, face symmetrical and CN II-XII grossly intact with no noted focal neuro deficits Psych: Alert and oriented to person, place, time, and situation. Appropriate and pleasant affect. Assessment and Plan of Care: Acute on chronic right hip pain with right sided radiculopathy -Patient admitted to observation unit secondary to inability to ambulate independently and likely need for placement in SNF. -Consult placed to orthopedic surgery team -Consult placed to PT/OT for evaluation -Consult placed to case management for assistance with possible placement -Symptomatic care and pain management with gabapentin 300 mg 4 times daily, Requ ip 0.5 mg nightly, and Dilaudid 0.5 mg every 3 hours as needed for severe pain. -Fall precautions in place. Transient episode of chest pain Hypertension Hyperlipidemia -Patient reports experiencing a transient episode of chest pain occurring overnight prior to arrival to hospital. Patient reports chest pain fully resolved without intervention and has not returned since arrival to our facility. -EKG showing sinus mechanism, initial troponin negative. -Will keep patient on telemetry monitoring and repeat troponin x 1. -Patient to continue cardiac medication regimen with aspirin 81 mg daily, atorvastatin 10 mg nightly, furosemide 20 mg daily, and propranolol 10 mg twice daily. -Repeat troponin is negative and patient experiences no further episodes of chest pain, no need for further cardiac workup or evaluation by para operator at this time. If chest pain returns, patient will need consult placed for evaluation by para operator. Data and imaging reviewed: As stated above in HPI CODE STATUS: Full code DVT prophylaxis: Heparin Anticipated discharge date: 24 to [address]: Home with home care versus SNF pending evaluation by PT/OT Patient was seen independently by Nurse Practitioner. This document was prepared using [employer] dictation software. Please allow for errors in flight service specialist while rare they do occur. Luis Phelps NP rendered care for this patient independently, reviewed the findings and plan as documented in the note above. I did not physically speak with or examine the patient on this date. Past Medical History Past Medical History: Cancer, Hypertension, Osteoarthritis (OA) Additional Past Medical History / Comment(s): throat ca History of Any Multi-Drug Resistant Organisms: ESBL Date of last positivie culture/infection: 05/30/23 MDRO Source:: Urine Past Surgical History: Cholecystectomy, Orthopedic Surgery Additional Past Surgical History / Comment(s): cervical fusion, plate in right ankle Past Anesthesia/Blood Transfusion Reactions: No Reported Reaction Past Psychological History: Depression Smoking Status: Former smoker Past Alcohol Use History: None Reported Past Drug Use History: None Reported - Past Family History Mother Family Medical History: COPD Medications and Allergies Home Medications Medication Instructions Recorded Confirmed Type Atorvastatin [Lipitor] 10 mg PO DAILY 10/09/22 01/22/24 History Propranolol [Inderal] 10 mg PO BID 10/09/22 01/22/24 History Escitalopram [Lexapro] 10 mg PO HS 11/16/22 01/22/24 History rOPINIRole HCL [Requip] 0.25 mg PO HS 11/16/22 01/22/24 History Pantoprazole Sodium [Protonix] 40 mg PO BID #60 tab 11/17/22 01/22/24 Rx Furosemide [Lasix] 20 mg PO DAILY tab 07/16/23 01/22/24 Rx Gabapentin 300 mg PO QID #12 cap 07/16/23 01/22/24 Rx Morphine Sulfate Ir [MSIR] 15 mg PO BID #6 tab 07/16/23 01/22/24 Rx Magnesium (Unknown Dose) 1 tab PO DAILY 12/04/23 01/22/24 History Vitamin B Complex 1 cap PO DAILY 12/04/23 01/22/24 History Vitamin D (Unknown Dose) 1 tab PO DAILY 12/04/23 01/22/24 History Albuterol Sulfate [Albuterol 2 puff PO RT-QID PRN 01/22/24 01/22/24 History Sulfate Hfa] Fluticasone/Umeclidin/Vilanter 1 puff INHALATION RT-DAILY 01/22/24 01/22/24 History [Trelegy Ellipta 200-62.5-25] Levothyroxine Sodium [Synthroid] 88 mcg PO DAILY 01/22/24 01/22/24 History Vitamin B-12 ([place]) 1 tab PO DAILY 01/22/24 01/22/24 History Allergies Allergy/AdvReac Type Severity Reaction Status Date / Time bee venom protein (honey bee) Allergy Anaphylaxis Verified 01/22/24 11:26 Physical Exam Vitals: Vital Signs Temp Pulse Resp BP Pulse Ox 01/22/24 07:37 98 F 70 20 125/62 94 L 01/22/24 06:46 71 18 112/55 93 L 01/22/24 05:43 72 18 170/105 96 01/22/24 04:35 97.2 F L 76 16 177/89 96 Intake and Output 01/21/24 01/22/24 01/22/24 22:59 06:59 14:59 Other: Weight 47.627 kg Results CBC & Chem 7: 01/22/24 04:58 01/22/24 04:58 Labs: Abnormal Lab Results - Last 24 Hours (Table) 01/22/24 Range/Units 04:58 Carbon Dioxide 32 H (22-30) mmol/L BUN 23 H (7-17) mg/dL Glucose 118 H (74-99) mg/dL
[2024-01-22] MEDS: GABAPENTIN 300 MG CAP PO SCH (12:25)
[2024-01-22] MEDS: HYDROmorphone 0.5 MG/0.5 ML SYRINGE IVP PRN (12:25)
[2024-01-23 08:45] LABS: Basophils # (A) 0.06 X 10*3/uL (0.00-0.10); Basophils % (A) 1.2 %; Eosinophils # (A) 0.18 X 10*3/uL (0.04-0.35); Eosinophils % (A) 3.7 %; HCT 33.8 % (37.2-46.3); HGB 10.7 g/dL (12.0-15.0); Lymphocytes # (A) 1.13 X 10*3/uL (0.90-5.00); Lymphocytes % (A) 23.1 %; MCHC 31.7 g/dL (32.0-37.0); Monocytes # (A) 0.67 X 10*3/uL (0.20-1.00); Monocytes % (A) 13.7 %; NRBC Per 100 WBC 0 X 10*3/uL (0.00-0.01); Neutrophils # (A) 2.84 X 10*3/uL (1.80-7.70); Neutrophils % (A) 58.1 %; Platelet Count 181 X 10*3/uL (140-440); RBC 3.45 X 10*6/uL (4.10-5.20); RDW 13.3 % (11.5-14.5); WBC 4.89 X 10*3/uL (4.50-10.00)
[2024-01-23 09:02] LABS: ALT 10 U/L (8-44); AST 18 U/L (13-35); Albumin 3.5 g/dL (3.8-4.9); Albumin/Globulin Ratio 1.84 Ratio (1.60-3.17); Alkaline Phosphatase 72 U/L (41-126); Blood Urea Nitrogen 22.2 mg/dL (9.0-27.0); Calcium 9.1 mg/dL (8.7-10.3); Carbon Dioxide 30.2 mmol/L (21.6-31.8); Chloride 102 mmol/L (96-109); Globulin 1.9 g/dL (1.6-3.3); Glucose 97 mg/dL (70-110); Potassium 4.3 mmol/L (3.5-5.5); Sodium 142 mmol/L (135-145); Total Bilirubin 0.4 mg/dL (0.3-1.2); Total Protein 5.4 g/dL (6.2-8.2)
--- NOTE | 2024-01-23 14:16 | P.PN ---
Subjective Progress Note Date: 01/23/24 Hospital Course: Patient is a very pleasant 78-year-old female with a past medical history of esophageal cancer, hypertension, hyperlipidemia, depression, and chronic lower back pain with radiculopathies. She presented to the emergency department for reports of acute on chronic right hip and leg pain and an isolated episode of chest pain. Patient reports she is on morphine sulfate, gabapentin and Requip at home for chronic pain but states pain has significantly worsened resulting in her inability to ambulate independently. Patient reports baseline she does ambulate with a walker, but states she lives at home alone and is unable to ambulate secondary to this worsening chronic pain. Patient states she experienced an isolated episode of chest pain/discomfort just prior to coming to the hospital but states this only lasted a brief time less than 1 hour, going away without any intervention and has remained subsided since arrival to the hospital and has not returned. Patient reports her pain is in her lower back/right hip and radiates down right leg. She currently reports pain is 8 out of 10 at this time and states pain is constant. She denies having any headache, lightheadedness, dizziness, palpitations, shortness of breath, cough or congestion, nausea, vomiting, abdominal pain, or experiencing any focal numbness/weakness in her extremities. Patient denies having any involuntary loss of bowel or bladder. On arrival to our facility, patient underwent evaluation in the emergency department. Vital signs upon arrival show blood pressure 177/89, heart rate 76, respiratory rate 16, temp 97.2 F, and SpO2 of 96% on room air. EKG was completed showing normal sinus rhythm at 78 bpm with no noted T wave or ST abnormalities showing no signs of acute ischemia upon personal review and interpretation. Chest x-ray completed showing chronic emphysematous changes negative for acute cardiopulmonary process. X-ray pelvis showing advanced degenerative changes in both hips right greater than left but negative for acute fracture or dislocation. CT right hip then completed again showing advanced degenerative changes in right hip redemonstrated and negative for acute fracture or dislocation. Labs completed and reviewed. CBC and coagulation profile unremarkable. BMP showing mild hypercarbia with bicarb of 32 and elevated BUN of 23. Blood glucose 118. Magnesium 2.1. Liver profile unremarkable. Troponin less than 0.012. proBNP 496. Attempts were made to ambulate patient in the ER unsuccessful, patient admitted under our services with consultation to orthopedic surgery team secondary to her inability to bear weight and ambulate independently. Physical exam: Patient seen and fully evaluated at bedside, continues to report right sided pain with right-sided sciatica/radiculopathies. She denies having any other complaints or concerns at this time. Vital signs reviewed and stable. General: Nontoxic, no distress and appears stated age. Derm: Skin warm and dry, normal coloration for ethnicity. Head: Atraumatic, normocephalic and symmetric. Eyes: EOM's intact, no lid lag, and anicteric sclera Mouth: no lip lesions, mucus membranes moist Cardiovascular: regular rate and rhythm with normal S1S2, no murmur, positive posterior tibial pulses bilaterally, and cap refill < 2 seconds. Lungs: Respirations even, regular, and unlabored on room air. Lungs CTA bilaterally, no rhonchi, no rales, no wheezing, and no accessory muscle usage. Abdominal: soft, nontender to palpation, no guarding, no appreciable organomegaly Ext: ROM intact. No gross muscle atrophy, no edema, no contractures Neuro: Speech clear, face symmetrical and CN II-XII grossly intact with no noted focal neuro deficits Psych: Alert and oriented to person, place, time, and situation. Appropriate and pleasant affect. Assessment and Plan of Care: Acute on chronic right hip pain with right sided radiculopathy -Patient admitted to observation unit secondary to inability to ambulate independently and likely need for placement in SNF. -Consult placed to orthopedic surgery team -Consult placed to PT/OT for evaluation -Consult placed to case management for assistance with possible placement, disc ussed with case management working on SNF placement while awaiting insurance authorization. -Symptomatic care and pain management with gabapentin 300 mg 4 times daily, Requip 0.5 mg nightly, and Dilaudid 0.5 mg every 3 hours as needed for severe pain. -Fall precautions in place. Transient episode of chest pain Hypertension Hyperlipidemia -Patient reports experiencing a transient episode of chest pain occurring overnight prior to arrival to hospital. Patient reports chest pain fully resolved without intervention and has not returned since arrival to our facility. -EKG showing sinus mechanism, initial troponin negative. -Will keep patient on telemetry monitoring and repeat troponin x 1. -Patient to continue cardiac medication regimen with aspirin 81 mg daily, atorvastatin 10 mg nightly, furosemide 20 mg daily, and propranolol 10 mg twice daily. -Repeat troponin is negative and patient experiences no further episodes of chest pain, no need for further cardiac workup or evaluation by criminal justice social worker at this time. If chest pain returns, patient will need consult placed for evaluation by criminal justice social worker. Data and imaging reviewed: Reviewed and stable. Blood pressure 140/71, heart rate 73, respiratory rate 17, temp 97.8 F, and SpO2 of 97% on room air. Morning labs reviewed. CBC showing mild macrocytic anemia with hemoglobin of 10.7 and MCV of 98.0. BMP unremarkable. Liver profile normal findings with exception of mild hypoalbuminemia with albumin of 3.5. CODE STATUS: Full code DVT prophylaxis: Heparin Anticipated discharge date: Likely tomorrow, awaiting SNF placement and insurance authorization. Anticipated discharge place: SNF pending insurance authorization Patient was seen independently by Nurse Practitioner. This document was prepared using FaceTags dictation software. Please allow for errors in ham rolling machine operator while rare they do occur. Luis Phelps NP rendered care for this patient independently, reviewed the findings and plan as documented in the note above. I did not physically speak with or examine the patient on this date. Objective - Vital Signs Vital signs: Vital Signs Temp 97.8 F 01/23/24 07:00 Pulse 73 01/23/24 07:00 Resp 17 01/23/24 07:00 BP 140/71 01/23/24 07:00 Pulse Ox 97 01/23/24 07:00 FiO2 Intake & Output 01/22/24 01/23/24 01/23/24 18:59 06:59 18:59 Weight 47.627 kg Other: Voiding Method Toilet Bedpan Diaper # Voids 1 - Labs CBC & Chem 7: 01/23/24 05:02 01/23/24 05:02
--- NOTE | 2024-01-24 11:42 | P.PN ---
Subjective Progress Note Date: 01/24/24 Hospital Course: Patient is a very pleasant 78-year-old female with a past medical history of esophageal cancer, hypertension, hyperlipidemia, depression, and chronic lower back pain with radiculopathies. She presented to the emergency department for reports of acute on chronic right hip and leg pain and an isolated episode of chest pain. Patient reports she is on morphine sulfate, gabapentin and Requip at home for chronic pain but states pain has significantly worsened resulting in her inability to ambulate independently. Patient reports baseline she does ambulate with a walker, but states she lives at home alone and is unable to ambulate secondary to this worsening chronic pain. Patient states she experienced an isolated episode of chest pain/discomfort just prior to coming to the hospital but states this only lasted a brief time less than 1 hour, going away without any intervention and has remained subsided since arrival to the hospital and has not returned. Patient reports her pain is in her lower back/right hip and radiates down right leg. She currently reports pain is 8 out of 10 at this time and states pain is constant. She denies having any headache, lightheadedness, dizziness, palpitations, shortness of breath, cough or congestion, nausea, vomiting, abdominal pain, or experiencing any focal numbness/weakness in her extremities. Patient denies having any involuntary loss of bowel or bladder. On arrival to our facility, patient underwent evaluation in the emergency department. Vital signs upon arrival show blood pressure 177/89, heart rate 76, respiratory rate 16, temp 97.2 F, and SpO2 of 96% on room air. EKG was completed showing normal sinus rhythm at 78 bpm with no noted T wave or ST abnormalities showing no signs of acute ischemia upon personal review and interpretation. Chest x-ray completed showing chronic emphysematous changes negative for acute cardiopulmonary process. X-ray pelvis showing advanced degenerative changes in both hips right greater than left but negative for acute fracture or dislocation. CT right hip then completed again showing advanced degenerative changes in right hip redemonstrated and negative for acute fracture or dislocation. Labs completed and reviewed. CBC and coagulation profile unremarkable. BMP showing mild hypercarbia with bicarb of 32 and elevated BUN of 23. Blood glucose 118. Magnesium 2.1. Liver profile unremarkable. Troponin less than 0.012. proBNP 496. Attempts were made to ambulate patient in the ER unsuccessful, patient admitted under our services with consultation to orthopedic surgery team secondary to her inability to bear weight and ambulate independently. Patient is awaiting Physical exam: Patient seen and fully evaluated at bedside, continues to report right sided jarrett n with right-sided sciatica/radiculopathies. She reports she is eagerly awaiting placement in rehab. States she would much rather go home and take care of her dog but states she understands that she needs to get stronger before she can go home independently and her daughter has agreed to watch her dog for her. Patient denies having any other complaints or concerns at this time. Vital signs reviewed and stable. General: Nontoxic, no distress and appears stated age. Derm: Skin warm and dry, normal coloration for ethnicity. Head: Atraumatic, normocephalic and symmetric. Eyes: EOM's intact, no lid lag, and anicteric sclera Mouth: no lip lesions, mucus membranes moist Cardiovascular: regular rate and rhythm with normal S1S2, no murmur, positive posterior tibial pulses bilaterally, and cap refill < 2 seconds. Lungs: Respirations even, regular, and unlabored on room air. Lungs CTA bi laterally, no rhonchi, no rales, no wheezing, and no accessory muscle usage. Abdominal: soft, nontender to palpation, no guarding, no appreciable organomegaly Ext: ROM intact. No gross muscle atrophy, no edema, no contractures Neuro: Speech clear, face symmetrical and CN II-XII grossly intact with no noted focal neuro deficits Psych: Alert and oriented to person, place, time, and situation. Appropriate and pleasant affect. Assessment and Plan of Care: Acute on chronic right hip pain with right sided radiculopathy -Patient admitted to observation unit secondary to inability to ambulate independently and likely need for placement in SNF. -Orthopedic surgery team was consulted, appreciate recommendations. -PT/OT following, recommending discharge to SNF. -Consult placed to case management for assistance with possible placement, discussed with case management working on SNF placement while awaiting insurance authorization. -Symptomatic care and pain management with gabapentin 300 mg 4 times daily, Requ ip 0.5 mg nightly, and Dilaudid 0.5 mg every 3 hours as needed for severe pain. -Fall precautions in place. Transient episode of chest pain Hypertension Hyperlipidemia -Patient reports experiencing a transient episode of chest pain occurring prior to arrival to hospital. Patient reported chest pain fully resolved without intervention prior to arrival and has not returned since arrival to our facility. -EKG revealed sinus mechanism, troponins were negative. -Patient to continue cardiac medication regimen with aspirin 81 mg daily, atorvastatin 10 mg nightly, furosemide 20 mg daily, and propranolol 10 mg twice daily. Data and imaging reviewed: Vital signs reviewed and stable. Blood pressure 145/66, heart rate 60, respiratory rate 17, temp 98.0 F, and SpO2 of 96% on room air. Most recent labs reviewed. CBC showing mild macrocytic anemia with hemoglobin of 10.7 and MCV of 98.0. BMP unremarkable. Liver profile normal findings with exception of mild hypoalbuminemia with albumin of 3.5. CODE STATUS: Full code DVT prophylaxis: Heparin Anticipated discharge date: Patient is medically stable for discharge pending SNF placement and insurance authorization. Anticipated discharge place: SNF pending insurance authorization Patient was seen independently by Nurse Practitioner. This document was prepared using Dolphin dictation software. Please allow for errors in bindery machine feeder offbearer while rare they do occur. Luis Phelps NP rendered care for this patient independently, reviewed the findings and plan as documented in the note above. I did not physically speak with or examine the patient on this date. Objective - Vital Signs Vital signs: Vital Signs Temp 98 F 01/24/24 06:52 Pulse 60 01/24/24 06:52 Resp 17 01/24/24 06:52 BP 145/66 01/24/24 06:52 Pulse Ox 96 01/24/24 06:52 FiO2 Intake & Output 01/23/24 01/24/24 01/24/24 18:59 06:59 18:59 Other: Voiding Method Toilet Diaper # Voids 4 1 - Labs CBC & Chem 7: 01/23/24 05:02 01/23/24 05:02 Labs: Abnormal Lab Results - Last 24 Hours (Table) 01/23/24 01/23/24 Range/Units 05:02 05:02 RBC 3.45 L (4.10-5.20) X 10*6/uL Hgb 10.7 L (12.0-15.0) g/dL Hct 33.8 L (37.2-46.3) % MCV 98.0 H (80.0-97.0) FL MCHC 31.7 L (32.0-37.0) g/dL Est GFR (CKD-EPI) 46 L (>=60) Total Protein 5.4 L (6.2-8.2) g/dL Albumin 3.5 L (3.8-4.9) g/dL
--- NOTE | 2024-01-24 12:28 | P.CNOR ---
History of Present Illness - HPI Consult date: 01/24/24 History of present illness: This is a 78-year-old female who is admitted for chronic pain in the right hip and also for evaluation of chest pain. Orthopedics is consulted for further recommendations regarding right hip pain. Patient is known to [facility], and states that she has been scheduled for right total hip replacement in the past but was unable to proceed with surgery for various reasons she cannot recall. Patient states that the pain she is having now is consistent with her chronic right hip pain. Patient denies any fall or injury. Patient states that she is having difficulty ambulating due to the pain. Patient localizes her pain to the right-side groin that radiates down the front of the thigh to the right knee. Patient denies any fever/chills, chest pain, shortness breath, abdominal pain, numbness, weakness or tingling. Review of Systems See HPI. Past Medical History Past Medical History: Cancer, Hypertension, Osteoarthritis (OA) Additional Past Medical History / Comment(s): throat ca History of Any Multi-Drug Resistant Organisms: None Reported, ESBL Year Discovered:: 05/30/23 MDRO Source:: Urine Past Surgical History: Cholecystectomy, Orthopedic Surgery Additional Past Surgical History / Comment(s): cervical fusion, plate in right ankle Past Anesthesia/Blood Transfusion Reactions: No Reported Reaction Past Psychological History: Depression Smoking Status: Former smoker Past Alcohol Use History: None Reported Past Drug Use History: None Reported - Past Family History Mother Family Medical History: COPD Medications and Allergies Home Medications Medication Instructions Recorded Confirmed Type Atorvastatin [Lipitor] 10 mg PO DAILY 10/09/22 01/22/24 History Propranolol [Inderal] 10 mg PO BID 10/09/22 01/22/24 History Escitalopram [Lexapro] 10 mg PO HS 11/16/22 01/22/24 History rOPINIRole HCL [Requip] 0.25 mg PO HS 11/16/22 01/22/24 History Pantoprazole Sodium [Protonix] 40 mg PO BID #60 tab 11/17/22 01/22/24 Rx Furosemide [Lasix] 20 mg PO DAILY tab 07/16/23 01/22/24 Rx Gabapentin 300 mg PO QID #12 cap 07/16/23 01/22/24 Rx Morphine Sulfate Ir [MSIR] 15 mg PO BID #6 tab 07/16/23 01/22/24 Rx Magnesium (Unknown Dose) 1 tab PO DAILY 12/04/23 01/22/24 History Vitamin B Complex 1 cap PO DAILY 12/04/23 01/22/24 History Vitamin D (Unknown Dose) 1 tab PO DAILY 12/04/23 01/22/24 History Albuterol Sulfate [Albuterol 2 puff PO RT-QID PRN 01/22/24 01/22/24 History Sulfate Hfa] Fluticasone/Umeclidin/Vilanter 1 puff INHALATION RT-DAILY 01/22/24 01/22/24 History [Trelegy Ellipta 200-62.5-25] Levothyroxine Sodium [Synthroid] 88 mcg PO DAILY 01/22/24 01/22/24 History Vitamin B-12 ([place]) 1 tab PO DAILY 01/22/24 01/22/24 History Allergies Allergy/AdvReac Type Severity Reaction Status Date / Time bee venom protein (honey bee) Allergy Anaphylaxis Verified 01/22/24 11:26 Physical Examination On exam patient is resting comfortably in bed in no acute distress. Patient is alert and oriented 3. Right lower extremity: Patient is able to actively flex and extend the right hip and knee. There is pain in the groin with hip motion. Patient has full range of motion of the right foot and ankle. Sensation intact. Calf is soft and nontender to palpation. There is mild swelling of the right lower extremity. Neurovascular status and circulatory status are intact. Results X-ray report of the pelvis dated 01/22/2024 reveals: There are advanced degenerative changes in both hips right greater than left redemonstrated. No significant change from most recent prior CT. A CT report of the right hip dated 01/22/2024 shows: Advanced degenerative changes in the right hip redemonstrated. No acute fracture or dislocation seen. - Labs Labs: H & H 01/22/24 01/23/24 Range/Units 04:58 05:02 Hgb 12.1 10.7 L (11.4-16.0) gm/dL Hct 37.2 33.8 L (34.0-46.0) % Coagulation 01/22/24 Range/Units 04:58 INR 0.9 (<1.2) Result Diagrams: 01/23/24 05:02 01/23/24 05:02 Assessment and Plan (1) Osteoarthritis of right hip Current Visit: Yes Status: Acute Code(s): M16.11 - UNILATERAL PRIMARY OSTEOARTHRITIS, RIGHT HIP SNOMED Code(s): 607386111311078 (2) Chronic hip pain Current Visit: Yes Status: Acute Code(s): M25.559 - PAIN IN UNSPECIFIED HIP; G89.29 - OTHER CHRONIC PAIN SNOMED Code(s): 93519497 Plan: 1. X-rays and CT are reviewed revealing severe degenerative changes of the right hip. The patient's symptoms are consistent with hip arthritis and are chronic for her. There is no surgical intervention planned. Patient plans to be discharged to rehab. Patient is instructed to follow-up with Dr. Per Gilbert on an outpatient basis.
--- NOTE | 2024-01-25 16:32 | P.PN ---
Subjective Progress Note Date: 01/25/24 Hospital Course: Patient is a very pleasant 78-year-old female with a past medical history of esophageal cancer, hypertension, hyperlipidemia, depression, and chronic lower back pain with radiculopathies. She presented to the emergency department for reports of acute on chronic right hip and leg pain and an isolated episode of chest pain. Patient reports she is on morphine sulfate, gabapentin and Requip at home for chronic pain but states pain has significantly worsened resulting in her inability to ambulate independently. Patient reports baseline she does ambulate with a walker, but states she lives at home alone and is unable to ambulate secondary to this worsening chronic pain. Patient states she experienced an isolated episode of chest pain/discomfort just prior to coming to the hospital but states this only lasted a brief time less than 1 hour, going away without any intervention and has remained subsided since arrival to the hospital and has not returned. Patient reports her pain is in her lower back/right hip and radiates down right leg. She currently reports pain is 8 out of 10 at this time and states pain is constant. She denies having any headache, lightheadedness, dizziness, palpitations, shortness of breath, cough or congestion, nausea, vomiting, abdominal pain, or experiencing any focal numbness/weakness in her extremities. Patient denies having any involuntary loss of bowel or bladder. On arrival to our facility, patient underwent evaluation in the emergency department. Vital signs upon arrival show blood pressure 177/89, heart rate 76, respiratory rate 16, temp 97.2 F, and SpO2 of 96% on room air. EKG was completed showing normal sinus rhythm at 78 bpm with no noted T wave or ST abnormalities showing no signs of acute ischemia upon personal review and interpretation. Chest x-ray completed showing chronic emphysematous changes negative for acute cardiopulmonary process. X-ray pelvis showing advanced degenerative changes in both hips right greater than left but negative for acute fracture or dislocation. CT right hip then completed again showing advanced degenerative changes in right hip redemonstrated and negative for acute fracture or dislocation. Labs completed and reviewed. CBC and coagulation profile unremarkable. BMP showing mild hypercarbia with bicarb of 32 and elevated BUN of 23. Blood glucose 118. Magnesium 2.1. Liver profile unremarkable. Troponin less than 0.012. proBNP 496. Attempts were made to ambulate patient in the ER unsuccessful, patient admitted under our services with consultation to orthopedic surgery team secondary to her inability to bear weight and ambulate independently. Patient has been accepted to [facility] and awaiting insurance authorization at this time. Physical exam: Patient denies having any new complaints or concerns at this time. Vital signs reviewed and stable. General: Nontoxic, no distress and appears stated age. Derm: Skin warm and dry, normal coloration for ethnicity. Head: Atraumatic, normocephalic and symmetric. Eyes: EOM's intact, no lid lag, and anicteric sclera Mouth: no lip lesions, mucus membranes moist Cardiovascular: regular rate and rhythm with normal S1S2, no murmur, positive posterior tibial pulses bilaterally, and cap refill < 2 seconds. Lungs: Respirations even, regular, and unlabored on room air. Lungs CTA bilaterally, no rhonchi, no rales, no wheezing, and no accessory muscle usage. Abdominal: soft, nontender to palpation, no guarding, no appreciable organomegaly Ext: ROM intact. No gross muscle atrophy, no edema, no contractures Neuro: Speech clear, face symmetrical and CN II-XII grossly intact with no noted focal neuro deficits Psych: Alert and oriented to person, place, time, and situation. Appropriate and pleasant affect. Assessment and Plan of Care: Acute on chronic right hip pain with right sided radiculopathy -Patient admitted to observation unit secondary to inability to ambulate independently and likely need for placement in SNF. -Orthopedic surgery team was consulted, appreciate recommendations. -PT/OT following, recommending discharge to SNF. -Consult placed to case management for assistance with possible placement, discussed with case management stating patient has been accepted to [facility] and awaiting insurance authorization at this time.. -Symptomatic care and pain management with gabapentin 300 mg 4 times daily, Requip 0.5 mg nightly, and Dilaudid 0.5 mg every 3 hours as needed for severe pain. -Fall precautions in place. Transient episode of chest pain Hypertension Hyperlipidemia -Patient reports experiencing a transient episode of chest pain occurring prior to arrival to hospital. Patient reported chest pain fully resolved without intervention prior to arrival and has not returned since arrival to our facility. -EKG revealed sinus mechanism, troponins were negative. -Patient to continue cardiac medication regimen with aspirin 81 mg daily, atorvastatin 10 mg nightly, furosemide 20 mg daily, and propranolol 10 mg twice daily. Data and imaging reviewed: Vital signs reviewed and stable. Blood pressure 118/69, heart rate 56, respiratory rate 16, temp 98.3 F, and SpO2 of 95% on room air. CODE STATUS: Full code DVT prophylaxis: Heparin Anticipated discharge date: Patient is medically stable for discharge and has been accepted to [facility], currently awaiting insurance authorization. Anticipated discharge place: [facility] pending insurance authorization Patient was seen independently by Nurse Practitioner. This document was prepared using [employer] dictation software. Please allow for errors in vehicle body builder while rare they do occur. I reviewed the documentation as provided by the VIDAL above, who is the original author of this note. I agree with the documented assessment and plan, with the following changes: none Objective - Vital Signs Vital signs: Vital Signs Temp 98.3 F 01/25/24 07:19 Pulse 56 L 01/25/24 07:19 Resp 16 01/25/24 07:19 BP 118/69 01/25/24 07:19 Pulse Ox 95 01/25/24 07:19 FiO2 Intake & Output 01/24/24 01/25/24 01/25/24 18:59 06:59 18:59 Other: # Voids 1 # Bowel Movements 1 - Labs CBC & Chem 7: 01/23/24 05:02 01/23/24 05:02
[2024-01-26 08:28] VITALS: BP 170/70; PULSE 61; RESP 17; TEMP 97.5
--- NOTE | 2024-01-26 09:13 | P.DS ---
Providers Date of admission: 01/22/24 07:19 Expected date of discharge: 01/26/24 Attending physician: Dontae Mijares MD Consults: 01/22/24 10:54 Consult Physician Routine Consulting Provider: Abhishek Smallwood Consult Reason/Comments: acute on chronic right hip pain w/ right sided sciatica Do you want consulting provider notified?: Yes Primary care physician: BISMARK Ramos Hospital Course: Discharge Diagnosis: Acute on chronic right hip pain with right sided radiculopathy. Transient episode of chest pain. Hypertension Hyperlipidemia Hospital Course: Patient is a very pleasant 78-year-old female with a past medical history of esophageal cancer, hypertension, hyperlipidemia, depression, and chronic lower back pain with radiculopathies. She presented to the emergency department for reports of acute on chronic right hip and leg pain and an isolated episode of chest pain. Patient reports she is on morphine sulfate, gabapentin and Requip at home for chronic pain but states pain has significantly worsened resulting in her inability to ambulate independently. Patient reports baseline she does ambulate with a walker, but states she lives at home alone and is unable to ambulate secondary to this worsening chronic pain. Patient states she experienced an isolated episode of chest pain/discomfort just prior to coming to the hospital but states this only lasted a brief time less than 1 hour, going away without any intervention and has remained subsided since arrival to the hospital and has not returned. Patient reports her pain is in her lower back/right hip and radiates down right leg. She currently reports pain is 8 out of 10 at this time and states pain is constant. She denies having any headache, lightheadedness, dizziness, palpitations, shortness of breath, cough or congestion, nausea, vomiting, abdominal pain, or experiencing any focal numbness/weakness in her extremities. Patient denies having any involuntary loss of bowel or bladder. On arrival to our facility, patient underwent evaluation in the emergency department. Vital signs upon arrival show blood pressure 177/89, heart rate 76, respiratory rate 16, temp 97.2 F, and SpO2 of 96% on room air. EKG was completed showing normal sinus rhythm at 78 bpm with no noted T wave or ST abnormalities showing no signs of acute ischemia upon personal review and interpretation. Chest x-ray completed showing chronic emphysematous changes negative for acute cardiopulmonary process. X-ray pelvis showing advanced degenerative changes in both hips right greater than left but negative for acute fracture or dislocation. CT right hip then completed again showing advanced degenerative changes in right hip redemonstrated and negative for acute fracture or dislocation. Labs completed and reviewed. CBC and coagulation profile unremarkable. BMP showing mild hypercarbia with bicarb of 32 and elevated BUN of 23. Blood glucose 118. Magnesium 2.1. Liver profile unremarkable. Troponin less than 0.012. proBNP 496. Attempts were made to ambulate patient in the ER unsuccessful, patient admitted under our services with consultation to orthopedic surgery team secondary to her inability to bear weight and ambulate independently. Patient has been accepted to [facility] and insurance authorization has been obtained. Patient medically stable for transfer to custodial facility at this time. Physical exam: Vital signs reviewed and stable. General: Nontoxic, no distress and appears stated age. Derm: Skin warm and dry, normal coloration for ethnicity. Head: Atraumatic, normocephalic and symmetric. Eyes: EOM's intact, no lid lag, and anicteric sclera Mouth: no lip lesions, mucus membranes moist Cardiovascular: regular rate and rhythm with normal S1S2, no murmur, positive p osterior tibial pulses bilaterally, and cap refill < 2 seconds. Lungs: Respirations even, regular, and unlabored on room air. Lungs CTA bilaterally, no rhonchi, no rales, no wheezing, and no accessory muscle usage. Abdominal: soft, nontender to palpation, no guarding, no appreciable organomegaly Ext: Movement and sensation intact.. No gross muscle atrophy, no edema, no contractures Neuro: Speech clear, face symmetrical and CN II-XII grossly intact with no noted focal neuro deficits Psych: Alert and oriented to person, place, time, and situation. Appropriate and pleasant affect. A total of 33 minutes of time were spent preparing this complex discharge summary. Pt was discharged on 01/26/2024 at 9:08 AM. Patient was seen independently by Nurse Practitioner. This document was prepared using [employer] dictation software. Please allow for errors in pest control service technician while rare they do occur. I reviewed the documentation as provided by the VIDAL above, who is the original author of this note. I agree with the documented assessment and plan, with the following changes: none Patient Condition at Discharge: Stable Plan - Discharge Summary New Discharge Prescriptions: New polyethylene glycoL 3350 [Miralax] 17 gm PO DAILY packet Continue Escitalopram [Lexapro] 10 mg PO HS Furosemide [Lasix] 20 mg PO DAILY tab Gabapentin 300 mg PO QID #12 cap Vitamin D (Unknown Dose) 1 tab PO DAILY Vitamin B Complex 1 cap PO DAILY Magnesium (Unknown Dose) 1 tab PO DAILY Vitamin B-12 ([place]) 1 tab PO DAILY Levothyroxine Sodium [Synthroid] 88 mcg PO DAILY Fluticasone/Umeclidin/Vilanter [Trelegy Ellipta 200-62.5-25] 1 puff INHALATION RT-DAILY Albuterol Sulfate [Albuterol Sulfate Hfa] 2 puff PO RT-QID PRN PRN Reason: Shortness Of Breath Morphine Sulfate Ir [MSIR] 15 mg PO BID #6 tab Propranolol [Inderal] 10 mg PO BID Atorvastatin [Lipitor] 10 mg PO DAILY rOPINIRole HCL [Requip] 0.25 mg PO HS Pantoprazole Sodium [Protonix] 40 mg PO BID #60 tab Discharge Medication List Atorvastatin [Lipitor] 10 mg PO DAILY 10/09/22 [History] Propranolol [Inderal] 10 mg PO BID 10/09/22 [History] Escitalopram [Lexapro] 10 mg PO HS 11/16/22 [History] rOPINIRole HCL [Requip] 0.25 mg PO HS 11/16/22 [History] Pantoprazole Sodium [Protonix] 40 mg PO BID #60 tab 11/17/22 [Rx] Furosemide [Lasix] 20 mg PO DAILY tab 07/16/23 [Rx] Gabapentin 300 mg PO QID #12 cap 07/16/23 [Rx] Magnesium (Unknown Dose) 1 tab PO DAILY 12/04/23 [History] Vitamin B Complex 1 cap PO DAILY 12/04/23 [History] Vitamin D (Unknown Dose) 1 tab PO DAILY 12/04/23 [History] Albuterol Sulfate [Albuterol Sulfate Hfa] 2 puff PO RT-QID PRN 01/22/24 [History] Fluticasone/Umeclidin/Vilanter [Trelegy Ellipta 200-62.5-25] 1 puff INHALATION RT-DAILY 01/22/24 [History] Levothyroxine Sodium [Synthroid] 88 mcg PO DAILY 01/22/24 [History] Vitamin B-12 ([place]) 1 tab PO DAILY 01/22/24 [History] Morphine Sulfate Ir [MSIR] 15 mg PO BID #6 tab 01/26/24 [Rx] polyethylene glycoL 3350 [Miralax] 17 gm PO DAILY packet 01/26/24 [Rx] Follow up Appointment(s)/Referral(s): Marie Arrieta, BISMARK [Primary Care Provider] [facility] - As Needed Per Gilbert DO [Doctor of Osteopathic Medicine] - 1 Week Discharge Disposition: TRANSFER TO SNF/ECF
== END 2024-01-26 11:15 ==
LOC: EC 04:34 → 6NMEDSUR 07:19 → 4SSUR 18:43
PROVIDERS: ADMIT Student in an Organized Health Care Education/Training Program; ATTEND Student in an Organized Health Care Education/Training Program
DX: M16.11 Unilateral primary osteoarthritis, right hip (principal); M54.10 Radiculopathy, site unspecified; R07.2 Precordial pain; R53.81 Other malaise; I10 Essential (primary) hypertension; F32.A Depression, unspecified; E78.5 Hyperlipidemia, unspecified; Z85.01 Personal history of malignant neoplasm of esophagus; Z85.819 Personal history of malignant neoplasm of unspecified site of lip, oral cavity, and pharynx; Z87.891 Personal history of nicotine dependence; Z79.899 Other long term (current) drug therapy
CPT/HCPCS: 36415; 71046; 72170; 80053; 83735; 83880; 84484; 85025; 85610; 85730; 93005; 96374; 96375; 96376; 99285

== ENCOUNTER 2024-03-12 21:48 | Inpatient (IN) | payer MEDICARE ==
[2024-03-12] MEDS: ASPIRIN 81 MG PO STA (22:02)
[2024-03-12] MEDS: LIDOCAINE 4% PATCH TOPICAL STA (22:02)
[2024-03-12] MEDS: MORPHINE SULFATE 4 MG/ML SYRINGE IV STA (22:03)
--- NOTE | 2024-03-12 22:15 | ED ---
General Adult HPI - General Stated complaint: Chest pain Time Seen by Provider: 03/12/24 21:50 Source: patient, EMS, RN notes reviewed, old records reviewed Mode of arrival: EMS - History of Present Illness Initial comments: Patient is a 78-year-old female presents emergency department complaining of atypical chest pain. States it started this morning. Has experienced falls over the last few weeks however pain started this morning. States it is primarily in the right anterior inferior ribs. This point and feels like a jabbing sensation. Denies any obvious injury. Denies any abdominal pain but does endorse chronic lower lumbar spine pain as well as chronic hip pain. Endorses chronic lower extremity edema as well. Denies any history of cardiac stents. Does have a history of throat cancer however is currently in remission. No history of blood clots or recent long travel. No other acute complaints at this time. Presents for further evaluation at this time. - Related Data Home Medications Medication Instructions Recorded Confirmed Atorvastatin [Lipitor] 10 mg PO DAILY 10/09/22 01/22/24 Propranolol [Inderal] 10 mg PO BID 10/09/22 01/22/24 Escitalopram [Lexapro] 10 mg PO HS 11/16/22 01/22/24 rOPINIRole HCL [Requip] 0.25 mg PO HS 11/16/22 01/22/24 Magnesium (Unknown Dose) 1 tab PO DAILY 12/04/23 01/22/24 Vitamin B Complex 1 cap PO DAILY 12/04/23 01/22/24 Vitamin D (Unknown Dose) 1 tab PO DAILY 12/04/23 01/22/24 Albuterol Sulfate [Albuterol 2 puff PO RT-QID PRN 01/22/24 01/22/24 Sulfate Hfa] Fluticasone/Umeclidin/Vilanter 1 puff INHALATION RT-DAILY 01/22/24 01/22/24 [Trelegy Ellipta 200-62.5-25] Levothyroxine Sodium [Synthroid] 88 mcg PO DAILY 01/22/24 01/22/24 Vitamin B-12 ([place]) 1 tab PO DAILY 01/22/24 01/22/24 Previous Rx's Medication Instructions Recorded Pantoprazole Sodium [Protonix] 40 mg PO BID #60 tab 11/17/22 Furosemide [Lasix] 20 mg PO DAILY tab 07/16/23 Gabapentin 300 mg PO QID #12 cap 07/16/23 Morphine Sulfate Ir [MSIR] 15 mg PO BID #6 tab 01/26/24 polyethylene glycoL 3350 [Miralax] 17 gm PO DAILY packet 01/26/24 Allergies Allergy/AdvReac Type Severity Reaction Status Date / Time bee venom protein (honey bee) Allergy Anaphylaxis Verified 01/22/24 11:26 Review of Systems ROS Statement: Those systems with pertinent positive or pertinent negative responses have been documented in the HPI. ROS Other: All systems not noted in ROS Statement are negative. Past Medical History Past Medical History: Cancer, Hypertension, Osteoarthritis (OA) Additional Past Medical History / Comment(s): throat ca History of Any Multi-Drug Resistant Organisms: None Reported, ESBL Date of last positivie culture/infection: 05/30/23 MDRO Source:: Urine Past Surgical History: Cholecystectomy, Orthopedic Surgery Additional Past Surgical History / Comment(s): cervical fusion, plate in right ankle Past Anesthesia/Blood Transfusion Reactions: No Reported Reaction Past Psychological History: Depression Smoking Status: Former smoker Past Alcohol Use History: None Reported Past Drug Use History: None Reported - Past Family History Mother Family Medical History: COPD General Exam - General Exam Comments Initial Comments: Review of Systems: CONST: Denies fever EYES: Denies blurry vision ENT: Denies nasal congestion C/V: Endorses right-sided chest pain, rib pain. RESP: Denies shortness of breath GI: Denies abdominal pain : Denies dysuria SKIN: Denies rash. MSK: Endorses lumbar spine pain, hip pain, right sided anterior rib pain. NEURO: Denies headache Course Vital Signs 03/12/24 03/12/24 03/13/24 21:56 23:23 01:00 Temperature 98.7 F Pulse Rate 62 47 L 73 Respiratory 18 16 18 Rate Blood Pressure 146/73 129/57 93/74 O2 Sat by Pulse 98 95 96 Oximetry 03/13/24 04:03 Temperature Pulse Rate 61 Respiratory 18 Rate Blood Pressure 145/70 O2 Sat by Pulse 96 Oximetry Medical Decision Making - Medical Decision Making Was pt. sent in by a medical professional or institution (, PA, FRAMING SPECIALIST, urgent care, hospital, or jail...) When possible be specific @ -No Did you speak to anyone other than the patient for history (EMS, parent, family, police, friend...)? What history was obtained from this source @ -No Did you review nursing and triage notes (agree or disagree)? Why? @ -I reviewed and agree with nursing and triage notes Were old charts reviewed (outside hosp., previous admission, EMS record, old EKG, old radiological studies, urgent care reports/EKG's, jail records)? Report findings @ -Old chart reviewed from January 2024 including EKG Differential Diagnosis (chest pain, altered mental status, abdominal pain women, abdominal pain men, vaginal bleeding, weakness, fever, dyspnea, syncope, headache, dizziness, GI bleed, back pain, seizure, CVA, palpatations, mental health, musculoskeletal)? @ -Differential Chest Pain: Stable Angina, Unstable Angina, STEMI, NSTEMI Aortic Dissection, Pneumothorax, Musculoskeletal, Esophageal Spasm GERD, Cholecystitis, Pancreatitis, Zoster, this is not meant to be an all-inclusive list. EKG interpreted by me (3pts min.). @ -As above X-rays interpreted by me (1pt min.). @ -Femur x-ray, lumbar spine x-ray, pelvis x-ray, chest x-ray negative for any obvious acute injury or process. Patient does have the extensive right hip arth ritis which is chronic for her. CT interpreted by me (1pt min.). @ - CT PE negative for PE. U/S interpreted by me (1pt. min.). @ -None done What testing was considered but not performed or refused? (CT, X-rays, U/S, labs)? Why? @ -None What meds were considered but not given or refused? Why? @ -None Did you discuss the management of the patient with other professionals (professionals i.e. , PA, FRAMING SPECIALIST, lab, RT, psych nurse, social media marketing analyst, body make up artist, teacher, security vehicle patrol officer, porter sample case)? Give summary @ -No Was smoking cessation discussed for >3mins.? @ -No Was critical care preformed (if so, how long)? @ -No Were there social determinants of health that impacted care today? How? (Homeles sness, low income, unemployed, alcoholism, drug addiction, transportation, low edu. Level, literacy, decrease access to med. care, long-term, rehab)? @ -No Was there de-escalation of care discussed even if they declined (Discuss DNR or withdrawal of care, Hospice)? DNR status @ -No What co-morbidities impacted this encounter? (DM, HTN, Smoking, COPD, CAD, Cancer, CVA, ARF, Chemo, Hep., AIDS, mental health diagnosis, sleep apnea, morbid obesity)? @ -Chronic pain Was patient admitted / discharged? Hospital course, mention meds given and route, prescriptions, significant lab abnormalities, going to OR and other pertinent info. @ -Patient has a past medical history remarkable for chronic pain presents emergency department complaining of some atypical chest pain, back pain, hip pain. We will obtain imaging as well as cardiac labs. Patient will be given IV morphine, oral aspirin, lidocaine patch. I will avoid IV fluids at this time as she does have edematous legs which is chronic for her and unchanged from her baseline. Vitals are currently within acceptable limits. Chest pain has been ongoing all day today. She was in agreement this plan.Symptoms I believe are likely all secondary to her chronic pain and possibly one of the many falls she has been experiencing. Is not typical for ACS as it is pinpoint and reproducible on palpation over the right ribs however due to the abnormal nature of it falls or history of cancer we will obtain a PE rule out in addition to cardiac rule out. She was in agreement this plan. EKG shows no signs of acute ischemia.Laboratory studies are remarkable for elevated D-dimer of 1.06. Troponin undetectable. Remainder the workup unremarkable. Imaging negative for any obvious traumatic injury. Chronic arthritis of the right hip. CT PE negative for pulmonary embolism. I updated the patient. She has had multiple falls lately, has chronic debility, is out of her pain meds at home, and lives by herself. I believe she is a fall risk if discharged home. I would like to admit her at this time for evaluation by physical therapy and for debility. She was in agreement this plan. I spoke with the admitting provider, Dr. Rosa who accepted the admission. Undiagnosed new problem with uncertain prognosis? @ -No Drug Therapy requiring intensive monitoring for toxicity (Heparin, Nitro, Insulin, Cardizem)? @ -No Were any procedures done? @ -No Diagnosis/symptom? @ -Fall, chronic pain, debility Acute, or Chronic, or Acute on Chronic? @ -Acute Uncomplicated (without systemic symptoms) or Complicated (systemic symptoms)? @ -Complicated Side effects of treatment? @ -None Exacerbation, Progression, or Severe Exacerbation] @ -No Poses a threat to life or bodily function? @ -Potentially, yes - Lab Data Result diagrams: 03/12/24 22:52 03/12/24 22:52 Lab Results 03/12/24 03/12/24 03/12/24 Range/Units 22:52 22:52 22:52 WBC 5.2 (3.8-10.6) k/uL RBC 3.50 L (3.80-5.40) m/uL Hgb 10.9 L (11.4-16.0) gm/dL Hct 33.1 L (34.0-46.0) % MCV 94.7 (80.0-100.0) fL MCH 31.1 (25.0-35.0) pg MCHC 32.8 (31.0-37.0) g/dL RDW 13.7 (11.5-15.5) % Plt Count 248 (150-450) k/uL MPV 7.5 Neutrophils % 61 % Lymphocytes % 21 % Monocytes % 11 % Eosinophils % 3 % Basophils % 1 % Neutrophils # 3.2 (1.3-7.7) k/uL Lymphocytes # 1.1 (1.0-4.8) k/uL Monocytes # 0.6 (0-1.0) k/uL Eosinophils # 0.1 (0-0.7) k/uL Basophils # 0.0 (0-0.2) k/uL PT 10.2 (10.0-12.5) sec INR 0.9 (<1.2) APTT 22.8 (22.0-30.0) sec D-Dimer 1.06 H (<0.60) mg/L FEU Sodium (137-145) mmol/L Potassium (3.5-5.1) mmol/L Chloride (98-107) mmol/L Carbon Dioxide (22-30) mmol/L Anion Gap mmol/L BUN (7-17) mg/dL Creatinine (0.52-1.04) mg/dL Est GFR (CKD-EPI)AfAm (>60 ml/min/1.73 sqM) Est GFR (CKD-EPI)NonAf (>60 ml/min/1.73 sqM) Glucose (74-99) mg/dL Calcium (8.4-10.2) mg/dL Magnesium (1.6-2.3) mg/dL Total Bilirubin (0.2-1.3) mg/dL AST (14-36) U/L ALT (4-34) U/L Alkaline Phosphatase (38-126) U/L Troponin I <0.012 (0.000-0.034) ng/mL NT-Pro-B Natriuret Pep pg/mL Total Protein (6.3-8.2) g/dL Albumin (3.5-5.0) g/dL 03/12/24 Range/Units 22:52 WBC (3.8-10.6) k/uL RBC (3.80-5.40) m/uL Hgb (11.4-16.0) gm/dL Hct (34.0-46.0) % MCV (80.0-100.0) fL MCH (25.0-35.0) pg MCHC (31.0-37.0) g/dL RDW (11.5-15.5) % Plt Count (150-450) k/uL MPV Neutrophils % % Lymphocytes % % Monocytes % % Eosinophils % % Basophils % % Neutrophils # (1.3-7.7) k/uL Lymphocytes # (1.0-4.8) k/uL Monocytes # (0-1.0) k/uL Eosinophils # (0-0.7) k/uL Basophils # (0-0.2) k/uL PT (10.0-12.5) sec INR (<1.2) APTT (22.0-30.0) sec D-Dimer (<0.60) mg/L FEU Sodium 137 (137-145) mmol/L Potassium 3.8 (3.5-5.1) mmol/L Chloride 105 (98-107) mmol/L Carbon Dioxide 28 (22-30) mmol/L Anion Gap 4 mmol/L BUN 30 H (7-17) mg/dL Creatinine 0.89 (0.52-1.04) mg/dL Est GFR (CKD-EPI)AfAm 71 (>60 ml/min/1.73 sqM) Est GFR (CKD-EPI)NonAf 62 (>60 ml/min/1.73 sqM) Glucose 86 (74-99) mg/dL Calcium 9.1 (8.4-10.2) mg/dL Magnesium 2.2 (1.6-2.3) mg/dL Total Bilirubin 0.5 (0.2-1.3) mg/dL AST 21 (14-36) U/L ALT 11 (4-34) U/L Alkaline Phosphatase 83 (38-126) U/L Troponin I (0.000-0.034) ng/mL NT-Pro-B Natriuret Pep 628 pg/mL Total Protein 6.2 L (6.3-8.2) g/dL Albumin 3.7 (3.5-5.0) g/dL - EKG Data -: EKG Interpreted by Me EKG Comments: 12-lead Electrocardiogram Interpretation Note EKG was reviewed and interpreted by myself. 12-lead ECG performed at 2152 is interpreted by me as revealing normal sinus rhythm at a rate of 66 beats per minute. [place] is normal. [place] interval is 174 ms, QRS duration is 129 ms, QTc is 460 ms.. There were no ST or T wave abnormalities to suggest myocardial ischemia or injury. R wave progression across the precordium was satisfactory. By my interpretation this EKG is non-diagnostic for acute ischemia. Compared with EKG from January 2024 with no obvious acute changes. Disposition Clinical Impression: Chronic pain, Debility, Fall Disposition: ADMITTED IP TO THIS HOSP Condition: Stable Time of Disposition: 01:22
[2024-03-12 23:28] LABS: Basophils % (A) 1 %; Eosinophils # (A) 0.1 k/uL (0-0.7); Eosinophils % (A) 3 %; HCT 33.1 % (34.0-46.0); HGB 10.9 gm/dL (11.4-16.0); Lymphocytes # (A) 1.1 k/uL (1.0-4.8); Lymphocytes % (A) 21 %; MCH 31.1 pg (25.0-35.0); MCHC 32.8 g/dL (31.0-37.0); MCV 94.7 fL (80.0-100.0); Mean Platelet Volume 7.5; Monocytes # (A) 0.6 k/uL (0-1.0); Monocytes % (A) 11 %; Neutrophils # (A) 3.2 k/uL (1.3-7.7); Neutrophils % (A) 61 %; Platelet Count 248 k/uL (150-450); RDW 13.7 % (11.5-15.5); WBC 5.2 k/uL (3.8-10.6)
[2024-03-12 23:37] LABS: ALT 11 U/L (4-34); AST 21 U/L (14-36); African American GFR (CKD) 71 (>60 ml/min/1.73 sqM); Albumin 3.7 g/dL (3.5-5.0); Alkaline Phosphatase 83 U/L (38-126); Anion Gap 4 mmol/L; Blood Urea Nitrogen 30 mg/dL (7-17); Calcium 9.1 mg/dL (8.4-10.2); Carbon Dioxide 28 mmol/L (22-30); Chloride 105 mmol/L (98-107); Glucose 86 mg/dL (74-99); Magnesium 2.2 mg/dL (1.6-2.3); Non-African American GFR(CKD) 62 (>60 ml/min/1.73 sqM); Potassium 3.8 mmol/L (3.5-5.1); Sodium 137 mmol/L (137-145); Total Bilirubin 0.5 mg/dL (0.2-1.3); Total Protein 6.2 g/dL (6.3-8.2)
[2024-03-12 23:41] LABS: INR 0.9 (<1.2); Partial Thromboplastin Time 22.8 sec (22.0-30.0); Prothrombin Time 10.2 sec (10.0-12.5)
[2024-03-12 23:46] LABS: NT-Pro-B-Type Natriuretic Pept 628 pg/mL
--- NOTE | 2024-03-13 00:43 | XR ---
EXAM: XR Chest, 2 Views CLINICAL HISTORY: ITS.REASON XR Reason: Chest Pain TECHNIQUE: Frontal and lateral views of the chest. COMPARISON: No relevant prior studies available. FINDINGS: Lungs: Unremarkable. No consolidation. Pleural space: Unremarkable. No pneumothorax. Heart: Cardiomegaly. Mediastinum: Unremarkable. Normal mediastinal contour. Bones/joints: Unremarkable. No acute fracture. Other findings: ACDF. IMPRESSION: No acute findings in the chest.
--- NOTE | 2024-03-13 01:05 | CT ---
EXAM: CT Angiography Chest With Intravenous Contrast CLINICAL HISTORY: ITS.REASON CT Reason: eval for PE TECHNIQUE: Axial computed tomographic angiography images of the chest with intravenous contrast. CTDI is 16.57 mGy and DLP is 218.4 mGy-cm. This CT exam was performed using one or more of the following dose reduction techniques: automated exposure control, adjustment of the mA and/or kV according to patient size, and/or use of iterative reconstruction technique. MIP reconstructed images were created and reviewed. COMPARISON: No relevant prior studies available. FINDINGS: LUNGS: No focal consolidation, pleural effusion, or pneumothorax. Atelectasis at the lung bases. HEART: Cardiomegaly. VASCULATURE: No acute pulmonary embolism. Atherosclerotic changes of the aorta. THYROID: Within normal limits. MEDIASTINUM + LYMPH NODES: There are no pathologically enlarged mediastinal, hilar, or axillary lymph nodes. SUPERIOR ABDOMEN: Hepatic steatosis. MUSCULOSKELETAL: Degenerative changes. IMPRESSION: No acute pulmonary embolism.
[2024-03-13] MEDS ORDERED: NALOXONE 0.4 MG/ML 1 ML VIAL IV PRN (01:20)
--- NOTE | 2024-03-13 01:36 | XR ---
EXAM: XR Pelvis, 1 or 2 Views CLINICAL HISTORY: ITS.REASON XR Reason: pain TECHNIQUE: Frontal view of the pelvis. COMPARISON: No relevant prior studies available. FINDINGS: Bones/joints: Severe osteoarthritis of the RIGHT hip, with extensive ojdd-jy-rwgh articulation. No acute fracture. No dislocation. Osseous demineralization. Severe osteoarthritis of the LEFT hip with mild bone- on-bone articulation. Soft tissues: Unremarkable. IMPRESSION: Severe osteoarthritis of the RIGHT hip, with extensive aysy-uf-dwuw articulation. No femoral neck or intertrochanteric hip fracture.
--- NOTE | 2024-03-13 02:28 | XR ---
EXAM: XR Lumbosacral Spine, 2 or 3 Views CLINICAL HISTORY: ITS.REASON XR Reason: pain TECHNIQUE: Frontal and lateral views of the lumbar spine and sacrum. COMPARISON: No relevant prior studies available. FINDINGS: Vertebrae: Unremarkable. No acute fracture. Normal alignment. Sacrum/coccyx: Unremarkable as visualized. No acute fracture. Disc spaces: No acute findings. No significant narrowing. Soft tissues: Unremarkable. Vasculature: Unremarkable. No pulmonary embolism. Other findings: Mild centrilobular emphysema. Renal cysts. IMPRESSION: 1. No pulmonary embolism. 2. Mild centrilobular emphysema.
--- NOTE | 2024-03-13 02:55 | XR ---
EXAM: XR Right Hip With Pelvis When Performed, 1 View CLINICAL HISTORY: ITS.REASON XR Reason: pain TECHNIQUE: Frontal view of the right hip with pelvis when performed. COMPARISON: No relevant prior studies available. FINDINGS: Bones/joints: Severe osteoarthritis of the RIGHT hip, with extensive twup-lo-wrej articulation. Associated, remodeling of the acetabulum with superior positioning of the femoral head relative to the contralateral side. Diffuse osseous demineralization. No acute fracture or subluxation. Soft tissues: Unremarkable. IMPRESSION: 1. No acute fracture or subluxation. 2. Severe osteoarthritis of the RIGHT hip, with extensive oxut-zm-[id number] articulation.
[2024-03-13] MEDS: MORPHINE SULFATE 4 MG/ML SYRINGE IV PRN (03:40)
[2024-03-13] MEDS ORDERED: Potassium Replacement Protocol 1 EACH MISC MISCELLANE PRN (03:45)
--- NOTE | 2024-03-13 03:58 | P.HPIM ---
History of Present Illness H&P Date: 03/13/24 History of present illness; Tona Hernandez 78-year-old female with systolic CHF (unknown EF), GERD, COPD, hypothyroidism, urinary incontinence, who presents with new onset chest pain. Patient states her chest pain began suddenly this morning and was sharp in nature and located in the right lateral chest wall. Patient states pain recurred throughout the day and was worse with arm movement. She also states that she has a 1 week history of progressive leg swelling and pain. She also reports mild shortness of breath during this time. She states that she sleeps in a near upright position. She also states she has ongoing right hip pain with accompanied weakness, which has worsened over the last week without her regular pain medication she receives from her pain doctor. She states that she has fallen twice in the last week without loss of consciousness due to her weakness. She has no other complaints at this time. Patient reports absence of fever, chills, weight loss, palpitations, diaphoresis, pleuritic pain, cough, nausea, vomiting, constipation, diarrhea, abdominal pain, myalgia, dizziness, headache. Initial lab work done in the ER showed WBC 5.2, hemoglobin 10.9, platelets 248, D-dimer 1.06, sodium 137, potassium 3.8, bicarb 28, BUN 30, creatinine 0.89, troponin negative, proBNP 628 EKG done in the ER independently interpreted showed heart rate of 66, no ST segment elevation or depression seen, no T-wave inversions seen, Q wave present in V3, V4. Chest x-ray done independently interpreted in the ER showed cardiomegaly with no acute findings. Chest CTA showed no acute pulmonary embolism. Pelvis x-ray, lumbar spine x-ray, femur x-ray with findings of severe osteoarthritis and right hip Patient admitted to internal medicine service for chest pain. REVIEW OF SYSTEMS: All Systems reviewed, pertinent positives and negatives noted in HPI. All other symptoms are negative. PHYSICAL EXAMINATION: Vitals reviewed GENERAL: No acute distress. Well developed, well nourished. HEENT: Pupils are round and equally reacting to light. EOMI. No scleral icterus. Normocephalic, atraumatic. No thyromegaly. CARDIOVASCULAR: S1 and S2 present. No murmurs, rubs, or gallops. PULMONARY: Crackles in lower lungs bilaterally. ABDOMEN: Soft, nontender, nondistended, normoactive bowel sounds. No palpable organomegaly. MUSCULOSKELETAL: Chest wall tenderness to palpation at right lateral fifth rib. Osteoarthritis deformity seen in hands and feet EXTREMITIES: No apparent cyanosis, clubbing. 3+ pedal edema. NEUROLOGICAL: The patient is alert and oriented x3, Gross neurological examination did not reveal any focal deficits, R hip strength limited at 4/5 due to pain without tenderness w/ strength 5/5 elsewhere SKIN: Open wound on the left forearm Labs reviewed Imaging reviewed Assessment and plan Tona Hernandez 78-year-old female with CHF, GERD, COPD, hypothyroidism, urinary incontinence, who presents with new onset chest pain. #Chest pain, likely musculoskeletal - Initial troponin negative - D-dimer 1.06, chest CTA with no PE - Ordered TSH with reflex T4, Lipid panel - given aspirin 325, start 81mg qd Cardiac monitoring #Acute on chronic systolic (congestive) heart failure -Begin IV lasix 40 mg BID - Order echocardiogram -Initial weight 40.5 kg repeat on d/c - Monitor daily electrolytes - potassium replacement protocol -cardiac monitoring -strict I/O, no more that 2L daily -Low sodium diet, <2g daily -supplemental O2 as needed Resume home medications when confirmed #Right hip osteoarthritis Continue lidocaine patch and morphine as needed - PT consult Chronic Medical Conditions #Hyperlidemia -Resume home medications once confirmed #Hypothyroidism - Resume home Synthroid once confirmed #COPD Resume home medications once confirmed #GERD - Resume home medication once confirmed #Chronic constipation Resume home medications once confirmed #Anxiety/Depression - Resume home medication once confirmed F: P.o. no greater than 2 L daily E: Replete as needed N: Low-sodium E: None DVT ppx: Subq Lovenox Code status: Full code Anticipated discharge place: Home Anticipated discharge time: 2 to 3 days Dictation was produced using Tistag[employer] software. Please excuse any grammatical, word or spelling errors. Past Medical History Past Medical History: Cancer, Hypertension, Osteoarthritis (OA) Additional Past Medical History / Comment(s): throat ca History of Any Multi-Drug Resistant Organisms: None Reported, ESBL Date of last positivie culture/infection: 05/30/23 MDRO Source:: Urine Past Surgical History: Cholecystectomy, Orthopedic Surgery Additional Past Surgical History / Comment(s): cervical fusion, plate in right ankle Past Anesthesia/Blood Transfusion Reactions: No Reported Reaction Past Psychological History: Depression Smoking Status: Former smoker Past Alcohol Use History: None Reported Past Drug Use History: None Reported - Past Family History Mother Family Medical History: COPD Medications and Allergies Home Medications Medication Instructions Recorded Confirmed Type Atorvastatin [Lipitor] 10 mg PO DAILY 10/09/22 01/22/24 History Propranolol [Inderal] 10 mg PO BID 10/09/22 01/22/24 History Escitalopram [Lexapro] 10 mg PO HS 11/16/22 01/22/24 History rOPINIRole HCL [Requip] 0.25 mg PO HS 11/16/22 01/22/24 History Pantoprazole Sodium [Protonix] 40 mg PO BID #60 tab 11/17/22 01/22/24 Rx Furosemide [Lasix] 20 mg PO DAILY tab 07/16/23 01/22/24 Rx Gabapentin 300 mg PO QID #12 cap 07/16/23 01/22/24 Rx Magnesium (Unknown Dose) 1 tab PO DAILY 12/04/23 01/22/24 History Vitamin B Complex 1 cap PO DAILY 12/04/23 01/22/24 History Vitamin D (Unknown Dose) 1 tab PO DAILY 12/04/23 01/22/24 History Albuterol Sulfate [Albuterol 2 puff PO RT-QID PRN 01/22/24 01/22/24 History Sulfate Hfa] Fluticasone/Umeclidin/Vilanter 1 puff INHALATION RT-DAILY 01/22/24 01/22/24 History [Trelegy Ellipta 200-62.5-25] Levothyroxine Sodium [Synthroid] 88 mcg PO DAILY 01/22/24 01/22/24 History Vitamin B-12 ([place]) 1 tab PO DAILY 01/22/24 01/22/24 History Morphine Sulfate Ir [MSIR] 15 mg PO BID #6 tab 01/26/24 Rx polyethylene glycoL 3350 [Miralax] 17 gm PO DAILY packet 01/26/24 Rx Allergies Allergy/AdvReac Type Severity Reaction Status Date / Time bee venom protein (honey bee) Allergy Anaphylaxis Verified 01/22/24 11:26 Physical Exam Vitals: Vital Signs Temp Pulse Resp BP Pulse Ox 03/13/24 01:00 73 18 93/74 96 03/12/24 23:23 47 L 16 129/57 95 03/12/24 21:56 98.7 F 62 18 146/73 98 Intake and Output 03/12/24 03/12/24 03/13/24 14:59 22:59 06:59 Other: Weight 48.534 kg Results CBC & Chem 7: 03/12/24 22:52 03/12/24 22:52 Labs: Abnormal Lab Results - Last 24 Hours (Table) 03/12/24 03/12/24 03/12/24 Range/Units 22:52 22:52 22:52 RBC 3.50 L (3.80-5.40) m/uL Hgb 10.9 L (11.4-16.0) gm/dL Hct 33.1 L (34.0-46.0) % D-Dimer 1.06 H (<0.60) mg/L FEU BUN 30 H (7-17) mg/dL Total Protein 6.2 L (6.3-8.2) g/dL
[2024-03-13] MEDS ORDERED: POTASSIUM CHLORIDE 20 MEQ in WATER FOR INJECTION 1 100ML.BAG IVPB SCH (04:00)
[2024-03-13] MEDS ORDERED: POTASSIUM CHLORIDE ER 20 MEQ TAB.ER PO SCH ×3 (04:00)
[2024-03-13] MEDS: FUROSEMIDE 10 MG/ML 4 ML VIAL IV SCH (04:05)
[2024-03-13] MEDS: POTASSIUM CHLORIDE 20 MEQ in WATER FOR INJECTION 1 100ML.BAG IVPB SCH (04:52)
[2024-03-13 05:52] LABS: Appearance,Urine Clear (Clear); Bilirubin,Urine Negative (Negative); Blood,Urine Negative (Negative); Color,Urine Colorless; Glucose,Urine (UA) Negative (Negative); Ketones,Urine Negative (Negative); Leukocyte Esterase,Urine Negative (Negative); Nitrite,Urine Negative (Negative); PH, Urine 7.5 (5.0-8.0); Protein,Urine Negative (Negative); Urobilinogen,Urine <2.0 mg/dL (<2.0)
[2024-03-13 09:00] LABS: Chol/HDL Ratio 1.88 Ratio; LDL Cholesterol,Calculated 76.6 mg/dL (0.0-131.0)
[2024-03-13] MEDS: ASPIRIN 81 MG PO SCH (09:06)
[2024-03-13] MEDS: ENOXAPARIN 40 MG/0.4 ML SYRINGE SQ SCH (09:06)
[2024-03-13] MEDS ORDERED: ALBUTEROL NEBULIZED 2.5 MG/3 ML INHALATION PRN (10:50)
[2024-03-13] MEDS: ATORVASTATIN 10 MG TAB PO SCH (12:26)
[2024-03-13] MEDS: PANTOPRAZOLE 40 MG TABLET PO SCH (12:26)
[2024-03-13] MEDS: PROPRANOLOL 10 MG TAB PO SCH (12:26)
[2024-03-13] MEDS: GABAPENTIN 300 MG CAP PO SCH (12:27)
[2024-03-13] MEDS: LEVOTHYROXINE 88 MCG TAB PO SCH (12:27)
--- NOTE | 2024-03-13 16:23 | P.PN ---
Subjective Progress Note Date: 03/13/24 Hospital course: Tona Hernandez 78-year-old female with systolic CHF (unknown EF), GERD, COPD, hypothyroidism, urinary incontinence, who presents with new onset chest pain. Initial lab work done in the ER showed WBC 5.2, hemoglobin 10.9, platelets 248, D-dimer 1.06, sodium 137, potassium 3.8, bicarb 28, BUN 30, creatinine 0.89, troponin negative, proBNP 628. EKG done in the ER showed heart rate of 66, no ST segment elevation or depression seen, no T-wave inversions seen, Q wave present in V3, V4. Chest x-ray in the ER showed cardiomegaly with no acute findings. Chest CTA showed no acute pulmonary embolism. Pelvis x-ray, lumbar spine x-ray, femur x-ray with findings of severe osteoarthritis. Subjective: Patient seen and examined at bedside. No acute events overnight. Patient with complaint of sore throat with mild dysphagia. History of throat cancer. All Systems reviewed and pertinent positives and negatives noted in HPI, all other symptoms are negative Objective: Vital signs reviewed. General: non toxic, no distress, appears at stated age, normal weight Derm: no unusual rashes/lesions, warm Head: atraumatic, normocephalic, symmetric Eyes: EOMI, no lid lag, anicteric sclera, pupils equal round reactive to light ENT: Nose and ears atraumatic Neck: No cervical lymphadenopathy, trachea midline, supple Mouth: no lip lesion, mucus membranes moist Cardiovascular: S1S2 reg, no murmur, positive dorsalis pedis pulse bilateral, no edema Lungs: Bibasilar crackles. no rhonchi, no accessory muscle use Abdominal: soft, nontender to palpation, no guarding Ext: muscle strength 5 out of 5 in all 4 extremities grossly, no gross muscle atrophy, no contractures, Neuro: CN II-XI grossly intact, no gross focal neuro deficits Psych: Alert, oriented, appropriate affect Data reviewed today: Labs: WBC 5.2, hemoglobin 10.9, platelets 248, D-dimer 1.06, sodium 137, potassium 3.8, bicarb 28, BUN 30, creatinine 0.89, troponin negative, proBNP 628 Images: No new imaging Assessment and Plan: Tona Hernandez 78-year-old female with CHF, GERD, COPD, hypothyroidism, urinary incontinence, who presents with new onset chest pain. #Chest pain, likely musculoskeletal Initial troponin negative D-dimer 1.06, chest CTA with no PE TSH 5.13 LDL 36, HDL 101 c/w aspirin 81mg qd Cardiac monitoring #Acute on chronic systolic (congestive) heart failure Begin IV lasix 40 mg BID Order echocardiogram Initial weight 40.5 kg repeat on d/c Monitor daily electrolytes potassium replacement protocol cardiac monitoring strict I/O, no more that 2L daily Low sodium diet, <2g daily supplemental O2 as needed #Dysphagia #History of throat cancer Speech therapy consulted for swallowing evaluation #Right hip osteoarthritis Continue lidocaine patch and morphine as needed PT consult Chronic Medical Conditions: #Hyperlidemia #Hypothyroidism #COPD #GERD #Chronic constipation #Anxiety/Depression Home medications reconciled F: P.o. no greater than 2 L daily E: Replete as needed N: Low-sodium E: None DVT ppx: Subq Lovenox Code status: Full code Anticipated discharge place: Home Anticipated discharge time: 2 to 3 days This is an update note for patient. There is no charge associated with this note. I have seen and evaluated the patient today. Discussed with the resident and agree with the residents finding and plan as documented in the resident's note. Changes highlighted in blue font. Objective - Vital Signs Vital signs: Vital Signs Temp 98.5 F 03/13/24 08:00 Pulse 74 03/13/24 08:00 Resp 18 03/13/24 08:00 BP 156/75 03/13/24 08:00 Pulse Ox 94 L 03/13/24 08:00 FiO2 Intake & Output 03/12/24 03/13/24 03/13/24 18:59 06:59 18:59 Output Total 1600 Balance -1600 Weight 48.534 kg 48.534 kg Output: Urine 1600 Other: Voiding Method Diaper - Labs CBC & Chem 7: 03/12/24 22:52 03/12/24 22:52 Labs: Abnormal Lab Results - Last 24 Hours (Table) 03/12/24 03/12/24 03/12/24 Range/Units 22:52 22:52 22:52 RBC 3.50 L (3.80-5.40) m/uL Hgb 10.9 L (11.4-16.0) gm/dL Hct 33.1 L (34.0-46.0) % D-Dimer 1.06 H (<0.60) mg/L FEU BUN 30 H (7-17) mg/dL Total Protein 6.2 L (6.3-8.2) g/dL HDL Cholesterol (40.00-60.00) mg/dL 03/12/24 Range/Units 22:52 RBC (3.80-5.40) m/uL Hgb (11.4-16.0) gm/dL Hct (34.0-46.0) % D-Dimer (<0.60) mg/L FEU BUN (7-17) mg/dL Total Protein (6.3-8.2) g/dL HDL Cholesterol 101.00 H (40.00-60.00) mg/dL
[2024-03-13] MEDS: SYMBICORT 160-4.5 MCG INHALER INHALATION SCH (19:46)
[2024-03-13] MEDS: ESCITALOPRAM 10 MG TAB PO SCH (21:48)
[2024-03-14 09:12] LABS: Basophils # (A) 0.09 X 10*3/uL (0.00-0.10); Basophils % (A) 1.6 %; Eosinophils # (A) 0.14 X 10*3/uL (0.04-0.35); Eosinophils % (A) 2.5 %; HCT 35.1 % (37.2-46.3); HGB 12.3 g/dL (12.0-15.0); Lymphocytes # (A) 1.08 X 10*3/uL (0.90-5.00); Lymphocytes % (A) 19.2 %; MCH 32.7 pg (27.0-32.0); MCV 93.4 FL (80.0-97.0); Mean Platelet Volume 9.9 FL (9.5-12.2); Monocytes # (A) 0.71 X 10*3/uL (0.20-1.00); Monocytes % (A) 12.6 %; NRBC Per 100 WBC 0 X 10*3/uL (0.00-0.01); Neutrophils # (A) 3.57 X 10*3/uL (1.80-7.70); Neutrophils % (A) 63.6 %; Platelet Count 320 X 10*3/uL (140-440); RBC 3.76 X 10*6/uL (4.10-5.20); RDW 13.6 % (11.5-14.5); WBC 5.62 X 10*3/uL (4.50-10.00)
[2024-03-14 09:21] LABS: BUN/Creat Ratio 27.27 Ratio (12.00-20.00); Chloride 100 mmol/L (96-109); Glucose 93 mg/dL (70-110); Potassium 4.3 mmol/L (3.5-5.5); Sodium 141 mmol/L (135-145)
[2024-03-14 09:22] LABS: ALT 9 U/L (8-44); AST 18 U/L (13-35); Albumin 3.8 g/dL (3.8-4.9); Albumin/Globulin Ratio 1.65 Ratio (1.60-3.17); Alkaline Phosphatase 81 U/L (41-126); Calcium 9.3 mg/dL (8.7-10.3); Carbon Dioxide 30.4 mmol/L (21.6-31.8); Globulin 2.3 g/dL (1.6-3.3); Total Bilirubin 0.3 mg/dL (0.3-1.2); Total Protein 6.1 g/dL (6.2-8.2)
[2024-03-14] MEDS: IPRATROPIUM 0.5 MG/2.5 ML NEBU INHALATION SCH (09:51)
--- NOTE | 2024-03-14 10:01 | CA ---
Transthoracic Echo Report Name: Tona Hernandez Age: 78 Gender: F : 1945 Exam Date: 03/13/2024 11:18 Exam Location: [facility] Echo Ht (in): 62 Wt (lb): 107 Ordering Physician: Duran Mccormack MD Attending/Referring Phys: Laborer [place] Reshma Parry RDCS Procedure CPT: Indications: chf Cardiac Hx: Technical Quality: Poor Contrast 1: Total Dose (mL): Contrast 2: Total Dose (mL): MEASUREMENTS (Male / Female) Normal Values 2D ECHO LV Diastolic Diameter PLAX 4.0 cm 4.2 - 5.9 / 3.9 - 5.3 cm LV Systolic Diameter PLAX 2.8 cm IVS Diastolic Thickness 0.9 cm 0.6 - 1.0 / 0.6 - 0.9 cm LVPW Diastolic Thickness 1.0 cm 0.6 - 1.0 / 0.6 - 0.9 cm LV Relative Wall Thickness 0.5 LVOT Diameter 2.0 cm LA Volume 15.3 cm??? 18 - 58 / 22 - 52 cm??? LA Volume Index 10.5 cm???/m??? 16 - 28 cm???/m??? Ascending Aorta Diameter 3.0 cm DOPPLER AV Peak Velocity 95.4 cm/s AV Peak Gradient 3.6 mmHg AV Mean Velocity 66.0 cm/s AV Mean Gradient 1.9 mmHg AV Velocity Time Integral 19.1 cm LVOT Peak Velocity 86.9 cm/s LVOT Peak Gradient 3.0 mmHg LVOT Velocity Time Integral 16.0 cm LVOT Stroke Volume 48.8 cm??? LVOT Stroke Volume Index 33.3 ml/m??? LVOT Cardiac Index 1847.0 cm???/min???m??? AV Area Cont Eq vti 2.6 cm??? AV Area Cont Eq pk 2.8 cm??? MV Area PHT 3.7 cm??? Mitral E Point Velocity 51.7 cm/s Mitral A Point Velocity 60.6 cm/s Mitral E to A Ratio 0.9 MV Deceleration Time 206.2 ms TR Peak Velocity 264.7 cm/s TR Peak Gradient 28.0 mmHg Right Atrial Pressure 5.0 mmHg Pulmonary Artery Systolic Pressu 33.0 mmHg Right Ventricular Systolic Press 33.0 mmHg PV Peak Velocity 82.5 cm/s PV Peak Gradient 2.7 mmHg FINDINGS Left Ventricle Left ventricular ejection fraction is estimated at 55-60 %. Left ventricular cavity size normal. Left ventricular wall thickness normal. No obvious regional wall motion abnormalities. Right Ventricle Right ventricle not well visualized. Right ventricular systolic pressure within normal limits. Right Atrium Right atrium not well visualized. Left Atrium Normal left atrial size. Mitral Valve Mitral valve thickened. Mitral annular calcification. No mitral stenosis, regurgitation or prolapse. Aortic Valve Trileaflet aortic valve. No aortic valve stenosis or regurgitation. Tricuspid Valve Structurally normal tricuspid valve. No tricuspid stenosis. Mild tricuspid regurgitation. Pulmonic Valve Structurally normal pulmonic valve. No pulmonic stenosis. Trace pulmonic regurgitation. Pericardium No pericardial effusion. Prominent epicardial fat. Aorta Normal size aortic root and proximal ascending aorta. CONCLUSIONS Patient apparently was not cooperative during examination. But available views suggest normal LV size and systolic function. There is mitral annular calcification and aortic valve sclerosis without restriction. Mild mitral and tricuspid regurgitation. No pericardial effusion. Probable fat pad. Right- sided pressures are not significantly elevated. Previewed by: Dr. Timi Valenzuela MD (Electronically Signed) Final Date: 14 March 2024 10:01
--- NOTE | 2024-03-14 15:07 | P.PN ---
Subjective Progress Note Date: 03/14/24 Hospital course: Tona Hernandez 78-year-old female with systolic CHF (unknown EF), GERD, COPD, hypothyroidism, urinary incontinence, who presents with new onset chest pain. Initial lab work done in the ER showed WBC 5.2, hemoglobin 10.9, platelets 248, D-dimer 1.06, sodium 137, potassium 3.8, bicarb 28, BUN 30, creatinine 0.89, troponin negative, proBNP 628. EKG done in the ER showed heart rate of 66, no ST segment elevation or depression seen, no T-wave inversions seen, Q wave present in V3, V4. Chest x-ray in the ER showed cardiomegaly with no acute findings. Chest CTA showed no acute pulmonary embolism. Pelvis x-ray, lumbar spine x-ray, femur x-ray with findings of severe osteoarthritis. Subjective: Patient seen and examined at bedside. No acute events overnight. Patient with complaint of sore throat with mild dysphagia. History of throat cancer. All Systems reviewed and pertinent positives and negatives noted in HPI, all other symptoms are negative Objective: Vital signs reviewed. General: non toxic, no distress, appears at stated age, normal weight Derm: no unusual rashes/lesions, warm Head: atraumatic, normocephalic, symmetric Eyes: EOMI, no lid lag, anicteric sclera, pupils equal round reactive to light ENT: Nose and ears atraumatic Neck: No cervical lymphadenopathy, trachea midline, supple Mouth: no lip lesion, mucus membranes moist Cardiovascular: S1S2 reg, no murmur, positive dorsalis pedis pulse bilateral, no edema Lungs: Bibasilar crackles. no rhonchi, no accessory muscle use Abdominal: soft, nontender to palpation, no guarding Ext: muscle strength 5 out of 5 in all 4 extremities grossly, no gross muscle atrophy, no contractures, Neuro: CN II-XI grossly intact, no gross focal neuro deficits Psych: Alert, oriented, appropriate affect Data reviewed today: Labs: WBC 5.6, hemoglobin 12.3, MCV 93.4, sodium 141, potassium 4.3, chloride 100, bicarb 30.4, BUN 30.0, creatinine 1.1 Images: No new imaging Assessment and Plan: Tona Hernandez 78-year-old female with CHF, GERD, COPD, hypothyroidism, urinary incontinence, who presents with new onset chest pain. # Costochondritis Initial troponin negative D-dimer 1.06, chest CTA with no PE TSH 5.13 LDL 36, HDL 101 c/w aspirin 81mg qd Cardiac monitoring -ACS ruled out -Pain control with oral Tylenol as needed, discontinue IV morphine, started on oral [place] as needed 5 mg every 6 hour, monitor for sedation # Heart failure preserved ejection fraction DC IV lasix 40 mg BID; resume Lasix 20 mg p.o. daily Echocardiogram shows LVEF of 55 to 60% Initial weight 40.5 kg repeat on d/c Monitor daily electrolytes potassium replacement protocol cardiac monitoring strict I/O, no more that 2L daily Low sodium diet, <2g daily supplemental O2 as needed #Dysphagia #History of throat cancer Speech therapy consulted for swallowing evaluation, WNL #Right hip osteoarthritis Continue lidocaine patch and morphine as needed PT consult Chronic Medical Conditions: #Hyperlidemia #Hypothyroidism #COPD #GERD #Chronic constipation #Anxiety/Depression Home medications reconciled F: P.o. no greater than 2 L daily E: Replete as needed N: Low-sodium E: None DVT ppx: Subq Lovenox Code status: Full code Anticipated discharge place: Subacute rehab Anticipated discharge time: Tomorrow I have seen and evaluated the patient today. Discussed with the resident and agree with the residents finding and plan as documented in the resident's note. Changes highlighted in blue font. Objective - Vital Signs Vital signs: Vital Signs Temp 97.7 F 03/14/24 13:39 Pulse 53 L 03/14/24 13:39 Resp 20 03/14/24 13:39 BP 94/59 03/14/24 13:39 Pulse Ox 93 L 03/14/24 13:39 FiO2 Intake & Output 03/13/24 03/14/24 03/14/24 18:59 06:59 18:59 Intake Total 480 Output Total 1600 Balance -1120 Weight 48.534 kg 57.1 kg Intake: Oral 480 Output: Urine 1600 Other: Voiding Method Diaper Toilet Toilet Diaper Diaper # Voids 2 2 1 # Bowel Movements 1 - Labs CBC & Chem 7: 03/14/24 05:25 03/14/24 05:25 Labs: Abnormal Lab Results - Last 24 Hours (Table) 03/14/24 03/14/24 Range/Units 05:25 05:25 RBC 3.76 L (4.10-5.20) X 10*6/uL Hct 35.1 L (37.2-46.3) % MCH 32.7 H (27.0-32.0) pg BUN 30.0 H (9.0-27.0) mg/dL Est GFR (CKD-EPI) 51 L (>=60) BUN/Creatinine Ratio 27.27 H (12.00-20.00) Ratio Total Protein 6.1 L (6.2-8.2) g/dL
[2024-03-14] MEDS: HYDROcodone/APAP 5-325MG 1 EACH TAB PO PRN (17:37)
[2024-03-14] MEDS: ACETAMINOPHEN TAB 325 MG TAB PO PRN (21:01)
[2024-03-15] MEDS: FUROSEMIDE 20 MG TAB PO SCH (09:33)
--- NOTE | 2024-03-15 10:34 | XR ---
EXAMINATION TYPE: XR forearm RT DATE OF EXAM: 03/15/2024 10:17 AM CLINICAL INDICATION: Female, 78 years old with history of pain; [facility] COMPARISON: 01/07/2023 TECHNIQUE: XR forearm RT; forearm was examined in AP and lateral projections. FINDINGS: [place] prior injuries to the distal radius and ulna. Abnormal alignment of the distal radi us. No acute fracture visualized. Multifocal degeneration changes with joint space narrowing and oste ophyte formation. IMPRESSION: Remote injuries to the distal radius and ulna. No evidence for acute fracture. [facility], , 03/15/2024 10:32 AM
--- NOTE | 2024-03-15 14:33 | P.PN ---
Subjective Progress Note Date: 03/15/24 Hospital course: Tona Hernandez 78-year-old female with systolic CHF (unknown EF), GERD, COPD, hypothyroidism, urinary incontinence, who presents with new onset chest pain. Initial lab work done in the ER showed WBC 5.2, hemoglobin 10.9, platelets 248, D-dimer 1.06, sodium 137, potassium 3.8, bicarb 28, BUN 30, creatinine 0.89, troponin negative, proBNP 628. EKG done in the ER showed heart rate of 66, no ST segment elevation or depression seen, no T-wave inversions seen, Q wave present in V3, V4. Chest x-ray in the ER showed cardiomegaly with no acute findings. Chest CTA showed no acute pulmonary embolism. Pelvis x-ray, lumbar spine x-ray, femur x-ray with findings of severe osteoarthritis. Subjective: Patient seen and examined at bedside. Pain in her right forearm. All Systems reviewed and pertinent positives and negatives noted in HPI, all other symptoms are negative Objective: Vital signs reviewed. General: non toxic, no distress, appears at stated age, normal weight Derm: no unusual rashes/lesions, warm Head: atraumatic, normocephalic, symmetric Eyes: EOMI, no lid lag, anicteric sclera, pupils equal round reactive to light ENT: Nose and ears atraumatic Neck: No cervical lymphadenopathy, trachea midline, supple Mouth: no lip lesion, mucus membranes moist Cardiovascular: S1S2 reg, no murmur, positive dorsalis pedis pulse bilateral, no edema Lungs: Bibasilar crackles. no rhonchi, no accessory muscle use Abdominal: soft, nontender to palpation, no guarding Ext: muscle strength 5 out of 5 in all 4 extremities grossly, no gross muscle atrophy, no contractures, Neuro: CN II-XI grossly intact, no gross focal neuro deficits Psych: Alert, oriented, appropriate affect Data reviewed today: Labs: WBC 5.6, hemoglobin 12.3, MCV 93.4, sodium 141, potassium 4.3, chloride 10 0, bicarb 30.4, BUN 30, creatinine 1.1 Images: No new imaging Assessment and Plan: Tona Hernandez 78-year-old female with CHF, GERD, COPD, hypothyroidism, urinary incontinence, who presents with new onset chest pain. #Costochondritis Initial troponin negative D-dimer 1.06, chest CTA with no PE TSH 5.13 LDL 36, HDL 101 c/w aspirin 81mg qd Cardiac monitoring -ACS ruled out -Pain control with oral Tylenol as needed, discontinue IV morphine, started on oral [place] as needed 5 mg every 6 hour, monitor for sedation # Heart failure preserved ejection fraction Continue with Lasix 20 mg p.o. daily Echocardiogram shows LVEF of 55 to 60% Initial weight 40.5 kg repeat on d/c Monitor daily electrolytes potassium replacement protocol cardiac monitoring strict I/O, no more that 2L daily Low sodium diet, <2g daily supplemental O2 as needed #Dysphagia #History of throat cancer Speech therapy consulted for swallowing evaluation, WNL Order barium swallow study with SBFT Pured diet #Right hip osteoarthritis #Right forearm pain Right forearm x-ray shows remote injuries to the distal radius and ulna with no evidence of acute fracture. Continue [place] as needed PT consult Chronic Medical Conditions: #Hyperlidemia #Hypothyroidism #COPD #GERD #Chronic constipation #Anxiety/Depression Home medications reconciled F: P.o. no greater than 2 L daily E: Replete as needed N: Pured diet E: None DVT ppx: Subq Lovenox Code status: Full code Anticipated discharge place: Subacute rehab Anticipated discharge time: Tomorrow I have seen and evaluated the patient today. Discussed with the resident and agree with the residents finding and plan as documented in the resident's note. Changes highlighted in blue font. Objective - Vital Signs Vital signs: Vital Signs Temp 97.6 F 03/15/24 07:15 Pulse 58 L 03/15/24 07:15 Resp 16 03/15/24 07:15 BP 111/65 03/15/24 07:15 Pulse Ox 96 03/15/24 07:15 FiO2 Intake & Output 03/14/24 03/15/24 03/15/24 18:59 06:59 18:59 Intake Total 1542 Output Total 750 650 Balance 792 -650 Weight 54.5 kg Intake: Oral 1542 Output: Urine 750 650 Other: Voiding Method Toilet Toilet Diaper Diaper # Voids 1 2 # Bowel Movements 1 - Labs CBC & Chem 7: 03/14/24 05:25 03/14/24 05:25
[2024-03-15] MEDS: ONDANSETRON 4 MG/2 ML VIAL IVP PRN (15:52)
[2024-03-15] MEDS ORDERED: CALCIUM CARBONATE 500 MG CHEWABLE PO PRN (16:07)
[2024-03-15] MEDS: BISMUTH SUBSALICYLATE 4,192 MG/240 ML BOTTLE PO PRN (16:32)
--- NOTE | 2024-03-15 17:58 | XR ---
EXAMINATION TYPE: XR chest 1V DATE OF EXAM: 03/15/2024 COMPARISON: 03/12/2024 HISTORY: 78 year-old female possible aspiration, shortness of breath TECHNIQUE: Single frontal view of the chest is obtained. FINDINGS: Heart mildly enlarged. Hyperinflation. ACDF hardware. [place] atelectasis left base. No co nsolidation or pleural effusion. IMPRESSION: Cardiomegaly and COPD. Otherwise, no acute process seen. [facility], , 03/15/2024 5:56 PM
--- NOTE | 2024-03-16 14:41 | P.PN ---
Subjective Progress Note Date: 03/16/24 Hospital course: Tona Hernandez 78-year-old female with systolic CHF (unknown EF), GERD, COPD, hy pothyroidism, urinary incontinence, who presents with new onset chest pain. Initial lab work done in the ER showed WBC 5.2, hemoglobin 10.9, platelets 248, D-dimer 1.06, sodium 137, potassium 3.8, bicarb 28, BUN 30, creatinine 0.89, troponin negative, proBNP 628. EKG done in the ER showed heart rate of 66, no ST segment elevation or depression seen, no T-wave inversions seen, Q wave present in V3, V4. Chest x-ray in the ER showed cardiomegaly with no acute findings. Chest CTA showed no acute pulmonary embolism. Pelvis x-ray, lumbar spine x-ray, femur x-ray with findings of severe osteoarthritis. Subjective: Patient seen and examined at bedside. No new complaints. No acute events overnight. Does not complain of any GI symptoms. All Systems reviewed and pertinent positives and negatives noted in HPI, all other symptoms are negative Objective: Vital signs reviewed. General: non toxic, no distress, appears at stated age, normal weight Derm: no unusual rashes/lesions, warm Head: atraumatic, normocephalic, symmetric Eyes: EOMI, no lid lag, anicteric sclera, pupils equal round reactive to light ENT: Nose and ears atraumatic Neck: No cervical lymphadenopathy, trachea midline, supple Mouth: no lip lesion, mucus membranes moist Cardiovascular: S1S2 reg, no murmur, positive dorsalis pedis pulse bilateral, no edema Lungs: Clear to auscultation bilaterally,. no rhonchi, no accessory muscle use Abdominal: soft, nontender to palpation, no guarding Ext: muscle strength 5 out of 5 in all 4 extremities grossly, no gross muscle atrophy, no contractures, Neuro: CN II-XI grossly intact, no gross focal neuro deficits Psych: Alert, oriented, appropriate affect Data reviewed today: Labs: No new labs Images: No new imaging Assessment and Plan: Tona Hernandez 78-year-old female with CHF, GERD, COPD, hypothyroidism, urinary incontinence, who presents with new onset chest pain. #Costochondritis c/w aspirin 81mg qd Cardiac monitoring -ACS ruled out -Pain control with oral Tylenol as needed, oral [place] as needed 5 mg every 6 hour, monitor for sedation # Heart failure preserved ejection fraction, not in exacerbation Continue with Lasix 20 mg p.o. daily Echocardiogram shows LVEF of 55 to 60% Initial weight 40.5 kg repeat on d/c Monitor daily electrolytes potassium replacement protocol cardiac monitoring strict I/O, no more that 2L daily Low sodium diet, <2g daily supplemental O2 as needed #Dysphagia #History of throat cancer Speech therapy consulted for swallowing evaluation, WNL Order barium swallow study with SBFT Pured diet #Right hip osteoarthritis #Right forearm pain, resolved Right forearm x-ray shows remote injuries to the distal radius and ulna with no evidence of acute fracture. Continue [place] as needed PT consult Chronic Medical Conditions: #Hyperlidemia #Hypothyroidism #COPD #GERD #Chronic constipation #Anxiety/Depression Home medications reconciled F: P.o. no greater than 2 L daily E: Replete as needed N: Pured diet E: None DVT ppx: Subq Lovenox Code status: Full code Anticipated discharge place: Subacute rehab Anticipated discharge time: Tomorrow Objective - Vital Signs Vital signs: Vital Signs Temp 98.1 F 03/16/24 13:32 Pulse 70 03/16/24 13:32 Resp 16 03/16/24 13:32 BP 96/67 03/16/24 13:32 Pulse Ox 95 03/16/24 13:32 FiO2 Intake & Output 03/15/24 03/16/24 03/16/24 18:59 06:59 18:59 Intake Total 898 120 118 Output Total 500 200 Balance 398 -80 118 Weight 57 kg Intake: Oral 898 120 118 Output: Urine 500 200 Other: Voiding Method Toilet Toilet Diaper Diaper # Voids 2 - Labs CBC & Chem 7: 03/14/24 05:25 03/14/24 05:25
[2024-03-16] MEDS: MORPHINE SULFATE IR 15 MG TABLET PO SCH (16:53)
[2024-03-17 12:43] VITALS: BP 103/67; PULSE 55; RESP 16; TEMP 98.1
--- NOTE | 2024-03-17 13:56 | P.DS ---
Providers Date of admission: 03/13/24 01:21 Expected date of discharge: 03/17/24 Attending physician: Juan Rosa MD Primary care physician: Stated None Hospital Course: Discharge Diagnosis: #Costochondritis # Heart failure preserved ejection fraction, not in exacerbation #Dysphagia #History of throat cancer #Right hip osteoarthritis #Right forearm pain, resolved #Hyperlidemia #Hypothyroidism #COPD #GERD #Chronic constipation #Anxiety/Depression Hospital Course: Tona Hernandez 78-year-old female with systolic CHF (unknown EF), GERD, COPD, hypothyroidism, urinary incontinence, who presents with new onset chest pain. Initial lab work done in the ER showed WBC 5.2, hemoglobin 10.9, platelets 248, D-dimer 1.06, sodium 137, potassium 3.8, bicarb 28, BUN 30, creatinine 0.89, troponin negative, proBNP 628. EKG done in the ER showed heart rate of 66, no ST segment elevation or depression seen, no T-wave inversions seen, Q wave present in V3, V4. Chest x-ray in the ER showed cardiomegaly with no acute findings. Chest CTA showed no acute pulmonary embolism. Pelvis x-ray, lumbar spine x-ray, femur x-ray with findings of severe osteoarthritis. Echocardiogram showed LVEF estimated at 55 to 60%. Troponin levels never trended and chest pain subsided therefore ACS was ruled out. Barium swallow study was performed to rule out dysphagia and it was negative. Patient is medically optimized to be discharged. Patient to be discharged for subacute rehabilitation for her chronic debility. Discharge instructions: Patient is advised to follow-up with PCP and gastroenterology. Patient is advised to continue with her home medications as directed. Patient is provided with instructions on chronic dysphagia and chest wall pain. Vital signs reviewed. Gen: in no apparent distress, resting comfortably in bed Eyes: PERRL, no scleral injection or icterus HENT: normocephalic, atraumatic, good hearing acuity, moist mucous membranes Neck: full range of motion Resp: CTAB, no rales, rhonchi, or wheezes CVS: normal S1 and S2, no murmurs, rubs or gallops, no edema GI: soft, NTTP, ND, no hepatosplenomegaly : no suprapubic tenderness, no CVAT, green catheter is/not present MSK: no clubbing, no cyanosis, no noted contractures of extremities Skin: no noted rashes, petechiae; temperature of skin is appropriate Neuro: moving all extremities without signs of weakness, CN II-XII intact Psych: cooperative, euthymic mood, insight and judgment intact A total of 33 minutes of time were spent preparing this complex discharge summary. Patient was discharged on 03/17/2024 at 929. I have seen and evaluated the patient today. Discussed with the resident and agree with the residents finding and plan as documented in the resident's note. Changes highlighted in blue font. Patient Condition at Discharge: Stable Plan - Discharge Summary Discharge Rx Participant: Yes New Discharge Prescriptions: New Morphine Sulfate Ir [MSIR] 15 mg PO BID PRN 3 Days #6 tab PRN Reason: Severe Breakthrough Pain Continue Escitalopram [Lexapro] 10 mg PO HS Furosemide [Lasix] 20 mg PO DAILY tab Gabapentin 300 mg PO QID #12 cap Vitamin B Complex 1 cap PO DAILY Levothyroxine Sodium [Synthroid] 88 mcg PO DAILY Fluticasone/Umeclidin/Vilanter [Trelegy Ellipta 200-62.5-25] 1 puff INHAL ATION RT-DAILY Albuterol Sulfate [Albuterol Sulfate Hfa] 2 puff PO RT-QID PRN PRN Reason: Shortness Of Breath polyethylene glycoL 3350 [Miralax] 17 gm PO DAILY PRN PRN Reason: Constipation Propranolol [Inderal] 10 mg PO BID Atorvastatin [Lipitor] 10 mg PO DAILY rOPINIRole HCL [Requip] 0.25 mg PO HS Pantoprazole Sodium [Protonix] 40 mg PO BID #60 tab Discontinued Vitamin D (Unknown Dose) 1 tab PO DAILY Magnesium (Unknown Dose) 1 tab PO DAILY Morphine Sulfate Ir [MSIR] 15 mg PO BID #6 tab Vitamin B-12 (Unknown Dose) 1 tab PO DAILY Discharge Medication List Atorvastatin [Lipitor] 10 mg PO DAILY 10/09/22 [History] Propranolol [Inderal] 10 mg PO BID 10/09/22 [History] Escitalopram [Lexapro] 10 mg PO HS 11/16/22 [History] rOPINIRole HCL [Requip] 0.25 mg PO HS 11/16/22 [History] Pantoprazole Sodium [Protonix] 40 mg PO BID #60 tab 11/17/22 [Rx] Furosemide [Lasix] 20 mg PO DAILY tab 07/16/23 [Rx] Gabapentin 300 mg PO QID #12 cap 07/16/23 [Rx] Vitamin B Complex 1 cap PO DAILY 12/04/23 [History] Albuterol Sulfate [Albuterol Sulfate Hfa] 2 puff PO RT-QID PRN 01/22/24 [History] Fluticasone/Umeclidin/Vilanter [Trelegy Ellipta 200-62.5-25] 1 puff INHALATION RT-DAILY 01/22/24 [History] Levothyroxine Sodium [Synthroid] 88 mcg PO DAILY 01/22/24 [History] polyethylene glycoL 3350 [Miralax] 17 gm PO DAILY PRN 03/13/24 [History] Morphine Sulfate Ir [MSIR] 15 mg PO BID PRN 3 Days #6 tab 03/17/24 [Rx] Follow up Appointment(s)/Referral(s): Marie Arrieta NPC [REFERRING] - 1-2 days Umu Valladares MD [STAFF PHYSICIAN] - 1 Week Patient Instructions/Handouts: Chronic Dysphagia (DC), Chest Wall Pain (ED) Activity/Diet/Wound Care/Special Instructions: Please see your PCP and Gasteroenterologist. Discharge/Stand Alone Forms: Community Resources, Help In The Home, Personal Clinical Trials Data Coordinator Discharge Disposition: TRANSFER TO SNF/ECF
--- NOTE | 2024-03-17 14:28 | FL ---
EXAMINATION TYPE: FL barium swallow w SBFT DATE OF EXAM: 03/17/2024 11:52 AM COMPARISON: 10/31/2023 CLINICAL INDICATION:Female, 78 years old with history of dysphagia; TECHNIQUE: The procedure was explained and patient history elicited. All patient questions were ans wered prior to start of procedure. A residential subcontractor radiograph of the abdomen was also reviewed. Multiple flu oroscopic spot images of the esophagus following ingestion of liquid barium and EZ-gas crystals. Aft er the completion of the upper gastrointestinal examination, a detailed small bowel examination was p erformed. The patient was asked to ingest additional liquid barium and incremental frontal abdominal radiographs were then taken until contrast was visualized in the cecum. Fluoroscopic time: 31 seconds Fluoroscopic images:0 Radiographs taken: 5 DAP: Not reported [id number] FINDINGS: The residential subcontractor abdominal radiograph demonstrates a normal bowel gas pattern without dilated loops of small or large bowel. There is no evidence for organomegaly or pneumoperitoneum. No abnormal calcificati ons. The visualized osseous structures are intact. Fixation hardware in cervical spine appears intact . Right upper quadrant: Discectomy. The esophagus appears unremarkable without evidence of focal stricture, ulceration or abnormal outpou susanna. Tertiary contractions identified. No hiatal hernia was visualized. No evidence of gastroesop hageal reflux. The stomach and duodenum demonstrate a normal course and contour. There is no evidenc e of focal gastric or duodenal ulceration, stricture, or abnormal outpouching. Small bowel mucosal fo lds are felt to be within normal limits. Detailed small bowel examination: Contrast is seen extending from the duodenojejunal junction into the cecum after 1 hour 30 minutes ho urs, which is within the expected time period. The small bowel follows normal distribution and conto ur without any evidence of extraluminal or intraluminal irregularity. There is no displacement of hailey wel loops or extraluminal extravasation of contrast material. IMPRESSION: 1. Esophageal dysmotility 2. Normal detailed small bowel examination. [facility], , 03/17/2024 2:26 PM
== END 2024-03-17 16:55 | DRG 291 ==
LOC: EC 21:48 → 5NMEDONC 03-13 01:21
PROVIDERS: ADMIT Internal Medicine; ATTEND Internal Medicine
DX: I11.0 Hypertensive heart disease with heart failure (principal); I50.43 Acute on chronic combined systolic (congestive) and diastolic (congestive) heart failure; J44.9 Chronic obstructive pulmonary disease, unspecified; K21.9 Gastro-esophageal reflux disease without esophagitis; K59.09 Other constipation; M16.11 Unilateral primary osteoarthritis, right hip; M47.9 Spondylosis, unspecified; M94.0 Chondrocostal junction syndrome [Tietze]; R13.10 Dysphagia, unspecified; R29.6 Repeated falls; R32 Unspecified urinary incontinence; E03.9 Hypothyroidism, unspecified; F32.A Depression, unspecified; F41.9 Anxiety disorder, unspecified; R53.81 Other malaise; G89.29 Other chronic pain; Z79.890 Hormone replacement therapy; Z79.899 Other long term (current) drug therapy; Z85.819 Personal history of malignant neoplasm of unspecified site of lip, oral cavity, and pharynx; Z87.891 Personal history of nicotine dependence; Z91.81 History of falling; Z28.310 Unvaccinated for COVID-19; Z28.21 Immunization not carried out because of patient refusal; Z98.1 Arthrodesis status
CPT/HCPCS: 36415; 71045; 71046; 71275; 72100; 72170; 74220; 80053; 80061; 81003; 83735; 83880; 84443; 84484; 85025; 85379; 85610; 85730; 93005; 93306; 94760; 96374; 96375; 96376; 99285